=== PATIENT | male | born 1950 | race Caucasian/White ===

== ENCOUNTER → 2017-02-03 | Outpatient (CLI) | payer BC ==
[~2017-02-03] MED LIST: CETI10TA84 PO; CYAN10005 PO; ESZO1TAB16 PO; ESZO1TAB21 PO; HYDR0.1S10 PO; KFL/250 PO; LEVO137T3 PO; LIDO2SOL17 TOP
[2017-02-03 11:48] LABS: BASO % 0.3 %; BASO ABS # 0.02 K/uL (0-0.2); COMPLETE YES; EOS % 1.3 %; HEMATOCRIT 42.9 % (42-52); IG% 0.6 %; LYMPH % 24.3 %; LYMPH ABS # 1.64 K/uL (1.2-3.4); MEAN CELL VOLUME 92.1 fL (80-100); MEAN CORPUSCULAR HGB CONC 32.6 g/dl (32-36); MEAN PLATELET VOLUME 9.1 fL (7.4-10.4); MONO % 10.7 %; NEUT % 62.8 %; PLATELET COUNT 226 K/uL (130-400); RED BLOOD COUNT 4.66 M/uL (4.7-6.1); WHITE BLOOD COUNT 6.74 K/uL (4.8-10.8)
[2017-02-03 11:50] LABS: BLOOD UREA NITROGEN 27 mg/dl (7-18); BUN/CREATININE RATIO 26.9 (10-20); CALCIUM 8.8 mg/dl (8.5-10.1); CARBON DIOXIDE 32 mmol/L (21-32); CHLORIDE 106 mmol/L (98-107); GLUCOSE 98 mg/dl (70-99); MAGNESIUM 2.2 mg/dl (1.8-2.4); POTASSIUM 3.5 mmol/L (3.5-5.1); SODIUM 143 mmol/L (136-145)
[2017-02-03 12:00] LABS: THYROID STIMULATING HORMONE 0.932 uIu/ml (0.300-4.500)
--- NOTE | 2017-02-09 09:45 | CODING QUERY MEDICAL NECESSITY ---
SUPPORTING DIAGNOSIS NEEDED Dr. Medel, A supporting diagnosis is required for the test/procedure performed on this patient in order for us to be reimbursed by the patient's insurance. Please provide a supporting diagnosis for the following test/procedure listed below next to the test name along with your signature. *If there is no additional diagnosis for this patient that would support the following test/procedure please document that below next to the test/procedure. Test(s)/Procedure(s) that require a supporting diagnosis: * ([id number]) VITAMIN D ASSAY DIAGNOSIS: * ([id number]) B12 VITAMIN LEVEL DIAGNOSIS: DATE OF SERVICE: 02/03/17 Provider Signature: Date: Thank you [facility] Information Management Once completed, please kindly fax back to [phone] For questions please call [phone]
== END ==
LOC: C.LAB 14:08
PROVIDERS: ATTEND Internal Medicine
DX: R25.2 Cramp and spasm (principal); E53.8 Deficiency of other specified B group vitamins

== ENCOUNTER → 2017-04-01 | Outpatient (CLI) | payer BC ==
[~2017-04-01] MED LIST changes: -CETI10TA84 PO; -ESZO1TAB16 PO
== END | disposition home or self-care (01) ==
LOC: C.LABSPEC 17:08
PROVIDERS: ATTEND Podiatrist Foot & Ankle Surgery
DX: L60.0 Ingrowing nail (principal)

== ENCOUNTER 2017-04-02 07:48 | Emergency (ER) | payer BC ==
[~2017-04-02] VITALS: Ht 175.3 cm; Wt 61.7 kg
[~2017-04-02 07:48] MED LIST changes: -ESZO1TAB21 PO; -KFL/250 PO
[2017-04-02 08:01] VITALS: TEMP 37; Ht 175.3 cm; Wt 61.7 kg
[2017-04-02] MEDS ORDERED: OPTIRAY 320 IV PRN (08:30)
[2017-04-02] MEDS ORDERED: ESZO1TAB21 PO (08:33)
[2017-04-02] MEDS ORDERED: KFL/250 PO (08:33)
[2017-04-02 09:07] LABS: URINE APPEARANCE CLEAR (CLEAR); URINE BILIRUBIN NEG (NEG); URINE COLOR YELLOW; URINE EPITHELIAL CELL AUTO 0-5 /lpf (0-5); URINE NITRITE NEG (NEG); URINE SPECIFIC GRAVITY 1.018 (1.000-1.030); UROBILINOGEN NEG (NEG); ZZUR CULT IF INDIC CLEAN CATCH NO
[2017-04-02 09:08] LABS: MANUAL MICROSCOPIC REQUIRED? NO; REVIEW REQ? NO
[2017-04-02] MEDS ORDERED: NURSING VERBAL MED ORDER ONE (09:15)
[2017-04-02 09:19] LABS: BASO % 0.2 %; BASO ABS # 0.02 K/uL (0-0.2); COMPLETE YES; EOS % 2.5 %; HEMATOCRIT 38.3 % (42-52); IG% 0.4 %; LYMPH % 15.9 %; LYMPH ABS # 1.28 K/uL (1.2-3.4); MEAN CORPUSCULAR HEMOGLOBIN 29.7 pg (25-34); MEAN CORPUSCULAR HGB CONC 32.6 g/dl (32-36); MEAN PLATELET VOLUME 8.9 fL (7.4-10.4); MONO % 12.2 %; NEUT % 68.8 %; PLATELET COUNT 228 K/uL (130-400); RED BLOOD COUNT 4.21 M/uL (4.7-6.1); WHITE BLOOD COUNT 8.04 K/uL (4.8-10.8)
[2017-04-02 09:36] LABS: BUN/CREATININE RATIO 12.4 (10-20); CALCIUM 8.4 mg/dl (8.5-10.1); CREATININE 0.84 mg/dl (0.60-1.40); POTASSIUM 3.4 mmol/L (3.5-5.1)
--- NOTE | 2017-04-02 09:37 | DIAGNOSTIC IMAGING REPORT ---
SOFT TISSUE NECK TECHNIQUE: AP and lateral soft tissue neck FINDINGS: A rather prominent stent has been placed in the hypopharyngeal region extending to the level of the thoracic inlet. Moderate surrounding soft tissue edematous change. No distention of the hypopharynx. Extensive soft tissue surgical clips are present. IMPRESSION: Nonspecific soft tissue edematous change of the mid to lower soft tissue neck in the general location of a mesh stent. No distention of the hypopharynx. The above report was generated using voice recognition software. It may contain grammatical, syntax or spelling errors. Electronically signed by: Raul Osullivan M.D. 04/02/2017 9:36 AM Dictated Date/Time: 04/02/2017 9:31 AM
--- NOTE | 2017-04-02 10:24 | DIAGNOSTIC IMAGING REPORT ---
CT SCAN OF THE NECK WITH IV CONTRAST CLINICAL HISTORY: Neck swelling. History of esophageal stent. COMPARISON STUDY: CT of the neck dated 09/13/2012. Radiographs of the neck dated 04/02/2017. TECHNIQUE: Following the IV administration of 94 cc of Optiray 320, CT scan of the soft tissues of the neck was performed from the skull base to the upper chest. Images are reviewed in the axial, sagittal, and coronal planes. IV contrast was administered without complication. A dose lowering technique was utilized adhering to the principles of ALARA. CT DOSE: 311.49 mGy.cm FINDINGS: Soft tissues: There are postoperative changes from extensive neck dissection. Numerous surgical clips are identified, and there is diffuse soft tissue thickening throughout the left neck with dermal thickening. This is likely related to radiation change. No obvious mass lesion is identified in the neck. There is marked distortion of the pharyngeal soft tissues. The parapharyngeal fat as well as the retropharyngeal soft tissues are within normal limits. A presumed tracheostomy defect is noted. There is soft tissue induration and thickening around the stoma. A stent is present in the cervical esophagus. This extends from the level of C5 through T1. There is a debris present within the stent, greatest proximally. No organized fluid collection is seen to suggest abscess. Lymphadenopathy: No cervical lymphadenopathy is seen Thyroid: Not identified and presumed surgically absent. Salivary glands: The parotid and submandibular glands are within normal limits. Brain parenchyma: The visualized brain parenchyma at the skull base is normal in appearance. Vascular structures: There is a bovine variant aortic arch. The carotid arteries and jugular veins are patent bilaterally. Skeletal structures: The Skeletal structures are osteopenic. Imaged portions of the calvarium at the skull base appear intact. There is moderate to advanced multilevel cervical spondylosis. No lytic or blastic lesions are seen. Sinuses and mastoids: The visualized paranasal sinuses are clear. The mastoid air cells are well pneumatized. Orbits: The bony orbits are intact as imaged. There is a right ocular lens implant. Upper chest: Emphysematous change is observed. The upper lobe lung parenchyma appears clear noting apical scarring. There are pathologically enlarged lymph nodes in the superior mediastinum. The largest is in the left paratracheal region seen on image #3 and 46 and measures 1.2 cm in short axis. An infusion port catheter is noted on the left. IMPRESSION: 1. There is a stent present in the cervical esophagus seen at the levels of C5 through T1. There is debris present within the proximal aspect of the stent. No prior studies are available for comparison purposes, and follow-up with the patient's physician will be required to assess for adequacy of positioning and the stents expected location. 2. There are extensive postoperative changes from radical neck dissection. There is diffuse soft tissue thickening and induration, greatest in the left neck and around a tracheostomy stoma. These findings are nonspecific and may be treatment related. A superimposed cellulitis would be impossible to exclude. No obvious mass lesion is seen in the neck. Clinical correlation will be required. 3. There is no cervical lymphadenopathy. 4. There are pathologically enlarged lymph nodes is seen in the superior mediastinum. 5. Emphysema. Electronically signed by: Qasim Lee M.D. 04/02/2017 10:22 AM Dictated Date/Time: 04/02/2017 10:10 AM
[2017-04-02] MEDS ORDERED: PIPERACILLIN/TAZOBACTAM 4.5 GM/100ML D5W IV STA (10:27)
[2017-04-02 11:34] VITALS: BP 129/72; PULSE 76; O2SAT 96
--- NOTE | 2017-04-02 15:02 | EMERGENCY ROOM VISIT NOTE ---
History Report prepared by Vishal: Namita Boyd Under the Supervision of: Dr. Moris Julio D.O. First contact with patient: 08:02 Chief Complaint: THROAT PAIN/INJURY Stated Complaint: STENT IN THROAT STARTING TO COVER STOMA History of Present Illness The patient is a 67 year old male who presents to the Emergency Room with complaints of worsening throat edema that started last night. The patient has a stoma on his anterior neck which his states is much more edematous than usual. The patient does not follow with anyone for his stoma. The patient states that he has been unable to breathe secondary to throat edema causing his stoma to close. His adds that he experienced some bleeding from the stoma this morning. 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 He is unsure of what type of cancer he had but he has been cancer free since 2011. The patient's states that the patient had an esophageal stent placed in mid February by Dr. Todd ELY at [facility]. The patient goes to [facility] regularly to have his esophagus dilated so he does not have to have a feeding tube placed. Dr. Brooks tried placing a stent to avoid dilating the patient again until April 21. The patient has not experienced any issues with his 2 previous esophageal stents. The patient thinks that the stent is causing him to have difficulty breathing through his stoma because with previous stents the prosthesis was pushed down but currently it is pushed up. The patient's talked to Dr. Velma ELY this morning around 0630 and he recommended coming into the ED for further evaluation. Source of History: patient, spouse/significant other () Onset: last night Position: throat Quality: other (edema) Timing: worsening Note: difficulty breathing Review of Systems See HPI for pertinent positives & negatives. A total of 10 systems reviewed and were otherwise negative. Past Medical & Surgical Medical Problems: (1) Dysphagia (2) Head and neck cancer (3) HTN (hypertension) (4) MALIGNANT JEFERSON LARYNX NOS (5) Shortness of breath (6) Vocal cord disease Family History Cancer Diabetes mellitus Heart disease Hypertension Social History Smoking Status: Former Smoker Alcohol Use: none Marital Status: Housing Status: lives with family Occupation Status: unemployed Current/Historical Medications Scheduled Cephalexin Monohydrate (Keflex), 250 MG PO QID Cyanocobalamin (Vitamin B-12), 1,000 MCG PO QAM Levothyroxine Sodium (Levothyroxine Sodium), 1 TAB PO QAM Scheduled PRN Eszopiclone (Eszopiclone), 3 MG PO HS PRN for Insomnia Allergies Coded Allergies: BEE STING (Verified Allergy, Severe, shock, 06/09/16) Moxifloxacin (Verified Allergy, Severe, THROAT SWELLED, 06/09/16) Physical Exam Vital Signs Date Time Temp Pulse Resp B/P (MAP) Pulse Ox O2 Delivery O2 Flow Rate FiO2 04/02/17 11:34 76 20 129/72 96 Room Air 04/02/17 10:43 91 18 139/85 98 Room Air 04/02/17 09:14 90 18 145/96 97 Room Air 04/02/17 08:01 37.0 89 22 143/91 97 Room Air 04/02/17 07:55 97 Room Air Physical Exam GENERAL: alert, sitting up in bed, disheveled, chronically ill appearing, well nourished, no acute distress, non-toxic EYE EXAM: normal conjunctiva OROPHARYNX: no exudate, no erythema, lips, buccal mucosa, and tongue normal and mucous membranes are moist NECK: Large fluctuant mass on right anterior midneck encompassing 8-9 cm with 1 cm by 1 cm stoma located just adjacent to the mass on the left, no surrounding erythema or induration, patient is talking in a soft voice that is difficult to understand, no nuchal rigidity, no adenopathy, non-tender LUNGS: Clear to auscultation. Normal chest wall mechanics HEART: no murmurs, S1 normal and S2 normal ABDOMEN: abdomen soft, non-tender, normo-active bowel sounds, no masses, no rebound or guarding. BACK: Back is symmetrical on inspection and there is no deformity, no midline tenderness, no CVA tenderness. SKIN: no rashes and no bruising UPPER EXTREMITIES: upper extremities are grossly normal. LOWER EXTREMITIES: No pitting edema. NEURO EXAM: Normal sensorium, cranial nerves II-XII grossly intact, speech soft through stoma, no gross weakness of arms, no gross weakness of legs. Medical Decision & Procedures ER Provider Diagnostic Interpretation: Radiology results as stated below per my review and the radiologist's interpretation: SOFT TISSUE NECK FINDINGS: A rather prominent stent has been placed in the hypopharyngeal region extending to the level of the thoracic inlet. Moderate surrounding soft tissue edematous change. No distention of the hypopharynx. Extensive soft tissue surgical clips are present. IMPRESSION: Nonspecific soft tissue edematous change of the mid to lower soft tissue neck in the general location of a mesh stent. No distention of the hypopharynx. The above report was generated using voice recognition software. It may contain grammatical, syntax or spelling errors. Electronically signed by: Raul Osullivan M.D. 04/02/2017 9:36 AM Dictated Date/Time: 04/02/2017 9:[address] SCAN OF THE NECK WITH IV CONTRAST FINDINGS: Soft tissues: There are postoperative changes from extensive neck dissection. Numerous surgical clips are identified, and there is diffuse soft tissue thickening throughout the left neck with dermal thickening. This is likely related to radiation change. No obvious mass lesion is identified in the neck. There is marked distortion of the pharyngeal soft tissues. The parapharyngeal fat as well as the retropharyngeal soft tissues are within normal limits. A presumed tracheostomy defect is noted. There is soft tissue induration and thickening around the stoma. A stent is present in the cervical esophagus. This extends from the level of C5 through T1. There is a debris present within the stent, greatest proximally. No organized fluid collection is seen to suggest abscess. Lymphadenopathy: No cervical lymphadenopathy is seen Thyroid: Not identified and presumed surgically absent. Salivary glands: The parotid and submandibular glands are within normal limits. Brain parenchyma: The visualized brain parenchyma at the skull base is normal in appearance. Vascular structures: There is a bovine variant aortic arch. The carotid arteries and jugular veins are patent bilaterally. Skeletal structures: The Skeletal structures are osteopenic. Imaged portions of the calvarium at the skull base appear intact. There is moderate to advanced multilevel cervical spondylosis. No lytic or blastic lesions are seen. Sinuses and mastoids: The visualized paranasal sinuses are clear. The mastoid air cells are well pneumatized. Orbits: The bony orbits are intact as imaged. There is a right ocular lens implant. Upper chest: Emphysematous change is observed. The upper lobe lung parenchyma appears clear noting apical scarring. There are pathologically enlarged lymph nodes in the superior mediastinum. The largest is in the left paratracheal region seen on image #3 and 46 and measures 1.2 cm in short axis. An infusion port catheter is noted on the left. IMPRESSION: 1. There is a stent present in the cervical esophagus seen at the levels of C5 through T1. There is debris present within the proximal aspect of the stent. No prior studies are available for comparison purposes, and follow-up with the patient's physician will be required to assess for adequacy of positioning and the stents expected location. 2. There are extensive postoperative changes from radical neck dissection. There is diffuse soft tissue thickening and induration, greatest in the left neck and around a tracheostomy stoma. These findings are nonspecific and may be treatment related. A superimposed cellulitis would be impossible to exclude. No obvious mass lesion is seen in the neck. Clinical correlation will be required. 3. There is no cervical lymphadenopathy. 4. There are pathologically enlarged lymph nodes is seen in the superior mediastinum. 5. Emphysema. Electronically signed by: Qasim Lee M.D. 04/02/2017 10:22 AM Dictated Date/Time: 04/02/2017 10:10 AM Laboratory Results 04/02/17 09:00 Red Blood Count 4.21, Mean Corpuscular Volume 91.0, Mean Corpuscular Hemoglobin 29.7, Mean Corpuscular Hemoglobin Concent 32.6, Mean Platelet Volume 8.9, Neutrophils (%) (Auto) 68.8, Lymphocytes (%) (Auto) 15.9, Monocytes (%) (Auto) 12.2, Eosinophils (%) (Auto) 2.5, Basophils (%) (Auto) 0.2, Neutrophils # (Auto ) 5.53, Lymphocytes # (Auto) 1.28, Monocytes # (Auto) 0.98, Eosinophils # (Auto ) 0.20, Basophils # (Auto) 0.02 04/02/17 09:00 Test 04/02/17 09:00 White Blood Count 8.04 K/uL (4.8-10.8) Red Blood Count 4.21 M/uL (4.7-6.1) Hemoglobin 12.5 g/dL (14.0-18.0) Hematocrit 38.3 % (42-52) Mean Corpuscular Volume 91.0 fL (80-100) Mean Corpuscular Hemoglobin 29.7 pg (25-34) Mean Corpuscular Hemoglobin Concent 32.6 g/dl (32-36) Platelet Count 228 K/uL (130-400) Mean Platelet Volume 8.9 fL (7.4-10.4) Neutrophils (%) (Auto) 68.8 % Lymphocytes (%) (Auto) 15.9 % Monocytes (%) (Auto) 12.2 % Eosinophils (%) (Auto) 2.5 % Basophils (%) (Auto) 0.2 % Neutrophils # (Auto) 5.53 K/uL (1.4-6.5) Lymphocytes # (Auto) 1.28 K/uL (1.2-3.4) Monocytes # (Auto) 0.98 K/uL (0.11-0.59) Eosinophils # (Auto) 0.20 K/uL (0-0.5) Basophils # (Auto) 0.02 K/uL (0-0.2) RDW Standard Deviation 52.7 fL (36.4-46.3) RDW Coefficient of Variation 15.7 % (11.5-14.5) Immature Granulocyte % (Auto) 0.4 % Immature Granulocyte # (Auto) 0.03 K/uL (0.00-0.02) Urine Color YELLOW Urine Appearance CLEAR (CLEAR) Urine pH 5.0 (4.5-7.5) Urine Specific [place] 1.018 (1.000-1.030) Urine Protein NEG (NEG) Urine Glucose (UA) NEG (NEG) Urine Ketones TRACE (NEG) Urine Occult Blood NEG (NEG) Urine Nitrite NEG (NEG) Urine Bilirubin NEG (NEG) Urine Urobilinogen NEG (NEG) Urine Leukocyte Esterase NEG (NEG) Urine WBC (Auto) 0 /hpf (0-5) Urine RBC (Auto) 0-4 /hpf (0-4) Urine Hyaline Casts (Auto) 0 /lpf (0-5) Urine Epithelial Cells (Auto) 0-5 /lpf (0-5) Urine Bacteria (Auto) NEG (NEG) Anion Gap 5.0 mmol/L (3-11) Est Creatinine Clear Calc Drug Dose 73.5 ml/min Estimated GFR () 104.3 Estimated GFR (Non- 90.0 BUN/Creatinine Ratio 12.4 (10-20) Calcium Level 8.4 mg/dl (8.5-10.1) Total Bilirubin 0.4 mg/dl (0.2-1) Direct Bilirubin 0.1 mg/dl (0-0.2) Aspartate Amino Transf (AST/SGOT) 13 U/L (15-37) Alanine Aminotransferase (ALT/SGPT) 14 U/L (12-78) Alkaline Phosphatase 81 U/L (45-117) Total Protein 6.8 gm/dl (6.4-8.2) Albumin 3.0 gm/dl (3.4-5.0) Lipase 64 U/L (73-393) Laboratory results per my review. Medications Administered Medications (Trade) Dose Ordered Sig/George Route Start Time Stop Time Status Last Admin Dose Admin Miscellaneous Information (Nursing Verbal Med Order) 1 ea ONE ONCE N/A 04/02/17 09:15 04/02/17 09:16 DC 04/02/17 09:15 1 EA Heparin Sodium (Porcine) (Heparin 100 Unit/ml 5ml Flush) 5 ml PRN PRN IV 04/02/17 09:30 04/02/17 13:07 DC 04/02/17 10:11 5 ML Piperacillin Sod/ Tazobactam Sod (Zosyn Iv) 4.5 gm NOW STAT IV 04/02/17 10:27 04/02/17 10:28 DC 04/02/17 10:42 4.5 GM ED Course ED COURSE: Vital signs were reviewed and showed normal. The patients medical record was reviewed The above diagnostic studies were performed and reviewed. ED treatments and interventions as stated above. 0807: The patient was evaluated in room A2. A complete history and physical examination was performed. 0826: I reviewed the patient's case with Dr. Velma ELY. He recommends admitting the patient to medicine and he will evaluate the patient as an inpatient. He suspects that the stent will need to be removed. 0845: I reassessed and updated the patient. 0930: Ordered Heparin Sodium 5 ml IV 1022: I reviewed the patient's CT scan results with Dr. Velma ELY. He recommends transferring the patient secondary to the complexity of the patient' s case. 1027: Ordered Zosyn 4.5 gm IV 1037: I reassessed the patient. I also updated the patient and his on my conversation with Dr. Carreon. 1044: I reviewed the patient's CT scan results with Dr. Lauro DONALD. He does not see anything on the CT scan that is emergent. He agrees with transferring the patient. 1053: Upon reevaluation, the patient is resting comfortably. I discussed my findings with the patient and he understands and agrees with the treatment plan. Based on the patients age, coexisting illnesses, exam and lab findings the decision to treat as an inpatient was made. The patient remained stable while under my care. The patient will be transferred for further management. 1101: I reviewed the patient's case with the GI attending, Internal Medicine attending, and Dr. Drew - Emergency Medicine at [facility]. Dr. Drew accepts the patient as a transfer. The patient will be transferred to [facility] via ambulance for further management. 1151: I reassessed the patient. He is leaving to be transferred to [facility]. Medical Decision Differential diagnoses includes but is not limited to retropharyngeal abscess, peritonsillar abscess, migration of stent, neck abscess, Yeyo's angina, food bolus. Patient is a 59-year-old male who presents the ER with a history of laryngeal cancer status post resection who follows a GI at [facility] and has a stent in his esophagus to help him swallow. He presents tonight because he is having increased trouble swallowing along with shortness of breath. He notes the shortness of breath is from the swelling in his neck which is closing off his stoma. Discussed with GI who discussed the case with [facility]. I reviewed the case with my ENT following GI recommending transfer. I updated family and patient at bedside. I talked with [facility], internal medicine and ER. Patient was accepted to the ER. Labs were unremarkable. CT neck supports occlusion of the stent which I question if secondary to mass/cancer versus food. Patient was transferred to [facility] via ALS to the ER for possible migration of esophageal stent, shortness of breath/encroachment upon stoma and edema within the neck which was treated with Zosyn for possible infectious etiology. Medication Reconcilliation Current Medication List: was personally reviewed by me Blood Pressure Screening Patient's blood pressure: Normal blood pressure Consults Time Called: 08 Consulting Physician: Dr. Velma ELY Returned Call: 08 I reviewed the patient's case with Dr. Velma ELY. He recommends admitting the patient to medicine and he will evaluate the patient as an inpatient. He suspects that the stent will need to be removed. Additional Consults: Time Called: 1021 Consulted Physician: Dr. Lauro DONALD Returned Call: 1044 Additional Comments: I reviewed the patient's CT scan results with Dr. Lauro DONALD. He does not see anything on the CT scan that is emergent. He agrees with transferring the patient. Time Called: 1050 Consulted Physician: Dr. Drew - Emergency Medicine [facility] Returned Call: 1101 Additional Comments: I reviewed the patient's case with the GI attending, Internal Medicine attending , and Dr. Drew - Emergency Medicine at [facility]. Dr. Drew accepts the patient as a transfer. The patient will be transferred to [facility] via ambulance for further management. Impression Primary Impression: Neck mass Additional Impressions: Migration of esophageal stent Shortness of breath Scribe Attestation The scribe's documentation has been prepared under my direction and personally reviewed by me in its entirety. I confirm that the note above accurately reflects all work, treatment, procedures, and medical decision making performed by me. Departure Information Dispostion Transfer Acute Care Facility ([facility]) Referrals [facility] (PCP) Patient Instructions My [facility] Problem Qualifiers Additional Impressions: Migration of esophageal stent Encounter type: initial encounter Qualified Codes: T85.528A - Displacement of other gastrointestinal prosthetic devices, implants and grafts, initial encounter
== END 2017-04-02 11:51 | disposition short-term general hospital (02) ==
LOC: C.EDB 07:49 → C.EDA 11:51
DX: R22.1 Localized swelling, mass and lump, neck (principal); T85.528A Displacement of other gastrointestinal prosthetic devices, implants and grafts, initial encounter; R06.02 Shortness of breath; Y84.8 Other medical procedures as the cause of abnormal reaction of the patient, or of later complication, without mention of misadventure at the time of the procedure; Z85.21 Personal history of malignant neoplasm of larynx; Z87.891 Personal history of nicotine dependence; Z90.02 Acquired absence of larynx; I10 Essential (primary) hypertension; R13.10 Dysphagia, unspecified; Z83.3 Family history of diabetes mellitus; Z82.49 Family history of ischemic heart disease and other diseases of the circulatory system

== ENCOUNTER → 2017-07-24 | Day surgery (SDC) | payer BC ==
[~2017-07-24] VITALS: Ht 175.3 cm; Wt 61.4 kg
[~2017-07-24] MED LIST changes: +ATROPINE SULFATE 0.1 MG/ML 5ML SYR IV PRN; +CETI10TA84 PO; +ESZO1TAB16 PO; +EpHEDrine SULFATE INJ 50 MG/ML AMP IV PRN; -HYDR0.1S10 PO; -LIDO2SOL17 TOP; +LIDOCAINE HCL 2% 2 ML VIAL (20MG/ML) ONE; +MIDAZOLAM HCL 1 MG/ML 2ML VIAL ONE; +ONDANSETRON INJ 2 MG/ML 2 ML VIAL ONE; +PROPOFOL IV EMULSION 10 MG/ML 20 ML VIAL IV ONE; +SODIUM CHLORIDE 0.9% 500ML 500 ML IV ONE
[2017-07-24 12:16] VITALS: Ht 175.3 cm; Wt 61.4 kg
--- NOTE | 2017-07-24 12:37 | Endo History and Physical ---
History & Physical Date of Service: Jul 24, 2017. Chief Complaint: DYSPHAGIA Referring Physician: DR Roland BIGGS History of Present Illness dysphagia Past Medical History Eating Disorders, Arthritis, Reflux, Cancer, Syncopal Episodes, Hypertension, Thyroid Disease, Kidney Disease, Liver Disease Past Surgical History Hx Cardiac Surgery: No Hx Internal Defibrillator: No Hx Pacemaker: No Hx Abdominal Surgery: Yes (INGUINAL HERNIA REPAIR) Hx of Implantable Prosthesis: No Hx Post-Op Nausea and Vomiting: No Hx Cancer Surgery: Yes (LARYNGOTOMY, MULTIPLE SURGERIES AND RECON FOR LARYNX CANCER) Hx Thoracic Surgery: Yes (RT MADELIN, LT/RT SHOULDER ARTHROSCOPY, LT/RT HAND SURGERY, LT KNEE SURGERY) Hx Orthopedic: No Hx Urinary Tract Surgery: No Family History None Social History Smoking Status: Former Smoker Hx Substance Use: No Hx Alcohol Use: Yes (OCCASIONAL) Allergies Coded Allergies: BEE STING (Verified Allergy, Severe, shock, 07/24/17) Moxifloxacin (Verified Allergy, Severe, THROAT SWELLED, 07/24/17) Current Medications Reported Home Medications Medications Dose Route/Sig Max Daily Dose Days Date Category Zyrtec (Cetirizine HCl) 10 Mg Tab 10 Mg PO DAILY PRN 07/14/17 Reported Lunesta (Eszopiclone) 3 Mg Tab 3 Mg PO HS PRN 07/14/17 Reported Levothyroxine Sodium 137 Mcg Tab 1 Tab PO QAM 10/01/15 Reported Vitamin B-12 (Cyanocobalamin) 1,000 Mcg Tab 1,000 Mcg PO QAM 01/29/13 Reported Vital Signs Weight (Kilograms): 61.36 Height (Feet): 5 Height (Inches): 9 Date Time Temp Pulse Resp B/P (MAP) Pulse Ox O2 Delivery O2 Flow Rate FiO2 07/24/17 12:21 36.5 82 20 181/95 (123) 96 Room Air Physical Exam General Appearance: WD/WN, no apparent distress Respiratory/Chest: Auscultation: breath sounds normal Cardiovascular: Heart Auscultation: RRR Abdomen: Bowel Sounds: normal Inspection & Palpation: soft, non-distended, no tenderness, guarding & rebound Assessment and Plan EGD/dilation with Savary griselda
--- NOTE | 2017-07-24 13:55 | Discharge Instructions ---
Endoscopy Patient Instructions Date / Procedure(s) Performed Jul 24, 2017. EGD Allergy Information Coded Allergies: BEE STING (Verified Allergy, Severe, shock, 07/24/17) Moxifloxacin (Verified Allergy, Severe, THROAT SWELLED, 07/24/17) Discharge Date / Findings Jul 24, 2017. stricture dilated to 45 Fr Savary Medication Instructions Restart Stopped Medication(s): Reported Home Medications Medications Dose Route/Sig Max Daily Dose Days Date Category Zyrtec (Cetirizine HCl) 10 Mg Tab 10 Mg PO DAILY PRN 07/14/17 Reported Lunesta (Eszopiclone) 3 Mg Tab 3 Mg PO HS PRN 07/14/17 Reported Levothyroxine Sodium 137 Mcg Tab 1 Tab PO QAM 10/01/15 Reported Vitamin B-12 (Cyanocobalamin) 1,000 Mcg Tab 1,000 Mcg PO QAM 01/29/13 Reported Pt had larger wood tick removed by spouse a few days ago on rt post thorax. Area with ~ 1/4" eschar. surrounding erythema ; non tender, no fevers. pt w/o allergies. Will plan for Augmentin 500/125 q 8 hours x 10 days for possible cellulitis - finish meds If alexander not appear better over next couple days, pt to see PCP/dermatology. Reported Home Medications Medications Dose Route/Sig Max Daily Dose Days Date Category Zyrtec (Cetirizine HCl) 10 Mg Tab 10 Mg PO DAILY PRN 07/14/17 Reported Lunesta (Eszopiclone) 3 Mg Tab 3 Mg PO HS PRN 07/14/17 Reported Levothyroxine Sodium 137 Mcg Tab 1 Tab PO QAM 10/01/15 Reported Vitamin B-12 (Cyanocobalamin) 1,000 Mcg Tab 1,000 Mcg PO QAM 01/29/13 Reported Pt had larger wood tick removed by spouse a few days ago on rt post thorax. Area with ~ 1/4" eschar. surrounding erythema ; non tender, no fevers. pt w/o allergies. Will plan for Augmentin 500/125 q 8 hours x 10 days for possible cellulitis - finish meds If alexander not appear better over next couple days, pt to see PCP/dermatology. Provider Instructions Activity Restrictions - No exercising or heavy lifting for 24 hours. - Do not drink alcohol the day of the procedure. - Do not drive a car or operate machinery until the day after the procedure. - Do not make any important decisions or sign important papers in 24 hours after the procedure. Following Day: - Return to full activity which may include returning to work/school. Diet Start your diet with liquids and light foods (jello, soup, juice, toast). Then eat your usual diet if not nauseated. Treatment For Common After Affects For mild abdominal pain, bloating, or excessive gas: - Rest - Eat lightly - Lie on right side Follow-Up Information Follow-up with DR Roland BIGGS as scheduled Anesthesia Information What You Should Know You have had a procedure that required some medicine to reduce anxiety and discomfort. This treatment is called moderate sedation. After receiving the treatment, you may be sleepy, but you will be able to breathe on your own. The effects of the treatment may last for several hours. Follow these instructions along with Activity/Diet recommendations noted above: * Do NOT do anything where dizziness or clumsiness would be dangerous. * Rest quietly at home today, then you can be up and about tomorrow. * Have a responsible person stay with you the rest of today. * You may have had an I.V. today. If so, you may take the dressing off later today. Recommendations Call your doctor if: * Trouble breathing * Continuous vomiting for more than 24 hours * Temperature above 101 degrees * Severe abdominal pain or bloating * Pain not relieved by pain medicine ordered * There is increased drainage or redness from any incision * A large amount of rectal bleeding greater than 2-3 tablespoons. (If you had a polyp/s removed or have hemorrhoids, a small amount of blood - from the rectum is to be expected.) * You have any unanswered questions or concerns. IN THE EVENT OF A SERIOUS EMERGENCY, GO TO THE NEAREST EMERGENCY ROOM Your discharge instructions were prepared by provider Lavelle Carreon. Patient Instructions Signature Page Wilbert Peralta Patient (or Guardian) Signature/Date: I have read and understand the instructions given to me by my caregivers. Caregiver/RN/Doctor Signature/Date: The above-named patient and/or guardian has received patient instructions on this date. + Original Patient Signature Page (only) stays with chart. Please make copy for patient.
--- NOTE | 2017-07-24 14:06 | GI REPORT ---
Procedure Date: 07/24/2017 12:46 PM Procedure: Upper GI endoscopy Indications: Esophageal dysphagia Medicines: Propofol per Anesthesia Complications: No immediate complications. Estimated blood loss: Minimal. Estimated Blood Loss: Estimated blood loss was minimal. Procedure: Pre-Anesthesia Assessment: - Prior to the procedure, a History and Physical was performed, and patient medications and allergies were reviewed. The patient's tolerance of previous anesthesia was also reviewed. The risks and benefits of the procedure and the sedation options and risks were discussed with the patient. All questions were answered, and informed consent was obtained. Prior Anticoagulants: The patient has taken no previous anticoagulant or antiplatelet agents. ASA Grade Assessment: III - A patient with severe systemic disease. After reviewing the risks and benefits, the patient was deemed in satisfactory condition to undergo the procedure. After obtaining informed consent, the endoscope was passed under direct vision. Throughout the procedure, the patient's blood pressure, pulse, and oxygen saturations were monitored continuously. The scope was introduced through the mouth, and advanced to the second part of duodenum. The Endoscope was introduced through the mouth, and advanced to the second part of duodenum. The On-site loaner was introduced through the mouth, and advanced to the second part of duodenum. The upper GI endoscopy was performed with moderate difficulty due to abnormal anatomy. The patient tolerated the procedure well. Findings: One severe benign-appearing, intrinsic stenosis was found 15 cm from the incisors. This measured 6 mm (inner diameter) x 1 cm (in length) and was traversed after dilation. A guidewire was placed and the scope was withdrawn. Dilation was performed with a Savary dilator with mild resistance at 33 Fr and 36 Fr, moderate resistance at 39 Fr and 42 Fr and severe resistance at 45 Fr. Estimated blood loss was minimal. One mild benign-appearing, intrinsic stenosis was found 20 cm from the incisors. This measured 1.2 cm (inner diameter) x less than one cm (in length) and was traversed. The Z-line was regular and was found 40 cm from the incisors. The entire examined stomach was normal. The examined duodenum was normal. The cardia and gastric fundus were normal on retroflexion. Valved tube for voice at ~ 17 cm were found in the upper third of the esophagus. Impression: - Benign-appearing esophageal stenosis. Dilated. - Benign-appearing esophageal stenosis. - Z-line regular, 40 cm from the incisors. - Normal stomach. - Normal examined duodenum. - Valved tube for voice at ~ 17 cm were found in the esophagus. - No specimens collected. Recommendation: - Discharge patient to home (ambulatory). - Advance diet as tolerated and mechanical soft diet. - Continue present medications. - Repeat the upper endoscopy in 2 weeks for retreatment. - Return to referring physician as previously scheduled. - Pt had larger wood tick removed by spouse a few days ago on rt post thorax. Area with ~ 1/4" eschar. surrounding erythema ; non tender, no fevers. pt w/o allergies. Will plan for Augmentin 500/125 q 8 hours x 10 days for possible cellulitis - finish meds If alexander not appear better over next couple days, pt to see PCP/dermatology. MD Lavelle Rouse MD 07/24/2017 2:06:01 PM This report has been signed electronically. Note Initiated On: 07/24/2017 12:46 PM I attest to the content of the Intraoperative Record and orders documented therein, exceptions below
--- NOTE | 2017-07-24 14:11 | Anesthesiology Progress Note ---
Anesthesia Post Op Note Date & Time Jul 24, 2017 at 14:11 Vital Signs Pain Intensity: 0 Vital Signs Past 12 Hours Date Time Temp Pulse Resp B/P (MAP) Pulse Ox O2 Delivery O2 Flow Rate FiO2 07/24/17 12:21 36.5 82 20 181/95 (123) 96 Room Air Notes Mental Status: alert / awake / arousable, participated in evaluation Pt Amnestic to Procedure: Yes Nausea / Vomiting: adequately controlled Pain: adequately controlled Airway Patency, RR, SpO2: stable & adequate BP & HR: stable & adequate Hydration State: stable & adequate Anesthetic Complications: no major complications apparent
[2017-07-24 14:30] VITALS: BP 141/93; PULSE 65; O2SAT 100
== END | disposition home or self-care (01) ==
LOC: C.GI 11:52
PROVIDERS: ATTEND Internal Medicine Gastroenterology
DX: K22.2 Esophageal obstruction (principal); K21.9 Gastro-esophageal reflux disease without esophagitis; I10 Essential (primary) hypertension; E07.9 Disorder of thyroid, unspecified; F50.9 Eating disorder, unspecified; N28.9 Disorder of kidney and ureter, unspecified; K76.9 Liver disease, unspecified; M19.90 Unspecified osteoarthritis, unspecified site; Z87.891 Personal history of nicotine dependence; Z79.899 Other long term (current) drug therapy

== ENCOUNTER → 2017-08-06 | Day surgery (SDC) | payer BC ==
[~2017-08-06] VITALS: Ht 175.3 cm; Wt 61.4 kg
[~2017-08-06] MED LIST changes: -ATROPINE SULFATE 0.1 MG/ML 5ML SYR IV PRN; +ERYTHROMYCIN OP OINT 5 MG/GM 3.5 GM TUBE OP SCH; -EpHEDrine SULFATE INJ 50 MG/ML AMP IV PRN; -ONDANSETRON INJ 2 MG/ML 2 ML VIAL ONE
[2017-08-06 13:55] VITALS: Ht 175.3 cm; Wt 61.4 kg
--- NOTE | 2017-08-06 14:16 | Endo History and Physical ---
History & Physical Date of Service: Aug 06, 2017. Chief Complaint: dysphagia Referring Physician: Dr. Sean Day History of Present Illness dysphagia Past Medical History Eating Disorders, Arthritis, Reflux, Cancer, Syncopal Episodes, Hypertension, Thyroid Disease, Kidney Disease, Liver Disease Past Surgical History Hx Cardiac Surgery: No Hx Internal Defibrillator: No Hx Pacemaker: No Hx Abdominal Surgery: Yes (INGUINAL HERNIA REPAIR) Hx of Implantable Prosthesis: No Hx Post-Op Nausea and Vomiting: No Hx Cancer Surgery: Yes (LARYNGOTOMY, MULTIPLE SURGERIES AND RECON FOR LARYNX CANCER) Hx Thoracic Surgery: Yes (RT MADELIN, LT/RT SHOULDER ARTHROSCOPY, LT/RT HAND SURGERY, LT KNEE SURGERY) Hx Orthopedic: No Hx Urinary Tract Surgery: No Family History None Social History Smoking Status: Former Smoker Hx Substance Use: No Hx Alcohol Use: Yes (OCCASIONAL) Allergies Coded Allergies: BEE STING (Verified Allergy, Severe, shock, 08/06/17) Moxifloxacin (Verified Allergy, Severe, THROAT SWELLED, 08/06/17) Current Medications Reported Home Medications Medications Dose Route/Sig Max Daily Dose Days Date Category Zyrtec (Cetirizine HCl) 10 Mg Tab 10 Mg PO DAILY PRN 07/14/17 Reported Lunesta (Eszopiclone) 3 Mg Tab 3 Mg PO HS PRN 07/14/17 Reported Levothyroxine Sodium 137 Mcg Tab 1 Tab PO QAM 10/01/15 Reported Vitamin B-12 (Cyanocobalamin) 1,000 Mcg Tab 1,000 Mcg PO QAM 01/29/13 Reported Vital Signs Weight (Kilograms): 61.36 Height (Feet): 5 Height (Inches): 9 Physical Exam General Appearance: WD/WN, no apparent distress Respiratory/Chest: Auscultation: breath sounds normal Cardiovascular: Heart Auscultation: RRR Abdomen: Bowel Sounds: normal Inspection & Palpation: soft, non-distended, no tenderness, guarding & rebound Assessment and Plan EGD/dilation
--- NOTE | 2017-08-06 15:26 | Discharge Instructions ---
Endoscopy Patient Instructions Date / Procedure(s) Performed Aug 06, 2017. EGD Allergy Information Coded Allergies: BEE STING (Verified Allergy, Severe, shock, 08/06/17) Moxifloxacin (Verified Allergy, Severe, THROAT SWELLED, 08/06/17) Discharge Date / Findings Aug 06, 2017. eso stricture with dilation to 42 Fr Medication Instructions Restart Stopped Medication(s): Reported Home Medications Medications Dose Route/Sig Max Daily Dose Days Date Category Zyrtec (Cetirizine HCl) 10 Mg Tab 10 Mg PO DAILY PRN 07/14/17 Reported Lunesta (Eszopiclone) 3 Mg Tab 3 Mg PO HS PRN 07/14/17 Reported Levothyroxine Sodium 137 Mcg Tab 1 Tab PO QAM 10/01/15 Reported Vitamin B-12 (Cyanocobalamin) 1,000 Mcg Tab 1,000 Mcg PO QAM 01/29/13 Reported Reported Home Medications Medications Dose Route/Sig Max Daily Dose Days Date Category Zyrtec (Cetirizine HCl) 10 Mg Tab 10 Mg PO DAILY PRN 07/14/17 Reported Lunesta (Eszopiclone) 3 Mg Tab 3 Mg PO HS PRN 07/14/17 Reported Levothyroxine Sodium 137 Mcg Tab 1 Tab PO QAM 10/01/15 Reported Vitamin B-12 (Cyanocobalamin) 1,000 Mcg Tab 1,000 Mcg PO QAM 01/29/13 Reported Provider Instructions Activity Restrictions - No exercising or heavy lifting for 24 hours. - Do not drink alcohol the day of the procedure. - Do not drive a car or operate machinery until the day after the procedure. - Do not make any important decisions or sign important papers in 24 hours after the procedure. Following Day: - Return to full activity which may include returning to work/school. Diet Start your diet with liquids and light foods (jello, soup, juice, toast). Then eat your usual diet if not nauseated. Treatment For Common After Affects For mild abdominal pain, bloating, or excessive gas: - Rest - Eat lightly - Lie on right side Follow-Up Information Follow-up with Dr. Sean Day as scheduled Anesthesia Information What You Should Know You have had a procedure that required some medicine to reduce anxiety and discomfort. This treatment is called moderate sedation. After receiving the treatment, you may be sleepy, but you will be able to breathe on your own. The effects of the treatment may last for several hours. Follow these instructions along with Activity/Diet recommendations noted above: * Do NOT do anything where dizziness or clumsiness would be dangerous. * Rest quietly at home today, then you can be up and about tomorrow. * Have a responsible person stay with you the rest of today. * You may have had an I.V. today. If so, you may take the dressing off later today. Recommendations Call your doctor if: * Trouble breathing * Continuous vomiting for more than 24 hours * Temperature above 101 degrees * Severe abdominal pain or bloating * Pain not relieved by pain medicine ordered * There is increased drainage or redness from any incision * A large amount of rectal bleeding greater than 2-3 tablespoons. (If you had a polyp/s removed or have hemorrhoids, a small amount of blood - from the rectum is to be expected.) * You have any unanswered questions or concerns. IN THE EVENT OF A SERIOUS EMERGENCY, GO TO THE NEAREST EMERGENCY ROOM Your discharge instructions were prepared by provider Lavelle Carreon. Patient Instructions Signature Page Wilbert Peralta Patient (or Guardian) Signature/Date: I have read and understand the instructions given to me by my caregivers. Caregiver/RN/Doctor Signature/Date: The above-named patient and/or guardian has received patient instructions on this date. + Original Patient Signature Page (only) stays with chart. Please make copy for patient.
--- NOTE | 2017-08-06 15:32 | GI REPORT ---
Procedure Date: 08/06/2017 2:38 PM Procedure: Upper GI endoscopy Indications: Esophageal dysphagia Medicines: Propofol per Anesthesia Complications: No immediate complications. Estimated blood loss: Minimal. Estimated Blood Loss: Estimated blood loss: none. Procedure: Pre-Anesthesia Assessment: - Prior to the procedure, a History and Physical was performed, and patient medications and allergies were reviewed. The patient's tolerance of previous anesthesia was also reviewed. The risks and benefits of the procedure and the sedation options and risks were discussed with the patient. All questions were answered, and informed consent was obtained. Prior Anticoagulants: The patient has taken no previous anticoagulant or antiplatelet agents. ASA Grade Assessment: III - A patient with severe systemic disease. After reviewing the risks and benefits, the patient was deemed in satisfactory condition to undergo the procedure. After obtaining informed consent, the endoscope was passed under direct vision. Throughout the procedure, the patient's blood pressure, pulse, and oxygen saturations were monitored continuously. The scope was introduced through the mouth, and advanced to the second part of duodenum. The upper GI endoscopy was accomplished without difficulty. The patient tolerated the procedure well. Findings: One severe benign-appearing, intrinsic stenosis was found. This measured 6 mm (inner diameter) x 1 cm (in length) and was traversed after dilation. A guidewire was placed and the scope was withdrawn. Dilation was performed with a Savary dilator with mild resistance at 36 Fr and 39 Fr and moderate resistance at 42 Fr. Estimated blood loss was minimal. The exam of the esophagus was otherwise normal. The entire examined stomach was normal. The examined duodenum was normal. The cardia and gastric fundus were normal on retroflexion. Impression: - Benign-appearing esophageal stenosis. Dilated. - Normal stomach. - Normal examined duodenum. - No specimens collected. Recommendation: - Discharge patient to home (ambulatory). - Advance diet as tolerated. - Repeat the upper endoscopy in 3 weeks for retreatment. - Return to referring physician as previously scheduled. MD Lavelle Rouse MD 08/06/2017 3:31:57 PM This report has been signed electronically. Note Initiated On: 08/06/2017 2:38 PM I attest to the content of the Intraoperative Record and orders documented therein, exceptions below
--- NOTE | 2017-08-06 15:49 | Anesthesiology Progress Note ---
Anesthesia Post Op Note Date & Time Aug 06, 2017 at 15:49 Vital Signs Vital Signs Past 12 Hours Date Time Temp Pulse Resp B/P (MAP) Pulse Ox O2 Delivery O2 Flow Rate FiO2 08/06/17 15:45 77 16 144/73 (96) 100 Room Air 08/06/17 15:30 72 12 125/67 (86) 100 Room Air 08/06/17 14:18 36.5 76 18 160/82 (108) 98 Room Air Notes Mental Status: alert / awake / arousable, participated in evaluation Pt Amnestic to Procedure: Yes Nausea / Vomiting: adequately controlled Pain: adequately controlled Airway Patency, RR, SpO2: stable & adequate BP & HR: stable & adequate Hydration State: stable & adequate Anesthetic Complications: no major complications apparent
[2017-08-06 16:04] VITALS: BP 142/83; PULSE 74; O2SAT 97
== END | disposition home or self-care (01) ==
LOC: C.GI 13:07
PROVIDERS: ATTEND Internal Medicine Gastroenterology
DX: K22.2 Esophageal obstruction (principal); Z85.21 Personal history of malignant neoplasm of larynx; K21.9 Gastro-esophageal reflux disease without esophagitis; E07.9 Disorder of thyroid, unspecified; I10 Essential (primary) hypertension; Z87.891 Personal history of nicotine dependence; Z79.899 Other long term (current) drug therapy; Z91.030 Bee allergy status; Z88.8 Allergy status to other drugs, medicaments and biological substances

== ENCOUNTER → 2017-08-28 | Day surgery (SDC) | payer BC ==
[~2017-08-28] VITALS: Ht 175.3 cm; Wt 61.4 kg
[~2017-08-28] MED LIST changes: +AMOX-CLAV; -ERYTHROMYCIN OP OINT 5 MG/GM 3.5 GM TUBE OP SCH; +LEVO150T9 PO; +LISI-461 PO; +ONDANSETRON INJ 2 MG/ML 2 ML VIAL ONE; +OYST500T47 PO
[2017-08-28 11:01] VITALS: Ht 175.3 cm; Wt 61.4 kg
--- NOTE | 2017-08-28 12:01 | Endo History and Physical ---
History & Physical Date of Service: Aug 28, 2017. Chief Complaint: DYSPHAGIA Referring Physician: DR SALINA BIGGS, DR DUFFY History of Present Illness dysphagia Past Medical History Eating Disorders, Arthritis, Reflux, Cancer, Syncopal Episodes, Hypertension, Thyroid Disease, Kidney Disease, Liver Disease Past Surgical History Hx Cardiac Surgery: No Hx Internal Defibrillator: No Hx Pacemaker: No Hx Abdominal Surgery: Yes (INGUINAL HERNIA REPAIR) Hx of Implantable Prosthesis: No Hx Post-Op Nausea and Vomiting: No Hx Cancer Surgery: Yes (LARYNGOTOMY, MULTIPLE SURGERIES AND RECON FOR LARYNX CANCER) Hx Thoracic Surgery: Yes (RT MADELIN, LT/RT SHOULDER ARTHROSCOPY, LT/RT HAND SURGERY, LT KNEE SURGERY) Hx Orthopedic: No Hx Urinary Tract Surgery: No Family History None Social History Smoking Status: Former Smoker Hx Substance Use: No Hx Alcohol Use: Yes (OCCASIONAL) Allergies Coded Allergies: BEE STING (Verified Allergy, Severe, shock, 08/17/17) Moxifloxacin (Verified Allergy, Severe, THROAT SWELLED, 08/17/17) Current Medications Reported Home Medications Medications Dose Route/Sig Max Daily Dose Days Date Category Zyrtec (Cetirizine HCl) 10 Mg Tab 10 Mg PO DAILY PRN 07/14/17 Reported Lunesta (Eszopiclone) 3 Mg Tab 3 Mg PO HS PRN 07/14/17 Reported Levothyroxine Sodium 137 Mcg Tab 1 Tab PO QAM 10/01/15 Reported Vitamin B-12 (Cyanocobalamin) 1,000 Mcg Tab 1,000 Mcg PO QAM 01/29/13 Reported Vital Signs Weight (Kilograms): 61.36 Height (Feet): 5 Height (Inches): 9 Date Time Temp Pulse Resp B/P (MAP) Pulse Ox O2 Delivery O2 Flow Rate FiO2 08/28/17 11:16 36.9 87 16 139/88 (105) 99 Room Air Physical Exam General Appearance: WD/WN, no apparent distress Respiratory/Chest: Auscultation: breath sounds normal Cardiovascular: Heart Auscultation: RRR Abdomen: Bowel Sounds: normal Inspection & Palpation: soft, non-distended, no tenderness, guarding & rebound Assessment and Plan EGD/dilation
--- NOTE | 2017-08-28 12:55 | Discharge Instructions ---
Endoscopy Patient Instructions Date / Procedure(s) Performed Aug 28, 2017. EGD Allergy Information Coded Allergies: BEE STING (Verified Allergy, Severe, shock, 08/17/17) Moxifloxacin (Verified Allergy, Severe, THROAT SWELLED, 08/17/17) Discharge Date / Findings Aug 28, 2017. stricture/dilated Medication Instructions Restart Stopped Medication(s): Reported Home Medications Medications Dose Route/Sig Max Daily Dose Days Date Category Zyrtec (Cetirizine HCl) 10 Mg Tab 10 Mg PO DAILY PRN 07/14/17 Reported Lunesta (Eszopiclone) 3 Mg Tab 3 Mg PO HS PRN 07/14/17 Reported Levothyroxine Sodium 137 Mcg Tab 1 Tab PO QAM 10/01/15 Reported Vitamin B-12 (Cyanocobalamin) 1,000 Mcg Tab 1,000 Mcg PO QAM 01/29/13 Reported Reported Home Medications Medications Dose Route/Sig Max Daily Dose Days Date Category Zyrtec (Cetirizine HCl) 10 Mg Tab 10 Mg PO DAILY PRN 07/14/17 Reported Lunesta (Eszopiclone) 3 Mg Tab 3 Mg PO HS PRN 07/14/17 Reported Levothyroxine Sodium 137 Mcg Tab 1 Tab PO QAM 10/01/15 Reported Vitamin B-12 (Cyanocobalamin) 1,000 Mcg Tab 1,000 Mcg PO QAM 01/29/13 Reported Provider Instructions Activity Restrictions - No exercising or heavy lifting for 24 hours. - Do not drink alcohol the day of the procedure. - Do not drive a car or operate machinery until the day after the procedure. - Do not make any important decisions or sign important papers in 24 hours after the procedure. Following Day: - Return to full activity which may include returning to work/school. Diet Start your diet with liquids and light foods (jello, soup, juice, toast). Then eat your usual diet if not nauseated. Treatment For Common After Affects For mild abdominal pain, bloating, or excessive gas: - Rest - Eat lightly - Lie on right side Follow-Up Information Follow-up with DR SALINA BIGGS, DR DUFFY as scheduled Anesthesia Information What You Should Know You have had a procedure that required some medicine to reduce anxiety and discomfort. This treatment is called moderate sedation. After receiving the treatment, you may be sleepy, but you will be able to breathe on your own. The effects of the treatment may last for several hours. Follow these instructions along with Activity/Diet recommendations noted above: * Do NOT do anything where dizziness or clumsiness would be dangerous. * Rest quietly at home today, then you can be up and about tomorrow. * Have a responsible person stay with you the rest of today. * You may have had an I.V. today. If so, you may take the dressing off later today. Recommendations Call your doctor if: * Trouble breathing * Continuous vomiting for more than 24 hours * Temperature above 101 degrees * Severe abdominal pain or bloating * Pain not relieved by pain medicine ordered * There is increased drainage or redness from any incision * A large amount of rectal bleeding greater than 2-3 tablespoons. (If you had a polyp/s removed or have hemorrhoids, a small amount of blood - from the rectum is to be expected.) * You have any unanswered questions or concerns. IN THE EVENT OF A SERIOUS EMERGENCY, GO TO THE NEAREST EMERGENCY ROOM Your discharge instructions were prepared by provider Lavelle Carreon. Patient Instructions Signature Page Wilbert Peralta Patient (or Guardian) Signature/Date: I have read and understand the instructions given to me by my caregivers. Caregiver/RN/Doctor Signature/Date: The above-named patient and/or guardian has received patient instructions on this date. + Original Patient Signature Page (only) stays with chart. Please make copy for patient.
--- NOTE | 2017-08-28 13:07 | GI REPORT ---
Procedure Date: 08/28/2017 12:03 PM Procedure: Upper GI endoscopy Indications: Dysphagia Medicines: Propofol per Anesthesia Complications: No immediate complications. Estimated blood loss: Minimal. Estimated Blood Loss: Estimated blood loss was minimal. Procedure: Pre-Anesthesia Assessment: - Prior to the procedure, a History and Physical was performed, and patient medications and allergies were reviewed. The patient's tolerance of previous anesthesia was also reviewed. The risks and benefits of the procedure and the sedation options and risks were discussed with the patient. All questions were answered, and informed consent was obtained. Prior Anticoagulants: The patient has taken no previous anticoagulant or antiplatelet agents. ASA Grade Assessment: III - A patient with severe systemic disease. After reviewing the risks and benefits, the patient was deemed in satisfactory condition to undergo the procedure. After obtaining informed consent, the endoscope was passed under direct vision. Throughout the procedure, the patient's blood pressure, pulse, and oxygen saturations were monitored continuously. The Scope was introduced through the mouth, and advanced to the second part of duodenum. The upper GI endoscopy was accomplished without difficulty. The patient tolerated the procedure well. Findings: One severe benign-appearing, intrinsic stenosis was found in the upper third of the esophagus. This measured 5 mm (inner diameter) x 2 cm (in length) and was traversed after dilation. A guidewire was placed and the scope was withdrawn. Dilation was performed with a Savary dilator with mild resistance at 30 Fr, 33 Fr and 36 Fr and moderate resistance at 39 Fr and 42 Fr. The exam of the esophagus was otherwise normal. The entire examined stomach was normal. The duodenal bulb and 2nd part of the duodenum were normal. Impression: - Benign-appearing esophageal stenosis. Dilated. - Normal stomach. - Normal duodenal bulb and 2nd part of the duodenum. - No specimens collected. Recommendation: - Discharge patient to home (ambulatory). - Advance diet as tolerated. - Repeat the upper endoscopy in 2 weeks for retreatment. - Return to referring physician as previously scheduled. MD Lavelle Rouse MD 08/28/2017 1:06:23 PM This report has been signed electronically. Note Initiated On: 08/28/2017 12:03 PM I attest to the content of the Intraoperative Record and orders documented therein, exceptions below
[2017-08-28 13:32] VITALS: BP 115/66; PULSE 80; O2SAT 97
--- NOTE | 2017-08-28 14:35 | Anesthesiology Progress Note ---
Anesthesia Post Op Note Date & Time Aug 28, 2017 at 14:35 Vital Signs Pain Intensity: 0 Vital Signs Past 12 Hours Date Time Temp Pulse Resp B/P (MAP) Pulse Ox O2 Delivery O2 Flow Rate FiO2 08/28/17 13:32 80 18 115/66 (82) 97 Room Air 08/28/17 13:17 78 16 103/63 (76) 97 Room Air 0 08/28/17 13:13 64 16 77/47 (57) 98 Trach Collar 0 08/28/17 13:02 63 16 113/66 (82) 100 Trach Collar 4 08/28/17 11:16 36.9 87 16 139/88 (105) 99 Room Air Notes Mental Status: alert / awake / arousable, participated in evaluation Pt Amnestic to Procedure: Yes Nausea / Vomiting: adequately controlled Pain: adequately controlled Airway Patency, RR, SpO2: stable & adequate BP & HR: stable & adequate Hydration State: stable & adequate Anesthetic Complications: no major complications apparent
== END | disposition home or self-care (01) ==
LOC: C.GI 10:43
PROVIDERS: ATTEND Internal Medicine Gastroenterology
DX: K22.2 Esophageal obstruction (principal); R13.10 Dysphagia, unspecified; M19.90 Unspecified osteoarthritis, unspecified site; K21.9 Gastro-esophageal reflux disease without esophagitis; I10 Essential (primary) hypertension; Z96.641 Presence of right artificial hip joint; Z87.891 Personal history of nicotine dependence; E03.9 Hypothyroidism, unspecified; Z85.21 Personal history of malignant neoplasm of larynx; Z98.41 Cataract extraction status, right eye; Z98.42 Cataract extraction status, left eye

== ENCOUNTER → 2017-09-14 | Day surgery (SDC) | payer BC ==
[2017-09-11 07:47] VITALS: Ht 175.3 cm; Wt 61.4 kg
[~2017-09-14] VITALS: Ht 175.3 cm; Wt 61.4 kg
[~2017-09-14] MED LIST changes: -AMOX-CLAV; -LEVO150T9 PO; -LISI-461 PO; -ONDANSETRON INJ 2 MG/ML 2 ML VIAL ONE; -OYST500T47 PO
--- NOTE | 2017-09-14 12:35 | Endo History and Physical ---
History & Physical Date of Service: Sep 14, 2017. Chief Complaint: DYSPHAGIA Referring Physician: DR Roland BIGGS, DR DUFFY History of Present Illness dysphagia Past Medical History Eating Disorders, Arthritis, Reflux, Cancer, Syncopal Episodes, Hypertension, Thyroid Disease, Kidney Disease, Liver Disease Past Surgical History Hx Cardiac Surgery: No Hx Internal Defibrillator: No Hx Pacemaker: No Hx Abdominal Surgery: Yes (INGUINAL HERNIA REPAIR) Hx of Implantable Prosthesis: No Hx Post-Op Nausea and Vomiting: No Hx Cancer Surgery: Yes (LARYNGOTOMY, MULTIPLE SURGERIES AND RECON FOR LARYNX CANCER) Hx Thoracic Surgery: Yes (RT MADELIN, LT/RT SHOULDER ARTHROSCOPY, LT/RT HAND SURGERY, LT KNEE SURGERY) Hx Orthopedic: No Hx Urinary Tract Surgery: No Family History None Social History Smoking Status: Former Smoker Hx Substance Use: No Hx Alcohol Use: Yes (OCCASIONAL) Allergies Coded Allergies: BEE STING (Verified Allergy, Severe, shock, 09/14/17) Moxifloxacin (Verified Allergy, Severe, THROAT SWELLED, 09/14/17) Current Medications Reported Home Medications Medications Dose Route/Sig Max Daily Dose Days Date Category Zyrtec (Cetirizine HCl) 10 Mg Tab 10 Mg PO DAILY PRN 07/14/17 Reported Lunesta (Eszopiclone) 3 Mg Tab 3 Mg PO HS PRN 07/14/17 Reported Levothyroxine Sodium 137 Mcg Tab 1 Tab PO QAM 10/01/15 Reported Vitamin B-12 (Cyanocobalamin) 1,000 Mcg Tab 1,000 Mcg PO QAM 01/29/13 Reported Vital Signs Weight (Kilograms): 61.36 Height (Feet): 5 Height (Inches): 9 Date Time Temp Pulse Resp B/P (MAP) Pulse Ox O2 Delivery O2 Flow Rate FiO2 09/14/17 12:08 36.6 79 18 168/87 (114) 98 Room Air 170/96 (120) Physical Exam General Appearance: WD/WN, no apparent distress Respiratory/Chest: Auscultation: breath sounds normal Cardiovascular: Heart Auscultation: RRR Abdomen: Bowel Sounds: normal Inspection & Palpation: soft, non-distended, no tenderness, guarding & rebound Assessment and Plan EGD/dilation
--- NOTE | 2017-09-14 13:24 | Discharge Instructions ---
Endoscopy Patient Instructions Date / Procedure(s) Performed Sep 14, 2017. EGD Allergy Information Coded Allergies: BEE STING (Verified Allergy, Severe, shock, 09/14/17) Moxifloxacin (Verified Allergy, Severe, THROAT SWELLED, 09/14/17) Discharge Date / Findings Sep 14, 2017. post op stenosis Medication Instructions Restart Stopped Medication(s): Reported Home Medications Medications Dose Route/Sig Max Daily Dose Days Date Category Zyrtec (Cetirizine HCl) 10 Mg Tab 10 Mg PO DAILY PRN 07/14/17 Reported Lunesta (Eszopiclone) 3 Mg Tab 3 Mg PO HS PRN 07/14/17 Reported Levothyroxine Sodium 137 Mcg Tab 1 Tab PO QAM 10/01/15 Reported Vitamin B-12 (Cyanocobalamin) 1,000 Mcg Tab 1,000 Mcg PO QAM 01/29/13 Reported Reported Home Medications Medications Dose Route/Sig Max Daily Dose Days Date Category Zyrtec (Cetirizine HCl) 10 Mg Tab 10 Mg PO DAILY PRN 07/14/17 Reported Lunesta (Eszopiclone) 3 Mg Tab 3 Mg PO HS PRN 07/14/17 Reported Levothyroxine Sodium 137 Mcg Tab 1 Tab PO QAM 10/01/15 Reported Vitamin B-12 (Cyanocobalamin) 1,000 Mcg Tab 1,000 Mcg PO QAM 01/29/13 Reported Provider Instructions Activity Restrictions - No exercising or heavy lifting for 24 hours. - Do not drink alcohol the day of the procedure. - Do not drive a car or operate machinery until the day after the procedure. - Do not make any important decisions or sign important papers in 24 hours after the procedure. Following Day: - Return to full activity which may include returning to work/school. Diet Start your diet with liquids and light foods (jello, soup, juice, toast). Then eat your usual diet if not nauseated. Treatment For Common After Affects For mild abdominal pain, bloating, or excessive gas: - Rest - Eat lightly - Lie on right side Follow-Up Information Follow-up with DR Roland BIGGS, DR DUFFY as scheduled Anesthesia Information What You Should Know You have had a procedure that required some medicine to reduce anxiety and discomfort. This treatment is called moderate sedation. After receiving the treatment, you may be sleepy, but you will be able to breathe on your own. The effects of the treatment may last for several hours. Follow these instructions along with Activity/Diet recommendations noted above: * Do NOT do anything where dizziness or clumsiness would be dangerous. * Rest quietly at home today, then you can be up and about tomorrow. * Have a responsible person stay with you the rest of today. * You may have had an I.V. today. If so, you may take the dressing off later today. Recommendations Call your doctor if: * Trouble breathing * Continuous vomiting for more than 24 hours * Temperature above 101 degrees * Severe abdominal pain or bloating * Pain not relieved by pain medicine ordered * There is increased drainage or redness from any incision * A large amount of rectal bleeding greater than 2-3 tablespoons. (If you had a polyp/s removed or have hemorrhoids, a small amount of blood - from the rectum is to be expected.) * You have any unanswered questions or concerns. IN THE EVENT OF A SERIOUS EMERGENCY, GO TO THE NEAREST EMERGENCY ROOM Your discharge instructions were prepared by provider Lavelle Carreon. Patient Instructions Signature Page Wilbert Peralta Patient (or Guardian) Signature/Date: I have read and understand the instructions given to me by my caregivers. Caregiver/RN/Doctor Signature/Date: The above-named patient and/or guardian has received patient instructions on this date. + Original Patient Signature Page (only) stays with chart. Please make copy for patient.
--- NOTE | 2017-09-14 13:47 | GI REPORT ---
Procedure Date: 09/14/2017 12:47 PM Procedure: Upper GI endoscopy Indications: Esophageal dysphagia Medicines: Propofol per Anesthesia Complications: No immediate complications. Estimated blood loss: Minimal. Estimated Blood Loss: Estimated blood loss was minimal. Estimated blood loss was minimal. Procedure: Pre-Anesthesia Assessment: - Prior to the procedure, a History and Physical was performed, and patient medications and allergies were reviewed. The patient's tolerance of previous anesthesia was also reviewed. The risks and benefits of the procedure and the sedation options and risks were discussed with the patient. All questions were answered, and informed consent was obtained. Prior Anticoagulants: The patient has taken no previous anticoagulant or antiplatelet agents. ASA Grade Assessment: III - A patient with severe systemic disease. After reviewing the risks and benefits, the patient was deemed in satisfactory condition to undergo the procedure. After obtaining informed consent, the endoscope was passed under direct vision. Throughout the procedure, the patient's blood pressure, pulse, and oxygen saturations were monitored continuously. The Scope was introduced through the mouth, and advanced to the second part of duodenum. The upper GI endoscopy was performed with moderate difficulty due to post-surgical anatomy, narrowing and stenosis. The patient tolerated the procedure well. Findings: One benign-appearing, intrinsic stenosis was found 15 cm from the incisors. This stenosis was severe (stenosis; an endoscope cannot pass) and measured 4 mm (inner diameter) x 2 cm (in length). The stenosis was traversed after downsizing scope and dilating. A guidewire was placed and the scope was withdrawn. Dilation was performed with a Savary dilator with mild resistance at 33 Fr, moderate resistance at 39 Fr and 42 Fr and severe resistance at 45 Fr. The entire examined stomach was normal. The Z-line was regular and was found 40 cm from the incisors. Impression: - Benign-appearing esophageal stenosis. Dilated. - No specimens collected. Recommendation: - Discharge patient to home (ambulatory). - Advance diet as tolerated. - Repeat upper endoscopy in 2 weeks for retreatment. - Return to referring physician as previously scheduled. - Required use of XP scope to intrudce wire. XP traversed after dilation with 33 Fr MD Lavelle Rouse MD 09/14/2017 1:46:50 PM This report has been signed electronically. Note Initiated On: 09/14/2017 12:47 PM I attest to the content of the Intraoperative Record and orders documented therein, exceptions below
--- NOTE | 2017-09-14 13:50 | Anesthesiology Progress Note ---
Anesthesia Post Op Note Date & Time Sep 14, 2017 at 13:50 Vital Signs Pain Intensity: 0 Vital Signs Past 12 Hours Date Time Temp Pulse Resp B/P (MAP) Pulse Ox O2 Delivery O2 Flow Rate FiO2 09/14/17 13:44 50 18 113/63 (80) 100 Trach Collar 4 09/14/17 13:29 58 18 81/53 (62) 100 Trach Collar 4 170/96 (120) 09/14/17 12:08 36.6 79 18 168/87 (114) 98 Room Air 170/96 (120) Notes Mental Status: alert / awake / arousable, participated in evaluation Pt Amnestic to Procedure: Yes Nausea / Vomiting: adequately controlled Pain: adequately controlled Airway Patency, RR, SpO2: stable & adequate BP & HR: stable & adequate Hydration State: stable & adequate Anesthetic Complications: no major complications apparent
[2017-09-14 14:14] VITALS: BP 156/92; PULSE 66; O2SAT 96
== END | disposition home or self-care (01) ==
LOC: C.GI 11:52
PROVIDERS: ATTEND Internal Medicine Gastroenterology
DX: K22.2 Esophageal obstruction (principal); I10 Essential (primary) hypertension; Z98.890 Other specified postprocedural states; Z88.1 Allergy status to other antibiotic agents; Z96.641 Presence of right artificial hip joint; Z87.891 Personal history of nicotine dependence

== ENCOUNTER → 2017-09-28 | Day surgery (SDC) | payer BC ==
[2017-09-21 07:36] VITALS: Ht 175.3 cm; Wt 61.4 kg
[~2017-09-28] VITALS: Ht 175.3 cm; Wt 61.4 kg
[2017-09-28 15:09] VITALS: TEMP 36.6
--- NOTE | 2017-09-28 16:12 | Endo History and Physical ---
History & Physical Date of Service: Sep 28, 2017. Chief Complaint: esophageal stenosis Referring Physician: Dr. Sean Medel and Dr. Benton Day History of Present Illness dysphagia Past Medical History Eating Disorders, Arthritis, Reflux, Cancer, Syncopal Episodes, Hypertension, Thyroid Disease, Kidney Disease, Liver Disease Past Surgical History Hx Cardiac Surgery: No Hx Internal Defibrillator: No Hx Pacemaker: No Hx Abdominal Surgery: Yes (INGUINAL HERNIA REPAIR) Hx Post-Op Nausea and Vomiting: No Hx Cancer Surgery: Yes (LARYNGOTOMY, MULTIPLE SURGERIES AND RECON FOR LARYNX CANCER) Hx Thoracic Surgery: Yes (RT MADELIN, LT/RT SHOULDER ARTHROSCOPY, LT/RT HAND SURGERY, LT KNEE SURGERY) Hx Orthopedic: No Hx Urinary Tract Surgery: No Family History None Social History Smoking Status: Former Smoker Hx Substance Use: No Hx Alcohol Use: Yes (OCCASIONAL) Allergies Coded Allergies: BEE STING (Verified Allergy, Severe, shock, 09/21/17) Moxifloxacin (Verified Allergy, Severe, THROAT SWELLED, 09/21/17) Current Medications Reported Home Medications Medications Dose Route/Sig Max Daily Dose Days Date Category Zyrtec (Cetirizine HCl) 10 Mg Tab 10 Mg PO DAILY PRN 07/14/17 Reported Lunesta (Eszopiclone) 3 Mg Tab 3 Mg PO HS PRN 07/14/17 Reported Levothyroxine Sodium 137 Mcg Tab 1 Tab PO QAM 10/01/15 Reported Vitamin B-12 (Cyanocobalamin) 1,000 Mcg Tab 1,000 Mcg PO QAM 01/29/13 Reported Vital Signs Weight (Kilograms): 61.36 Height (Feet): 5 Height (Inches): 9 Date Time Temp Pulse Resp B/P (MAP) Pulse Ox O2 Delivery O2 Flow Rate FiO2 09/28/17 15:09 36.6 90 16 161/91 (114) 98 Room Air Physical Exam General Appearance: WD/WN, no apparent distress Respiratory/Chest: Auscultation: breath sounds normal Cardiovascular: Heart Auscultation: RRR Abdomen: Bowel Sounds: normal Inspection & Palpation: soft, non-distended, no tenderness, guarding & rebound Assessment and Plan EGD with dilation
--- NOTE | 2017-09-28 16:57 | GI REPORT ---
Procedure Date: 09/28/2017 4:13 PM Procedure: Upper GI endoscopy Indications: Dysphagia Medicines: Propofol per Anesthesia Complications: No immediate complications. Estimated blood loss: Minimal. Estimated Blood Loss: Estimated blood loss was minimal. Estimated blood loss was minimal. Procedure: Pre-Anesthesia Assessment: - Prior to the procedure, a History and Physical was performed, and patient medications and allergies were reviewed. The patient's tolerance of previous anesthesia was also reviewed. The risks and benefits of the procedure and the sedation options and risks were discussed with the patient. All questions were answered, and informed consent was obtained. Prior Anticoagulants: The patient has taken no previous anticoagulant or antiplatelet agents. ASA Grade Assessment: II - A patient with mild systemic disease. After reviewing the risks and benefits, the patient was deemed in satisfactory condition to undergo the procedure. After obtaining informed consent, the endoscope was passed under direct vision. Throughout the procedure, the patient's blood pressure, pulse, and oxygen saturations were monitored continuously. The Scope was introduced through the mouth, and advanced to the second part of duodenum. The upper GI endoscopy was accomplished without difficulty. The patient tolerated the procedure well. Findings: One benign-appearing, intrinsic stenosis was found. This stenosis was severe and measured 5 mm (inner diameter) x 2 cm (in length). The stenosis was traversed after dilation. A guidewire was placed and the scope was withdrawn. Dilation was performed with a Savary dilator with no resistance at 30 Fr and 33 Fr. A guidewire was placed and the scope was withdrawn. Dilation was performed with a Savary dilator with mild resistance at 36 Fr and 39 Fr. A guidewire was placed and the scope was withdrawn. Dilation was performed with a Savary dilator with moderate resistance at 42 Fr and 45 Fr. The entire examined stomach was normal. The examined duodenum was normal. The cardia and gastric fundus were normal on retroflexion. Impression: - Benign-appearing esophageal stenosis. Dilated. - Normal stomach. - Normal examined duodenum. - No specimens collected. Recommendation: - Discharge patient to home. - Discharge patient to home (ambulatory). - Advance diet as tolerated. - Continue present medications. - Repeat upper endoscopy in 2 weeks for retreatment. - Return to referring physician as previously scheduled. MD Lavelle Rouse MD 09/28/2017 4:57:38 PM This report has been signed electronically. Note Initiated On: 09/28/2017 4:13 PM I attest to the content of the Intraoperative Record and orders documented therein, exceptions below
--- NOTE | 2017-09-28 17:09 | Discharge Instructions ---
Endoscopy Patient Instructions Date / Procedure(s) Performed Sep 28, 2017. EGD Allergy Information Coded Allergies: BEE STING (Verified Allergy, Severe, shock, 09/21/17) Moxifloxacin (Verified Allergy, Severe, THROAT SWELLED, 09/21/17) Discharge Date / Findings Sep 28, 2017. eso stricture -dilated Medication Instructions Restart Stopped Medication(s): Reported Home Medications Medications Dose Route/Sig Max Daily Dose Days Date Category Zyrtec (Cetirizine HCl) 10 Mg Tab 10 Mg PO DAILY PRN 07/14/17 Reported Lunesta (Eszopiclone) 3 Mg Tab 3 Mg PO HS PRN 07/14/17 Reported Levothyroxine Sodium 137 Mcg Tab 1 Tab PO QAM 10/01/15 Reported Vitamin B-12 (Cyanocobalamin) 1,000 Mcg Tab 1,000 Mcg PO QAM 01/29/13 Reported Reported Home Medications Medications Dose Route/Sig Max Daily Dose Days Date Category Zyrtec (Cetirizine HCl) 10 Mg Tab 10 Mg PO DAILY PRN 07/14/17 Reported Lunesta (Eszopiclone) 3 Mg Tab 3 Mg PO HS PRN 07/14/17 Reported Levothyroxine Sodium 137 Mcg Tab 1 Tab PO QAM 10/01/15 Reported Vitamin B-12 (Cyanocobalamin) 1,000 Mcg Tab 1,000 Mcg PO QAM 01/29/13 Reported Provider Instructions Activity Restrictions - No exercising or heavy lifting for 24 hours. - Do not drink alcohol the day of the procedure. - Do not drive a car or operate machinery until the day after the procedure. - Do not make any important decisions or sign important papers in 24 hours after the procedure. Following Day: - Return to full activity which may include returning to work/school. Diet Start your diet with liquids and light foods (jello, soup, juice, toast). Then eat your usual diet if not nauseated. Treatment For Common After Affects For mild abdominal pain, bloating, or excessive gas: - Rest - Eat lightly - Lie on right side Follow-Up Information Follow-up with Dr. Sean Medel and Dr. Benton Day as scheduled Anesthesia Information What You Should Know You have had a procedure that required some medicine to reduce anxiety and discomfort. This treatment is called moderate sedation. After receiving the treatment, you may be sleepy, but you will be able to breathe on your own. The effects of the treatment may last for several hours. Follow these instructions along with Activity/Diet recommendations noted above: * Do NOT do anything where dizziness or clumsiness would be dangerous. * Rest quietly at home today, then you can be up and about tomorrow. * Have a responsible person stay with you the rest of today. * You may have had an I.V. today. If so, you may take the dressing off later today. Recommendations Call your doctor if: * Trouble breathing * Continuous vomiting for more than 24 hours * Temperature above 101 degrees * Severe abdominal pain or bloating * Pain not relieved by pain medicine ordered * There is increased drainage or redness from any incision * A large amount of rectal bleeding greater than 2-3 tablespoons. (If you had a polyp/s removed or have hemorrhoids, a small amount of blood - from the rectum is to be expected.) * You have any unanswered questions or concerns. IN THE EVENT OF A SERIOUS EMERGENCY, GO TO THE NEAREST EMERGENCY ROOM Your discharge instructions were prepared by provider Lavelle Carreon. Patient Instructions Signature Page Wilbert Peralta Patient (or Guardian) Signature/Date: I have read and understand the instructions given to me by my caregivers. Caregiver/RN/Doctor Signature/Date: The above-named patient and/or guardian has received patient instructions on this date. + Original Patient Signature Page (only) stays with chart. Please make copy for patient.
--- NOTE | 2017-09-28 17:43 | Anesthesiology Progress Note ---
Anesthesia Post Op Note Date & Time Sep 28, 2017 at 17:42 Vital Signs Pain Intensity: 0 Vital Signs Past 12 Hours Date Time Temp Pulse Resp B/P (MAP) Pulse Ox O2 Delivery O2 Flow Rate FiO2 09/28/17 17:25 70 20 134/88 (103) 100 Trach Collar 7 09/28/17 17:20 74 20 140/91 (107) 100 Trach Collar 7 09/28/17 17:15 80 20 128/72 (90) 100 Trach Collar 7 09/28/17 17:10 64 20 117/71 (86) 100 Trach Collar 7 09/28/17 17:07 66 20 132/75 (94) 100 Trach Collar 7 09/28/17 17:05 73 20 84/47 (59) 99 Trach Collar 7 09/28/17 15:09 36.6 90 16 161/91 (114) 98 Room Air Notes Mental Status: alert / awake / arousable, participated in evaluation Pt Amnestic to Procedure: Yes Nausea / Vomiting: adequately controlled Pain: adequately controlled Airway Patency, RR, SpO2: stable & adequate BP & HR: stable & adequate Hydration State: stable & adequate Anesthetic Complications: no major complications apparent Patient sent to recovery in pacu due to high anesthetic requirements and level of sedation. He adequately progressed through pacu course and was discharged without complication.
[2017-09-28 17:45] VITALS: BP 175/97; PULSE 72; O2SAT 100
== END | disposition home or self-care (01) ==
LOC: C.GI 14:39
PROVIDERS: ATTEND Internal Medicine Gastroenterology
DX: K22.2 Esophageal obstruction (principal); I10 Essential (primary) hypertension; Z98.890 Other specified postprocedural states; Z96.641 Presence of right artificial hip joint; Z87.891 Personal history of nicotine dependence; Z88.1 Allergy status to other antibiotic agents

== ENCOUNTER → 2017-10-12 | Day surgery (SDC) | payer BC ==
[~2017-10-12] VITALS: Ht 175.3 cm; Wt 59.1 kg
[~2017-10-12] MED LIST changes: +LABETALOL HCL IV 5 MG/ML 20ML IV ONE; -MIDAZOLAM HCL 1 MG/ML 2ML VIAL ONE
[2017-10-12 12:48] VITALS: Ht 175.3 cm; Wt 59.1 kg
[2017-10-12 12:57] VITALS: TEMP 36.5
--- NOTE | 2017-10-12 13:36 | Discharge Instructions ---
Endoscopy Patient Instructions Date / Procedure(s) Performed Oct 12, 2017. EGD Allergy Information Coded Allergies: BEE STING (Verified Allergy, Severe, shock, 10/07/17) Moxifloxacin (Verified Allergy, Severe, THROAT SWELLED, 10/07/17) Discharge Date / Findings Oct 12, 2017. stricture dilated successfully to 45 Fr. 48 Franch did not fully pass stenosis Medication Instructions Restart Stopped Medication(s): Reported Home Medications Medications Dose Route/Sig Max Daily Dose Days Date Category Zyrtec (Cetirizine HCl) 10 Mg Tab 10 Mg PO DAILY PRN 07/14/17 Reported Lunesta (Eszopiclone) 3 Mg Tab 3 Mg PO HS PRN 07/14/17 Reported Levothyroxine Sodium 137 Mcg Tab 1 Tab PO QAM 10/01/15 Reported Vitamin B-12 (Cyanocobalamin) 1,000 Mcg Tab 1,000 Mcg PO QAM 01/29/13 Reported Reported Home Medications Medications Dose Route/Sig Max Daily Dose Days Date Category Zyrtec (Cetirizine HCl) 10 Mg Tab 10 Mg PO DAILY PRN 07/14/17 Reported Lunesta (Eszopiclone) 3 Mg Tab 3 Mg PO HS PRN 07/14/17 Reported Levothyroxine Sodium 137 Mcg Tab 1 Tab PO QAM 10/01/15 Reported Vitamin B-12 (Cyanocobalamin) 1,000 Mcg Tab 1,000 Mcg PO QAM 01/29/13 Reported Provider Instructions Activity Restrictions - No exercising or heavy lifting for 24 hours. - Do not drink alcohol the day of the procedure. - Do not drive a car or operate machinery until the day after the procedure. - Do not make any important decisions or sign important papers in 24 hours after the procedure. Following Day: - Return to full activity which may include returning to work/school. Diet Start your diet with liquids and light foods (jello, soup, juice, toast). Then eat your usual diet if not nauseated. Treatment For Common After Affects For mild abdominal pain, bloating, or excessive gas: - Rest - Eat lightly - Lie on right side Follow-Up Information Follow-up with DR. SALINA BIGGS,COPY TO DR.STEPHEN DUFFY,AND DR. SORENSEN as scheduled Anesthesia Information What You Should Know You have had a procedure that required some medicine to reduce anxiety and discomfort. This treatment is called moderate sedation. After receiving the treatment, you may be sleepy, but you will be able to breathe on your own. The effects of the treatment may last for several hours. Follow these instructions along with Activity/Diet recommendations noted above: * Do NOT do anything where dizziness or clumsiness would be dangerous. * Rest quietly at home today, then you can be up and about tomorrow. * Have a responsible person stay with you the rest of today. * You may have had an I.V. today. If so, you may take the dressing off later today. Recommendations Call your doctor if: * Trouble breathing * Continuous vomiting for more than 24 hours * Temperature above 101 degrees * Severe abdominal pain or bloating * Pain not relieved by pain medicine ordered * There is increased drainage or redness from any incision * A large amount of rectal bleeding greater than 2-3 tablespoons. (If you had a polyp/s removed or have hemorrhoids, a small amount of blood - from the rectum is to be expected.) * You have any unanswered questions or concerns. IN THE EVENT OF A SERIOUS EMERGENCY, GO TO THE NEAREST EMERGENCY ROOM Your discharge instructions were prepared by provider Lavelle Carreon. Patient Instructions Signature Page Wilbert Peralta Patient (or Guardian) Signature/Date: I have read and understand the instructions given to me by my caregivers. Caregiver/RN/Doctor Signature/Date: The above-named patient and/or guardian has received patient instructions on this date. + Original Patient Signature Page (only) stays with chart. Please make copy for patient.
--- NOTE | 2017-10-12 13:49 | Endo History and Physical ---
History & Physical Date of Service: Oct 12, 2017. Chief Complaint: DYSPHAGIA Referring Physician: DR. SALINA BIGGS,COPY TO DR.STEPHEN DUFFY,AND DR. SORENSEN History of Present Illness dysphagia Past Medical History Eating Disorders, Arthritis, Reflux, Cancer, Syncopal Episodes, Hypertension, Thyroid Disease, Kidney Disease, Liver Disease Past Surgical History Hx Cardiac Surgery: No Hx Internal Defibrillator: No Hx Pacemaker: No Hx Abdominal Surgery: Yes (INGUINAL HERNIA REPAIR) Hx of Implantable Prosthesis: No Hx Post-Op Nausea and Vomiting: No Hx Cancer Surgery: Yes (LARYNGOTOMY, MULTIPLE SURGERIES AND RECON FOR LARYNX CANCER) Hx Thoracic Surgery: Yes (RT MADELIN, LT/RT SHOULDER ARTHROSCOPY, LT/RT HAND SURGERY, LT KNEE SURGERY) Hx Orthopedic: No Hx Urinary Tract Surgery: No Family History None Social History Smoking Status: Former Smoker Hx Substance Use: Yes (PRESCIBED) Hx Alcohol Use: Yes (OCCASIONAL) Allergies Coded Allergies: BEE STING (Verified Allergy, Severe, shock, 10/07/17) Moxifloxacin (Verified Allergy, Severe, THROAT SWELLED, 10/07/17) Current Medications Reported Home Medications Medications Dose Route/Sig Max Daily Dose Days Date Category Zyrtec (Cetirizine HCl) 10 Mg Tab 10 Mg PO DAILY PRN 07/14/17 Reported Lunesta (Eszopiclone) 3 Mg Tab 3 Mg PO HS PRN 07/14/17 Reported Levothyroxine Sodium 137 Mcg Tab 1 Tab PO QAM 10/01/15 Reported Vitamin B-12 (Cyanocobalamin) 1,000 Mcg Tab 1,000 Mcg PO QAM 01/29/13 Reported Vital Signs Weight (Kilograms): 59.09 Height (Feet): 5 Height (Inches): 9 Date Time Temp Pulse Resp B/P (MAP) Pulse Ox O2 Delivery O2 Flow Rate FiO2 10/12/17 12:57 36.5 90 16 138/96 (110) 99 Room Air Physical Exam General Appearance: WD/WN, no apparent distress Respiratory/Chest: Auscultation: breath sounds normal Cardiovascular: Heart Auscultation: RRR Abdomen: Bowel Sounds: normal Inspection & Palpation: soft, non-distended, no tenderness, guarding & rebound Assessment and Plan EGD / dilation
--- NOTE | 2017-10-12 14:44 | GI REPORT ---
Procedure Date: 10/12/2017 1:47 PM Procedure: Upper GI endoscopy Indications: Esophageal dysphagia Medicines: Propofol per Anesthesia Complications: No immediate complications. Estimated blood loss: Minimal. Estimated Blood Loss: Estimated blood loss was minimal. Procedure: Pre-Anesthesia Assessment: - Prior to the procedure, a History and Physical was performed, and patient medications and allergies were reviewed. The patient's tolerance of previous anesthesia was also reviewed. The risks and benefits of the procedure and the sedation options and risks were discussed with the patient. All questions were answered, and informed consent was obtained. Prior Anticoagulants: The patient has taken no previous anticoagulant or antiplatelet agents. ASA Grade Assessment: III - A patient with severe systemic disease. After reviewing the risks and benefits, the patient was deemed in satisfactory condition to undergo the procedure. After obtaining informed consent, the endoscope was passed under direct vision. Throughout the procedure, the patient's blood pressure, pulse, and oxygen saturations were monitored continuously. The scope was introduced through the mouth, and advanced to the second part of duodenum. The upper GI endoscopy was accomplished without difficulty. The patient tolerated the procedure well. Findings: One benign-appearing, intrinsic stenosis was found 18 cm from the incisors. This stenosis was severe and measured 6 mm (inner diameter) x 2 cm (in length). The stenosis was traversed after dilation. A guidewire was placed and the scope was withdrawn. Dilation was performed with a Savary dilator with mild resistance at 36 Fr and 39 Fr and moderate resistance at 42 Fr and 45 Fr. A guidewire was placed and the scope was withdrawn. Dilation was performed with a Savary dilator with severe resistance at 48 Fr and could not fully traverse. The dilation site was examined following endoscope reinsertion and showed moderate improvement in luminal narrowing and scope easily traversed. Estimated blood loss was minimal. The entire examined stomach was normal. The examined duodenum was normal. The cardia and gastric fundus were normal on retroflexion. Impression: - Benign-appearing esophageal stenosis. Dilated. - Normal stomach. - Normal examined duodenum. - No specimens collected. Recommendation: - Discharge patient to home (ambulatory). - Advance diet as tolerated. - Continue present medications. - Repeat upper endoscopy in 2 weeks for retreatment. - Return to referring physician as previously scheduled. MD Lavelle oRuse MD 10/12/2017 2:43:51 PM This report has been signed electronically. Note Initiated On: 10/12/2017 1:47 PM I attest to the content of the Intraoperative Record and orders documented therein, exceptions below
[2017-10-12 15:11] VITALS: BP 145/96; PULSE 82; O2SAT 95
--- NOTE | 2017-10-12 15:13 | Anesthesiology Progress Note ---
Anesthesia Post Op Note Date & Time Oct 12, 2017 at 15:12 Vital Signs Pain Intensity: 0 Vital Signs Past 12 Hours Date Time Temp Pulse Resp B/P (MAP) Pulse Ox O2 Delivery O2 Flow Rate FiO2 10/12/17 15:11 82 18 145/96 (112) 95 Room Air 10/12/17 15:06 81 18 159/96 (117) 95 Room Air 10/12/17 15:01 89 18 156/99 (118) 97 Room Air 10/12/17 14:59 94 18 183/134 (150) 97 Room Air 10/12/17 14:55 94 18 198/112 (140) 100 Room Air 10/12/17 14:54 90 18 171/122 (138) 100 Room Air 10/12/17 14:39 67 18 161/97 (118) 100 Room Air 10/12/17 12:57 36.5 90 16 138/96 (110) 99 Room Air Notes Mental Status: alert / awake / arousable, participated in evaluation Pt Amnestic to Procedure: Yes Nausea / Vomiting: adequately controlled Pain: adequately controlled Airway Patency, RR, SpO2: stable & adequate BP & HR: stable & adequate, see Notes Hydration State: stable & adequate Neuraxial Anesthesia: was administered Anesthetic Complications: no major complications apparent The patient was given labetalol in recovery. His vitals are stable and he is awake and comfortable.
== END | disposition home or self-care (01) ==
LOC: C.GI 12:31
PROVIDERS: ATTEND Internal Medicine Gastroenterology
DX: R13.10 Dysphagia, unspecified (principal); K22.2 Esophageal obstruction; I10 Essential (primary) hypertension; Z98.890 Other specified postprocedural states; Z98.41 Cataract extraction status, right eye; Z98.42 Cataract extraction status, left eye; Z96.641 Presence of right artificial hip joint; Z87.891 Personal history of nicotine dependence; Z85.21 Personal history of malignant neoplasm of larynx

== ENCOUNTER → 2017-10-30 | Day surgery (SDC) | payer BC ==
[2017-10-07 11:23] VITALS: Ht 175.3 cm; Wt 61.4 kg
[~2017-10-30] VITALS: Ht 175.3 cm; Wt 61.4 kg
[~2017-10-30] MED LIST changes: -LABETALOL HCL IV 5 MG/ML 20ML IV ONE; +ONDANSETRON INJ 2 MG/ML 2 ML VIAL ONE
[2017-10-30 13:17] VITALS: TEMP 36.6
--- NOTE | 2017-10-30 13:47 | Endo History and Physical ---
History & Physical Date of Service: Oct 30, 2017. Chief Complaint: Dysphagia Referring Physician: Dr. Sean Medel History of Present Illness dysphagia Past Medical History Eating Disorders, Arthritis, Reflux, Cancer, Syncopal Episodes, Hypertension, Thyroid Disease, Kidney Disease, Liver Disease Past Surgical History Hx Cardiac Surgery: No Hx Internal Defibrillator: No Hx Pacemaker: No Hx Abdominal Surgery: Yes (INGUINAL HERNIA REPAIR) Hx Post-Op Nausea and Vomiting: No Hx Cancer Surgery: Yes (LARYNGOTOMY, MULTIPLE SURGERIES AND RECON FOR LARYNX CANCER) Hx Thoracic Surgery: Yes (RT MADELIN, LT/RT SHOULDER ARTHROSCOPY, LT/RT HAND SURGERY, LT KNEE SURGERY) Hx Orthopedic: No Hx Urinary Tract Surgery: No Family History None Social History Smoking Status: Former Smoker Hx Substance Use: Yes (PRESCIBED) Hx Alcohol Use: Yes (OCCASIONAL) Allergies Coded Allergies: BEE STING (Verified Allergy, Severe, shock, 10/07/17) Moxifloxacin (Verified Allergy, Severe, THROAT SWELLED, 10/07/17) Midazolam (Unverified Adverse Reaction, Severe, difficult to arouse, ) Current Medications Reported Home Medications Medications Dose Route/Sig Max Daily Dose Days Date Category Zyrtec (Cetirizine HCl) 10 Mg Tab 10 Mg PO DAILY PRN 07/14/17 Reported Lunesta (Eszopiclone) 3 Mg Tab 3 Mg PO HS PRN 07/14/17 Reported Levothyroxine Sodium 137 Mcg Tab 1 Tab PO QAM 10/01/15 Reported Vitamin B-12 (Cyanocobalamin) 1,000 Mcg Tab 1,000 Mcg PO QAM 01/29/13 Reported Vital Signs Weight (Kilograms): 61.36 Height (Feet): 5 Height (Inches): 9 Date Time Temp Pulse Resp B/P (MAP) Pulse Ox O2 Delivery O2 Flow Rate FiO2 10/30/17 13:17 36.6 78 18 183/87 (119) 99 Room Air Physical Exam General Appearance: WD/WN, no apparent distress Respiratory/Chest: Auscultation: breath sounds normal Cardiovascular: Heart Auscultation: RRR Abdomen: Bowel Sounds: normal Inspection & Palpation: soft, non-distended, no tenderness, guarding & rebound EGD/dilation Assessment and Plan EGD/dilation
--- NOTE | 2017-10-30 14:40 | GI REPORT ---
Procedure Date: 10/30/2017 1:45 PM Procedure: Upper GI endoscopy Indications: Dysphagia Medicines: Propofol per Anesthesia Complications: No immediate complications. Estimated blood loss: Minimal. Estimated Blood Loss: Estimated blood loss was minimal. Procedure: Pre-Anesthesia Assessment: - Prior to the procedure, a History and Physical was performed, and patient medications and allergies were reviewed. The patient's tolerance of previous anesthesia was also reviewed. The risks and benefits of the procedure and the sedation options and risks were discussed with the patient. All questions were answered, and informed consent was obtained. Prior Anticoagulants: The patient has taken no previous anticoagulant or antiplatelet agents. ASA Grade Assessment: II - A patient with mild systemic disease. After reviewing the risks and benefits, the patient was deemed in satisfactory condition to undergo the procedure. After obtaining informed consent, the endoscope was passed under direct vision. Throughout the procedure, the patient's blood pressure, pulse, and oxygen saturations were monitored continuously. The On-site loaner was introduced through the mouth, and advanced to the second part of duodenum. The upper GI endoscopy was accomplished without difficulty. The patient tolerated the procedure well. Findings: One benign-appearing, intrinsic stenosis was found 18 cm from the incisors. This stenosis was severe and measured 6 mm (inner diameter) x 2 cm (in length). The stenosis was traversed after dilation. A guidewire was placed and the scope was withdrawn. Dilation was performed with a Savary dilator with mild resistance at 33 Fr, 39 Fr and 42 Fr and moderate resistance at 45 Fr. The entire examined stomach was normal. The examined duodenum was normal. The cardia and gastric fundus were normal on retroflexion. Retained gastric contents are not identified on this exam. Impression: - Benign-appearing esophageal stenosis. Dilated. - Normal stomach. - Normal examined duodenum. - No specimens collected. Recommendation: - Discharge patient to home (ambulatory). - Resume regular diet. - Continue present medications. - Repeat upper endoscopy in 2 weeks per protocol. - Return to referring physician as previously scheduled. MD Lavelle Rouse MD 10/30/2017 2:39:52 PM This report has been signed electronically. Note Initiated On: 10/30/2017 1:45 PM I attest to the content of the Intraoperative Record and orders documented therein, exceptions below
--- NOTE | 2017-10-30 14:44 | Discharge Instructions ---
Endoscopy Patient Instructions Date / Procedure(s) Performed Oct 30, 2017. EGD Allergy Information Coded Allergies: BEE STING (Verified Allergy, Severe, shock, 10/07/17) Moxifloxacin (Verified Allergy, Severe, THROAT SWELLED, 10/07/17) Midazolam (Unverified Adverse Reaction, Severe, difficult to arouse, ) Discharge Date / Findings Oct 30, 2017. EGD/dilation for stricture Medication Instructions Restart Stopped Medication(s): Reported Home Medications Medications Dose Route/Sig Max Daily Dose Days Date Category Zyrtec (Cetirizine HCl) 10 Mg Tab 10 Mg PO DAILY PRN 07/14/17 Reported Lunesta (Eszopiclone) 3 Mg Tab 3 Mg PO HS PRN 07/14/17 Reported Levothyroxine Sodium 137 Mcg Tab 1 Tab PO QAM 10/01/15 Reported Vitamin B-12 (Cyanocobalamin) 1,000 Mcg Tab 1,000 Mcg PO QAM 01/29/13 Reported Reported Home Medications Medications Dose Route/Sig Max Daily Dose Days Date Category Zyrtec (Cetirizine HCl) 10 Mg Tab 10 Mg PO DAILY PRN 07/14/17 Reported Lunesta (Eszopiclone) 3 Mg Tab 3 Mg PO HS PRN 07/14/17 Reported Levothyroxine Sodium 137 Mcg Tab 1 Tab PO QAM 10/01/15 Reported Vitamin B-12 (Cyanocobalamin) 1,000 Mcg Tab 1,000 Mcg PO QAM 01/29/13 Reported Provider Instructions Activity Restrictions - No exercising or heavy lifting for 24 hours. - Do not drink alcohol the day of the procedure. - Do not drive a car or operate machinery until the day after the procedure. - Do not make any important decisions or sign important papers in 24 hours after the procedure. Following Day: - Return to full activity which may include returning to work/school. Diet Start your diet with liquids and light foods (jello, soup, juice, toast). Then eat your usual diet if not nauseated. Treatment For Common After Affects For mild abdominal pain, bloating, or excessive gas: - Rest - Eat lightly - Lie on right side Follow-Up Information Follow-up with Dr. Sean Medel as scheduled Anesthesia Information What You Should Know You have had a procedure that required some medicine to reduce anxiety and discomfort. This treatment is called moderate sedation. After receiving the treatment, you may be sleepy, but you will be able to breathe on your own. The effects of the treatment may last for several hours. Follow these instructions along with Activity/Diet recommendations noted above: * Do NOT do anything where dizziness or clumsiness would be dangerous. * Rest quietly at home today, then you can be up and about tomorrow. * Have a responsible person stay with you the rest of today. * You may have had an I.V. today. If so, you may take the dressing off later today. Recommendations Call your doctor if: * Trouble breathing * Continuous vomiting for more than 24 hours * Temperature above 101 degrees * Severe abdominal pain or bloating * Pain not relieved by pain medicine ordered * There is increased drainage or redness from any incision * A large amount of rectal bleeding greater than 2-3 tablespoons. (If you had a polyp/s removed or have hemorrhoids, a small amount of blood - from the rectum is to be expected.) * You have any unanswered questions or concerns. IN THE EVENT OF A SERIOUS EMERGENCY, GO TO THE NEAREST EMERGENCY ROOM Your discharge instructions were prepared by provider Lavelle Carreno. Patient Instructions Signature Page Wilbert Peralta Patient (or Guardian) Signature/Date: I have read and understand the instructions given to me by my caregivers. Caregiver/RN/Doctor Signature/Date: The above-named patient and/or guardian has received patient instructions on this date. + Original Patient Signature Page (only) stays with chart. Please make copy for patient.
[2017-10-30 15:08] VITALS: BP 136/98; PULSE 67; O2SAT 99
--- NOTE | 2017-10-30 15:12 | Anesthesiology Progress Note ---
Anesthesia Post Op Note Date & Time Oct 30, 2017 at 15:11 Vital Signs Pain Intensity: 0 Vital Signs Past 12 Hours Date Time Temp Pulse Resp B/P (MAP) Pulse Ox O2 Delivery O2 Flow Rate FiO2 10/30/17 15:08 67 20 136/98 (111) 99 Room Air 10/30/17 14:53 67 20 128/57 (80) 100 Room Air 10/30/17 14:38 74 20 91/52 (65) 100 Room Air 10/30/17 13:17 36.6 78 18 183/87 (119) 99 Room Air Notes Mental Status: alert / awake / arousable, participated in evaluation Pt Amnestic to Procedure: Yes Nausea / Vomiting: adequately controlled Pain: adequately controlled Airway Patency, RR, SpO2: stable & adequate BP & HR: stable & adequate Hydration State: stable & adequate Anesthetic Complications: no major complications apparent
== END | disposition home or self-care (01) ==
LOC: C.GI 13:00
PROVIDERS: ATTEND Internal Medicine Gastroenterology
DX: K22.2 Esophageal obstruction (principal); R13.10 Dysphagia, unspecified; M19.90 Unspecified osteoarthritis, unspecified site; K21.9 Gastro-esophageal reflux disease without esophagitis; I10 Essential (primary) hypertension; E07.9 Disorder of thyroid, unspecified; N28.9 Disorder of kidney and ureter, unspecified; K76.9 Liver disease, unspecified; Z87.891 Personal history of nicotine dependence; Z88.8 Allergy status to other drugs, medicaments and biological substances; Z91.030 Bee allergy status; Z79.899 Other long term (current) drug therapy

== ENCOUNTER → 2017-11-18 | Day surgery (SDC) | payer BC ==
[2017-11-03 08:36] VITALS: Ht 175.3 cm; Wt 61.4 kg
[~2017-11-18] VITALS: Ht 175.3 cm; Wt 61.4 kg
[~2017-11-18] MED LIST changes: +AMOX-CLAV; +MIDAZOLAM HCL 1 MG/ML 2ML VIAL ONE
--- NOTE | 2017-11-18 13:09 | Endo History and Physical ---
History & Physical Date of Service: Nov 18, 2017. Chief Complaint: dysphagia Referring Physician: Dr. Sean Medel History of Present Illness dysphagia Past Medical History Eating Disorders, Arthritis, Reflux, Cancer, Syncopal Episodes, Hypertension, Thyroid Disease, Kidney Disease, Liver Disease Past Surgical History Hx Cardiac Surgery: No Hx Internal Defibrillator: No Hx Pacemaker: No Hx Abdominal Surgery: Yes (INGUINAL HERNIA REPAIR) Hx Post-Op Nausea and Vomiting: No Hx Cancer Surgery: Yes (LARYNGOTOMY, MULTIPLE SURGERIES AND RECON FOR LARYNX CANCER) Hx Thoracic Surgery: Yes (RT MADELIN, LT/RT SHOULDER ARTHROSCOPY, LT/RT HAND SURGERY, LT KNEE SURGERY) Hx Orthopedic: No Hx Urinary Tract Surgery: No Family History None Social History Smoking Status: Former Smoker Hx Substance Use: No Hx Alcohol Use: Yes (OCCASIONAL) Allergies Coded Allergies: BEE STING (Verified Allergy, Severe, shock, 11/18/17) Moxifloxacin (Verified Allergy, Severe, THROAT SWELLED, 11/18/17) Current Medications Reported Home Medications Medications Dose Route/Sig Max Daily Dose Days Date Category [Amox-Clav] 11/18/17 Reported Zyrtec (Cetirizine HCl) 10 Mg Tab 10 Mg PO DAILY PRN 07/14/17 Reported Lunesta (Eszopiclone) 3 Mg Tab 3 Mg PO HS PRN 07/14/17 Reported Levothyroxine Sodium 137 Mcg Tab 1 Tab PO QAM 10/01/15 Reported Vitamin B-12 (Cyanocobalamin) 1,000 Mcg Tab 1,000 Mcg PO QAM 01/29/13 Reported Vital Signs Weight (Kilograms): 61.36 Height (Feet): 5 Height (Inches): 9 Date Time Temp Pulse Resp B/P (MAP) Pulse Ox O2 Delivery O2 Flow Rate FiO2 11/18/17 12:40 36.8 79 20 153/96 (115) 100 Room Air Physical Exam General Appearance: WD/WN, no apparent distress Respiratory/Chest: Auscultation: breath sounds normal Cardiovascular: Heart Auscultation: RRR Abdomen: Bowel Sounds: normal Inspection & Palpation: soft, non-distended, no tenderness, guarding & rebound Assessment and Plan EGD dilation possible injection
--- NOTE | 2017-11-18 14:06 | Discharge Instructions ---
Endoscopy Patient Instructions Date / Procedure(s) Performed Nov 18, 2017. EGD Allergy Information Coded Allergies: BEE STING (Verified Allergy, Severe, shock, 11/18/17) Moxifloxacin (Verified Allergy, Severe, THROAT SWELLED, 11/18/17) Discharge Date / Findings Nov 18, 2017. EGD with dilation Medication Instructions Restart Stopped Medication(s): Reported Home Medications Medications Dose Route/Sig Max Daily Dose Days Date Category [Amox-Clav] 11/18/17 Reported Zyrtec (Cetirizine HCl) 10 Mg Tab 10 Mg PO DAILY PRN 07/14/17 Reported Lunesta (Eszopiclone) 3 Mg Tab 3 Mg PO HS PRN 07/14/17 Reported Levothyroxine Sodium 137 Mcg Tab 1 Tab PO QAM 10/01/15 Reported Vitamin B-12 (Cyanocobalamin) 1,000 Mcg Tab 1,000 Mcg PO QAM 01/29/13 Reported Reported Home Medications Medications Dose Route/Sig Max Daily Dose Days Date Category [Amox-Clav] 11/18/17 Reported Zyrtec (Cetirizine HCl) 10 Mg Tab 10 Mg PO DAILY PRN 07/14/17 Reported Lunesta (Eszopiclone) 3 Mg Tab 3 Mg PO HS PRN 07/14/17 Reported Levothyroxine Sodium 137 Mcg Tab 1 Tab PO QAM 10/01/15 Reported Vitamin B-12 (Cyanocobalamin) 1,000 Mcg Tab 1,000 Mcg PO QAM 01/29/13 Reported Provider Instructions Activity Restrictions - No exercising or heavy lifting for 24 hours. - Do not drink alcohol the day of the procedure. - Do not drive a car or operate machinery until the day after the procedure. - Do not make any important decisions or sign important papers in 24 hours after the procedure. Following Day: - Return to full activity which may include returning to work/school. Diet Start your diet with liquids and light foods (jello, soup, juice, toast). Then eat your usual diet if not nauseated. Treatment For Common After Affects For mild abdominal pain, bloating, or excessive gas: - Rest - Eat lightly - Lie on right side Follow-Up Information Follow-up with Dr. Sean Medel as scheduled Anesthesia Information What You Should Know You have had a procedure that required some medicine to reduce anxiety and discomfort. This treatment is called moderate sedation. After receiving the treatment, you may be sleepy, but you will be able to breathe on your own. The effects of the treatment may last for several hours. Follow these instructions along with Activity/Diet recommendations noted above: * Do NOT do anything where dizziness or clumsiness would be dangerous. * Rest quietly at home today, then you can be up and about tomorrow. * Have a responsible person stay with you the rest of today. * You may have had an I.V. today. If so, you may take the dressing off later today. Recommendations Call your doctor if: * Trouble breathing * Continuous vomiting for more than 24 hours * Temperature above 101 degrees * Severe abdominal pain or bloating * Pain not relieved by pain medicine ordered * There is increased drainage or redness from any incision * A large amount of rectal bleeding greater than 2-3 tablespoons. (If you had a polyp/s removed or have hemorrhoids, a small amount of blood - from the rectum is to be expected.) * You have any unanswered questions or concerns. IN THE EVENT OF A SERIOUS EMERGENCY, GO TO THE NEAREST EMERGENCY ROOM Your discharge instructions were prepared by provider Lavelle Carreon. Patient Instructions Signature Page Wilbert Fabian Patient (or Guardian) Signature/Date: I have read and understand the instructions given to me by my caregivers. Caregiver/RN/Doctor Signature/Date: The above-named patient and/or guardian has received patient instructions on this date. + Original Patient Signature Page (only) stays with chart. Please make copy for patient.
--- NOTE | 2017-11-18 14:25 | GI REPORT ---
Procedure Date: 11/18/2017 1:07 PM Procedure: Upper GI endoscopy Indications: Gastro-esophageal reflux disease Medicines: Monitored Anesthesia Care Complications: No immediate complications. Estimated blood loss: Minimal. Estimated Blood Loss: Estimated blood loss was minimal. Procedure: Pre-Anesthesia Assessment: - Prior to the procedure, a History and Physical was performed, and patient medications and allergies were reviewed. The patient's tolerance of previous anesthesia was also reviewed. The risks and benefits of the procedure and the sedation options and risks were discussed with the patient. All questions were answered, and informed consent was obtained. Prior Anticoagulants: The patient has taken no previous anticoagulant or antiplatelet agents. ASA Grade Assessment: II - A patient with mild systemic disease. After reviewing the risks and benefits, the patient was deemed in satisfactory condition to undergo the procedure. After obtaining informed consent, the endoscope was passed under direct vision. Throughout the procedure, the patient's blood pressure, pulse, and oxygen saturations were monitored continuously. The On-site loaner was introduced through the mouth, and advanced to the second part of duodenum. The upper GI endoscopy was accomplished without difficulty. The patient tolerated the procedure well. Findings: One benign-appearing, intrinsic stenosis was found 15 cm from the incisors. This stenosis was severe (stenosis; an endoscope cannot pass) and measured 5 mm (inner diameter) x 2 cm (in length). The stenosis was traversed after dilation. A guidewire was placed and the scope was withdrawn. Dilation was performed with a Savary dilator with mild resistance at 33 Fr and moderate resistance at 39 Fr, 42 Fr and 45 Fr. A TTS dilator was passed through the scope. Dilation with a 15-16 mm x 5.5 cm CRE balloon dilator was performed to 15 mm and 16 mm ( underfilled below the 16.5 mm inflation line). The dilation site was examined and showed moderate improvement in luminal narrowing. The entire examined stomach was normal. The examined duodenum was normal. The cardia and gastric fundus were normal on retroflexion. Impression: - Benign-appearing esophageal stenosis. Dilated. - Normal stomach. - Normal examined duodenum. - No specimens collected. Recommendation: - Discharge patient to home (ambulatory). - Repeat upper endoscopy in 2 weeks for retreatment. - Return to referring physician as previously scheduled. MD Lavelle Rouse MD 11/18/2017 2:25:10 PM This report has been signed electronically. Note Initiated On: 11/18/2017 1:07 PM I attest to the content of the Intraoperative Record and orders documented therein, exceptions below
--- NOTE | 2017-11-18 14:32 | Anesthesiology Progress Note ---
Anesthesia Post Op Note Date & Time Nov 18, 2017 at 14:32 Vital Signs Pain Intensity: 0 Vital Signs Past 12 Hours Date Time Temp Pulse Resp B/P (MAP) Pulse Ox O2 Delivery O2 Flow Rate FiO2 11/18/17 14:19 74 18 141/67 (91) 100 Room Air 11/18/17 14:14 36.8 63 18 103/91 (95) 100 Room Air 11/18/17 14:04 36.8 62 18 103/91 (95) 100 Room Air 11/18/17 12:40 36.8 79 20 153/96 (115) 100 Room Air Notes Mental Status: alert / awake / arousable, participated in evaluation Pt Amnestic to Procedure: Yes Nausea / Vomiting: adequately controlled Pain: adequately controlled Airway Patency, RR, SpO2: stable & adequate BP & HR: stable & adequate Hydration State: stable & adequate Anesthetic Complications: no major complications apparent
[2017-11-18 14:40] VITALS: BP 137/77; PULSE 79; O2SAT 99
== END | disposition home or self-care (01) ==
LOC: C.GI 12:00
PROVIDERS: ATTEND Internal Medicine Gastroenterology
DX: K22.2 Esophageal obstruction (principal); R13.10 Dysphagia, unspecified; M19.90 Unspecified osteoarthritis, unspecified site; K21.9 Gastro-esophageal reflux disease without esophagitis; I10 Essential (primary) hypertension; E07.9 Disorder of thyroid, unspecified; N28.9 Disorder of kidney and ureter, unspecified; K76.9 Liver disease, unspecified; Z85.21 Personal history of malignant neoplasm of larynx; Z87.891 Personal history of nicotine dependence; Z88.8 Allergy status to other drugs, medicaments and biological substances; Z79.899 Other long term (current) drug therapy

== ENCOUNTER → 2017-12-07 | Day surgery (SDC) | payer BC ==
[2017-11-23 07:46] VITALS: Ht 175.3 cm; Wt 61.4 kg
[~2017-12-07] VITALS: Ht 175.3 cm; Wt 61.4 kg
[~2017-12-07] MED LIST changes: -AMOX-CLAV; +ATROPINE SULFATE 0.1 MG/ML 5ML SYR IV PRN; +EpHEDrine SULFATE INJ 50 MG/ML AMP IV PRN
--- NOTE | 2017-12-07 12:59 | Endo History and Physical ---
History & Physical Date of Service: Dec 07, 2017. Chief Complaint: dysphagia with dilation Referring Physician: Dr. Sean Medel History of Present Illness EGD with dysphagia Past Medical History Eating Disorders, Arthritis, Reflux, Cancer, Syncopal Episodes, Hypertension, Thyroid Disease, Kidney Disease, Liver Disease Past Surgical History Hx Cardiac Surgery: No Hx Internal Defibrillator: No Hx Pacemaker: No Hx Abdominal Surgery: Yes (INGUINAL HERNIA REPAIR) Hx of Implantable Prosthesis: No Hx Post-Op Nausea and Vomiting: No Hx Cancer Surgery: Yes (LARYNGOTOMY, MULTIPLE SURGERIES AND RECON. LARYNX CANCER) Hx Thoracic Surgery: No Hx Urinary Tract Surgery: No Family History None Social History Smoking Status: Former Smoker Hx Substance Use: No Hx Alcohol Use: Yes (OCCASIONALLY) Allergies Coded Allergies: BEE STING (Verified Allergy, Severe, shock, 11/23/17) Moxifloxacin (Verified Allergy, Severe, THROAT SWELLED, 11/23/17) Current Medications Reported Home Medications Medications Dose Route/Sig Max Daily Dose Days Date Category Zyrtec (Cetirizine HCl) 10 Mg Tab 10 Mg PO DAILY PRN 07/14/17 Reported Lunesta (Eszopiclone) 3 Mg Tab 3 Mg PO HS PRN 07/14/17 Reported Levothyroxine Sodium 137 Mcg Tab 1 Tab PO QAM 10/01/15 Reported Vitamin B-12 (Cyanocobalamin) 1,000 Mcg Tab 1,000 Mcg PO QAM 01/29/13 Reported Vital Signs Weight (Kilograms): 61.36 Height (Feet): 5 Height (Inches): 9 Date Time Temp Pulse Resp B/P (MAP) Pulse Ox O2 Delivery O2 Flow Rate FiO2 12/07/17 12:38 36.8 70 12 154/99 (117) 97 Room Air Physical Exam General Appearance: WD/WN, no apparent distress Respiratory/Chest: Auscultation: breath sounds normal Cardiovascular: Heart Auscultation: RRR Abdomen: Bowel Sounds: normal Inspection & Palpation: soft, non-distended, no tenderness, guarding & rebound Assessment and Plan EGD with dilation
--- NOTE | 2017-12-07 14:00 | Discharge Instructions ---
Endoscopy Patient Instructions Date / Procedure(s) Performed Dec 07, 2017. EGD Allergy Information Coded Allergies: BEE STING (Verified Allergy, Severe, shock, 11/23/17) Moxifloxacin (Verified Allergy, Severe, THROAT SWELLED, 11/23/17) Discharge Date / Findings Dec 07, 2017. EGD/dilation Medication Instructions Restart Stopped Medication(s): Reported Home Medications Medications Dose Route/Sig Max Daily Dose Days Date Category Zyrtec (Cetirizine HCl) 10 Mg Tab 10 Mg PO DAILY PRN 07/14/17 Reported Lunesta (Eszopiclone) 3 Mg Tab 3 Mg PO HS PRN 07/14/17 Reported Levothyroxine Sodium 137 Mcg Tab 1 Tab PO QAM 10/01/15 Reported Vitamin B-12 (Cyanocobalamin) 1,000 Mcg Tab 1,000 Mcg PO QAM 01/29/13 Reported Reported Home Medications Medications Dose Route/Sig Max Daily Dose Days Date Category Zyrtec (Cetirizine HCl) 10 Mg Tab 10 Mg PO DAILY PRN 07/14/17 Reported Lunesta (Eszopiclone) 3 Mg Tab 3 Mg PO HS PRN 07/14/17 Reported Levothyroxine Sodium 137 Mcg Tab 1 Tab PO QAM 10/01/15 Reported Vitamin B-12 (Cyanocobalamin) 1,000 Mcg Tab 1,000 Mcg PO QAM 01/29/13 Reported Provider Instructions Activity Restrictions - No exercising or heavy lifting for 24 hours. - Do not drink alcohol the day of the procedure. - Do not drive a car or operate machinery until the day after the procedure. - Do not make any important decisions or sign important papers in 24 hours after the procedure. Following Day: - Return to full activity which may include returning to work/school. Diet Start your diet with liquids and light foods (jello, soup, juice, toast). Then eat your usual diet if not nauseated. Treatment For Common After Affects For mild abdominal pain, bloating, or excessive gas: - Rest - Eat lightly - Lie on right side Follow-Up Information Follow-up with Dr. Sean Medel as scheduled Anesthesia Information What You Should Know You have had a procedure that required some medicine to reduce anxiety and discomfort. This treatment is called moderate sedation. After receiving the treatment, you may be sleepy, but you will be able to breathe on your own. The effects of the treatment may last for several hours. Follow these instructions along with Activity/Diet recommendations noted above: * Do NOT do anything where dizziness or clumsiness would be dangerous. * Rest quietly at home today, then you can be up and about tomorrow. * Have a responsible person stay with you the rest of today. * You may have had an I.V. today. If so, you may take the dressing off later today. Recommendations Call your doctor if: * Trouble breathing * Continuous vomiting for more than 24 hours * Temperature above 101 degrees * Severe abdominal pain or bloating * Pain not relieved by pain medicine ordered * There is increased drainage or redness from any incision * A large amount of rectal bleeding greater than 2-3 tablespoons. (If you had a polyp/s removed or have hemorrhoids, a small amount of blood - from the rectum is to be expected.) * You have any unanswered questions or concerns. IN THE EVENT OF A SERIOUS EMERGENCY, GO TO THE NEAREST EMERGENCY ROOM Your discharge instructions were prepared by provider Lavelle Carreon. Patient Instructions Signature Page Wilbert Peralta Patient (or Guardian) Signature/Date: I have read and understand the instructions given to me by my caregivers. Caregiver/RN/Doctor Signature/Date: The above-named patient and/or guardian has received patient instructions on this date. + Original Patient Signature Page (only) stays with chart. Please make copy for patient.
--- NOTE | 2017-12-07 14:13 | Anesthesiology Progress Note ---
Anesthesia Post Op Note Date & Time Dec 07, 2017 at 14:13 Vital Signs Pain Intensity: 0 Vital Signs Past 12 Hours Date Time Temp Pulse Resp B/P (MAP) Pulse Ox O2 Delivery O2 Flow Rate FiO2 12/07/17 14:02 36.4 74 18 97/58 (71) 96 Room Air 12/07/17 12:38 36.8 70 12 154/99 (117) 97 Room Air Notes Mental Status: alert / awake / arousable, participated in evaluation Pt Amnestic to Procedure: Yes Nausea / Vomiting: adequately controlled Pain: adequately controlled Airway Patency, RR, SpO2: stable & adequate BP & HR: stable & adequate Hydration State: stable & adequate Anesthetic Complications: no major complications apparent
[2017-12-07 14:33] VITALS: BP 152/88; PULSE 80; O2SAT 99
--- NOTE | 2017-12-07 14:36 | GI REPORT ---
Procedure Date: 12/07/2017 1:14 PM Procedure: Upper GI endoscopy Indications: Dysphagia Medicines: Propofol per Anesthesia Complications: No immediate complications. Estimated blood loss: Minimal. Estimated Blood Loss: Estimated blood loss was minimal. Procedure: Pre-Anesthesia Assessment: - Prior to the procedure, a History and Physical was performed, and patient medications and allergies were reviewed. The patient's tolerance of previous anesthesia was also reviewed. The risks and benefits of the procedure and the sedation options and risks were discussed with the patient. All questions were answered, and informed consent was obtained. Prior Anticoagulants: The patient has taken no previous anticoagulant or antiplatelet agents. ASA Grade Assessment: III - A patient with severe systemic disease. After reviewing the risks and benefits, the patient was deemed in satisfactory condition to undergo the procedure. After obtaining informed consent, the endoscope was passed under direct vision. Throughout the procedure, the patient's blood pressure, pulse, and oxygen saturations were monitored continuously. The scope was introduced through the mouth, and advanced to the second part of duodenum. The upper GI endoscopy was accomplished without difficulty. The patient tolerated the procedure well. Findings: One benign-appearing, intrinsic stenosis was found 16 cm from the incisors. This stenosis was severe and measured 6 mm (inner diameter) x 2 cm (in length). The stenosis was traversed after dilation. A guidewire was placed and the scope was withdrawn. Dilation was performed with a Savary dilator withmoderate resistance at 36 Fr and mild resistance at 39 Fr, 42 Fr and 45 Fr . A TTS dilator was passed through the scope. Dilation with a 15-16.5-18 mm balloon dilator was performed to 15 mm and 16.5 mm. The dilation site was examined following endoscope reinsertion and showed moderate improvement in luminal narrowing. The entire examined stomach was normal. The examined duodenum was normal. The cardia and gastric fundus were normal on retroflexion. Retained gastric contents are not identified on this exam. Impression: - Benign-appearing esophageal stenosis. Dilated. - Normal stomach. - Normal examined duodenum. - No specimens collected. Recommendation: - Discharge patient to home (ambulatory). - Mechanical soft diet. - Repeat upper endoscopy in 3 weeks for retreatment. - Return to referring physician as previously scheduled. MD Lavelle Rouse MD 12/07/2017 2:36:00 PM This report has been signed electronically. Note Initiated On: 12/07/2017 1:14 PM I attest to the content of the Intraoperative Record and orders documented therein, exceptions below
== END | disposition home or self-care (01) ==
LOC: C.GI 11:59
PROVIDERS: ATTEND Internal Medicine Gastroenterology
DX: K22.2 Esophageal obstruction (principal); K21.9 Gastro-esophageal reflux disease without esophagitis; M19.90 Unspecified osteoarthritis, unspecified site; E07.9 Disorder of thyroid, unspecified; Z87.891 Personal history of nicotine dependence; Z88.1 Allergy status to other antibiotic agents; Z91.030 Bee allergy status

== ENCOUNTER → 2017-12-30 | Day surgery (SDC) | payer BC ==
[~2017-12-30] VITALS: Ht 175.3 cm; Wt 61.4 kg
[~2017-12-30] MED LIST changes: -ATROPINE SULFATE 0.1 MG/ML 5ML SYR IV PRN; -EpHEDrine SULFATE INJ 50 MG/ML AMP IV PRN; -ONDANSETRON INJ 2 MG/ML 2 ML VIAL ONE
[2017-12-30 12:25] VITALS: TEMP 36.6
[2017-12-30 12:27] VITALS: Ht 175.3 cm; Wt 61.4 kg
--- NOTE | 2017-12-30 13:44 | Endo History and Physical ---
History & Physical Date of Service: Dec 30, 2017. Chief Complaint: DYSPHAGIA WITH DILATION Referring Physician: DR SALINA BIGGS, DR DUFFY History of Present Illness dysphagia Past Medical History Eating Disorders, Arthritis, Reflux, Cancer, Syncopal Episodes, Hypertension, Thyroid Disease, Kidney Disease, Liver Disease Past Surgical History Hx Cardiac Surgery: No Hx Internal Defibrillator: No Hx Pacemaker: No Hx Abdominal Surgery: Yes (INGUINAL HERNIA REPAIR) Hx of Implantable Prosthesis: No Hx Post-Op Nausea and Vomiting: No Hx Cancer Surgery: Yes (LARYNGOTOMY, MULTIPLE SURGERIES AND RECON. LARYNX CANCER) Hx Thoracic Surgery: No Hx Orthopedic: Yes (RT MADELIN, LT/RT SHOULDER ARTHROSCOPY, LT/RT HAND SURGERY, LT KNEE SURGERY) Hx Urinary Tract Surgery: No Family History None Social History Smoking Status: Former Smoker Hx Substance Use: No Hx Alcohol Use: Yes (OCCASIONALLY) Allergies Coded Allergies: BEE STING (Verified Allergy, Severe, shock, 12/22/17) Moxifloxacin (Verified Allergy, Severe, THROAT SWELLED, 12/22/17) Current Medications Reported Home Medications Medications Dose Route/Sig Max Daily Dose Days Date Category Zyrtec (Cetirizine HCl) 10 Mg Tab 10 Mg PO DAILY PRN 07/14/17 Reported Lunesta (Eszopiclone) 3 Mg Tab 3 Mg PO HS PRN 07/14/17 Reported Levothyroxine Sodium 137 Mcg Tab 1 Tab PO QAM 10/01/15 Reported Vitamin B-12 (Cyanocobalamin) 1,000 Mcg Tab 1,000 Mcg PO QAM 01/29/13 Reported Vital Signs Weight (Kilograms): 61.36 Height (Feet): 5 Height (Inches): 9 Date Time Temp Pulse Resp B/P (MAP) Pulse Ox O2 Delivery O2 Flow Rate FiO2 12/30/17 12:25 36.6 71 18 193/93 (126) 98 Room Air Assessment and Plan EGD/dilation
--- NOTE | 2017-12-30 14:37 | Discharge Instructions ---
Endoscopy Patient Instructions Date / Procedure(s) Performed Dec 30, 2017. EGD Allergy Information Coded Allergies: BEE STING (Verified Allergy, Severe, shock, 12/22/17) Moxifloxacin (Verified Allergy, Severe, THROAT SWELLED, 12/22/17) Discharge Date / Findings Dec 30, 2017. stricture- dilated Medication Instructions Restart Stopped Medication(s): Reported Home Medications Medications Dose Route/Sig Max Daily Dose Days Date Category Zyrtec (Cetirizine HCl) 10 Mg Tab 10 Mg PO DAILY PRN 07/14/17 Reported Lunesta (Eszopiclone) 3 Mg Tab 3 Mg PO HS PRN 07/14/17 Reported Levothyroxine Sodium 137 Mcg Tab 1 Tab PO QAM 10/01/15 Reported Vitamin B-12 (Cyanocobalamin) 1,000 Mcg Tab 1,000 Mcg PO QAM 01/29/13 Reported Reported Home Medications Medications Dose Route/Sig Max Daily Dose Days Date Category Zyrtec (Cetirizine HCl) 10 Mg Tab 10 Mg PO DAILY PRN 07/14/17 Reported Lunesta (Eszopiclone) 3 Mg Tab 3 Mg PO HS PRN 07/14/17 Reported Levothyroxine Sodium 137 Mcg Tab 1 Tab PO QAM 10/01/15 Reported Vitamin B-12 (Cyanocobalamin) 1,000 Mcg Tab 1,000 Mcg PO QAM 01/29/13 Reported Provider Instructions Activity Restrictions - No exercising or heavy lifting for 24 hours. - Do not drink alcohol the day of the procedure. - Do not drive a car or operate machinery until the day after the procedure. - Do not make any important decisions or sign important papers in 24 hours after the procedure. Following Day: - Return to full activity which may include returning to work/school. Diet Start your diet with liquids and light foods (jello, soup, juice, toast). Then eat your usual diet if not nauseated. Treatment For Common After Affects For mild abdominal pain, bloating, or excessive gas: - Rest - Eat lightly - Lie on right side Follow-Up Information Follow-up with DR SALINA BIGGS, DR DUFFY as scheduled Anesthesia Information What You Should Know You have had a procedure that required some medicine to reduce anxiety and discomfort. This treatment is called moderate sedation. After receiving the treatment, you may be sleepy, but you will be able to breathe on your own. The effects of the treatment may last for several hours. Follow these instructions along with Activity/Diet recommendations noted above: * Do NOT do anything where dizziness or clumsiness would be dangerous. * Rest quietly at home today, then you can be up and about tomorrow. * Have a responsible person stay with you the rest of today. * You may have had an I.V. today. If so, you may take the dressing off later today. Recommendations Call your doctor if: * Trouble breathing * Continuous vomiting for more than 24 hours * Temperature above 101 degrees * Severe abdominal pain or bloating * Pain not relieved by pain medicine ordered * There is increased drainage or redness from any incision * A large amount of rectal bleeding greater than 2-3 tablespoons. (If you had a polyp/s removed or have hemorrhoids, a small amount of blood - from the rectum is to be expected.) * You have any unanswered questions or concerns. IN THE EVENT OF A SERIOUS EMERGENCY, GO TO THE NEAREST EMERGENCY ROOM Your discharge instructions were prepared by provider Lavelle Carreon. Patient Instructions Signature Page Wilbert Peralta Patient (or Guardian) Signature/Date: I have read and understand the instructions given to me by my caregivers. Caregiver/RN/Doctor Signature/Date: The above-named patient and/or guardian has received patient instructions on this date. + Original Patient Signature Page (only) stays with chart. Please make copy for patient.
[2017-12-30 15:14] VITALS: BP 158/100; PULSE 73; O2SAT 99
--- NOTE | 2017-12-30 15:20 | Anesthesiology Progress Note ---
Anesthesia Post Op Note Date & Time Dec 30, 2017 at 15:20 Vital Signs Pain Intensity: 0 Vital Signs Past 12 Hours Date Time Temp Pulse Resp B/P (MAP) Pulse Ox O2 Delivery O2 Flow Rate FiO2 12/30/17 15:14 73 20 158/100 (119) 99 Room Air 12/30/17 14:55 71 18 156/95 (115) 97 Room Air 12/30/17 14:39 84 16 141/79 (99) 100 Room Air 12/30/17 12:25 36.6 71 18 193/93 (126) 98 Room Air Notes Mental Status: alert / awake / arousable, participated in evaluation Pt Amnestic to Procedure: Yes Nausea / Vomiting: adequately controlled Pain: adequately controlled Airway Patency, RR, SpO2: stable & adequate BP & HR: stable & adequate Hydration State: stable & adequate Anesthetic Complications: no major complications apparent
--- NOTE | 2017-12-31 11:34 | GI REPORT ---
Patient Name: Wilbert Peralta Procedure Date: 12/30/2017 1:22 PM Date of : 1950 Admit Type: Outpatient Age: 67 Gender: Male Attending MD: Lavelle Carreon MD Procedure: Upper GI endoscopy Providers: Lavelle Carreon MD Referring MD: Alex Medel, Víctor Pagan MD Indications: Dysphagia Medicines: Propofol per Anesthesia Complications: No immediate complications. Estimated blood loss: Minimal. Estimated Blood Loss: Estimated blood loss was minimal. Procedure: Pre-Anesthesia Assessment: - Prior to the procedure, a History and Physical was performed, and patient medications and allergies were reviewed. The patient's tolerance of previous anesthesia was also reviewed. The risks and benefits of the procedure and the sedation options and risks were discussed with the patient. All questions were answered, and informed consent was obtained. Prior Anticoagulants: The patient has taken no previous anticoagulant or antiplatelet agents. ASA Grade Assessment: III - A patient with severe systemic disease. After reviewing the risks and benefits, the patient was deemed in satisfactory condition to undergo the procedure. After obtaining informed consent, the endoscope was passed under direct vision. Throughout the procedure, the patient's blood pressure, pulse, and oxygen saturations were monitored continuously. The On-site loaner was introduced through the mouth, and advanced to the second part of duodenum. The upper GI endoscopy was accomplished without difficulty. The patient tolerated the procedure well. Findings: One benign-appearing, intrinsic stenosis was found 17 cm from the incisors. This stenosis was severe and measured 7 mm (inner diameter) x 1 cm (in length). The stenosis was traversed after dilation. A guidewire was placed and the scope was withdrawn. Dilation was performed with a Savary dilator with no resistance at 36 Fr, mild resistance at 39 Fr, moderate resistance at 42 Fr and 45 Fr and the dilator could not be passed at 48 Fr. A TTS dilator was passed through the scope. Dilation with a 15-16.5-18 mm balloon dilator was performed to 18 mm. The dilation site was examined following endoscope reinsertion and showed moderate improvement in luminal narrowing. Estimated blood loss was minimal. The entire examined stomach was normal. The examined duodenum was normal. The cardia and gastric fundus were normal on retroflexion. Retained gastric contents are not identified on this exam. Impression: - Benign-appearing esophageal stenosis. Dilated. - Normal stomach. - Normal examined duodenum. - No specimens collected. Recommendation: - Discharge patient to home (ambulatory). - Advance diet as tolerated. - Continue present medications. - Repeat upper endoscopy in 1 month for retreatment. - Return to referring physician as previously scheduled. MD Lavelle Rouse MD 12/30/2017 4:36:24 PM This report has been signed electronically. Note Initiated On: 12/30/2017 1:22 PM Number of Addenda: 0 I attest to the content of the Intraoperative Record and orders documented therein, exceptions below {[id number]}
== END | disposition home or self-care (01) ==
LOC: C.GI 12:01
PROVIDERS: ATTEND Internal Medicine Gastroenterology
DX: R13.10 Dysphagia, unspecified (principal); Z88.1 Allergy status to other antibiotic agents; Z91.030 Bee allergy status; Z87.891 Personal history of nicotine dependence

== ENCOUNTER → 2018-01-04 | Outpatient (CLI) | payer BC ==
[~2018-01-04] MED LIST changes: -LIDOCAINE HCL 2% 2 ML VIAL (20MG/ML) ONE; -MIDAZOLAM HCL 1 MG/ML 2ML VIAL ONE; -PROPOFOL IV EMULSION 10 MG/ML 20 ML VIAL IV ONE; -SODIUM CHLORIDE 0.9% 500ML 500 ML IV ONE
[2018-01-04 16:56] LABS: BASO % 0.3 %; BASO ABS # 0.02 K/uL (0-0.2); EOS % 0.6 %; EOS ABS # 0.05 K/uL (0-0.5); HEMATOCRIT 40.8 % (42-52); HEMOGLOBIN 13.5 g/dL (14.0-18.0); IG# 0.06 K/uL (0.00-0.02); LYMPH % 19.8 %; LYMPH ABS # 1.56 K/uL (1.2-3.4); MEAN CELL VOLUME 93.2 fL (80-100); MEAN CORPUSCULAR HEMOGLOBIN 30.8 pg (25-34); MEAN CORPUSCULAR HGB CONC 33.1 g/dl (32-36); MEAN PLATELET VOLUME 8.9 fL (7.4-10.4); MONO ABS # 0.63 K/uL (0.11-0.59); NEUT % 70.5 %; NEUT ABS # 5.54 K/uL (1.4-6.5); PLATELET COUNT 166 K/uL (130-400); RED CELL DISTRIBUTION WIDTH CV 15.2 % (11.5-14.5); RED CELL DISTRIBUTION WIDTH SD 51.3 fL (36.4-46.3); WHITE BLOOD COUNT 7.86 K/uL (4.8-10.8)
[2018-01-04 17:20] LABS: ALBUMIN 3.6 gm/dl (3.4-5.0); ALT/SGPT 19 U/L (12-78); AST/SGOT 13 U/L (15-37); BLOOD UREA NITROGEN 24 mg/dl (7-18); CALCIUM 8.7 mg/dl (8.5-10.1); CARBON DIOXIDE 28 mmol/L (21-32); CREATININE 1.36 mg/dl (0.60-1.40); GLUCOSE 98 mg/dl (70-99); POTASSIUM 4.1 mmol/L (3.5-5.1); SODIUM 140 mmol/L (136-145)
[2018-01-04 17:30] LABS: ALKALINE PHOSPHATASE 77 U/L (45-117); TOTAL PROTEIN 7.3 gm/dl (6.4-8.2)
[2018-01-05 06:53] LABS: HEMOGLOBIN A1C 5.7 % (4.5-5.6)
== END | disposition home or self-care (01) ==
LOC: C.LABBC 13:37
PROVIDERS: ATTEND Physician Assistant Medical
DX: I10 Essential (primary) hypertension (principal); E03.9 Hypothyroidism, unspecified; R73.01 Impaired fasting glucose; C32.9 Malignant neoplasm of larynx, unspecified

== ENCOUNTER → 2018-01-27 | Day surgery (SDC) | payer BC ==
[2018-01-19 08:05] VITALS: Ht 175.3 cm; Wt 61.4 kg
[~2018-01-27] VITALS: Ht 175.3 cm; Wt 61.4 kg
[~2018-01-27] MED LIST changes: +LEVO150T9 PO; +LISI-461 PO; +MIDAZOLAM HCL 1 MG/ML 2ML VIAL ONE; +PHENYLEPHRINE 100MCG/ML 5ML SYR ONE; +PROPOFOL IV EMULSION 10 MG/ML 20 ML VIAL ONE; +SODIUM CHLORIDE 0.9% 500ML 500 ML IV ONE
--- NOTE | 2018-01-27 13:30 | Endo History and Physical ---
History & Physical Date of Service: January 27, 2018. Chief Complaint: dysphagia Referring Physician: Dr. Sean Medel and Dr. Benton Day History of Present Illness EGD dilation for stricture Past Medical History Eating Disorders, Arthritis, Reflux, Cancer, Syncopal Episodes, Hypertension, Thyroid Disease, Kidney Disease, Liver Disease Past Surgical History Hx Cardiac Surgery: No Hx Internal Defibrillator: No Hx Pacemaker: No Hx Abdominal Surgery: Yes (INGUINAL HERNIA REPAIR) Hx of Implantable Prosthesis: No Hx Post-Op Nausea and Vomiting: No Hx Cancer Surgery: Yes (LARYNGOTOMY, MULTIPLE SURGERIES AND RECON. LARYNX CANCER) Hx Thoracic Surgery: No Hx Orthopedic: Yes (RT MADELIN, LT/RT SHOULDER ARTHROSCOPY, LT/RT HAND SURGERY, LT KNEE SURGERY) Hx Urinary Tract Surgery: No Family History None Social History Smoking Status: Former Smoker Hx Substance Use: No Hx Alcohol Use: Yes (OCCASIONALLY) Allergies Coded Allergies: BEE STING (Verified Allergy, Severe, shock, 01/19/18) Moxifloxacin (Verified Allergy, Severe, THROAT SWELLED, 01/19/18) Current Medications Reported Home Medications Medications Dose Route/Sig Max Daily Dose Days Date Category Levothyroxine Sodium 150 Mcg Tab 1 Tab PO DAILY 30 01/27/18 Reported Zestril (Lisinopril) 10 Mg Tab 10 Mg PO DAILY 01/27/18 Reported Zyrtec (Cetirizine HCl) 10 Mg Tab 10 Mg PO DAILY PRN 07/14/17 Reported Lunesta (Eszopiclone) 3 Mg Tab 3 Mg PO HS PRN 07/14/17 Reported Vitamin B-12 (Cyanocobalamin) 1,000 Mcg Tab 1,000 Mcg PO QAM 01/29/13 Reported Vital Signs Weight (Kilograms): 61.36 Height (Feet): 5 Height (Inches): 9 Physical Exam General Appearance: WD/WN, no apparent distress Respiratory/Chest: Auscultation: breath sounds normal Cardiovascular: Heart Auscultation: RRR Abdomen: Bowel Sounds: normal Inspection & Palpation: soft, non-distended, no tenderness, guarding & rebound Assessment and Plan EGD dilation
--- NOTE | 2018-01-27 15:19 | GI REPORT ---
Patient Name: Wilbert Peralta Procedure Date: 01/27/2018 2:23 PM Date of : 1950 Admit Type: Outpatient Age: 67 Gender: Male Attending MD: Lavelle Carreon MD Procedure: Upper GI endoscopy Providers: Lavelle Carreon MD Referring MD: Alex Medel Indications: Dysphagia Medicines: Propofol per Anesthesia Complications: No immediate complications. Estimated blood loss: Minimal. Estimated Blood Loss: Estimated blood loss was minimal. Procedure: Pre-Anesthesia Assessment: - Prior to the procedure, a History and Physical was performed, and patient medications and allergies were reviewed. The patient's tolerance of previous anesthesia was also reviewed. The risks and benefits of the procedure and the sedation options and risks were discussed with the patient. All questions were answered, and informed consent was obtained. Prior Anticoagulants: The patient has taken no previous anticoagulant or antiplatelet agents. ASA Grade Assessment: II - A patient with mild systemic disease. After reviewing the risks and benefits, the patient was deemed in satisfactory condition to undergo the procedure. After obtaining informed consent, the endoscope was passed under direct vision. Throughout the procedure, the patient's blood pressure, pulse, and oxygen saturations were monitored continuously. The scope was introduced through the mouth, and advanced to the second part of duodenum. The upper GI endoscopy was accomplished without difficulty. The patient tolerated the procedure well. Findings: One benign-appearing, intrinsic stenosis was found 15 cm from the incisors. This stenosis was severe (stenosis; an endoscope cannot pass) and measured 6 mm (inner diameter) x 1 cm (in length). The stenosis was traversed after dilation. A guidewire was placed and the scope was withdrawn. Dilation was performed with a Savary dilator with mild resistance at 39 Fr and moderate resistance at 42 Fr and 45 Fr. To repair the defect-mucosal tear, the tissue edges were approximated and two hemostatic clips were successfully placed (MR conditional). Closure of the defect was successful. There was no bleeding during, or at the end, of the procedure. The entire examined stomach was normal. The examined duodenum was normal. The cardia and gastric fundus were normal on retroflexion. Impression: - Benign-appearing esophageal stenosis. Dilated. Clips (MR conditional) were placed. - Normal stomach. - Normal examined duodenum. - No specimens collected. Recommendation: - Discharge patient to home (ambulatory). - Clear liquid diet today and full liquid diet tomorrow. - Repeat upper endoscopy in 4 weeks for retreatment. - Return to referring physician as previously scheduled. MD Lavelle Rouse MD 01/27/2018 3:19:00 PM This report has been signed electronically. Note Initiated On: 01/27/2018 2:23 PM Number of Addenda: 0 I attest to the content of the Intraoperative Record and orders documented therein, exceptions below {[id number]}
--- NOTE | 2018-01-27 15:30 | Discharge Instructions ---
Endoscopy Patient Instructions Date / Procedure(s) Performed January 27, 2018. EGD Allergy Information Coded Allergies: BEE STING (Verified Allergy, Severe, shock, 01/19/18) Moxifloxacin (Verified Allergy, Severe, THROAT SWELLED, 01/19/18) Discharge Date / Findings January 27, 2018. dilated to 45 Fr mucosal /tear Medication Instructions Restart Stopped Medication(s): Reported Home Medications Medications Dose Route/Sig Max Daily Dose Days Date Category Levothyroxine Sodium 150 Mcg Tab 1 Tab PO DAILY 30 01/27/18 Reported Zestril (Lisinopril) 10 Mg Tab 10 Mg PO DAILY 01/27/18 Reported Zyrtec (Cetirizine HCl) 10 Mg Tab 10 Mg PO DAILY PRN 07/14/17 Reported Lunesta (Eszopiclone) 3 Mg Tab 3 Mg PO HS PRN 07/14/17 Reported Vitamin B-12 (Cyanocobalamin) 1,000 Mcg Tab 1,000 Mcg PO QAM 01/29/13 Reported 1) clear liquid today; 2) full liquid tomorrow 3) Repeat EGD in 4 weeks griselda Provider Instructions Activity Restrictions - No exercising or heavy lifting for 24 hours. - Do not drink alcohol the day of the procedure. - Do not drive a car or operate machinery until the day after the procedure. - Do not make any important decisions or sign important papers in 24 hours after the procedure. Following Day: - Return to full activity which may include returning to work/school. Diet Start your diet with liquids and light foods (jello, soup, juice, toast). Then eat your usual diet if not nauseated. Treatment For Common After Affects For mild abdominal pain, bloating, or excessive gas: - Rest - Eat lightly - Lie on right side Reported Home Medications Medications Dose Route/Sig Max Daily Dose Days Date Category Levothyroxine Sodium 150 Mcg Tab 1 Tab PO DAILY 30 01/27/18 Reported Zestril (Lisinopril) 10 Mg Tab 10 Mg PO DAILY 01/27/18 Reported Zyrtec (Cetirizine HCl) 10 Mg Tab 10 Mg PO DAILY PRN 07/14/17 Reported Lunesta (Eszopiclone) 3 Mg Tab 3 Mg PO HS PRN 07/14/17 Reported Vitamin B-12 (Cyanocobalamin) 1,000 Mcg Tab 1,000 Mcg PO QAM 01/29/13 Reported 1) clear liquids today; full liquids tomorrow 2) repeat EGD 4 weeks griselda Follow-Up Information Follow-up with Dr. Sean Medel and Dr. Benton Day as scheduled Anesthesia Information What You Should Know You have had a procedure that required some medicine to reduce anxiety and discomfort. This treatment is called moderate sedation. After receiving the treatment, you may be sleepy, but you will be able to breathe on your own. The effects of the treatment may last for several hours. Follow these instructions along with Activity/Diet recommendations noted above: * Do NOT do anything where dizziness or clumsiness would be dangerous. * Rest quietly at home today, then you can be up and about tomorrow. * Have a responsible person stay with you the rest of today. * You may have had an I.V. today. If so, you may take the dressing off later today. Recommendations Call your doctor if: * Trouble breathing * Continuous vomiting for more than 24 hours * Temperature above 101 degrees * Severe abdominal pain or bloating * Pain not relieved by pain medicine ordered * There is increased drainage or redness from any incision * A large amount of rectal bleeding greater than 2-3 tablespoons. (If you had a polyp/s removed or have hemorrhoids, a small amount of blood - from the rectum is to be expected.) * You have any unanswered questions or concerns. IN THE EVENT OF A SERIOUS EMERGENCY, GO TO THE NEAREST EMERGENCY ROOM Your discharge instructions were prepared by provider Lavelle Carreon. Patient Instructions Signature Page Wilbert Fabian Patient (or Guardian) Signature/Date: I have read and understand the instructions given to me by my caregivers. Caregiver/RN/Doctor Signature/Date: The above-named patient and/or guardian has received patient instructions on this date. + Original Patient Signature Page (only) stays with chart. Please make copy for patient.
--- NOTE | 2018-01-27 15:31 | Anesthesiology Progress Note ---
Anesthesia Post Op Note Date & Time January 27, 2018 at 15:31 Vital Signs Pain Intensity: 0 Vital Signs Past 12 Hours Date Time Temp Pulse Resp B/P (MAP) Pulse Ox O2 Delivery O2 Flow Rate FiO2 01/27/18 15:10 73 16 125/80 (95) 96 Room Air 01/27/18 13:27 36.4 68 20 132/91 (105) 96 Room Air Notes Mental Status: alert / awake / arousable, participated in evaluation Pt Amnestic to Procedure: Yes Nausea / Vomiting: adequately controlled Pain: adequately controlled Airway Patency, RR, SpO2: stable & adequate BP & HR: stable & adequate Hydration State: stable & adequate Anesthetic Complications: no major complications apparent
[2018-01-27 15:55] VITALS: BP 118/81; PULSE 76; O2SAT 97
== END | disposition home or self-care (01) ==
LOC: C.GI 12:06
PROVIDERS: ATTEND Internal Medicine Gastroenterology
DX: K22.2 Esophageal obstruction (principal); K21.9 Gastro-esophageal reflux disease without esophagitis; I10 Essential (primary) hypertension; E07.9 Disorder of thyroid, unspecified; N28.9 Disorder of kidney and ureter, unspecified; K76.9 Liver disease, unspecified; M19.90 Unspecified osteoarthritis, unspecified site; Z87.891 Personal history of nicotine dependence; Z91.030 Bee allergy status; Z88.8 Allergy status to other drugs, medicaments and biological substances

== ENCOUNTER → 2018-04-07 | Day surgery (SDC) | payer BC ==
[~2018-04-07] VITALS: Ht 175.3 cm; Wt 61.4 kg
[~2018-04-07] MED LIST changes: -LEVO137T3 PO; +LIDOCAINE HCL 2% 2 ML VIAL (20MG/ML) ONE; +OYST500T47 PO
[2018-04-07 13:42] VITALS: Ht 175.3 cm; Wt 61.4 kg
[2018-04-07 13:55] VITALS: TEMP 36.5
--- NOTE | 2018-04-07 14:04 | Discharge Instructions ---
Endoscopy Patient Instructions Date / Procedure(s) Performed Apr 07, 2018. EGD Allergy Information Coded Allergies: BEE STING (Verified Allergy, Severe, shock, 04/02/18) Moxifloxacin (Verified Allergy, Severe, THROAT SWELLED, 04/02/18) Ketamine (Verified Allergy, Intermediate, AGITATION, HALLUCINATION ,OUT OF BODY FEELING, 04/07/18) Discharge Date / Findings Apr 07, 2018. stricture with dilation 30,33,36,39,42,45 Fr Medication Instructions Restart Stopped Medication(s): Reported Home Medications Medications Dose Route/Sig Max Daily Dose Days Date Category Calcium (Oyster Shell) 500 Mg Tab 1 Tab PO QAM 02/23/18 Reported Levothyroxine Sodium 150 Mcg Tab 1 Tab PO QAM 01/27/18 Reported Zestril (Lisinopril) 10 Mg Tab 5 Mg PO QAM 01/27/18 Reported Zyrtec (Cetirizine HCl) 10 Mg Tab 10 Mg PO DAILY PRN 07/14/17 Reported Lunesta (Eszopiclone) 3 Mg Tab 3 Mg PO HS PRN 07/14/17 Reported Vitamin B-12 (Cyanocobalamin) 1,000 Mcg Tab 1,000 Mcg PO QAM 01/29/13 Reported Reported Home Medications Medications Dose Route/Sig Max Daily Dose Days Date Category Calcium (Oyster Shell) 500 Mg Tab 1 Tab PO QAM 02/23/18 Reported Levothyroxine Sodium 150 Mcg Tab 1 Tab PO QAM 01/27/18 Reported Zestril (Lisinopril) 10 Mg Tab 5 Mg PO QAM 01/27/18 Reported Zyrtec (Cetirizine HCl) 10 Mg Tab 10 Mg PO DAILY PRN 07/14/17 Reported Lunesta (Eszopiclone) 3 Mg Tab 3 Mg PO HS PRN 07/14/17 Reported Vitamin B-12 (Cyanocobalamin) 1,000 Mcg Tab 1,000 Mcg PO QAM 01/29/13 Reported Provider Instructions Activity Restrictions - No exercising or heavy lifting for 24 hours. - Do not drink alcohol the day of the procedure. - Do not drive a car or operate machinery until the day after the procedure. - Do not make any important decisions or sign important papers in 24 hours after the procedure. Following Day: - Return to full activity which may include returning to work/school. Diet Start your diet with liquids and light foods (jello, soup, juice, toast). Then eat your usual diet if not nauseated. Treatment For Common After Affects For mild abdominal pain, bloating, or excessive gas: - Rest - Eat lightly - Lie on right side Follow-Up Information Follow-up with DR SALINA BIGGS as scheduled Anesthesia Information What You Should Know You have had a procedure that required some medicine to reduce anxiety and discomfort. This treatment is called moderate sedation. After receiving the treatment, you may be sleepy, but you will be able to breathe on your own. The effects of the treatment may last for several hours. Follow these instructions along with Activity/Diet recommendations noted above: * Do NOT do anything where dizziness or clumsiness would be dangerous. * Rest quietly at home today, then you can be up and about tomorrow. * Have a responsible person stay with you the rest of today. * You may have had an I.V. today. If so, you may take the dressing off later today. Recommendations Call your doctor if: * Trouble breathing * Continuous vomiting for more than 24 hours * Temperature above 101 degrees * Severe abdominal pain or bloating * Pain not relieved by pain medicine ordered * There is increased drainage or redness from any incision * A large amount of rectal bleeding greater than 2-3 tablespoons. (If you had a polyp/s removed or have hemorrhoids, a small amount of blood - from the rectum is to be expected.) * You have any unanswered questions or concerns. IN THE EVENT OF A SERIOUS EMERGENCY, GO TO THE NEAREST EMERGENCY ROOM Your discharge instructions were prepared by provider Lavelle Carreon. Patient Instructions Signature Page Wilbert Peralta Patient (or Guardian) Signature/Date: I have read and understand the instructions given to me by my caregivers. Caregiver/RN/Doctor Signature/Date: The above-named patient and/or guardian has received patient instructions on this date. + Original Patient Signature Page (only) stays with chart. Please make copy for patient.
--- NOTE | 2018-04-07 14:06 | Endo History and Physical ---
History & Physical Date of Service: Apr 07, 2018. Chief Complaint: DYSPHAGIA Referring Physician: DR SALINA BIGGS History of Present Illness dysphagia/EGD Past Medical History Eating Disorders, Arthritis, Reflux, Cancer, Syncopal Episodes, Hypertension, Thyroid Disease, Kidney Disease, Liver Disease Past Surgical History Hx Cardiac Surgery: No Hx Internal Defibrillator: No Hx Pacemaker: No Hx Abdominal Surgery: Yes (INGUINAL HERNIA REPAIR) Hx Post-Op Nausea and Vomiting: No Hx Cancer Surgery: Yes (LARYNGOTOMY, MULTIPLE SURGERIES AND RECON. LARYNX CANCER) Hx Thoracic Surgery: No Hx Orthopedic: Yes (RT MADELIN, LT/RT SHOULDER ARTHROSCOPY, LT/RT HAND SURGERY, LEFT KNEE SURGERY) Hx Urinary Tract Surgery: No Family History None Social History Smoking Status: Former Smoker Hx Substance Use: No Hx Alcohol Use: Yes (OCCASIONALLY) Allergies Coded Allergies: BEE STING (Verified Allergy, Severe, shock, 04/02/18) Moxifloxacin (Verified Allergy, Severe, THROAT SWELLED, 04/02/18) Ketamine (Verified Allergy, Intermediate, AGITATION, HALLUCINATION ,OUT OF BODY FEELING, 04/07/18) Current Medications Reported Home Medications Medications Dose Route/Sig Max Daily Dose Days Date Category Calcium (Oyster Shell) 500 Mg Tab 1 Tab PO QAM 02/23/18 Reported Levothyroxine Sodium 150 Mcg Tab 1 Tab PO QAM 01/27/18 Reported Zestril (Lisinopril) 10 Mg Tab 5 Mg PO QAM 01/27/18 Reported Zyrtec (Cetirizine HCl) 10 Mg Tab 10 Mg PO DAILY PRN 07/14/17 Reported Lunesta (Eszopiclone) 3 Mg Tab 3 Mg PO HS PRN 07/14/17 Reported Vitamin B-12 (Cyanocobalamin) 1,000 Mcg Tab 1,000 Mcg PO QAM 01/29/13 Reported Vital Signs Weight (Kilograms): 61.36 Height (Feet): 5 Height (Inches): 9 Date Time Temp Pulse Resp B/P (MAP) Pulse Ox O2 Delivery O2 Flow Rate FiO2 04/07/18 13:55 36.5 70 16 99/61 (74) 98 Room Air Physical Exam General Appearance: WD/WN, no apparent distress Respiratory/Chest: Auscultation: breath sounds normal Cardiovascular: Heart Auscultation: RRR Abdomen: Bowel Sounds: normal Inspection & Palpation: soft, non-distended, no tenderness, guarding & rebound Assessment and Plan EGD for dilation
--- NOTE | 2018-04-07 14:52 | GI REPORT ---
Patient Name: Wilbert Peralta Procedure Date: 04/07/2018 2:05 PM Date of : 1950 Admit Type: Outpatient Age: 68 Gender: Male Attending MD: Lavelle Carreon MD Procedure: Upper GI endoscopy Providers: Lavelle Carreon MD Referring MD: Benton De La Rosa Indications: Dysphagia Medicines: Propofol per Anesthesia Complications: No immediate complications. Estimated blood loss: Minimal. Estimated Blood Loss: Estimated blood loss was minimal. Procedure: Pre-Anesthesia Assessment: - Prior to the procedure, a History and Physical was performed, and patient medications and allergies were reviewed. The patient's tolerance of previous anesthesia was also reviewed. The risks and benefits of the procedure and the sedation options and risks were discussed with the patient. All questions were answered, and informed consent was obtained. Prior Anticoagulants: The patient has taken no previous anticoagulant or antiplatelet agents. ASA Grade Assessment: III - A patient with severe systemic disease. After reviewing the risks and benefits, the patient was deemed in satisfactory condition to undergo the procedure. After obtaining informed consent, the endoscope was passed under direct vision. Throughout the procedure, the patient's blood pressure, pulse, and oxygen saturations were monitored continuously. The scope was introduced through the mouth, and advanced to the second part of duodenum. The upper GI endoscopy was accomplished without difficulty. The patient tolerated the procedure well. Findings: One benign-appearing, intrinsic stenosis was found 16 cm from the incisors. This stenosis was severe and measured 6 mm (inner diameter) x 1 cm (in length). The stenosis was traversed after dilation. A guidewire was placed and the scope was withdrawn. Dilation was performed with a Savary dilator with no resistance at 30 Fr and 33 Fr, mild resistance at 36 Fr and 39 Fr and moderate resistance at 42 Fr and 45 Fr. The dilation site was examined following endoscope reinsertion and showed moderate improvement in luminal narrowing. Estimated blood loss was minimal. The entire examined stomach was normal. The examined duodenum was normal. Retained gastric contents are not identified on this exam. The cardia and gastric fundus were normal on retroflexion. The exam of the esophagus was otherwise normal. Impression: - Benign-appearing esophageal stenosis. Dilated. - Normal stomach. - Normal examined duodenum. - No specimens collected. Recommendation: - Discharge patient to home (ambulatory). - Resume regular diet. - Continue present medications. - Await pathology results. - Repeat upper endoscopy in 3 weeks for retreatment. - Return to referring physician as previously scheduled. MD Lavelle Rouse MD 04/07/2018 2:51:51 PM This report has been signed electronically. Note Initiated On: 04/07/2018 2:05 PM Number of Addenda: 0 I attest to the content of the Intraoperative Record and orders documented therein, exceptions below {[id number]}
[2018-04-07 15:29] VITALS: BP 108/66; PULSE 67; O2SAT 97
--- NOTE | 2018-04-07 15:35 | Anesthesiology Progress Note ---
Anesthesia Post Op Note Date & Time Apr 07, 2018 at 15:35 Vital Signs Pain Intensity: 0 Vital Signs Past 12 Hours Date Time Temp Pulse Resp B/P (MAP) Pulse Ox O2 Delivery O2 Flow Rate FiO2 04/07/18 15:29 67 20 108/66 (80) 97 Room Air 04/07/18 15:22 69 20 115/68 (84) 97 Room Air 04/07/18 15:07 72 20 92/54 (67) 96 Room Air 04/07/18 14:59 71 20 136/78 (97) 96 Room Air 04/07/18 13:55 36.5 70 16 99/61 (74) 98 Room Air Notes Mental Status: alert / awake / arousable, participated in evaluation Pt Amnestic to Procedure: Yes Nausea / Vomiting: adequately controlled Pain: adequately controlled Airway Patency, RR, SpO2: stable & adequate BP & HR: stable & adequate Hydration State: stable & adequate Anesthetic Complications: no major complications apparent
== END | disposition home or self-care (01) ==
LOC: C.GI 12:50
PROVIDERS: ATTEND Internal Medicine Gastroenterology
DX: R13.10 Dysphagia, unspecified (principal); I12.9 Hypertensive chronic kidney disease with stage 1 through stage 4 chronic kidney disease, or unspecified chronic kidney disease; N18.9 Chronic kidney disease, unspecified; F50.9 Eating disorder, unspecified; M19.90 Unspecified osteoarthritis, unspecified site; K21.9 Gastro-esophageal reflux disease without esophagitis; E07.9 Disorder of thyroid, unspecified; Z85.21 Personal history of malignant neoplasm of larynx; Z87.891 Personal history of nicotine dependence

== ENCOUNTER → 2018-04-30 | Day surgery (SDC) | payer BC ==
[~2018-04-30] VITALS: Ht 175.3 cm; Wt 61.4 kg
[~2018-04-30] MED LIST changes: +ONDANSETRON INJ 2 MG/ML 2 ML VIAL ONE
[2018-04-30 13:26] VITALS: Ht 175.3 cm; Wt 61.4 kg
--- NOTE | 2018-04-30 13:52 | Endo History and Physical ---
History & Physical Date of Service: Apr 30, 2018. Chief Complaint: DYSPHAGIA, SCREENING Referring Physician: History of Present Illness EGD for dysphagia; screening colonscopy Past Medical History Eating Disorders, Arthritis, Reflux, Cancer, Syncopal Episodes, Hypertension, Thyroid Disease, Kidney Disease, Liver Disease Past Surgical History Hx Cardiac Surgery: No Hx Internal Defibrillator: No Hx Pacemaker: No Hx Abdominal Surgery: Yes (INGUINAL HERNIA REPAIR) Hx of Implantable Prosthesis: No Hx Post-Op Nausea and Vomiting: No Hx Cancer Surgery: Yes (LARYNGOTOMY, MULTIPLE SURGERIES AND RECON. LARYNX CANCER) Hx Thoracic Surgery: No Hx Orthopedic: Yes (RT MADELIN, LT/RT SHOULDER ARTHROSCOPY, LT/RT HAND SURGERY, LEFT KNEE SURGERY) Hx Urinary Tract Surgery: No Family History None Social History Smoking Status: Former Smoker Hx Substance Use: No Hx Alcohol Use: Yes (OCCASIONALLY) Allergies Coded Allergies: BEE STING (Verified Allergy, Severe, shock, 04/26/18) Moxifloxacin (Verified Allergy, Severe, THROAT SWELLED, 04/26/18) Ketamine (Verified Allergy, Intermediate, AGITATION, HALLUCINATION ,OUT OF BODY FEELING, 04/26/18) Current Medications Reported Home Medications Medications Dose Route/Sig Max Daily Dose Days Date Category Calcium (Oyster Shell) 500 Mg Tab 1 Tab PO QAM 02/23/18 Reported Levothyroxine Sodium 150 Mcg Tab 1 Tab PO QAM 01/27/18 Reported Zestril (Lisinopril) 10 Mg Tab 5 Mg PO QAM 01/27/18 Reported Zyrtec (Cetirizine HCl) 10 Mg Tab 10 Mg PO DAILY PRN 07/14/17 Reported Lunesta (Eszopiclone) 3 Mg Tab 3 Mg PO HS PRN 07/14/17 Reported Vitamin B-12 (Cyanocobalamin) 1,000 Mcg Tab 1,000 Mcg PO QAM 01/29/13 Reported Vital Signs Weight (Kilograms): 61.36 Height (Feet): 5 Height (Inches): 9 Date Time Temp Pulse Resp B/P (MAP) Pulse Ox O2 Delivery O2 Flow Rate FiO2 04/30/18 13:34 36.6 101 18 120/80 (93) 99 Room Air Physical Exam General Appearance: WD/WN, no apparent distress Respiratory/Chest: Auscultation: breath sounds normal Cardiovascular: Heart Auscultation: RRR Abdomen: Bowel Sounds: normal Inspection & Palpation: soft, non-distended, no tenderness, guarding & rebound Assessment and Plan for EGD with dilation colonoscopy with screen
--- NOTE | 2018-04-30 14:54 | Discharge Instructions ---
Endoscopy Patient Instructions Date / Procedure(s) Performed Apr 30, 2018. Colonoscopy, EGD Allergy Information Coded Allergies: BEE STING (Verified Allergy, Severe, shock, 04/26/18) Moxifloxacin (Verified Allergy, Severe, THROAT SWELLED, 04/26/18) Ketamine (Verified Allergy, Intermediate, AGITATION, HALLUCINATION ,OUT OF BODY FEELING, 04/26/18) Discharge Date / Findings Apr 30, 2018. 1) stricture dilated to 45 Fr Savary Colon with polyp/diveticula and hemorrhoids Medication Instructions Restart Stopped Medication(s): Reported Home Medications Medications Dose Route/Sig Max Daily Dose Days Date Category Calcium (Oyster Shell) 500 Mg Tab 1 Tab PO QAM 02/23/18 Reported Levothyroxine Sodium 150 Mcg Tab 1 Tab PO QAM 01/27/18 Reported Zestril (Lisinopril) 10 Mg Tab 5 Mg PO QAM 01/27/18 Reported Zyrtec (Cetirizine HCl) 10 Mg Tab 10 Mg PO DAILY PRN 07/14/17 Reported Lunesta (Eszopiclone) 3 Mg Tab 3 Mg PO HS PRN 07/14/17 Reported Vitamin B-12 (Cyanocobalamin) 1,000 Mcg Tab 1,000 Mcg PO QAM 01/29/13 Reported Reported Home Medications Medications Dose Route/Sig Max Daily Dose Days Date Category Calcium (Oyster Shell) 500 Mg Tab 1 Tab PO QAM 02/23/18 Reported Levothyroxine Sodium 150 Mcg Tab 1 Tab PO QAM 01/27/18 Reported Zestril (Lisinopril) 10 Mg Tab 5 Mg PO QAM 01/27/18 Reported Zyrtec (Cetirizine HCl) 10 Mg Tab 10 Mg PO DAILY PRN 07/14/17 Reported Lunesta (Eszopiclone) 3 Mg Tab 3 Mg PO HS PRN 07/14/17 Reported Vitamin B-12 (Cyanocobalamin) 1,000 Mcg Tab 1,000 Mcg PO QAM 01/29/13 Reported Provider Instructions Activity Restrictions - No exercising or heavy lifting for 24 hours. - Do not drink alcohol the day of the procedure. - Do not drive a car or operate machinery until the day after the procedure. - Do not make any important decisions or sign important papers in 24 hours after the procedure. Following Day: - Return to full activity which may include returning to work/school. Diet Start your diet with liquids and light foods (jello, soup, juice, toast). Then eat your usual diet if not nauseated. Treatment For Common After Affects For mild abdominal pain, bloating, or excessive gas: - Rest - Eat lightly - Lie on right side Follow-Up Information Follow-up with as scheduled Anesthesia Information What You Should Know You have had a procedure that required some medicine to reduce anxiety and discomfort. This treatment is called moderate sedation. After receiving the treatment, you may be sleepy, but you will be able to breathe on your own. The effects of the treatment may last for several hours. Follow these instructions along with Activity/Diet recommendations noted above: * Do NOT do anything where dizziness or clumsiness would be dangerous. * Rest quietly at home today, then you can be up and about tomorrow. * Have a responsible person stay with you the rest of today. * You may have had an I.V. today. If so, you may take the dressing off later today. Recommendations Call your doctor if: * Trouble breathing * Continuous vomiting for more than 24 hours * Temperature above 101 degrees * Severe abdominal pain or bloating * Pain not relieved by pain medicine ordered * There is increased drainage or redness from any incision * A large amount of rectal bleeding greater than 2-3 tablespoons. (If you had a polyp/s removed or have hemorrhoids, a small amount of blood - from the rectum is to be expected.) * You have any unanswered questions or concerns. IN THE EVENT OF A SERIOUS EMERGENCY, GO TO THE NEAREST EMERGENCY ROOM Your discharge instructions were prepared by provider Lavelle Carreon. Patient Instructions Signature Page Wilbert Peralta Patient (or Guardian) Signature/Date: I have read and understand the instructions given to me by my caregivers. Caregiver/RN/Doctor Signature/Date: The above-named patient and/or guardian has received patient instructions on this date. + Original Patient Signature Page (only) stays with chart. Please make copy for patient.
--- NOTE | 2018-04-30 15:01 | GI REPORT ---
Patient Name: Wilbert Peralta Procedure Date: 04/30/2018 2:05 PM Date of : 1950 Admit Type: Outpatient Age: 68 Gender: Male Attending MD: Lavelle Carreon MD Procedure: Colonoscopy Providers: Lavelle Carreon MD Referring MD: Alex Medel Md Indications: Screening for colorectal malignant neoplasm Medicines: Propofol per Anesthesia Complications: No immediate complications. Estimated blood loss: Minimal. Estimated Blood Loss: Estimated blood loss was minimal. Procedure: Pre-Anesthesia Assessment: - Prior to the procedure, a History and Physical was performed, and patient medications and allergies were reviewed. The patient's tolerance of previous anesthesia was also reviewed. The risks and benefits of the procedure and the sedation options and risks were discussed with the patient. All questions were answered, and informed consent was obtained. Prior Anticoagulants: The patient has taken no previous anticoagulant or antiplatelet agents. ASA Grade Assessment: III - A patient with severe systemic disease. After reviewing the risks and benefits, the patient was deemed in satisfactory condition to undergo the procedure. After I obtained informed consent, the scope was passed under direct vision. Throughout the procedure, the patient's blood pressure, pulse, and oxygen saturations were monitored continuously. The Scope was introduced through the anus and advanced to the terminal ileum, with identification of the appendiceal orifice and IC valve. The colonoscopy was performed without difficulty. The patient tolerated the procedure well. The quality of the bowel preparation was good. Findings: The perianal and digital rectal examinations were normal. Pertinent negatives include normal sphincter tone, no palpable rectal lesions and no anal lesion or abnormality was detected. A 4 mm polyp was found in the transverse colon. The polyp was sessile. The polyp was removed with a cold snare. Resection and retrieval were complete. Estimated blood loss was minimal. Verification of patient identification for the specimen was done by the physician and electromechanical technician using the patient's name and medical record number. The terminal ileum appeared normal. Many small-mouthed diverticula were found in the sigmoid colon. Non-bleeding internal hemorrhoids were found during retroflexion. The hemorrhoids were mild and small. Impression: - One 4 mm polyp in the transverse colon, removed with a cold snare. Resected and retrieved. - The examined portion of the ileum was normal. - Diverticulosis in the sigmoid colon. - Non-bleeding internal hemorrhoids. Recommendation: - Discharge patient to home (ambulatory). - Await pathology results. - Repeat colonoscopy for surveillance based on pathology results. - Return to referring physician as previously scheduled. MD Lavelle Rouse MD 04/30/2018 3:01:11 PM This report has been signed electronically. Note Initiated On: 04/30/2018 2:05 PM Number of Addenda: 0 I attest to the content of the Intraoperative Record and orders documented therein, exceptions below {[id number]}
--- NOTE | 2018-04-30 15:05 | GI REPORT ---
Patient Name: Wilbert Peralta Procedure Date: 04/30/2018 2:04 PM Date of : 1950 Admit Type: Outpatient Age: 68 Gender: Male Attending MD: Lavelle Carreon MD Procedure: Upper GI endoscopy Providers: Lavelle Carreon MD Referring MD: Alex Medel Md Indications: Esophageal dysphagia Medicines: Propofol per Anesthesia Complications: No immediate complications. Estimated blood loss: Minimal. Estimated Blood Loss: Estimated blood loss was minimal. Procedure: Pre-Anesthesia Assessment: - Prior to the procedure, a History and Physical was performed, and patient medications and allergies were reviewed. The patient's tolerance of previous anesthesia was also reviewed. The risks and benefits of the procedure and the sedation options and risks were discussed with the patient. All questions were answered, and informed consent was obtained. Prior Anticoagulants: The patient has taken no previous anticoagulant or antiplatelet agents. ASA Grade Assessment: II - A patient with mild systemic disease. After reviewing the risks and benefits, the patient was deemed in satisfactory condition to undergo the procedure. After obtaining informed consent, the endoscope was passed under direct vision. Throughout the procedure, the patient's blood pressure, pulse, and oxygen saturations were monitored continuously. The scope was introduced through the mouth, and advanced to the second part of duodenum. The upper GI endoscopy was accomplished without difficulty. The patient tolerated the procedure well. Findings: One benign-appearing, intrinsic stenosis was found 15 cm from the incisors. This stenosis was severe and measured 7 mm (inner diameter) x 1 cm (in length). The stenosis was traversed after dilation. A guidewire was placed and the scope was withdrawn. Dilation was performed with a Savary dilator with mild resistance at 30 Fr, 33 Fr and 39 Fr and moderate resistance at 42 Fr and 45 Fr. The dilation site was examined and showed moderate improvement in luminal narrowing. The entire examined stomach was normal. The examined duodenum was normal. The cardia and gastric fundus were normal on retroflexion. Retained gastric contents are not identified on this exam. Impression: - Benign-appearing esophageal stenosis. Dilated. - Normal stomach. - Normal examined duodenum. - No specimens collected. Recommendation: - Discharge patient to home (ambulatory). - Resume regular diet. - Repeat upper endoscopy in 4 weeks for retreatment. MD Lavelle Rouse MD 04/30/2018 3:04:51 PM This report has been signed electronically. Note Initiated On: 04/30/2018 2:04 PM Number of Addenda: 0 I attest to the content of the Intraoperative Record and orders documented therein, exceptions below {[id number]}
--- NOTE | 2018-04-30 15:17 | Anesthesiology Progress Note ---
Anesthesia Post Op Note Date & Time Apr 30, 2018 at 15:16 Vital Signs Pain Intensity: 0 Vital Signs Past 12 Hours Date Time Temp Pulse Resp B/P (MAP) Pulse Ox O2 Delivery O2 Flow Rate FiO2 04/30/18 15:10 87 20 127/75 (92) 100 Room Air 04/30/18 14:55 36.6 97 16 132/83 (99) 97 Room Air 04/30/18 13:34 36.6 101 18 120/80 (93) 99 Room Air Notes Mental Status: alert / awake / arousable, participated in evaluation Pt Amnestic to Procedure: Yes Nausea / Vomiting: adequately controlled Pain: adequately controlled Airway Patency, RR, SpO2: stable & adequate BP & HR: stable & adequate Hydration State: stable & adequate Anesthetic Complications: no major complications apparent
[2018-04-30 15:25] VITALS: BP 106/69; PULSE 86; O2SAT 100
== END | disposition home or self-care (01) ==
LOC: C.GI 12:59
PROVIDERS: ATTEND Internal Medicine Gastroenterology
DX: Z12.11 Encounter for screening for malignant neoplasm of colon (principal); K22.2 Esophageal obstruction; D12.3 Benign neoplasm of transverse colon; K57.30 Diverticulosis of large intestine without perforation or abscess without bleeding; K64.8 Other hemorrhoids; I10 Essential (primary) hypertension; Z87.891 Personal history of nicotine dependence; Z91.030 Bee allergy status; Z88.1 Allergy status to other antibiotic agents; Z85.21 Personal history of malignant neoplasm of larynx

== ENCOUNTER 2021-08-03 09:51 | Observation (INO) ==
[2021-08-03] MEDS ORDERED: SODIUM CHLORIDE 0.9% 500 ML IV STA (10:14)
[2021-08-03] MEDS ORDERED: ONDANSETRON INJ 2 MG/ML 2 ML VIAL IV STA (10:35)
[2021-08-03] MEDS ORDERED: MoRPHine SULFATE 4 MG/ML 1 ML CARP\\VIAL IV PRN (10:35)
[2021-08-03] MEDS ORDERED: SODIUM CHLORIDE 0.9% 1000ML 1,000 ML IV ONE ×2 (10:35→14:23)
--- NOTE | 2021-08-03 11:00 | Emergency Department Note ---
Impression & Plan Bowel obstruction, Abdominal pain, Constipation ED Provider Note NAME: MILKA GREGORY II AGE: 71 SEX: M : 1950 ARRIVES VIA: Walk-In INFORMANT: Patient, the patient's significant other ED PROVIDER(S): Zechariah Baker DO CHIEF COMPLAINT: Vomiting HPI: The patient is a 71-year-old male who presented to the emergency department for an evaluation of nausea vomiting. He said no fevers. He denies having any chest pain or difficulty breathing. Patient's significant other does provide most of the history. The patient started having chemotherapy again for head neck cancer. He has been trying his medications at home for nausea vomiting which included Zofran without relief of symptoms. He is now started to notice very severe abdominal pain which he described as constant pain. He has had no rectal bleeding. He has had some constipation over the last few days as well. The patient is often seen by his primary care physician or his cancer doctor but came to the emergency department for further evaluation. ROS: See above HPI for pertinent positives & negatives. A total of 10 systems reviewed and were otherwise negative. PAST MEDICAL HISTORY: See Below PAST SURGICAL HISTORY: See Below FAMILY HISTORY: See Below SOCIAL HISTORY: See Below HOME MEDICATIONS: See Below ALLERGIES: See Below VITALS: See Below PHYSICAL EXAMINATION: GENERAL: The patient is awake and alert. He is very anxious appearing and appears to be uncomfortable. EYES: The conjunctivae are clear. The pupils are round and reactive. EARS, NOSE, MOUTH AND THROAT: The nose is without any evidence of any deformity. NECK: The neck is nontender and supple. RESPIRATORY: Normal respiratory effort is noted there is no evidence of wheezing rhonchi or rales CARDIOVASCULAR: Regular rate and rhythm noted there no murmurs rubs or gallops normal S1 normal S2. GASTROINTESTINAL: The abdomen is soft and nondistended. There is diffuse tenderness to palpation specifically in the right and left lower quadrants. There is mild guarding in the lower abdomen. MUSCULOSKELETAL/EXTREMITIES: There is no evidence of gross deformity full range of motion is noted in the hips and shoulders. SKIN: There is no obvious evidence of any rash. There are no petechiae, pallor or cyanosis noted. NEUROLOGIC: Patient is awake alert and oriented x3 MEDICAL DECISION MAKING: The patient is a 71-year-old male who presented to emergency department for an evaluation of constipation. The patient has a history of cancer. He is on multiple medications at home. The patient was having constipation initially. He had diffuse abdominal tenderness to palpation. I discussed the patient's laboratory and radiographic studies with him and his significant other. He did have a large bowel movement prior to the CAT scan. Looking at the CAT scan images he does have a lot of dilated loops of bowel. The patient's CAT scan appears to be worsening his exam at this time. Given the amount of fluid-filled bowel it is possible this could just be sales development representative of fecal impaction that now appears to be improved. I discussed the patient's condition with the on- call [facility] hospitalist. They have agreed to evaluate the patient in the emergency department for further management and disposition. It may be prudent for the patient to be observed as an inpatient for period of time until his bowels become more regular. The amount of fluid currently in his bowel could lead to electrolyte abnormalities. Triage Nursing notes reviewed. The patient was treated with IV fluids and IV antiemetics. Prior medical records reviewed Vital Signs: reviewed and remarkable for tachycardia. Differential diagnosis: Gastroenteritis, food borne illness, infections, appendicitis, diverticulitis, inflammatory bowel disease, obstruction, GI bleed, biliary pathology, volvulus, as well as other pathologies. ER treatment provided: See below Diagnostics interpreted by me: ECG: EKG was obtained in the emergency department. My interpretation is sinus tachycardia at 114 bpm. There is no ectopy. There is no acute ST segment abnormalities noted. This was compared to a tracing from December 102020. No changes were noted. Cardiac Monitoring: An order was placed for continuous cardiac monitoring. The monitor shows a rate of 109 bpm with sinus tachycardia rhythm. Laboratory studies: As stated above and show below. Imaging studies: See below Consultation(s): I discussed this case with Dr. Renee. They will evaluate the patient in the emergency department for further management and disposition. Past Med/Surg History Medical History Allergic rhinitis CKD (chronic kidney disease), stage III Cough GERD (gastroesophageal reflux disease) History of chemotherapy History of radiation therapy To larynx 09/26/10 thru 11/14/10 HTN (hypertension) Hypothyroidism RADIATION INDUCED Insomnia Larynx cancer Male erectile disorder of organic origin Neck mass Sensorineural hearing loss (SNHL) of both ears Solitary pulmonary nodule Squamous cell carcinoma of larynx 2010 Vitamin B12 deficiency Surgical History H/O bilateral cataract extraction H/O hand surgery BILT H/O inguinal hernia repair H/O laryngectomy MULTIPLE SX WITH RECONSTRUCTION H/O left knee surgery Left knee replacement H/O lymph node excision on 10/05/20 - Metastatic SCC History of arthroscopy of both shoulders History of biopsy Left tonsilar incisional biopsy on 11/15/20 - SCC History of esophagogastroduodenoscopy (EGD) MULTIPLE WITH DILATION History of laryngoscopy History of surgery Laryngoscopy with tumor excision on 08/26/10 History of total right hip arthroplasty History of vascular access device L CHEST S/P percutaneous endoscopic gastrostomy (PEG) tube placement WITH REMOVAL Family History Sister MVA (motor vehicle accident) Mother , in her 80s Heart disease Diabetes Father , 94yo Hypertension Prostate cancer Heart valve replaced Sister No problems noted. Son No problems noted. Son No problems noted. Daughter Intestinal cancer Daughter No problems noted. Social History Smoking Status: Former smoker Cigarettes Per Day: 1 Pack Q 3-4 days;Quit 50 yrs ago; Second Hand Exposure: No; Hx Alcohol Use: Yes (1-2 beers QD;) Alcohol type: beer Hx Substance Use: No Preferred Language: Azerbaijani Communication Ability: Effective Visual Impairment: No Limitations Hearing Ability: Normal Labor Custodian Required: No Beliefs That Will Affect Care: None marital status: Current Living Situation: Spouse current occupational status: retired current occupation: Body repair; Feels Safe at Home: Yes caffeine: Yes (2 cups/day) during the past year weight has: remained stable Allergies Allergies Allergy/AdvReac Type Severity Reaction Status Date / Time bee venom protein (honey bee) Allergy Severe shock Verified 08/03/21 11:50 moxifloxacin Allergy Severe THROAT Verified 08/03/21 11:50 SWELLED ketamine Allergy Intermediate AGITATION, Verified 08/03/21 11:50 HALLUCINATION ,OUT OF BODY FEELING Home Meds Home Medications Medication Instructions Recorded Confirmed cyanocobalamin (vitamin B-12) 1,000 mcg PO QAM #0 tab 05/25/13 11/27/21 1,000 mcg capsule cetirizine 10 mg capsule (Zyrtec) 10 mg PO DAILY PRN #0 07/14/17 08/03/21 diphenhydramine HCl 25 mg capsule 25 mg PO QID PRN 11/27/20 08/03/21 (Benadryl) trazodone 50 mg tablet 25 - 50 mg PO HS tab 11/27/20 08/03/21 dexamethasone 4 mg tablet 8 mg PO UD 08/03/21 08/03/21 olanzapine 2.5 mg tablet 2.5 mg PO UD 08/03/21 08/03/21 ondansetron HCl 8 mg tablet 8 mg PO Q8H PRN 08/03/21 08/03/21 prochlorperazine maleate 10 mg 10 mg PO Q6H PRN 08/03/21 08/03/21 tablet Previous Rx's Medication Instructions Recorded levothyroxine 150 mcg tablet 150 mcg PO DAILY #90 tab 12/31/20 hydrocodone 10 mg-acetaminophen 15 ml PO QID PRN #473 ml 03/18/21 300 mg/15 mL oral solution (Lortab Elixir) Results & Data (ED) Vital Signs Vital Signs - 24 hr 08/03/21 10:02 08/03/21 11:42 08/03/21 13:00 Temperature 36.4 C L Temperature Source Temporal Artery Scan Pulse Rate 118 H Pulse Rate [Right Finger] 114 H 107 H Respiratory Rate 20 18 20 Respiratory Effort / Characteristics Non-Labored Spontaneous Respiratory Depth Normal Respiratory Pattern Regular Blood Pressure 114/65 Blood Pressure [Right Arm] 140/68 121/74 Blood Pressure Mean 81 Blood Pressure Mean [Right Arm] 92 89 Blood Pressure Position Sitting Pulse Oximetry 98 100 99 Oxygen Delivery Method Room Air Room Air Room Air Sepsis Recent Fever Within 48 Hours No Sepsis New/Unexplained Change in Mental Status No Sepsis Action Taken by Nursing No Action Required 08/03/21 14:58 Temperature Temperature Source Pulse Rate Pulse Rate [Right Finger] 109 H Respiratory Rate 20 Respiratory Effort / Characteristics Respiratory Depth Respiratory Pattern Blood Pressure Blood Pressure [Right Arm] 136/80 Blood Pressure Mean Blood Pressure Mean [Right Arm] 98 Blood Pressure Position Pulse Oximetry 97 Oxygen Delivery Method Room Air Sepsis Recent Fever Within 48 Hours Sepsis New/Unexplained Change in Mental Status Sepsis Action Taken by [facility] Medications Current Medication List: was personally reviewed by me Laboratory Data Attestation: I reviewed the patient's lab results. Result diagrams: 08/03/21 11:30 08/03/21 11:30 Lab Results 08/03/21 08/03/21 08/03/21 Range/Units 11:30 11:30 11:33 WBC 4.65 L (4.8-10.8) K/uL RBC 4.54 L (4.7-6.1) M/uL Hgb 13.4 L (14.0-18.0) g/dL Hct 40.1 L (42-52) % MCV 88.3 (80-100) fL MCH 29.5 (25-34) pg MCHC 33.4 (32-36) g/dL RDW Std Deviation 50.7 H (36.4-46.3) fL RDW Coeff of Eladio 15.7 H (11.5-14.5) % Plt Count 211 (130-400) K/uL MPV 10.5 H (7.4-10.4) fL Neutrophils % (Manual) 93.8 % Lymphocytes % (Manual) 5.3 % Monocytes % (Manual) 0.9 % Neutrophils # (Manual) 4.36 (1.4-6.5) K/uL Total Absolute Neuts 4.36 (1.4-6.5) K/uL Lymphocytes # (Manual) 0.25 L (1.2-3.4) K/uL Total Abs Lymphocytes 0.25 L (1.2-3.4) K/uL Monocytes # (Manual) 0.04 L (0.11-0.59) K/uL Sodium 135 L (136-145) mmol/L Potassium 4.2 (3.5-5.1) mmol/L Chloride 102 (98-107) mmol/L Carbon Dioxide 21 (21-32) mmol/L Anion Gap 12.0 H (3-11) BUN 39 H (7-18) mg/dl Creatinine 1.17 (0.6-1.4) mg/dl Est Cr Clr Drug Dosing 34.1 ml/min Est GFR ( Amer) 71.8 ml/min Est GFR (Non-Af Amer) 61.9 ml/min BUN/Creatinine Ratio 33.2 H (10-20) Glucose 130 H (70-99) mg/dl Calcium 8.8 (8.5-10.1) mg/dl Total Bilirubin 1.1 H (0.2-1) mg/dl AST 31 (15-37) U/L ALT 31 (12-78) U/L Alkaline Phosphatase 106 (45-117) U/L Troponin I < 0.015 (0-0.045) ng/ml Total Protein 7.1 (6.4-8.2) gm/dl Albumin 3.5 (3.4-5.0) gm/dl Globulin 3.6 (2.5-4.0) gm/dl Albumin/Globulin Ratio 1.0 (0.9-2) Lipase 72 L (73-393) U/L Urine Color [place] Urine Appearance Clear (Clear) Urine pH 5.0 (4.5-7.5) Ur Specific [place] 1.034 H (1.000-1.030) Urine Protein 1+ H (Negative) Urine Glucose (UA) Negative (Negative) Urine Ketones 2+ H (Negative) Urine Blood Negative (Negative) Urine Nitrite Positive A (Negative) Urine Bilirubin 2+ H (Negative) Urine Urobilinogen Negative (Negative) Ur Leukocyte Esterase 1+ H (Negative) Urine WBC (Auto) 1-5 (0-5) /hpf Urine RBC (Auto) 0-4 (0-4) /hpf U Hyaline Cast (Auto) 10-30 H (0-5) /lpf U Epithel Cells (Auto) 10-20 H (0-5) /lpf Urine Bacteria (Auto) Negative (Negative) SARS-CoV-2, RNA, NAAT (NEGATIVE) 08/03/21 Range/Units 14:52 WBC (4.8-10.8) K/uL RBC (4.7-6.1) M/uL Hgb (14.0-18.0) g/dL Hct (42-52) % MCV (80-100) fL MCH (25-34) pg MCHC (32-36) g/dL RDW Std Deviation (36.4-46.3) fL RDW Coeff of Eladio (11.5-14.5) % Plt Count (130-400) K/uL MPV (7.4-10.4) fL Neutrophils % (Manual) % Lymphocytes % (Manual) % Monocytes % (Manual) % Neutrophils # (Manual) (1.4-6.5) K/uL Total Absolute Neuts (1.4-6.5) K/uL Lymphocytes # (Manual) (1.2-3.4) K/uL Total Abs Lymphocytes (1.2-3.4) K/uL Monocytes # (Manual) (0.11-0.59) K/uL Sodium (136-145) mmol/L Potassium (3.5-5.1) mmol/L Chloride (98-107) mmol/L Carbon Dioxide (21-32) mmol/L Anion Gap (3-11) BUN (7-18) mg/dl Creatinine (0.6-1.4) mg/dl Est Cr Clr Drug Dosing ml/min Est GFR ( Amer) ml/min Est GFR (Non-Af Amer) ml/min BUN/Creatinine Ratio (10-20) Glucose (70-99) mg/dl Calcium (8.5-10.1) mg/dl Total Bilirubin (0.2-1) mg/dl AST (15-37) U/L ALT (12-78) U/L Alkaline Phosphatase (45-117) U/L Troponin I (0-0.045) ng/ml Total Protein (6.4-8.2) gm/dl Albumin (3.4-5.0) gm/dl Globulin (2.5-4.0) gm/dl Albumin/Globulin Ratio (0.9-2) Lipase (73-393) U/L Urine Color Urine Appearance (Clear) Urine pH (4.5-7.5) Ur Specific [place] (1.000-1.030) Urine Protein (Negative) Urine Glucose (UA) (Negative) Urine Ketones (Negative) Urine Blood (Negative) Urine Nitrite (Negative) Urine Bilirubin (Negative) Urine Urobilinogen (Negative) Ur Leukocyte Esterase (Negative) Urine WBC (Auto) (0-5) /hpf Urine RBC (Auto) (0-4) /hpf U Hyaline Cast (Auto) (0-5) /lpf U Epithel Cells (Auto) (0-5) /lpf Urine Bacteria (Auto) (Negative) SARS-CoV-2, RNA, NAAT NEGATIVE (NEGATIVE) Administered Medications Morphine Sulfate (Morphine Sulfate 4 Mg/Ml 1 Ml Carp\Vial) 4 mg IV Q30M PRN PRN Reason: Pain Stop: 08/17/21 10:34 Last Admin: 08/03/21 11:50 Dose: 4 mg Documented by: [id number] Discontinued Medications Sodium Chloride (Nss) 500 mls @ 999 mls/hr IV .Q31M STA Stop: 08/03/21 10:44 Last Admin: 08/03/21 11:50 Dose: 999 mls/hr Documented by: [id number] Sodium Chloride (Nss 1000ml) 1,000 mls @ 999 mls/hr IV .Q1H1M ONE Stop: 08/03/21 11:35 Last Admin: 08/03/21 11:50 Dose: 999 mls/hr Documented by: [id number] Sodium Chloride (Nss 1000ml) 1,000 mls @ 999 mls/hr IV .Q1H1M ONE Stop: 08/03/21 15:23 Last Admin: 08/03/21 14:54 Dose: 999 mls/hr Documented by: [id number] Ioversol (Optiray 320 100ml) 90 ml IV ONCE ONE Stop: 08/03/21 13:05 Last Admin: 08/03/21 13:04 Dose: 90 ml Documented by: [id number] Ondansetron HCl (Ondansetron Inj 2 Mg/Ml 2 Ml Vial) 4 mg IV NOW STA Stop: 08/03/21 10:36 Last Admin: 08/03/21 11:50 Dose: 4 mg Documented by: [id number] Imaging Data Radiologist's Impression: Abdomen/Pelvis CT 08/03/21 10:37 CT SCAN OF THE ABDOMEN AND PELVIS WITH IV CONTRAST CLINICAL HISTORY: Vomiting. COMPARISON STUDY: PET/CT dated 10/17/2020. TECHNIQUE: Following the IV administration of 90 cc of Optiray 320, CT scan of the abdomen and pelvis is performed from the lung bases to the proximal femora. Images are reviewed in the axial, sagittal, and coronal planes. IV contrast was administered without complication. A dose lowering technique was utilized adhering to the principles of ALARA. There is streak artifact from the arms which could not be elevated above the abdomen. CT DOSE: 264.06 mGy.cm FINDINGS: Lung bases: The heart is normal in size and without pericardial effusion. There are scattered calcified granulomas. The lung bases are otherwise clear noting bibasilar scarring/atelectasis. The distal esophagus appears thick walled and edematous. Liver: The contrast-enhanced liver is normal in size, contour, and attenuation. There is no intrahepatic biliary ductal dilatation. The hepatic veins and portal veins are patent. Gallbladder: Unremarkable. Spleen: Normal in size and attenuation. Pancreas: Unremarkable. Adrenal glands: Unremarkable. Kidneys: The contrast enhanced kidneys are atrophic and without hydronephrosis. Cortical scarring is noted in the left lower pole. Cortical enhancement and is heterogeneous. Abdominal vasculature: The abdominal aorta is normal in course and caliber. Bowel: The rectum is largely decompressed. There is wall thickening and mucosal hyperemia with surrounding inflammation involving the rectosigmoid colon. The upstream colon is dilated and filled with liquid/stool. The right colon measures up to 6.6 cm in diameter. Milder wall thickening is suggested throughout the l eft colon. The small bowel loops are normal in caliber. There is mild colonic diverticulosis without clear CT evidence of acute diverticulitis. The appendix is not visualized. Peritoneum: There is no intraperitoneal free air or abdominal ascites. Lymphadenopathy: None. Pelvic viscera: Evaluation of the pelvis is significantly degraded by streak artifact from a right hip arthroplasty. The prostate gland is enlarged and heterogeneous. The bladder wall appears thickened and trabeculated suggesting chronic outlet obstruction. Skeletal structures: The skeletal structures are osteopenic. There is mild to moderate lumbosacral spondylosis. A bone island is incidentally noted in the left 8th rib. No lytic or blastic lesions are seen. A right hip arthroplasty is in place. Soft tissues: The patient is cachectic. IMPRESSION: 1. Significantly streak artifact degraded examination. 2. There is evidence of a nonspecific proctocolitis, greatest involving the rectum and sigmoid. 3. The upstream colon is significantly dilated and filled with liquid/stool. This could represent a colonic ileus, or possibly distal colonic obstruction related to inflammation and fecal impaction. Although there is no CT evidence of underlying mass lesion this would be impossible to completely exclude by imaging. Clinical correlation will be essential. 4. The small bowel loops are normal in caliber. 5. The distal esophagus appears thick walled and edematous suggesting esophagitis. 6. There is heterogeneous renal cortical enhancement, possibly related to medical renal disease/acute renal injury. Correlate with clinical/laboratory findings and urinalysis. 7. Additional findings as above. ACT 112: Negative or not required by law. Electronically signed by: Qasim Lee M.D. 08/03/2021 1:45 PM Discharge Plan Visit Data Chief Complaint: Constipation Stated Complaint: UNABLE TO VOID, STARTED CHEMO ON THURSDAY ED Provider: Zechariah Baker Discharge Problem: Bowel obstruction, Abdominal pain, Constipation Patient Disposition: Being Evaluated by Hospitalist Forms Stand Alone Forms: [facility] Prescriptions Prescriptions: No Action trazodone 50 mg tablet 25 - 50 mg PO HS RF: 0 diphenhydramine HCl [Benadryl] 25 mg capsule 25 mg PO QID PRN (Reason: Allergy Symptoms) RF: 0 cyanocobalamin (vitamin B-12) 1,000 mcg Capsule 1,000 mcg PO QAM Qty: 0 RF: 0 Zyrtec 10 mg Capsule 10 mg PO DAILY PRN (Reason: Allergy Symptoms) Qty: 0 RF: 0 levothyroxine 150 mcg tablet 150 mcg PO DAILY Qty: 90 RF: 3 Lortab Elixir 10-300 mg/15 mL solution 15 ml PO QID PRN (Reason: pain) Qty: 473 RF: 0 ondansetron HCl 8 mg tablet 8 mg PO Q8H PRN (Reason: Nausea And Vomiting) RF: 0 prochlorperazine maleate 10 mg tablet 10 mg PO Q6H PRN (Reason: Nausea And Vomiting) RF: 0 olanzapine 2.5 mg tablet 2.5 mg PO UD RF: 0 dexamethasone 4 mg tablet 8 mg PO UD RF: 0 Referrals Referrals: Sean Medel MD [Primary Care Provider] -
[2021-08-03 11:44] LABS: Hematocrit (blood only) 40.1 % (42-52); Hemoglobin 13.4 g/dL (14.0-18.0); Mean Corpuscular Hemoglobin 29.5 pg (25-34); Mean Corpuscular Hgb Conc 33.4 g/dL (32-36); Mean Corpuscular Volume 88.3 fL (80-100); Mean Platelet Volume 10.5 fL (7.4-10.4); Platelet Count 211 K/uL (130-400); RDW Coefficient of Variation 15.7 % (11.5-14.5); RDW Standard Deviation 50.7 fL (36.4-46.3); Red Blood Count 4.54 M/uL (4.7-6.1); White Blood Count 4.65 K/uL (4.8-10.8)
[2021-08-03 11:47] LABS: Appearance Urine Clear (Clear); Bacteria Urine Automated Negative (Negative); Blood Urine Negative (Negative); Color Urine Orange; Glucose Urine UA Negative (Negative); Ketones Urine 2+ (Negative); Leukocyte Esterase Urine 1+ (Negative); Nitrite Urine Positive (Negative); Protein Urine 1+ (Negative); RBC Urine Automated 0-4 /hpf (0-4); Specific Gravity Urine 1.034 (1.000-1.030); Urobilinogen Urine Negative (Negative)
[2021-08-03 11:50] LABS: Bilirubin Urine 2+ (Negative)
[2021-08-03 12:01] LABS: Alanine Aminotransferase 31 U/L (12-78); Albumin Level 3.5 gm/dl (3.4-5.0); Aspartate Aminotransferase 31 U/L (15-37); BUN Creatinine Ratio 33.2 (10-20); Blood Urea Nitrogen 39 mg/dl (7-18); Calcium 8.8 mg/dl (8.5-10.1); Carbon Dioxide 21 mmol/L (21-32); Chloride 102 mmol/L (98-107); Creatinine Clr Calc Pharmacy 34.1 ml/min; Est GFR (African American) 71.8 ml/min; Est GFR (Non-African American) 61.9 ml/min; Glucose 130 mg/dl (70-99); Lipase 72 U/L (73-393); Potassium 4.2 mmol/L (3.5-5.1); Sodium 135 mmol/L (136-145)
[2021-08-03 12:06] LABS: Alkaline Phosphatase 106 U/L (45-117); Bilirubin,Total 1.1 mg/dl (0.2-1); Globulin 3.6 gm/dl (2.5-4.0); Total Protein 7.1 gm/dl (6.4-8.2); Troponin I < 0.015 ng/ml (0-0.045)
[2021-08-03 12:10] LABS: ALC (manual) 0.25 K/uL (1.2-3.4); ANC (manual) 4.36 K/uL (1.4-6.5); Lymphocytes # (manual) 0.25 K/uL (1.2-3.4); Lymphocytes % (manual) 5.3 %; Monocytes # (manual) 0.04 K/uL (0.11-0.59); Monocytes % (manual) 0.9 %; Neutrophils # (manual) 4.36 K/uL (1.4-6.5); Neutrophils % (manual) 93.8 %
--- NOTE | 2021-08-03 12:42 | Electrocardiogram Report ---
Test Reason : Blood Pressure : / mmHG Vent. Rate : 114 BPM Atrial Rate : 114 BPM P-R Int : 124 ms QRS Dur : 072 ms QT Int : 308 ms P-R-T Axes : 080 075 084 degrees QTc Int : 424 ms Sinus tachycardia Possible Left atrial enlargement Abnormal ECG When compared with ECG of 10-DEC-2020 09:50, No significant change was found Confirmed by Eliud Graham ([id number]) on 08/03/2021 12:42:15 PM Referred By: REFERRED SELF Confirmed By:Rancho Graham
[2021-08-03] MEDS ORDERED: OPTIRAY 320 100ml IV ONE (13:04)
--- NOTE | 2021-08-03 13:47 | CT Scan Report ---
CT SCAN OF THE ABDOMEN AND PELVIS WITH IV CONTRAST CLINICAL HISTORY: Vomiting. COMPARISON STUDY: PET/CT dated 10/17/2020. TECHNIQUE: Following the IV administration of 90 cc of Optiray 320, CT scan of the abdomen and pelvi s is performed from the lung bases to the proximal femora. Images are reviewed in the axial, sagittal , and coronal planes. IV contrast was administered without complication. A dose lowering technique wa s utilized adhering to the principles of ALARA. There is streak artifact from the arms which could no t be elevated above the abdomen. CT DOSE: 264.06 mGy.cm FINDINGS: Lung bases: The heart is normal in size and without pericardial effusion. There are scattered calcifi ed granulomas. The lung bases are otherwise clear noting bibasilar scarring/atelectasis. The distal e sophagus appears thick walled and edematous. Liver: The contrast-enhanced liver is normal in size, contour, and attenuation. There is no intrahepa tic biliary ductal dilatation. The hepatic veins and portal veins are patent. Gallbladder: Unremarkable. Spleen: Normal in size and attenuation. Pancreas: Unremarkable. Adrenal glands: Unremarkable. Kidneys: The contrast enhanced kidneys are atrophic and without hydronephrosis. Cortical scarring is noted in the left lower pole. Cortical enhancement and is heterogeneous. Abdominal vasculature: The abdominal aorta is normal in course and caliber. Bowel: The rectum is largely decompressed. There is wall thickening and mucosal hyperemia with surrou nding inflammation involving the rectosigmoid colon. The upstream colon is dilated and filled with li quid/stool. The right colon measures up to 6.6 cm in diameter. Milder wall thickening is suggested th roughout the left colon. The small bowel loops are normal in caliber. There is mild colonic diverticu losis without clear CT evidence of acute diverticulitis. The appendix is not visualized. Peritoneum: There is no intraperitoneal free air or abdominal ascites. Lymphadenopathy: None. Pelvic viscera: Evaluation of the pelvis is significantly degraded by streak artifact from a right hi p arthroplasty. The prostate gland is enlarged and heterogeneous. The bladder wall appears thickened and trabeculated suggesting chronic outlet obstruction. Skeletal structures: The skeletal structures are osteopenic. There is mild to moderate lumbosacral sp ondylosis. A bone island is incidentally noted in the left 8th rib. No lytic or blastic lesions are s een. A right hip arthroplasty is in place. Soft tissues: The patient is cachectic. IMPRESSION: 1. Significantly streak artifact degraded examination. 2. There is evidence of a nonspecific proctocolitis, greatest involving the rectum and sigmoid. 3. The upstream colon is significantly dilated and filled with liquid/stool. This could represent a c olonic ileus, or possibly distal colonic obstruction related to inflammation and fecal impaction. Alt sakina there is no CT evidence of underlying mass lesion this would be impossible to completely exclud e by imaging. Clinical correlation will be essential. 4. The small bowel loops are normal in caliber. 5. The distal esophagus appears thick walled and edematous suggesting esophagitis. 6. There is heterogeneous renal cortical enhancement, possibly related to medical renal disease/acute renal injury. Correlate with clinical/laboratory findings and urinalysis. 7. Additional findings as above. ACT 112: Negative or not required by law. Electronically signed by: Qasim Lee M.D. 08/03/2021 1:45 PM
--- NOTE | 2021-08-03 15:39 | History & Physical Report ---
Date of Service August 03, 2021 Assessment & Plan (1) Fecal impaction: Plan: Presents with abdominal pain, nausea/vomiting after starting Taxotere and carboplatin 4 days prior to admission. Had not had a bowel movement in [address] abdomen/pelvis with colonic ileus and likely fecal impaction-he did have a large bowel movement just before the CT scan was performed so perhaps his fecal load was even more so just before imaging was complete Possible nonspecific proctocolitis seen on imaging, but suspect is secondary to fecal impaction-he has no fever or leukocytosis-defer on antibiotics -Continue bowel regimen with daily MiraLAX and add docusate 100 mg p.o. twice daily -Patient feeling better already after having a bowel movement and would like to advance diet to clear liquids -Advance diet as tolerated if continues to move bowels by tomorrow (2) Abdominal pain: Plan: As above, likely secondary to colonic ileus and fecal impaction Now much improved after having a bowel movement in the ER Continue to monitor Oxycodone as needed but warned that this would also worsen constipation (3) Nausea & vomiting: Plan: Secondary to fecal impaction and colonic ileus Also with recent chemotherapy -With evidence of esophagitis on CT abdomen/pelvis He has known esophageal stricture and gets EGDs frequently for esophageal dilat ation Start Pepcid 20 mg IV twice daily for now and should likely convert to a daily p.o. PPI on discharge IV Zofran as needed Continue bowel regimen as above -Received 3 L of IV fluids in the ER, will give 1 more liter of LR at 80 mL's per hour Follow CMP in the morning (4) Oral candidiasis: Plan: Severe on examination Start nystatin swish and swallow x14-day course Likely secondary to chemotherapy (5) Head and neck cancer: Plan: Follows with Dr. De La Rosa with oncology Is recurrent and metastatic Started Taxotere and carboplatin with dexamethasone on 07/30 Follow CBC (6) CKD (chronic kidney disease), stage III: Plan: Creatinine at baseline at 1.3 -Avoid nephrotoxins -renally dose meds when appropriate -follow BMP (7) HTN (hypertension): Plan: Blood pressures are stable He does not take any medication for hypertension (8) Hypothyroidism: Plan: TSH normal earlier this year Continue home levothyroxine This is secondary to previous radiation therapy to the neck (9) Chronic anemia: Plan: mild, hemoglobin 13.4, normocytic Expect to worsen with chemotherapy Follow CBC (10) GERD (gastroesophageal reflux disease): Plan: Not on PPI at home-start PPI on discharge IV Pepcid for now (11) Vitamin B12 deficiency: Plan: Continue home p.o. B12 (12) Abnormal urinalysis: Plan: With bilirubin and nitrite likely false positive UA otherwise not consistent with infection as there is 0 WBCs and no bacteria No need for treatment for UTI Bilirubin in urine could be due to mildly elevated bilirubin in the blood (13) Underweight: Plan: Severe, BMI 13.8 Secondary to poor nutrition and severe protein calorie malnutrition due to metastatic cancer Consult dietary (14) Severe protein-calorie malnutrition: Plan: As above Plan: DVT prophylaxis-Lovenox SQ Disposition-bring in for at least overnight to ensure continued bowel movements and no further nausea/vomiting and resolution of colonic ileus Full code, but patient does not want any prolonged life support if he is in a v egetative state History of Present Illness Chief Complaint: Abdominal pain, nausea/vomiting Primary Care Provider: Sean Medel MD This patient is a 71-year-old male with a history of 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 His does most of the talking as he has to use a speaking valve through previous tracheostomy and it is even difficult for him to speak due to weakness at this time. She reports that he recently started on chemotherapy with Taxotere and carboplatin along with dexamethasone before and after on 07/30. He was having nausea for the last 4 days and he tried taking Zofran as well as olanzapine and Compazine at home without relief of symptoms. He denies any rectal bleeding but has had some constipation over the last few days as well with last bowel movement being on 07/30. Today, he developed diffuse lower abdominal pain followed by nausea and vomiting. He did not have any fevers, but his reports he had chills while he was vomiting over the toilet. His reports that he does have oxycodone at home to take as needed for pain, but has not taken any at all this week. In the ER, he was noted to have an elevated BUN at 39, mildly low sodium at 135, and a mildly elevated total bilirubin at 1.1 with other LFTs being normal. Lipase was negative. Urinalysis was positive for nitrates as well as 2+ bilirubin, 2+ ketones, 1+ protein, 1+ leukocyte esterase, but 0 WBCs or bacteria. His Covid test was negative. He was sent for a CT of the abdomen/pelvis, but apparently just before he went for the scan he had a very large bowel movement in the ER and now is feeling much improved. The CT abdomen/pelvis showed distal esophagus appearing thick-walled and edematous, rectum largely decompressed with wall thickening and mucosal hyperemia with surrounding inflammation involving the rectosigmoid colon. The upstream colon is dilated and filled with liquid/stool the right colon measured up to 6.6 cm in diameter with mild or wall thickening throughout the left colon, small bowel loops were normal in caliber, no diverticulitis and the appendix was not visualized. Could represent colonic ileus versus possible distal colonic obstruction related to inflammation and fecal impaction. He will be brought in for admission overnight to ensure that his previous colonic ileus/fecal impaction is resolved and that he is able to tolerate p.o. as he is dehydrated on arrival. Allergies Allergy/AdvReac Type Severity Reaction Status Date / Time bee venom protein (honey bee) Allergy Severe shock Verified 08/03/21 11:50 moxifloxacin Allergy Severe THROAT Verified 08/03/21 11:50 SWELLED ketamine Allergy Intermediate AGITATION, Verified 08/03/21 11:50 HALLUCINATION ,OUT OF BODY FEELING Home Medications Medication Instructions Recorded Confirmed Type cyanocobalamin (vitamin B-12) 1,000 mcg PO QAM #0 tab 01/29/13 08/03/21 History 1,000 mcg capsule cetirizine 10 mg capsule (Zyrtec) 10 mg PO DAILY PRN #0 07/14/17 08/03/21 History diphenhydramine HCl 25 mg capsule 25 mg PO QID PRN 11/27/20 08/03/21 History (Benadryl) trazodone 50 mg tablet 25 - 50 mg PO HS tab 11/27/20 08/03/21 History levothyroxine 150 mcg tablet 150 mcg PO DAILY #90 tab 12/31/20 08/03/21 Rx dexamethasone 4 mg tablet 8 mg PO UD 08/03/21 08/03/21 History olanzapine 2.5 mg tablet 2.5 mg PO UD 08/03/21 08/03/21 History ondansetron HCl 8 mg tablet 8 mg PO Q8H PRN 08/03/21 08/03/21 History oxycodone 5 mg tablet 5 mg PO Q4H PRN 08/03/21 08/03/21 History prochlorperazine maleate 10 mg 10 mg PO Q6H PRN 08/03/21 08/03/21 History tablet Past Med/Surg History Medical History Allergic rhinitis CKD (chronic kidney disease), stage III Cough GERD (gastroesophageal reflux disease) History of chemotherapy History of radiation therapy To larynx 09/26/10 thru 11/14/10 HTN (hypertension) Hypothyroidism RADIATION INDUCED Insomnia Larynx cancer Male erectile disorder of organic origin Neck mass Sensorineural hearing loss (SNHL) of both ears Solitary pulmonary nodule Squamous cell carcinoma of larynx 2010 Vitamin B12 deficiency Surgical History H/O bilateral cataract extraction H/O hand surgery BILT H/O inguinal hernia repair H/O laryngectomy MULTIPLE SX WITH RECONSTRUCTION H/O left knee surgery Left knee replacement H/O lymph node excision on 10/05/20 - Metastatic SCC History of arthroscopy of both shoulders History of biopsy Left tonsilar incisional biopsy on 11/15/20 - SCC History of esophagogastroduodenoscopy (EGD) MULTIPLE WITH DILATION History of laryngoscopy History of surgery Laryngoscopy with tumor excision on 08/26/10 History of total right hip arthroplasty History of vascular access device L CHEST S/P percutaneous endoscopic gastrostomy (PEG) tube placement WITH REMOVAL Family History Sister MVA (motor vehicle accident) Mother , in her 80s Heart disease Diabetes Father , 94yo Hypertension Prostate cancer Heart valve replaced Sister No problems noted. Son No problems noted. Son No problems noted. Daughter Intestinal cancer Daughter No problems noted. Social History Smoking Status: Former smoker Cigarettes Per Day: 1 Pack Q 3-4 days;Quit 50 yrs ago; Second Hand Exposure: No; Do You Dip or Chew Tobacco: No; Hx Alcohol Use: No Hx Substance Use: No Preferred Language: Turkmen Communication Ability: Effective Visual Impairment: No Limitations Hearing Ability: Normal Screen Printing Paster Required: No Beliefs That Will Affect Care: None marital status: Current Living Situation: Spouse current occupational status: retired current occupation: Body repair; Feels Safe at Home: Yes Safety Concerns: Feels Safe At This Time caffeine: Yes (2 cups/day) during the past year weight has: remained stable Assistive Devices: Glasses Review of Systems Review of Systems: All systems reviewed & are unremarkable except as noted in HPI & below Physical Exam Constitutional: + ill appearing, + cachectic and + malnourished Eyes: PERRL, conjunctivae normal, anicteric sclerae ENMT: Mouth: + oral mucosal abnormality (Copious white exudate all over tongue and buccal mucosa) Neck: + abnormal visual inspection (With tracheostomy scar, multiple surgical scars on neck and chest) Respiratory: normal respiratory effort, lungs clear to auscultation Cardiovascular: RRR, no murmur, no edema Chest (Breasts): Chest: normal inspection of chest Gastrointestinal (Abdomen): Inspection/Auscultation: abdomen normal to inspection and + hypoactive bowel sounds; abdomen not distended Percussion/Palpation: + abdomen tender (Mild TTP over lower abdomen without guarding or rebound) and abdomen soft Musculoskeletal: Extremities: extremities normal to inspection; no cyanosis and no clubbing Skin: no rashes, warm and dry Neurologic: moves all extremities and awake; no focal motor deficits Psychiatric: Orientation: alert, oriented x 3 and cooperative Lymphatic: no lymphedema Results & Data Results & Data ([facility]) Vital Signs (Past 12 Hours) Vital Signs Temp Pulse Pulse Resp BP BP Pulse Ox 08/03/21 14:58 109 H 20 136/80 97 08/03/21 13:00 107 H 20 121/74 99 08/03/21 11:42 114 H 18 140/68 100 08/03/21 10:02 36.4 C L 118 H 20 114/65 98 Laboratory Results 08/03/21 08/03/21 08/03/21 Range/Units 14:52 11:33 11:30 WBC (4.8-10.8) K/uL RBC (4.7-6.1) M/uL Hgb (14.0-18.0) g/dL Hct (42-52) % MCV (80-100) fL MCH (25-34) pg MCHC (32-36) g/dL RDW Std Deviation (36.4-46.3) fL RDW Coeff of Eladio (11.5-14.5) % Plt Count (130-400) K/uL MPV (7.4-10.4) fL Neutrophils % (Manual) % Lymphocytes % (Manual) % Monocytes % (Manual) % Neutrophils # (Manual) (1.4-6.5) K/uL Total Absolute Neuts (1.4-6.5) K/uL Lymphocytes # (Manual) (1.2-3.4) K/uL Total Abs Lymphocytes (1.2-3.4) K/uL Monocytes # (Manual) (0.11-0.59) K/uL Sodium 135 L (136-145) mmol/L Potassium 4.2 (3.5-5.1) mmol/L Chloride 102 (98-107) mmol/L Carbon Dioxide 21 (21-32) mmol/L Anion Gap 12.0 H (3-11) BUN 39 H (7-18) mg/dl Creatinine 1.17 (0.6-1.4) mg/dl Est Cr Clr Drug Dosing 34.1 ml/min Est GFR ( Amer) 71.8 ml/min Est GFR (Non-Af Amer) 61.9 ml/min BUN/Creatinine Ratio 33.2 H (10-20) Glucose 130 H (70-99) mg/dl Calcium 8.8 (8.5-10.1) mg/dl Total Bilirubin 1.1 H (0.2-1) mg/dl AST 31 (15-37) U/L ALT 31 (12-78) U/L Alkaline Phosphatase 106 (45-117) U/L Troponin I < 0.015 (0-0.045) ng/ml Total Protein 7.1 (6.4-8.2) gm/dl Albumin 3.5 (3.4-5.0) gm/dl Globulin 3.6 (2.5-4.0) gm/dl Albumin/Globulin Ratio 1.0 (0.9-2) Lipase 72 L (73-393) U/L Urine Color [place] Urine Appearance Clear (Clear) Urine pH 5.0 (4.5-7.5) Ur Specific [place] 1.034 H (1.000-1.030) Urine Protein 1+ H (Negative) Urine Glucose (UA) Negative (Negative) Urine Ketones 2+ H (Negative) Urine Blood Negative (Negative) Urine Nitrite Positive A (Negative) Urine Bilirubin 2+ H (Negative) Urine Urobilinogen Negative (Negative) Ur Leukocyte Esterase 1+ H (Negative) Urine WBC (Auto) 1-5 (0-5) /hpf Urine RBC (Auto) 0-4 (0-4) /hpf U Hyaline Cast (Auto) 10-30 H (0-5) /lpf U Epithel Cells (Auto) 10-20 H (0-5) /lpf Urine Bacteria (Auto) Negative (Negative) SARS-CoV-2, RNA, NAAT NEGATIVE (NEGATIVE) 08/03/21 Range/Units 11:30 WBC 4.65 L (4.8-10.8) K/uL RBC 4.54 L (4.7-6.1) M/uL Hgb 13.4 L (14.0-18.0) g/dL Hct 40.1 L (42-52) % MCV 88.3 (80-100) fL MCH 29.5 (25-34) pg MCHC 33.4 (32-36) g/dL RDW Std Deviation 50.7 H (36.4-46.3) fL RDW Coeff of Eladio 15.7 H (11.5-14.5) % Plt Count 211 (130-400) K/uL MPV 10.5 H (7.4-10.4) fL Neutrophils % (Manual) 93.8 % Lymphocytes % (Manual) 5.3 % Monocytes % (Manual) 0.9 % Neutrophils # (Manual) 4.36 (1.4-6.5) K/uL Total Absolute Neuts 4.36 (1.4-6.5) K/uL Lymphocytes # (Manual) 0.25 L (1.2-3.4) K/uL Total Abs Lymphocytes 0.25 L (1.2-3.4) K/uL Monocytes # (Manual) 0.04 L (0.11-0.59) K/uL Sodium (136-145) mmol/L Potassium (3.5-5.1) mmol/L Chloride (98-107) mmol/L Carbon Dioxide (21-32) mmol/L Anion Gap (3-11) BUN (7-18) mg/dl Creatinine (0.6-1.4) mg/dl Est Cr Clr Drug Dosing ml/min Est GFR ( Amer) ml/min Est GFR (Non-Af Amer) ml/min BUN/Creatinine Ratio (10-20) Glucose (70-99) mg/dl Calcium (8.5-10.1) mg/dl Total Bilirubin (0.2-1) mg/dl AST (15-37) U/L ALT (12-78) U/L Alkaline Phosphatase (45-117) U/L Troponin I (0-0.045) ng/ml Total Protein (6.4-8.2) gm/dl Albumin (3.4-5.0) gm/dl Globulin (2.5-4.0) gm/dl Albumin/Globulin Ratio (0.9-2) Lipase (73-393) U/L Urine Color Urine Appearance (Clear) Urine pH (4.5-7.5) Ur Specific [place] (1.000-1.030) Urine Protein (Negative) Urine Glucose (UA) (Negative) Urine Ketones (Negative) Urine Blood (Negative) Urine Nitrite (Negative) Urine Bilirubin (Negative) Urine Urobilinogen (Negative) Ur Leukocyte Esterase (Negative) Urine WBC (Auto) (0-5) /hpf Urine RBC (Auto) (0-4) /hpf U Hyaline Cast (Auto) (0-5) /lpf U Epithel Cells (Auto) (0-5) /lpf Urine Bacteria (Auto) (Negative) SARS-CoV-2, RNA, NAAT (NEGATIVE) Diagnostic Findings Abdomen/Pelvis CT 08/03/21 10:37 CT SCAN OF THE ABDOMEN AND PELVIS WITH IV CONTRAST CLINICAL HISTORY: Vomiting. COMPARISON STUDY: PET/CT dated 10/17/2020. TECHNIQUE: Following the IV administration of 90 cc of Optiray 320, CT scan of the abdomen and pelvis is performed from the lung bases to the proximal femora. Images are reviewed in the axial, sagittal, and coronal planes. IV contrast was administered without complication. A dose lowering technique was utilized adhering to the principles of ALARA. There is streak artifact from the arms which could not be elevated above the abdomen. CT DOSE: 264.06 mGy.cm FINDINGS: Lung bases: The heart is normal in size and without pericardial effusion. There are scattered calcified granulomas. The lung bases are otherwise clear noting bibasilar scarring/atelectasis. The distal esophagus appears thick walled and edematous. Liver: The contrast-enhanced liver is normal in size, contour, and attenuation. There is no intrahepatic biliary ductal dilatation. The hepatic veins and portal veins are patent. Gallbladder: Unremarkable. Spleen: Normal in size and attenuation. Pancreas: Unremarkable. Adrenal glands: Unremarkable. Kidneys: The contrast enhanced kidneys are atrophic and without hydronephrosis. Cortical scarring is noted in the left lower pole. Cortical enhancement and is heterogeneous. Abdominal vasculature: The abdominal aorta is normal in course and caliber. Bowel: The rectum is largely decompressed. There is wall thickening and mucosal hyperemia with surrounding inflammation involving the rectosigmoid colon. The upstream colon is dilated and filled with liquid/stool. The right colon measures up to 6.6 cm in diameter. Milder wall thickening is suggested throughout the left colon. The small bowel loops are normal in caliber. There is mild colonic diverticulosis without clear CT evidence of acute diverticulitis. The appendix is not visualized. Peritoneum: There is no intraperitoneal free air or abdominal ascites. Lymphadenopathy: None. Pelvic viscera: Evaluation of the pelvis is significantly degraded by streak artifact from a right hip arthroplasty. The prostate gland is enlarged and heterogeneous. The bladder wall appears thickened and trabeculated suggesting chronic outlet obstruction. Skeletal structures: The skeletal structures are osteopenic. There is mild to moderate lumbosacral spondylosis. A bone island is incidentally noted in the left 8th rib. No lytic or blastic lesions are seen. A right hip arthroplasty is in place. Soft tissues: The patient is cachectic. IMPRESSION: 1. Significantly streak artifact degraded examination. 2. There is evidence of a nonspecific proctocolitis, greatest involving the rectum and sigmoid. 3. The upstream colon is significantly dilated and filled with liquid/stool. This could represent a colonic ileus, or possibly distal colonic obstruction related to inflammation and fecal impaction. Although there is no CT evidence of underlying mass lesion this would be impossible to completely exclude by imaging. Clinical correlation will be essential. 4. The small bowel loops are normal in caliber. 5. The distal esophagus appears thick walled and edematous suggesting esophagitis. 6. There is heterogeneous renal cortical enhancement, possibly related to medical renal disease/acute renal injury. Correlate with clinical/laboratory findings and urinalysis. 7. Additional findings as above. ACT 112: Negative or not required by law. Electronically signed by: Qasim Lee M.D. 08/03/2021 1:45 PM ECG Additional Comments: ECG 08/03/2021 1137 with sinus tachycardia, rate 114, no acute ischemic changes Code Status & VTE Plan Code Status Full code, but would not want prolonged life support if in a vegetative state VTE Prophylaxis Plan VTE Prophylaxis will be ordered: Yes PG Care Time/CCT Total # of Minutes Spent Total Time Spent with Patient: Total time spent is greater than 50% in coordination of care (as documented) at patient's floor/unit and/or counseling patient: Coding Level of Care Code 03604 Initial Inpt Care Lvl 3 Diagnoses CKD (chronic kidney disease), stage III N18.30 Head and neck cancer C76.0 HTN (hypertension) I10 Hypothyroidism E03.9 Chronic anemia D64.9 GERD (gastroesophageal reflux disease) K21.9 Vitamin B12 deficiency E53.8 Nausea & vomiting R11.2 Abdominal pain R10.9 Fecal impaction K56.41 Oral candidiasis B37.0 Abnormal urinalysis R82.90 Underweight R63.6 Severe protein-calorie malnutrition E43
[2021-08-03] MEDS ORDERED: ACETAMINOPHEN 325 MG TAB PO PRN (18:53)
[2021-08-03] MEDS ORDERED: ONDANSETRON INJ 2 MG/ML 2 ML VIAL IV PRN (18:53)
[2021-08-03] MEDS: LACTATED RINGER'S 1,000 ML IV SCH (19:15)
[2021-08-03] MEDS: POLYETHYLENE (MIRALAX) 17 GM PACK PO SCH (20:48)
[2021-08-03] MEDS ORDERED: ENOXAPARIN INJ 30 MG/0.3 ML SYR SQ SCH (21:00)
[2021-08-03] MEDS ORDERED: traZODone HCL 50 MG TAB PO SCH (21:00)
[2021-08-03] MEDS: NYSTATIN SUSP 500,000 U/5 ML UDC PO SCH ×2 (21:24→21:26)
[2021-08-03] MEDS ORDERED: oxyCODONE HCL IR 5 MG TAB (IMMEDIATE RELEASE) PO PRN (23:10)
[2021-08-04] MEDS: FAMOTIDINE 20 MG in SYRINGE 3 ML IV SCH ×2 (00:12→08:11)
[2021-08-04] MEDS ORDERED: LEVOTHYROXINE SODIUM 150 MCG TABLET PO SCH (06:30)
[2021-08-04 06:49] LABS: Albumin Globulin Ratio 0.8 (0.9-2); Albumin Level 2.4 gm/dl (3.4-5.0); BUN Creatinine Ratio 23.5 (10-20); Bilirubin,Total 0.8 mg/dl (0.2-1); Calcium 7.1 mg/dl (8.5-10.1); Creatinine Clr Calc Pharmacy 36.3 ml/min; Est GFR (African American) 77.3 ml/min; Est GFR (Non-African American) 66.7 ml/min; Globulin 2.9 gm/dl (2.5-4.0); Magnesium 1.7 mg/dl (1.8-2.4); Potassium 3.7 mmol/L (3.5-5.1); Total Protein 5.3 gm/dl (6.4-8.2)
[2021-08-04] MEDS: LACTATED RINGER'S 1,000 ML IV SCH (07:25)
[2021-08-04 07:28] VITALS: BP 103/61; TEMP 99.3; O2SAT 96
[2021-08-04] MEDS: POLYETHYLENE (MIRALAX) 17 GM PACK PO SCH (08:08)
[2021-08-04] MEDS: NYSTATIN SUSP 500,000 U/5 ML UDC PO SCH ×2 (08:11→14:19)
[2021-08-04 08:26] LABS: Hematocrit (blood only) 30.1 % (42-52); Hemoglobin 9.9 g/dL (14.0-18.0); Mean Corpuscular Hemoglobin 28.9 pg (25-34); Mean Corpuscular Hgb Conc 32.9 g/dL (32-36); Mean Corpuscular Volume 87.8 fL (80-100); Mean Platelet Volume 10.3 fL (7.4-10.4); Platelet Count 151 K/uL (130-400); RDW Coefficient of Variation 15.7 % (11.5-14.5); RDW Standard Deviation 51.3 fL (36.4-46.3); Red Blood Count 3.43 M/uL (4.7-6.1); White Blood Count 0.38 K/uL (4.8-10.8)
[2021-08-04] MEDS ORDERED: CYANOCOBALAMIN 500 MCG TABLET (VITAMIN B-12) PO SCH (09:00)
[2021-08-04] MEDS ORDERED: DOCUSATE SODIUM 100 MG CAP PO SCH (09:00)
[2021-08-04 11:42] LABS: Hematocrit (blood only) 29.3 % (42-52); Hemoglobin 9.7 g/dL (14.0-18.0); Mean Corpuscular Hemoglobin 28.9 pg (25-34); Mean Corpuscular Hgb Conc 33.1 g/dL (32-36); Mean Corpuscular Volume 87.2 fL (80-100); Mean Platelet Volume 9.4 fL (7.4-10.4); Platelet Count 130 K/uL (130-400); RDW Coefficient of Variation 15.6 % (11.5-14.5); RDW Standard Deviation 50.5 fL (36.4-46.3); Red Blood Count 3.36 M/uL (4.7-6.1); White Blood Count 0.35 K/uL (4.8-10.8)
[2021-08-04] MEDS ORDERED: FILGRASTIM 300 MCG/ML VIAL SC ONE (12:35)
[2021-08-04 14:42] VITALS: PULSE 101
--- NOTE | 2021-08-04 17:47 | Discharge Summary ---
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 His does most of the talking as he has to use a speaking valve through previous tracheostomy and it is even difficult for him to speak due to weakness at this time. She reports that he recently started on chemotherapy with Taxotere and carboplatin along with dexamethasone before and after on 07/30. He was having nausea for the last 4 days and he tried taking Zofran as well as olanzapine and Compazine at home without relief of symptoms. He denies any rectal bleeding but has had some constipation over the last few days as well with last bowel movement being on 07/30. Today, he developed diffuse lower abdominal pain followed by nausea and vomiting. He did not have any fevers, but his reports he had chills while he was vomiting over the toilet. His reports that he does have oxycodone at home to take as needed for pain, but has not taken any at all this week. In the ER, he was noted to have an elevated BUN at 39, mildly low sodium at 135, and a mildly elevated total bilirubin at 1.1 with other LFTs being normal. Lipase was negative. Urinalysis was positive for nitrates as well as 2+ bilirubin, 2+ ketones, 1+ protein, 1+ leukocyte esterase, but 0 WBCs or bacteria. His Covid test was negative. He was sent for a CT of the abdomen/pelvis, but apparently just before he went for the scan he had a very large bowel movement in the ER and now is feeling much improved. The CT abdomen/pelvis showed distal esophagus appearing thick-walled and edematous, rectum largely decompressed with wall thickening and mucosal hype remia with surrounding inflammation involving the rectosigmoid colon. The upstream colon is dilated and filled with liquid/stool the right colon measured up to 6.6 cm in diameter with mild or wall thickening throughout the left colon, small bowel loops were normal in caliber, no diverticulitis and the appendix was not visualized. Could represent colonic ileus versus possible distal colonic obstruction related to inflammation and fecal impaction. He will be brought in for admission overnight to ensure that his previous colonic ileus/fecal impaction is resolved and that he is able to tolerate p.o. as he is dehydrated on arrival. Principal Diagnosis 1. Steracoral colitis 2. Fecal impactionresolved 3. Leukopeniachemotherapy-induced Discharge Exam General: Resting comfortably in his bedside chair. Appears chronically but not acutely ill. NAD. HEENT: Head is AT/NC buccal mucosa is moist and pink Neck: tracheostomy in place with significant scarring to the right side of the neck Cardiac: RRR Lungs: CTA without W/R/R Abdomen: Normoactive X4. Soft and nontender in all quadrants. Extremities: No peripheral clubbing cyanosis or edema Neuro: A&O X4 cranial nerves II through XII are grossly intact no focal neuro deficits Skin: No obvious skin lesions or rashes Psych: Appropriate affect pleasant and cooperative Discharge Data Allergies Allergy/AdvReac Type Severity Reaction Status Date / Time bee venom protein (honey bee) Allergy Severe shock Verified 08/03/21 11:50 moxifloxacin Allergy Severe THROAT Verified 08/03/21 11:50 SWELLED ketamine Allergy Intermediate AGITATION, Verified 08/03/21 11:50 HALLUCINATION ,OUT OF BODY FEELING Consultations 08/03/21 15:04 ED Decision to Admit Stat Ordered Studies 08/03/21 10:37 CT abd pelvis IV con only Stat IMPRESSION: 1. Significantly streak artifact degraded examination. 2. There is evidence of a nonspecific proctocolitis, greatest involving the rectum and sigmoid. 3. The upstream colon is significantly dilated and filled with liquid/stool. This could represent a colonic ileus, or possibly distal colonic obstruction related to inflammation and fecal impaction. Although there is no CT evidence of underlying mass lesion this would be impossible to completely exclude by imaging. Clinical correlation will be essential. 4. The small bowel loops are normal in caliber. 5. The distal esophagus appears thick walled and edematous suggesting esophagitis. 6. There is heterogeneous renal cortical enhancement, possibly related to medical renal disease/acute renal injury. Correlate with clinical/laboratory findings and urinalysis. 7. Additional findings as above. Hospital Course (1) Fecal impaction: - Presents with abdominal pain, nausea/vomiting after starting Taxotere and carboplatin 4 days prior to admission. - Had not had a bowel movement in 4 days - CT abdomen/pelvis with colonic ileus and likely fecal impaction-he did have a large bowel movement just before the CT scan was performed so perhaps his fecal load was even more so just before imaging was complete - Possible nonspecific proctocolitis seen on imaging, but suspect is secondary to fecal impaction-he has no fever - treated with bowel regimen with daily MiraLAX and add docusate 100 mg p.o. twice daily - With adequate treatment of his fecal impaction, his abdominal pain, nausea and vomiting completely resolved - tolerating oral intake - Lengthy discussion with patient regarding a good bowel regimen upon discharge. Should take Colace twice a day with MiraLAX daily as needed for BM. Could also utilize suppositories as needed. Patient does take chronic pain medication which increases the risk of having constipation - Follow-up with PCP and consider referral to GI for colonoscopy if not done (2) Leukopenia: Presenting WBC count was 4.65. Did receive aggressive IV hydration in the ED and today it is 0.35. Unable to differentiate ANC as lab ensures me it cannot be run on a white blood cell count less than 0.5 At any rate, this is likely related to the recent chemotherapy that was given on Thursday and further exacerbated by IV fluids and a dilutional state (there was noted to be a drop in all cell lines) I have reached out to patient's established oncologist (Dr. De La Rosa) who is agreeable to a 1 dose of Neupogen today and he will follow as an outpatient. Patient does not have any signs or symptoms of infection (3) Abdominal pain: -Secondary to #1. Is resolved (4) Nausea & vomiting: -Secondary to #1 and resolved (5) Oral candidiasis: Severe on examination Start nystatin swish and swallow while in house Likely secondary to chemotherapy and chronic steroids Has prosthesis plug for neck to help with speech given history of tracheostomy. Told to avoid this until it can be changed out and thrush adequately treated. (6) Head and neck cancer: Follows with Dr. De La Rosa with oncology Is recurrent and metastatic Started Taxotere and carboplatin with dexamethasone on 07/30 Follow CBC (7) CKD (chronic kidney disease), stage III: Creatinine at baseline at 1.3 (8) HTN (hypertension): Blood pressures are stable He does not take any medication for hypertension (9) Hypothyroidism: TSH normal earlier this year Continue home levothyroxine This is secondary to previous radiation therapy to the neck (10) GERD (gastroesophageal reflux disease): esophagitis seen on CT DC with Protonix and Pepcid Follow-up with PCP. Consider GI referral Consider addition of Carafate if no improvement in symptoms Total Time Total Time Spent Total Time Spent (In Minutes): 40 minutes including time spent with patient, calling his , and discussion with Dr. De La Rosa Discharge Plan Discharge Items Patient Disposition: Home - Self-Care Reason For Visit: N/V, FECAL IMPACTION Discharge Diagnosis: 1. Fecal impaction 2. Stercoral colitis (inflammation of the bowels from fecal impaction) 3. Leukopenia- low WBC count (from recent chemotherapy) 4. GERD Activity: Resume your previous activity Non-emergency contact: Primary Care Provider and Oncologist Call non-emergency contact if: you have any medication questions Follow-up/Referrals: Sean Medel MD [Primary Care Provider] - Francisco De La Rosa DO [Physician] - Diet: Regular Addtl Attending Provider Instructions: - you were hospitalized due to a fecal impaction (severe constipation) that caused stercoral colitis (inflammation of the bowel) - this was treated successfully and alleviated your abdominal pain, nausea and vomiting - you may continue colace (over the counter-- is a stool softener) twice a day along with miralax (take daily as needed for constipation) - the pain medication that you take will increase your constipation - your WBC count was low (which is presumed secondary to the recent start of chemotherapy) - You were given a dose of Neupogen (to help with your WBC count) prior to discharge. This was discussed with Dr. De La Rosa - you are at risk of developing infectious with your WBC count being low (at your immune system is weak). Avoid crowds, practice proper hand hygiene and notify your PCP or Dr. De La Rosa if feeling sick - clotrimazole lozenges sent to pharmacy to use 5x/day for thrush along with mouth wash - protonix started to help with reflux and esophagitis seen on imaging. FU with PCP - return to the ED if needed Pending Studies at Discharge: No Stand-Alone Forms: My [facility], Smoking Cessation Medications and DC Order Prescriptions: New clotrimazole 10 mg dana 10 mg PO 5XD Qty: 35 RF: 0 Magic Mouthwash 300 mL mouthwash 40 ml mucous membrane Q6H Qty: 400 RF: 0 pantoprazole [Protonix] 40 mg tablet,delayed release (DR/EC) 40 mg PO DAILY Qty: 30 RF: 0 famotidine [Pepcid] 20 mg tablet 20 mg PO BID Qty: 60 RF: 0 Continued trazodone 50 mg tablet 25 - 50 mg PO HS RF: 0 diphenhydramine HCl [Benadryl] 25 mg capsule 25 mg PO QID PRN (Reason: Allergy Symptoms) RF: 0 cyanocobalamin (vitamin B-12) 1,000 mcg Capsule 1,000 mcg PO QAM Qty: 0 RF: 0 Zyrtec 10 mg Capsule 10 mg PO DAILY PRN (Reason: Allergy Symptoms) Qty: 0 RF: 0 levothyroxine 150 mcg tablet 150 mcg PO DAILY Qty: 90 RF: 3 ondansetron HCl 8 mg tablet 8 mg PO Q8H PRN (Reason: Nausea And Vomiting) RF: 0 prochlorperazine maleate 10 mg tablet 10 mg PO Q6H PRN (Reason: Nausea And Vomiting) RF: 0 olanzapine 2.5 mg tablet 2.5 mg PO UD RF: 0 dexamethasone 4 mg tablet 8 mg PO UD RF: 0 oxycodone 5 mg tablet 5 mg PO Q4H PRN (Reason: Pain) RF: 0 Discharge Orders: Discharge Order (Routine); Ordered 08/04/21 Ordered By: Stella Zambrano/Other Patient Handouts: Neutropenia, Nausea Vomit Control Admission Data Admit Date/Time: 08/03/21 15:59 Attending Provider: Brady Herr Admit Provider: Krissy Renee Primary Care Provider: Sean Medel Other Providers: Brady Herr Other Interventions: Discharge Summary Assessment (RN) Last Done: 08/04/21 14:40 Supervising Physician Co-Signing Physician Notes I supervised Stella Jo PA-C on the care of this patient. I interviewed and examined the patient independently of her. The plan is as written in her note except for any following changes/exceptions: None Doing well today. No further constipation. Received Neupogen for his neutropenia. Will f/u with Dr. De La Rosa in the office. Coding Level of Care Code D/C DAY MANAGEMENT >30 MINS Diagnoses Fecal impaction K56.41 Abdominal pain R10.9 Nausea & vomiting R11.2 Oral candidiasis B37.0 Head and neck cancer C76.0 CKD (chronic kidney disease), stage III N18.30 HTN (hypertension) I10 Hypothyroidism E03.9 GERD (gastroesophageal reflux disease) K21.9 Leukopenia D72.819
== END 2021-08-04 15:03 | disposition home or self-care (01) ==
LOC: ED 09:51 → 3E 15:00 → INTOOBSV 15:59 → SUATTDRO 15:59

== ENCOUNTER 2021-08-06 11:18 | Observation (INO) ==
[2021-08-06] MEDS ORDERED: SODIUM CHLORIDE 0.9% 1000ML 1,000 ML IV STA (11:46)
--- NOTE | 2021-08-06 12:08 | XRay Report ---
XR chest 1V portable CLINICAL HISTORY: Fever. COMPARISON STUDY: 12/10/2020 TECHNIQUE: 1 view of the chest FINDINGS: Single frontal view of the chest demonstrates the cardiomediastinal silhouette to be within normal li mits. A Port-A-Cath is in place. Stable right paratracheal soft tissue density is seen. No other pul monary nodules are identified. The lungs are clear of alveolar opacities. There is a decreased inspir atory effort with elevation of the hemidiaphragms and crowding of the bronchovascular markings at the lung bases and centrally. There is no evidence for pleural effusion. There is no evidence for vascul ar congestion. There is no acute osseous pathology. IMPRESSION: There is a decreased inspiratory effort with otherwise no acute chest disease. ACT 112: Negative or not required by law. Electronically signed by: Hugo Barragan M.D. 08/06/2021 12:07 PM
[2021-08-06] MEDS ORDERED: ACETAMINOPHEN 1,000 MG/100 ML VIAL IV STA (12:12)
[2021-08-06] MEDS ORDERED: CEFEPIME 2,000 MG/20 ML VIAL IV STA (12:12)
[2021-08-06] MEDS ORDERED: POTASSIUM CHLORIDE / WTR 10 MEQ/100 ML PLCT IV ONE (12:16)
[2021-08-06] MEDS ORDERED: POTASSIUM CHLORIDE CRTAB 20 MEQ TABCR PO STA (12:36)
[2021-08-06] MEDS ORDERED: VANCOMYCIN CONSULT ACTIVE PRN ×2 (12:37→13:10)
[2021-08-06] MEDS ORDERED: MAGNESIUM SULFATE / D5W 1 GM/100 ML BAG IV STA (12:37)
--- NOTE | 2021-08-06 12:44 | History & Physical Report ---
Date of Service August 06, 2021 Assessment & Plan (1) SIRS (systemic inflammatory response syndrome): Plan: Presents with fever, leukopenia/neutropenia, tachycardia, hypotension in the setting of recent chemotherapy Procalcitonin is significantly elevated at 18 which is concerning-this may be consistent with a gram-negative septicemia He does have copious diarrhea and perhaps this is the cause? On his CT abdomen/pelvis on 08/03 he did have a nonspecific proctocolitis at that time which was thought to be secondary to stercoral colitis Lactate negative Was resuscitated with crystalloid boluses of fluid and hypotension resolved Covid and influenza a/B both were negative, Lyme and anaplasmosis smear negative, anaplasmosis PCR pending but do not suspect this No evidence of infection of his port on examination Chest x-ray negative for pneumonia -Initially treated with cefepime and vancomycin in the ER-will change cefepime to IV Zosyn to cover for proctocolitis and continue vancomycin in case of skin/port infection -Check MRSA swab -Follow blood cultures -UA was collected after first dose of cefepime and does not appear consistent with infection, however urine culture was sent from the cancer center as an outpatient before any antibiotics were given-follow urine culture -Checked stool studies, C. 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 intake and dehydration from diarrhea Hydrating with normal saline with potassium chloride 20 mEq at 100 mL's per hour Received 2 L of normal saline in the ER Follow BMP in the morning (3) Febrile neutropenia: Plan: As above, with antineoplastic induced pancytopenia and febrile as above Continue antibiotics, follow cultures Give 1 dose of Neupogen now Follow CBC (4) Pancytopenia due to antineoplastic chemotherapy: Plan: Secondary to recent chemotherapy 1 week ago Follow CBC Giving Neupogen for neutropenia Transfusional support as needed (5) Diarrhea: Plan: As above, could be secondary to chemotherapy and recently was also taking laxatives due to fecal impaction on last admission Stool studies only show that 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 difficile is negative Treating with IV Zosyn in case of infectious colitis (6) Acute hypokalemia: Plan: Secondary to poor p.o. intake and GI losses Replace with 50 mEq of potassium chloride Also with 20 mEq potassium chloride added into maintenance IV fluids Follow BMP and magnesium in the morning Give 1 g of IV magnesium sulfate now (7) Head and neck cancer: Plan: With recent recurrence again and started on Taxotere and carboplatin on 07/[address] De La Rosa of cancer [facility] -Status post multiple surgeries and radiation therapy in the past Continue oxycodone as needed for pain in the back IV Zosyn as needed for nausea (8) Oral candidiasis: Plan: Much improved since previous admission with using clotrimazole trouche Continue clotrimazole (9) Hypothyroidism: Plan: Continue home levothyroxine (10) Severe protein-calorie malnutrition: Plan: Secondary to cancer Encourage p.o. 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 He was just discharged from this hospital 2 days prior after presenting with fecal impaction causing colonic ileus which was relieved with laxatives. His does most of the talking as he has to use a speaking valve through previous tracheostomy and it is even difficult for him to speak due to weakness at this time. She reports that he recently started on chemotherapy with Taxotere and carboplatin along with dexamethasone on 07/30. He returns today with development of fever and weakness, and has been having loose stools since discharge. Every time he eats or drinks (which hasn't been much), it runs right out of him in liquid stool. Diarrhea nonbloody, no abd pain. He went to the cancer center and when found to have a fever, was given 1L NS and sent to ER. In the ER, he is found to be hyponatremic, hypokalemic, with pancytopenia and neutropenia. He was febrile and tachycardic, hypotensive. His procalcitonin was significantly elevated at 18.5. Lactate was normal at 1.5, troponin negative. Anaplasma smear was negative, Lyme disease titer negative. His Covid-19 test was negative, flu A/B was also negative He did receive 1 dose of Neupogen on 08/04 prior to discharge from the hospital. In the ER, he was given 1 dose of IV cefepime, IV acetaminophen, potassium chloride 10 mEq IV x1, and started on normal saline at 125 mL's per hour. When he became hypotensive, he was given 1 L bolus NS Chest x-ray was negative for pneumonia, urinalysis was not collected at the time of admission, but a urine culture was sent from the cancer center prior to antibiotics being given. Blood cultures were drawn. He will be admitted for neutropenic fever for treatment with IV antibiotics and further evaluation of his diarrhea. Allergies Allergy/AdvReac Type Severity Reaction Status Date / Time bee venom protein (honey bee) Allergy Severe shock Verified 08/03/21 11:50 moxifloxacin Allergy Severe THROAT Verified 08/03/21 11:50 SWELLED ketamine Allergy Intermediate AGITATION, Verified 08/03/21 11:50 HALLUCINATION ,OUT OF BODY FEELING Home Medications Medication Instructions Recorded Confirmed Type cyanocobalamin (vitamin B-12) 1,000 mcg PO QAM #0 tab 01/29/13 08/06/21 History 1,000 mcg capsule diphenhydramine HCl 25 mg capsule 25 mg PO QID PRN 11/27/20 08/06/21 History (Benadryl) trazodone 50 mg tablet 25 - 50 mg PO HS tab 11/27/20 08/06/21 History levothyroxine 150 mcg tablet 150 mcg PO DAILY #90 tab 12/31/20 08/06/21 Rx dexamethasone 4 mg tablet 8 mg PO UD 08/03/21 08/06/21 History olanzapine 2.5 mg tablet 2.5 mg PO UD 08/03/21 08/06/21 History ondansetron HCl 8 mg tablet 8 mg PO Q8H PRN 08/03/21 08/06/21 History oxycodone 5 mg tablet 5 mg PO Q4H PRN 08/03/21 08/06/21 History prochlorperazine maleate 10 mg 10 mg PO Q6H PRN 08/03/21 08/06/21 History tablet clotrimazole 10 mg dana 10 mg PO 5XD #35 tab 08/04/21 08/06/21 Rx pantoprazole 40 mg tablet,delayed 40 mg PO DAILY #30 tab 08/04/21 08/06/21 Rx release (Protonix) Past Med/Surg History Medical History Allergic rhinitis CKD (chronic kidney disease), stage III Cough GERD (gastroesophageal reflux disease) History of chemotherapy History of radiation therapy To larynx 09/26/10 thru 11/14/10 HTN (hypertension) Hypothyroidism RADIATION INDUCED Insomnia Larynx cancer Male erectile disorder of organic origin Neck mass Sensorineural hearing loss (SNHL) of both ears Solitary pulmonary nodule Squamous cell carcinoma of larynx 2010 Vitamin B12 deficiency Surgical History H/O bilateral cataract extraction H/O hand surgery BILT H/O inguinal hernia repair H/O laryngectomy MULTIPLE SX WITH RECONSTRUCTION H/O left knee surgery Left knee replacement H/O lymph node excision on 10/05/20 - Metastatic SCC History of arthroscopy of both shoulders History of biopsy Left tonsilar incisional biopsy on 11/15/20 - SCC History of esophagogastroduodenoscopy (EGD) MULTIPLE WITH DILATION History of laryngoscopy History of surgery Laryngoscopy with tumor excision on 08/26/10 History of total right hip arthroplasty History of vascular access device L CHEST S/P percutaneous endoscopic gastrostomy (PEG) tube placement WITH REMOVAL Family History Sister MVA (motor vehicle accident) Mother , in her 80s Heart disease Diabetes Father , 94yo Hypertension Prostate cancer Heart valve replaced Sister No problems noted. Son No problems noted. Son No problems noted. Daughter Intestinal cancer Daughter No problems noted. Social History Smoking Status: Never smoker Cigarettes Per Day: 1 Pack Q 3-4 days;Quit 50 yrs ago; Second Hand Exposure: No; Hx Alcohol Use: Yes Alcohol type: beer Hx Substance Use: No Preferred Language: Liberian Communication Ability: Effective Visual Impairment: No Limitations Hearing Ability: Normal Game Author Required: No Beliefs That Will Affect Care: None marital status: Current Living Situation: Spouse current occupational status: retired current occupation: Body repair; Feels Safe at Home: Yes Safety Concerns: Feels Safe At This Time caffeine: Yes (2 cups/day) during the past year weight has: remained stable Assistive Devices: Glasses and Hearing Aid - Bilateral Assistive Devices Comment: reading glasses Review of Systems Review of Systems: All systems reviewed & are unremarkable except as noted in HPI & below Having pain in his back and bottom from sitting in the hard bed and has lost all the fat on his body No tongue or mouth pain and his thrush is improving Denies any urinary symptoms Physical Exam Constitutional: + ill appearing and + cachectic; no acute distress and not lethargic Eyes: PERRL, conjunctivae normal, anicteric sclerae ENMT: external ear and nose normal, oropharynx normal (Thrush is almost completely resolved since I last saw him) Neck: trachea midline, no thyromegaly Respiratory: normal respiratory effort, lungs clear to auscultation Cardiovascular: RRR, no murmur, no edema Chest (Breasts): Chest: normal inspection of chest Gastrointestinal (Abdomen): normal bowel sounds, soft, nontender, no hepatosplenomegaly Musculoskeletal: Extremities: extremities normal to inspection; no cyanosis and no clubbing Skin: no rashes, warm and dry Neurologic: moves all extremities and awake; no focal motor deficits Psychiatric: A+Ox3, euthymic affect Lymphatic: no lymphedema Results & Data Results & Data ([facility]) Vital Signs (Past 12 Hours) Vital Signs Temp Pulse Resp BP Pulse Ox 08/06/21 12:30 119 H 26 H 94/50 L 97 08/06/21 12:20 120 H 99 08/06/21 12:10 98 08/06/21 12:00 137/67 96 08/06/21 11:50 113 H 100 08/06/21 11:41 115 H 98 08/06/21 11:32 38.9 C H 116 H 19 134/68 96 Laboratory Results 08/06/21 08/06/21 08/06/21 Range/Units 14:08 14:08 14:06 Creatinine 1.22 (0.6-1.4) mg/dl Est Cr Clr Drug Dosing 43.6 ml/min Est GFR ( Amer) 68.2 ml/min Est GFR (Non-Af Amer) 58.9 ml/min Lactate (0.4-2.0) mmol/L Troponin I (0-0.045) ng/ml Procalcitonin (0-0.5) ng/ml Urine Color Urine Appearance (Clear) Urine pH (4.5-7.5) Ur Specific Mumford (1.000-1.030) Urine Protein (Negative) Urine Glucose (UA) (Negative) Urine Ketones (Negative) Urine Blood (Negative) Urine Nitrite (Negative) Urine Bilirubin (Negative) Urine Urobilinogen (Negative) Ur Leukocyte Esterase (Negative) Urine WBC (Auto) (0-5) /hpf Urine RBC (Auto) (0-4) /hpf U Hyaline Cast (Auto) (0-5) /lpf U Epithel Cells (Auto) (0-5) /lpf Urine Bacteria (Auto) (Negative) Ur Renal Epithelial Cell Urine Yeast Nasal Screen MRSA (PCR) Negative (Negative) Stl C. cayetanensis PCR (NotDetected) Stool Rotavirus A PCR (NotDetected) Stl Adenov F 40/41 PCR (NotDetected) Stool Astrovirus (PCR) (NotDetected) Stool Campylobacter PCR (NotDetected) Stl C. diff Tox B Gene Stl C.difficile Tox A&B (Negative) Stl C. diff Tox A/B PCR (NotDetected) Stool Cryptosporidium PCR (NotDetected) Stl E.coli Shiga Tox PCR (NotDetected) Stl Enterotoxigenic E PCR (NotDetected) Stool EPEC (PCR) (NotDetected) Stool EAEC (PCR) (NotDetected) Stl E. histolytica PCR (NotDetected) Stool Giardia Lamblia PCR (NotDetected) Stool Salmonella PCR (NotDetected) Stool Sapovirus (PCR) (NotDetected) Stl P. shigelloides PCR (NotDetected) Stl Shigella/EIEC PCR (NotDetected) St Y.enterocolitica PCR (NotDetected) Stool Vibrio (PCR) (NotDetected) Stl Vibrio cholerae PCR (NotDetected) Stl Norovirus GI/GII PCR (NotDetected) Anaplasma Smear A. phagocytophilum DNA Lyme Disease IgG Ab (Negative) Lyme Disease IgM Ab (Negative) Influ A Molecular Assay Negative (Negative) Influ B Molecular Assay Negative (Negative) 08/06/21 08/06/21 08/06/21 Range/Units 14:06 14:06 14:06 Creatinine (0.6-1.4) mg/dl Est Cr Clr Drug Dosing ml/min Est GFR ( Amer) ml/min Est GFR (Non-Af Amer) ml/min Lactate 1.5 (0.4-2.0) mmol/L Troponin I (0-0.045) ng/ml Procalcitonin (0-0.5) ng/ml Urine Color Urine Appearance (Clear) Urine pH (4.5-7.5) Ur Specific Mumford (1.000-1.030) Urine Protein (Negative) Urine Glucose (UA) (Negative) Urine Ketones (Negative) Urine Blood (Negative) Urine Nitrite (Negative) Urine Bilirubin (Negative) Urine Urobilinogen (Negative) Ur Leukocyte Esterase (Negative) Urine WBC (Auto) (0-5) /hpf Urine RBC (Auto) (0-4) /hpf U Hyaline Cast (Auto) (0-5) /lpf U Epithel Cells (Auto) (0-5) /lpf Urine Bacteria (Auto) (Negative) Ur Renal Epithelial Cell Urine Yeast Nasal Screen MRSA (PCR) (Negative) Stl C. cayetanensis PCR (NotDetected) Stool Rotavirus A PCR (NotDetected) Stl Adenov F 40/41 PCR (NotDetected) Stool Astrovirus (PCR) (NotDetected) Stool Campylobacter PCR (NotDetected) Stl C. diff Tox B Gene Stl C.difficile Tox A&B (Negative) Stl C. diff Tox A/B PCR (NotDetected) Stool Cryptosporidium PCR (NotDetected) Stl E.coli Shiga Tox PCR (NotDetected) Stl Enterotoxigenic E PCR (NotDetected) Stool EPEC (PCR) (NotDetected) Stool EAEC (PCR) (NotDetected) Stl E. histolytica PCR (NotDetected) Stool Giardia Lamblia PCR (NotDetected) Stool Salmonella PCR (NotDetected) Stool Sapovirus (PCR) (NotDetected) Stl P. shigelloides PCR (NotDetected) Stl Shigella/EIEC PCR (NotDetected) St Y.enterocolitica PCR (NotDetected) Stool Vibrio (PCR) (NotDetected) Stl Vibrio cholerae PCR (NotDetected) Stl Norovirus GI/GII PCR (NotDetected) Anaplasma Smear See Comment A. phagocytophilum DNA Pending Lyme Disease IgG Ab (Negative) Lyme Disease IgM Ab (Negative) Influ A Molecular Assay (Negative) Influ B Molecular Assay (Negative) 08/06/21 08/06/21 08/06/21 Range/Units 14:06 14:06 13:52 Creatinine (0.6-1.4) mg/dl Est Cr Clr Drug Dosing ml/min Est GFR ( Amer) ml/min Est GFR (Non-Af Amer) ml/min Lactate (0.4-2.0) mmol/L Troponin I < 0.015 (0-0.045) ng/ml Procalcitonin 18.52 H (0-0.5) ng/ml Urine Color Urine Appearance (Clear) Urine pH (4.5-7.5) Ur Specific Mumford (1.000-1.030) Urine Protein (Negative) Urine Glucose (UA) (Negative) Urine Ketones (Negative) Urine Blood (Negative) Urine Nitrite (Negative) Urine Bilirubin (Negative) Urine Urobilinogen (Negative) Ur Leukocyte Esterase (Negative) Urine WBC (Auto) (0-5) /hpf Urine RBC (Auto) (0-4) /hpf U Hyaline Cast (Auto) (0-5) /lpf U Epithel Cells (Auto) (0-5) /lpf Urine Bacteria (Auto) (Negative) Ur Renal Epithelial Cell Urine Yeast Nasal Screen MRSA (PCR) (Negative) Stl C. cayetanensis PCR (NotDetected) Stool Rotavirus A PCR (NotDetected) Stl Adenov F PCR (NotDetected) Stool Astrovirus (PCR) (NotDetected) Stool Campylobacter PCR (NotDetected) Stl C. diff Tox B Gene Stl C.difficile Tox A&B Negative Cdiff Toxin (Negative) Stl C. diff Tox A/B PCR (NotDetected) Stool Cryptosporidium PCR (NotDetected) Stl E.coli Shiga Tox PCR (NotDetected) Stl Enterotoxigenic E PCR (NotDetected) Stool EPEC (PCR) (NotDetected) Stool EAEC (PCR) (NotDetected) Stl E. histolytica PCR (NotDetected) Stool Giardia Lamblia PCR (NotDetected) Stool Salmonella PCR (NotDetected) Stool Sapovirus (PCR) (NotDetected) Stl P. shigelloides PCR (NotDetected) Stl Shigella/EIEC PCR (NotDetected) St Y.enterocolitica PCR (NotDetected) Stool Vibrio (PCR) (NotDetected) Stl Vibrio cholerae PCR (NotDetected) Stl Norovirus GI/GII PCR (NotDetected) Anaplasma Smear A. phagocytophilum DNA Lyme Disease IgG Ab Negative (Negative) Lyme Disease IgM Ab Negative (Negative) Influ A Molecular Assay (Negative) Influ B Molecular Assay (Negative) 08/06/21 08/06/21 08/06/21 Range/Units 13:52 13:52 13:52 Creatinine (0.6-1.4) mg/dl Est Cr Clr Drug Dosing ml/min Est GFR ( Amer) ml/min Est GFR (Non-Af Amer) ml/min Lactate (0.4-2.0) mmol/L Troponin I (0-0.045) ng/ml Procalcitonin (0-0.5) ng/ml Urine Color Dark Yellow Urine Appearance Clear (Clear) Urine pH 5.5 (4.5-7.5) Ur Specific Mumford 1.020 (1.000-1.030) Urine Protein 2+ H (Negative) Urine Glucose (UA) Negative (Negative) Urine Ketones 3+ H (Negative) Urine Blood 1+ H (Negative) Urine Nitrite Negative (Negative) Urine Bilirubin Negative (Negative) Urine Urobilinogen Negative (Negative) Ur Leukocyte Esterase Negative (Negative) Urine WBC (Auto) 1-5 (0-5) /hpf Urine RBC (Auto) 0-4 (0-4) /hpf U Hyaline Cast (Auto) 1-5 (0-5) /lpf U Epithel Cells (Auto) >30 H (0-5) /lpf Urine Bacteria (Auto) Negative (Negative) Ur Renal Epithelial Cell Not Reportable Urine Yeast Not Reportable Nasal Screen MRSA (PCR) (Negative) Stl C. cayetanensis PCR Not Detected (NotDetected) Stool Rotavirus A PCR Not Detected (NotDetected) Stl Adenov F 40/41 PCR Not Detected (NotDetected) Stool Astrovirus (PCR) Not Detected (NotDetected) Stool Campylobacter PCR Not Detected (NotDetected) Stl C. diff Tox B Gene Cancelled Stl C.difficile Tox A&B (Negative) Stl C. diff Tox A/B PCR DETECTED A* (NotDetected) Stool Cryptosporidium PCR Not Detected (NotDetected) Stl E.coli Shiga Tox PCR Not Detected (NotDetected) Stl Enterotoxigenic E PCR Not Detected (NotDetected) Stool EPEC (PCR) Not Detected (NotDetected) Stool EAEC (PCR) Not Detected (NotDetected) Stl E. histolytica PCR Not Detected (NotDetected) Stool Giardia Lamblia PCR Not Detected (NotDetected) Stool Salmonella PCR Not Detected (NotDetected) Stool Sapovirus (PCR) Not Detected (NotDetected) Stl P. shigelloides PCR Not Detected (NotDetected) Stl Shigella/EIEC PCR Not Detected (NotDetected) St Y.enterocolitica PCR Not Detected (NotDetected) Stool Vibrio (PCR) Not Detected (NotDetected) Stl Vibrio cholerae PCR Not Detected (NotDetected) Stl Norovirus GI/GII PCR Not Detected (NotDetected) Anaplasma Smear A. phagocytophilum DNA Lyme Disease IgG Ab (Negative) Lyme Disease IgM Ab (Negative) Influ A Molecular Assay (Negative) Influ B Molecular Assay (Negative) Diagnostic Findings Chest X-Ray 08/06/21 11:46 XR chest 1V portable CLINICAL HISTORY: Fever. COMPARISON STUDY: 12/10/2020 TECHNIQUE: 1 view of the chest FINDINGS: Single frontal view of the chest demonstrates the cardiomediastinal silhouette to be within normal limits. A Port-A-Cath is in place. Stable right paratracheal soft tissue density is seen. No other pulmonary nodules are identified. The lungs are clear of alveolar opacities. There is a decreased inspiratory effort with elevation of the hemidiaphragms and crowding of the bronchovascular markings at the lung bases and centrally. There is no evidence for pleural effusion. There is no evidence for vascular congestion. There is no acute osseous pathology. IMPRESSION: There is a decreased inspiratory effort with otherwise no acute chest disease. ACT 112: Negative or not required by law. Electronically signed by: Hugo Barragan M.D. 08/06/2021 12:07 PM ECG Additional Comments: ECG on 08/06/2021 at 1335 with sinus tachycardia, rate 103, poor R wave progression Code Status & VTE Plan Code Status Full code VTE Prophylaxis Plan VTE Prophylaxis will be ordered: Yes PG Care Time/CCT Total # of Minutes Spent Total Time Spent with Patient: Total time spent is greater than 50% in coordination of care (as documented) at patient's floor/unit and/or counseling patient: Coding Level of Care Code 40188 Initial Inpt Care Lvl 3 Diagnoses Acute hyponatremia E87.1 Febrile neutropenia D70.9; R50.81 Diarrhea R19.7 Acute hypokalemia E87.6 Severe protein-calorie malnutrition E43 Oral candidiasis B37.0 GERD (gastroesophageal reflux disease) K21.9 Hypothyroidism E03.9 Head and neck cancer C76.0 Pancytopenia due to antineoplastic chemotherapy D61.810; T45.1X5A SIRS (systemic inflammatory response syndrome) R65.10
--- NOTE | 2021-08-06 12:59 | Emergency Department Note ---
Impression & Plan Acute hyponatremia, Head and neck cancer, Febrile neutropenia, Diarrhea, Acute hypokalemia ED Provider Note INFORMANT: Patient ED PROVIDER(S): Lennox Chan MD CHIEF COMPLAINT: Weakness PLAN: Disposition: Admitted Condition: Good Outpatient prescription management: none Referral: None MEDICAL DECISION MAKING: Patient presented because of weakness. Work-up was initiated. Patient was found to be hypokalemic, hyponatremic and neutropenic. With a fever this was concerning. He had blood cultures obtained. Urinalysis and urine culture ordered. The patient was treated with multiple fluid boluses due to his low borderline low blood pressure. He was treated with IV cefepime and also IV vancomycin. I did consult with the not any hospitalist service, Dr. Renee. Patient was evaluated in the ER and admitted for further management. Triage Nursing notes reviewed and agree them. Vital Signs: reviewed and remarkable for mild hypotension Differential diagnosis: Infection, dehydration, metabolic abnormality, hypo/hyperglycemia, electrolyte disturbance, anemia, hypoxia, cardiac sources, intracerebral event, toxicologic, neurologic, as well as other pathologies. Diagnostics interpreted by me: ECG: Twelve-lead ECG reveals sinus tachycardia [address] elevation. Poor R progression present. Normal axis. Cardiac Monitoring: Cardiac monitoring ordered by me: The patient was placed on continuous cardiac monitoring and observed. It revealed a normal sinus rhythm at 89 beats per minute without ectopy or evidence of dysrhythmia. Imaging studies: Chest x-ray. Findings: A chest x-ray was performed and revealed no pneumothorax, effusion, infiltrate, pulmonary edema, free air under the diaphragm, or wide mediastinum. Impression: No acute disease. HPI: The patient is a 71 year old male who presents to the Emergency Room with complaints of weakness. This started over the last 2 days since discharge and is in worsening. The patient also notes the following associated symptoms, feeling feverish, continued diarrhea. The patient was admitted and was constipated. He had stercoral colitis. He was treated with laxatives. He was mildly leukopenic on admission. He states prior to discharge she was given Neupogen. He notes that he has not developed any abdominal pain or vomiting. Nausea has improved. Patient went to the cancer center. They noted his vital signs. They did blood work including cultures and sent the patient to the ER. The patient has been given 1 L of normal saline for relieving factors. Current pain is rated as 0/10. Pt denies LOC, headache, diaphoresis, visual changes, neck pain, chest pain, breathing difficulties, nausea, vomiting, abdominal pain, back pain, melena, hematochezia, urinary symptoms, numbness, lymphadenopathy, rash, or other complaints. ROS: See above HPI for pertinent positives & negatives. A total of 10 systems reviewed and were otherwise negative. PAST MEDICAL HISTORY:See Below , head neck cancer, fecal impaction PAST SURGICAL HISTORY:See Below, FAMILY HISTORY:See Below SOCIAL HISTORY:See Below, HOME MEDICATIONS:See Below ALLERGIES:See Below VITALS:See Below PHYSICAL EXAMINATION: GENERAL: Awake, alert, tired-appearing, in no distress HENT: Normocephalic, atraumatic. Oropharynx unremarkable except for thrush. EYES: Normal conjunctiva. Sclera non-icteric. NECK: Inspection normal. Non-tender. Supple. No nuchal rigidity. Tracheostomy present. RESPIRATORY: Clear to auscultation. No wheezes. No rales. Normal respiratory effort. CARDIAC: Borderline tachycardic rate. Normal rhythm. No murmurs. No rubs. Extremities warm and well perfused. Pulses equal. No JVD. GI: Soft, non-distended. No tenderness to palpation. No rebound or guarding. No masses. RECTAL: Deferred. MUSCULOSKELETAL: Atraumatic. Chest examination reveals no tenderness. The back is symmetrical on inspection without obvious abnormality. There is no CVA tenderness to palpation. No joint edema. LOWER EXTREMITIES: Calves are equal size bilaterally and non-tender. No edema. No discoloration. NEURO: Normal sensorium. Generally weak but no focal sensory or motor deficits noted. SKIN: No rash or jaundice noted. Lennox Chan MD Past Med/Surg History Medical History Allergic rhinitis CKD (chronic kidney disease), stage III Cough GERD (gastroesophageal reflux disease) History of chemotherapy History of radiation therapy To larynx 09/26/10 thru 11/14/10 HTN (hypertension) Hypothyroidism RADIATION INDUCED Insomnia Larynx cancer Male erectile disorder of organic origin Neck mass Sensorineural hearing loss (SNHL) of both ears Solitary pulmonary nodule Squamous cell carcinoma of larynx 2010 Vitamin B12 deficiency Surgical History H/O bilateral cataract extraction H/O hand surgery BILT H/O inguinal hernia repair H/O laryngectomy MULTIPLE SX WITH RECONSTRUCTION H/O left knee surgery Left knee replacement H/O lymph node excision on 10/05/20 - Metastatic SCC History of arthroscopy of both shoulders History of biopsy Left tonsilar incisional biopsy on 11/15/20 - SCC History of esophagogastroduodenoscopy (EGD) MULTIPLE WITH DILATION History of laryngoscopy History of surgery Laryngoscopy with tumor excision on 08/26/10 History of total right hip arthroplasty History of vascular access device L CHEST S/P percutaneous endoscopic gastrostomy (PEG) tube placement WITH REMOVAL Family History Sister MVA (motor vehicle accident) Mother , in her 80s Heart disease Diabetes Father , 94yo Hypertension Prostate cancer Heart valve replaced Sister No problems noted. Son No problems noted. Son No problems noted. Daughter Intestinal cancer Daughter No problems noted. Social History Smoking Status: Never smoker Cigarettes Per Day: 1 Pack Q 3-4 days;Quit 50 yrs ago; Second Hand Exposure: No; Hx Alcohol Use: Yes Alcohol type: beer Hx Substance Use: No Preferred Language: Turkmen Communication Ability: Effective Visual Impairment: No Limitations Hearing Ability: Normal Sliver Lap Machine Tender Required: No Beliefs That Will Affect Care: None marital status: Current Living Situation: Spouse current occupational status: retired current occupation: Body repair; Feels Safe at Home: Yes Safety Concerns: Feels Safe At This Time caffeine: Yes (2 cups/day) during the past year weight has: remained stable Assistive Devices: Glasses and Hearing Aid - Bilateral Assistive Devices Comment: reading glasses Allergies Allergies Allergy/AdvReac Type Severity Reaction Status Date / Time bee venom protein (honey bee) Allergy Severe shock Verified 08/03/21 11:50 moxifloxacin Allergy Severe THROAT Verified 08/03/21 11:50 SWELLED ketamine Allergy Intermediate AGITATION, Verified 08/03/21 11:50 HALLUCINATION ,OUT OF BODY FEELING Home Meds Home Medications Medication Instructions Recorded Confirmed cyanocobalamin (vitamin B-12) 1,000 mcg PO QAM #0 tab 01/29/13 08/06/21 1,000 mcg capsule diphenhydramine HCl 25 mg capsule 25 mg PO QID PRN 11/27/20 08/06/21 (Benadryl) trazodone 50 mg tablet 25 - 50 mg PO HS tab 11/27/20 08/06/21 dexamethasone 4 mg tablet 8 mg PO UD 08/03/21 08/06/21 olanzapine 2.5 mg tablet 2.5 mg PO UD 08/03/21 08/06/21 ondansetron HCl 8 mg tablet 8 mg PO Q8H PRN 08/03/21 08/06/21 oxycodone 5 mg tablet 5 mg PO Q4H PRN 08/03/21 08/06/21 prochlorperazine maleate 10 mg 10 mg PO Q6H PRN 08/03/21 08/06/21 tablet Previous Rx's Medication Instructions Recorded levothyroxine 150 mcg tablet 150 mcg PO DAILY #90 tab 12/31/20 clotrimazole 10 mg dana 10 mg PO 5XD #35 tab 08/04/21 pantoprazole 40 mg tablet,delayed 40 mg PO DAILY #30 tab 08/04/21 release (Protonix) Results & Data (ED) Vital Signs Vital Signs - 24 hr 08/06/21 11:32 08/06/21 11:41 08/06/21 11:50 Temperature 38.9 C H Temperature Source Oral Pulse Rate 116 H 115 H 113 H Pulse Rate from SpO2 Sensor 106 H 106 H Respiratory Rate 19 Respiratory Effort / Characteristics Spontaneous Blood Pressure 134/68 Blood Pressure Mean 90 Blood Pressure Position Lying Pulse Oximetry 96 98 100 Oxygen Delivery Method Room Air Room Air Sepsis Recent Fever Within 48 Hours Yes Sepsis New/Unexplained Change in Mental Status No Sepsis Action Taken by Nursing Physician Notified 08/06/21 12:00 08/06/21 12:10 08/06/21 12:20 Temperature Temperature Source Pulse Rate 120 H Pulse Rate from SpO2 Sensor 110 H 116 H 120 H Respiratory Rate Respiratory Effort / Characteristics Blood Pressure 137/67 Blood Pressure Mean 90 Blood Pressure Position Pulse Oximetry 96 98 99 Oxygen Delivery Method Room Air Sepsis Recent Fever Within 48 Hours Sepsis New/Unexplained Change in Mental Status Sepsis Action Taken by Nursing 08/06/21 12:30 08/06/21 12:40 08/06/21 12:50 Temperature Temperature Source Pulse Rate 119 H 113 H 115 H Pulse Rate from SpO2 Sensor 110 H 113 H 114 H Respiratory Rate 26 H 20 18 Respiratory Effort / Characteristics Blood Pressure 94/50 L Blood Pressure Mean 64 Blood Pressure Position Pulse Oximetry 97 96 96 Oxygen Delivery Method Sepsis Recent Fever Within 48 Hours Sepsis New/Unexplained Change in Mental Status Sepsis Action Taken by Nursing 08/06/21 13:00 Temperature Temperature Source Pulse Rate 108 H Pulse Rate from SpO2 Sensor 109 H Respiratory Rate 22 Respiratory Effort / Characteristics Blood Pressure 76/50 L Blood Pressure Mean 58 Blood Pressure Position Pulse Oximetry 96 Oxygen Delivery Method Room Air Sepsis Recent Fever Within 48 Hours Sepsis New/Unexplained Change in Mental Status Sepsis Action Taken by Nursing Laboratory Data Result diagrams: 08/06/21 14:06 Administered Medications Sodium Chloride (Nss 1000ml) 1,000 mls @ 125 mls/hr IV .Q8H STA Stop: 08/06/21 19:45 Last Infusion: 08/06/21 14:23 Dose: 0 mls/hr Documented by: [id number] Admin: 08/06/21 12:28 Dose: 125 mls/hr Documented by: [id number] Potassium Chloride (K Chris / Wtr) 20 meq in 100 mls @ 50 mls/hr IV Q2H CRYSTAL Stop: 08/06/21 19:44 Last Admin: 08/06/21 17:49 Dose: 50 mls/hr Documented by: [id number] Discontinued Medications Cefepime HCl (Maxipime) 2,000 mg in 20 mls @ 5 mls/min IV NOW STA; Protocol Stop: 08/06/21 12:15 Last Admin: 08/06/21 12:59 Dose: 5 mls/min Documented by: [id number] Acetaminophen (Ofirmev) 1,000 mg in 100 mls @ 400 mls/hr IV NOW STA Stop: 08/06/21 12:26 Last Infusion: 08/06/21 12:36 Dose: 0 mls/hr Documented by: [id number] Admin: 08/06/21 12:21 Dose: 400 mls/hr Documented by: [id number] Potassium Chloride (K Chris / Wtr) 10 meq in 100 mls @ 100 mls/hr IV ONE ONE Stop: 08/06/21 13:15 Last Infusion: 08/06/21 14:12 Dose: 0 mls/hr Documented by: [id number] Admin: 08/06/21 13:12 Dose: 100 mls/hr Documented by: [id number] Magnesium Sulfate/Dextrose (Magnesium Sulfate / D5w) 1 gm in 100 mls @ 50 mls/hr IV ONE STA Stop: 08/06/21 14:36 Last Infusion: 08/06/21 17:40 Dose: 0 mls/hr Documented by: [id number] Admin: 08/06/21 15:07 Dose: 50 mls/hr Documented by: [id number] Sodium Chloride (Nss 1000ml) 500 mls @ 999 mls/hr IV .Q31M ONE Stop: 08/06/21 13:39 Last Admin: 08/06/21 14:12 Dose: Not Given Documented by: [id number] Vancomycin HCl 1,250 mg/ (Sodium Chloride) 525 mls @ 200 mls/hr IV NOW ONE Stop: 08/06/21 15:47 Last Infusion: 08/06/21 17:41 Dose: 0 mls/hr Documented by: [id number] Admin: 08/06/21 14:57 Dose: 200 mls/hr Documented by: [id number] Sodium Chloride (Nss 1000ml) 1,000 mls @ 999 mls/hr IV .Q1H1M ONE Stop: 08/06/21 14:09 Last Infusion: 08/06/21 15:15 Dose: 0 mls/hr Documented by: [id number] Admin: 08/06/21 14:14 Dose: 999 mls/hr Documented by: [id number] Sodium Chloride (Nss 1000ml) 500 mls @ 999 mls/hr IV .Q31M ONE Stop: 08/06/21 16:13 Last Infusion: 08/06/21 16:43 Dose: 0 mls/hr Documented by: [id number] Admin: 08/06/21 15:52 Dose: 999 mls/hr Documented by: [id number] Potassium Chloride (Potassium Chloride Crtab 20 Meq Tabcr) 40 meq PO NOW STA Stop: 08/06/21 12:37 Last Admin: 08/06/21 14:23 Dose: Not Given Documented by: [id number] Imaging Data Radiologist's Impression: Chest X-Ray 08/06/21 11:46 XR chest 1V portable CLINICAL HISTORY: Fever. COMPARISON STUDY: 12/10/2020 TECHNIQUE: 1 view of the chest FINDINGS: Single frontal view of the chest demonstrates the cardiomediastinal silhouette to be within normal limits. A Port-A-Cath is in place. Stable right paratracheal soft tissue density is seen. No other pulmonary nodules are identified. The lungs are clear of alveolar opacities. There is a decreased ins piratory effort with elevation of the hemidiaphragms and crowding of the bronchovascular markings at the lung bases and centrally. There is no evidence for pleural effusion. There is no evidence for vascular congestion. There is no acute osseous pathology. IMPRESSION: There is a decreased inspiratory effort with otherwise no acute chest disease. ACT 112: Negative or not required by law. Electronically signed by: Hugo Barragan M.D. 08/06/2021 12:07 PM Discharge Plan Visit Data Chief Complaint: Fever ED Provider: Lennox Chan Discharge Problem: Acute hyponatremia, Head and neck cancer, Febrile neutropenia, Diarrhea, Acute hypokalemia Patient Disposition: Admitted As Inpatient Discharge Instructions Interventions: ED Discharge Assessment Last Done: 08/06/21 16:00
[2021-08-06] MEDS ORDERED: VANCOMYCIN HCL 1,000 MG in SODIUM CHLORIDE 0.9% 250 ML IV ONE (13:00)
[2021-08-06] MEDS ORDERED: SODIUM CHLORIDE 0.9% 1000ML 500 ML IV ONE ×2 (13:09→15:43)
[2021-08-06] MEDS ORDERED: VANCOMYCIN HCL 1,250 MG in SODIUM CHLORIDE 0.9% 500 ML IV ONE (13:10)
[2021-08-06] MEDS ORDERED: SODIUM CHLORIDE 0.9% 1000ML 1,000 ML IV ONE (13:29)
[2021-08-06] MEDS ORDERED: POTASSIUM CHLORIDE / WTR 20 MEQ/100 ML PLCT IV STA (14:27)
[2021-08-06 14:39] LABS: Appearance Urine Clear (Clear); Bacteria Urine Automated Negative (Negative); Bilirubin Urine Negative (Negative); Blood Urine 1+ (Negative); Color Urine Dark Yellow; Epithelial Cell Urine Auto >30 /lpf (0-5); Glucose Urine UA Negative (Negative); Ketones Urine 3+ (Negative); Leukocyte Esterase Urine Negative (Negative); Nitrite Urine Negative (Negative); Protein Urine 2+ (Negative); RBC Urine Automated 0-4 /hpf (0-4); Urobilinogen Urine Negative (Negative); pH Urine 5.5 (4.5-7.5)
[2021-08-06 14:54] LABS: Influenza A virus by PCR Negative (Negative); Influenza B virus by PCR Negative (Negative)
[2021-08-06 14:57] LABS: Procalcitonin 18.52 ng/ml (0-0.5)
[2021-08-06 15:03] LABS: Lyme Ab IgG w/WB Rflx Negative (Negative); Lyme Ab IgM w/WB Rflx Negative (Negative)
[2021-08-06 16:14] LABS: Adenovirus F 40/41 PCR Not Detected (NotDetected); Astrovirus PCR Not Detected (NotDetected); Campylobacter PCR Not Detected (NotDetected); Cryptosporidium PCR Not Detected (NotDetected); Cyclospora cayetanensis PCR Not Detected (NotDetected); Entamoeba histolytica PCR Not Detected (NotDetected); Enteroaggregative E.coli(EAEC) Not Detected (NotDetected); Enteropathogenic E.coli (EPEC) Not Detected (NotDetected); Enterotoxigenic E.coli (ETEC) Not Detected (NotDetected); Giardia lamblia PCR Not Detected (NotDetected); Norovirus GI/GII PCR Not Detected (NotDetected); Plesiomonas shigelloides PCR Not Detected (NotDetected); Rotavirus A PCR Not Detected (NotDetected); Salmonella PCR Not Detected (NotDetected); Sapovirus PCR Not Detected (NotDetected); Shiga-like Toxin E.coli (STEC) Not Detected (NotDetected); Shigella/Enteroinvasive E.coli Not Detected (NotDetected); Vibrio cholerae PCR Not Detected (NotDetected); Vibrio species PCR Not Detected (NotDetected); Yersinia enterocolitica PCR Not Detected (NotDetected)
[2021-08-06 17:00] LABS: Cdiff Antigen Negative; Cdiff Toxin A+B Negative Cdiff Toxin (Negative)
[2021-08-06 17:19] LABS: Creatinine Clr Calc Pharmacy 43.6 ml/min; Est GFR (African American) 68.2 ml/min; Est GFR (Non-African American) 58.9 ml/min
--- NOTE | 2021-08-06 17:31 | Electrocardiogram Report ---
Test Reason : Blood Pressure : / mmHG Vent. Rate : 103 BPM Atrial Rate : 103 BPM P-R Int : 130 ms QRS Dur : 096 ms QT Int : 352 ms P-R-T Axes : 067 064 059 degrees QTc Int : 461 ms Sinus tachycardia Poor R wave progression, consider anterior NH vs. lead placement vs. LVH Otherwise normal ECG When compared with ECG of 03-AUG-2021 11:37, QRS duration has increased Confirmed by Eliud Graham ([id number]) on 08/06/2021 5:31:17 PM Referred By: REFERRED SELF Confirmed By:Rancho Graham
[2021-08-06] MEDS: POTASSIUM CHLORIDE / WTR 20 MEQ/100 ML PLCT IV SCH ×2 (17:49→19:39)
[2021-08-06] MEDS ORDERED: ONDANSETRON INJ 2 MG/ML 2 ML VIAL IV PRN (17:52)
[2021-08-06] MEDS ORDERED: oxyCODONE HCL IR 5 MG TAB (IMMEDIATE RELEASE) PO PRN (17:52)
[2021-08-06] MEDS ORDERED: NON-FORMULARY MEDICATION (Magic Mouthwash 300 mL mouthwash) mucous membrane PRN (17:52)
[2021-08-06] MEDS ORDERED: ACETAMINOPHEN 325 MG TAB PO PRN (17:52)
[2021-08-06] MEDS ORDERED: FILGRASTIM 480 MCG/1.6 ML VIAL SC ONE (19:00)
[2021-08-06] MEDS ORDERED: ENOXAPARIN INJ 40 MG/0.4 ML SYR SQ SCH (19:30)
[2021-08-06] MEDS: CLOTRIMAZOLE 10 MG TROCHE BUCCAL SCH (19:39)
[2021-08-06] MEDS ORDERED: CEFEPIME 2,000 MG in SYRINGE 0 ML IV SCH (21:00)
[2021-08-06] MEDS ORDERED: CEFEPIME 1,000 MG in SYRINGE 0 ML IV SCH (21:00)
[2021-08-06] MEDS ORDERED: HEPARIN 100 UNIT/ML 5ML FLUSH ONE (21:53)
[2021-08-06] MEDS: FAMOTIDINE 20 MG TAB PO SCH (21:59)
[2021-08-06] MEDS: traZODone HCL 50 MG TAB PO SCH (21:59)
[2021-08-06] MEDS ORDERED: PIPERACILL/TAZOBAC CONSULT ACTIVE PRN (23:05)
[2021-08-06] MEDS ORDERED: LOPERAMIDE HCL 2 MG CAP PO PRN (23:12)
[2021-08-06] MEDS ORDERED: PIPERACILLIN/TAZOBACTAM 3.375 GM in DEXTROSE 5% 100 ML IV ONE (23:30)
[2021-08-06] MEDS: NSS + 20MEQ KCL 20 MEQ/1,000 ML BAG IV SCH (23:59)
[2021-08-07] MEDS: PIPERACILLIN/TAZOBACTAM 3.375 GM in DEXTROSE 5% 100 ML IV SCH ×3 (05:52→22:27)
[2021-08-07] MEDS: LEVOTHYROXINE SODIUM 150 MCG TABLET PO SCH (05:53)
[2021-08-07] MEDS: CLOTRIMAZOLE 10 MG TROCHE BUCCAL SCH ×5 (06:34→22:33)
[2021-08-07 06:59] LABS: Hematocrit (blood only) 24.4 % (42-52); Hemoglobin 8.2 g/dL (14.0-18.0); Mean Corpuscular Hemoglobin 29.1 pg (25-34); Mean Corpuscular Hgb Conc 33.6 g/dL (32-36); Mean Corpuscular Volume 86.5 fL (80-100); RDW Coefficient of Variation 15.4 % (11.5-14.5); RDW Standard Deviation 49.3 fL (36.4-46.3); Red Blood Count 2.82 M/uL (4.7-6.1); White Blood Count 1.09 K/uL (4.8-10.8)
[2021-08-07 07:23] LABS: Mean Platelet Volume 10.4 fL (7.4-10.4); Platelet Count 86 K/uL (130-400)
[2021-08-07 07:26] LABS: Echinocytes 2+; Platelet Estimate Decreased (Normal); Toxic Granulation 1+
[2021-08-07 07:28] LABS: ALC (manual) 0.23 K/uL (1.2-3.4); ANC (manual) 0.53 K/uL (1.4-6.5); Basophils # (manual) 0.01 K/uL (0-0.2); Basophils % (manual) 0.9 %; Lymphocytes # (manual) 0.23 K/uL (1.2-3.4); Lymphocytes % (manual) 20.7 %; Monocytes # (manual) 0.32 K/uL (0.11-0.59); Monocytes % (manual) 29.7 %; Neutrophils # (manual) 0.53 K/uL (1.4-6.5); Neutrophils % (manual) 48.7 %
[2021-08-07 07:44] LABS: Albumin Level 1.5 gm/dl (3.4-5.0); BUN Creatinine Ratio 15.4 (10-20); Calcium 7.2 mg/dl (8.5-10.1); Creatinine Clr Calc Pharmacy 43.2 ml/min; Est GFR (African American) 69.6 ml/min; Est GFR (Non-African American) 60.1 ml/min; Magnesium 1.9 mg/dl (1.8-2.4); Potassium 3.4 mmol/L (3.5-5.1)
[2021-08-07 07:47] LABS: Albumin Globulin Ratio 0.4 (0.9-2); Bilirubin,Total 0.5 mg/dl (0.2-1); Globulin 3.5 gm/dl (2.5-4.0); Phosphorus 1.7 mg/dl (2.5-4.9)
[2021-08-07] MEDS ORDERED: POTASSIUM CHLORIDE CRTAB 20 MEQ TABCR PO STA (08:19)
[2021-08-07] MEDS ORDERED: POTASSIUM PHOS 3 MMOL/1 ML INFUSION IV STA (08:25)
[2021-08-07] MEDS ORDERED: POTASSIUM PHOSPHATE 30 MMOL in SODIUM CHLORIDE 0.9% 500 ML IV ONE (08:45)
[2021-08-07] MEDS: CYANOCOBALAMIN 500 MCG TABLET (VITAMIN B-12) PO SCH (09:38)
[2021-08-07] MEDS: PANTOprazole 40 MG TAB PO SCH (09:38)
[2021-08-07] MEDS: NSS + 20MEQ KCL 20 MEQ/1,000 ML BAG IV SCH ×2 (09:38→19:38)
[2021-08-07] MEDS: FAMOTIDINE 20 MG TAB PO SCH ×2 (09:38→22:32)
[2021-08-07] MEDS: POTASSIUM CHLORIDE 20 MEQ/15 ML UDC PO SCH ×2 (11:06→11:47)
--- NOTE | 2021-08-07 11:51 | Pharmacy Report ---
Pharmacy Vanc AUC Short Note - Date of Service August 07, 2021 - Assessment & Plan Assessment 71 year old admitted with fever, leukopenia/neutropenia, tachycardia. Had recent chemotherapy session. Vancomycin and zosyn started empirically. Concerns for proctocolitis, skin/port infection. Blood and urine cultures pending. Plan Vancomycin * AUC/SIMON is the preferred PK/PD target for vancomycin * AUC guided dosing is effective and associated with decreased risk of ne phrotoxicity compared to traditional trough targets * Vancomycin 1250 mg loading dose given yesterday, and then placed on vancomycin 1000 mg iv q 24 hrs - this dosing is predicated to produce a trough level of ~15 mcg/mL, target AUC/SIMON of 400-600 mg/L.hr and may be associated with a 9 % risk of nephrotoxicity * Vancomycin ordered only empirically x 48 hrs - will order vancomycin trough if plan is to continue >48 hrs Pharmacy will continue to follow and will adjust dose/frequency as necessary. Thank you.
[2021-08-07] MEDS ORDERED: FILGRASTIM 480 MCG/1.6 ML VIAL SC ONE (12:09)
[2021-08-07] MEDS: VANCOMYCIN HCL 1,000 MG in SODIUM CHLORIDE 0.9% 250 ML IV SCH (14:52)
--- NOTE | 2021-08-07 15:01 | Hospitalist Progress Note ---
Date of Service August 07, 2021 Assessment & Plan (1) SIRS (systemic inflammatory response syndrome): Plan: Presents with fever, leukopenia/neutropenia, tachycardia, hypotension in the setting of recent chemotherapy w/ PCT of 18 - No evidence of PNA on imaging - Initially treated with cefepime and vancomycin in the ER-cefepime changed to IV Zosyn to cover for proctocolitis and continue vancomycin in case of skin/port infection - Check MRSA swab - Follow blood cultures - UA was collected after first dose of cefepime and does not appear consistent with infection, however urine culture was sent from the cancer center as an outpatient before any antibiotics were given-follow urine culture - Checked stool studies, C. 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 intake and dehydration from diarrhea - Continue IVF hydration, slowly improving (3) Febrile neutropenia: Plan: - As above, with antineoplastic induced pancytopenia and febrile as above - Continue antibiotics, follow cultures - Given 1 dose of Neupogen upon admission, neutrophils bumped from 170 to 530 - Will give another dose of Neupogen now - Repeat CBC in AM - Neutropenic precautions (4) Pancytopenia due to antineoplastic chemotherapy: Plan: - Secondary to recent chemotherapy 1 week ago - Follow CBC - Giving Neupogen for neutropenia - Transfusional support as needed (5) Diarrhea: Plan: - As above, could be secondary to chemotherapy and recently was also taking laxatives due to fecal impaction on last admission - Stool studies only show that 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 difficile is negative - Treating with IV Zosyn in case of infectious colitis (6) Acute hypokalemia: Plan: - Secondary to poor p.o. intake and GI losses - Replaced on admission, K+ still low at 3.4, additional replacement ordered - Also with 20 mEq potassium chloride added into maintenance IV fluids - Follow BMP and magnesium in the morning (7) Head and neck cancer: Plan: - With recent recurrence again and started on Taxotere and carboplatin on 07/30 - [facility] - Status post multiple surgeries and radiation therapy in the past - Continue oxycodone as needed for pain in the back - IV Zofran as needed for nausea (8) Oral candidiasis: Plan: - Much improved since previous admission with using clotrimazole trouche - Continue clotrimazole (9) Hypothyroidism: Plan: - Continue home levothyroxine (10) Severe protein-calorie malnutrition: Plan: - Secondary to cancer - Encourage p.o. nutrition - At risk for refeeding syndrome, per RD, will start on IV Thiamine 100mg BID x 10 days (11) GERD (gastroesophageal reflux disease): Plan: - Continue Pepcid and Protonix - Has a history of esophageal stricture suspected secondary to radiation therapy requiring dilatation every couple of months Plan: DVT prophylaxis-SCDs, d/c Lovenox d/t drop in platelets Disposition-admit to medical/surgical floor, expect at least a 2 midnight stay to follow blood cultures for over 48 hours Full code Admission and Anticipated Discharge Date Admission Date: August 06, 2021 Subjective Mr. Peralta was seen on rounds this morning. He has a known h/o metastatic head/neck SCCA who is currently undergoing chemotherapy, last treatment 07/30. He was recently hospitalized 08/03 to 08/04 for n/v which was felt to be related to fecal impaction. He was hydrated overnight, had good BM and was discharged home. Pt retuned to ED yesterday c/o fever, generalized weakness, and diarrhea since discharge on 08/04. His work up demonstrated leukopenia/neutropenia with a temp of 38. with associated tachycardia and hypotension. ProCal markedly e levated at 18 with unclear source of infection. Proctocolitis noted on recent CT, otherwise no evidence of PNA on CXR and he endorses no urinary complaints. Urine cx pending. This morning, pt reports feeling slightly better. Still overall weak. No further fevers since last evening. He was given one dose of Neupogen yesterday due to his neutropenia. He remains on empiric abx coverage with Zosyn (to cover for proctocolitis) and Vancomycin. He continues to have diarrhea, states he was up at least once every hour last evening. No chest pain or dyspnea. Mild abdominal discomfort but no overt pain. Continues to deny symptoms. Review of Systems Review of Systems: CONSTITUTIONAL: +weakness, fever, fatigue, malaise. Denies weight loss/gain. HEENT: Denies changes in vision and hearing. RESPIRATORY: Denies SOB, cough, wheezing. CV: Denies palpitations, CP, lower extremity edema, orthopnea, PND. GI: +diarrhea. Denies abdominal pain, nausea, vomiting. : Denies dysuria and urinary frequency, urgency, hesitancy. MUSCULOSKELETAL: Denies myalgia and joint pain. SKIN: Denies rash and pruritus. NEUROLOGICAL: Denies headache, syncope, focal weakness, numbness, tingling. PSYCHIATRIC: Denies recent changes in mood. Denies anxiety and depression. Physical Exam Physical Exam: GENERAL: 71 yo underweight WM who appears weak/debilitated but is in NAD. LUNGS: Clear to auscultation bilaterally. No accessory muscle use. No W/R/R. CARDIOVASCULAR: Regular rate and rhythm. No M/G/R. No JVD. ABDOMEN: Soft, non-tender and non-distended. No palpable masses. BS normal x 4 quad. EXTREMITIES: No edema. Non-tender. Peripheral pulses +2/4. PSYCHIATRIC: Cooperative. Depressed mood. SKIN: Warm, dry, intact. No rashes or lesions. Results & Data Results & Data ([facility]) Vital Signs (Past 12 Hours) Vital Signs Temp Pulse Resp BP Pulse Ox 08/07/21 07:46 36.9 C 97 H 16 95/53 L 96 Laboratory Results Laboratory Results - last 24 hr 08/06/21 08/06/21 08/06/21 13:52 13:52 14:06 WBC RBC Hgb Hct MCV MCH MCHC RDW Std Deviation RDW Coeff of Ealdio Plt Count MPV Neutrophils % (Manual) Lymphocytes % (Manual) Monocytes % (Manual) Basophils % (Manual) Neutrophils # (Manual) Total Absolute Neuts Lymphocytes # (Manual) Total Abs Lymphocytes Monocytes # (Manual) Basophils # (Manual) Toxic Granulation Platelet Estimate Echinocytes Sodium Potassium Chloride Carbon Dioxide Anion Gap BUN Creatinine 1.22 Est Cr Clr Drug Dosing 43.6 Est GFR ( Amer) 68.2 Est GFR (Non-Af Amer) 58.9 BUN/Creatinine Ratio Glucose Calcium Phosphorus Magnesium Total Bilirubin AST ALT Alkaline Phosphatase Total Protein Albumin Globulin Albumin/Globulin Ratio Stl C. cayetanensis PCR Not Detected Stool Rotavirus A PCR Not Detected Stl Adenov F PCR Not Detected Stool Astrovirus (PCR) Not Detected Stool Campylobacter PCR Not Detected Stl C.difficile Tox A&B Negative Cdiff Toxin Stl C. diff Tox A/B PCR C.diff Gene Detected A* Stool Cryptosporidium PCR Not Detected Stl E.coli Shiga Tox PCR Not Detected Stl Enterotoxigenic E PCR Not Detected Stool EPEC (PCR) Not Detected Stool EAEC (PCR) Not Detected Stl E. histolytica PCR Not Detected Stool Giardia Lamblia PCR Not Detected Stool Salmonella PCR Not Detected Stool Sapovirus (PCR) Not Detected Stl P. shigelloides PCR Not Detected Stl Shigella/EIEC PCR Not Detected St Y.enterocolitica PCR Not Detected Stool Vibrio (PCR) Not Detected Stl Vibrio cholerae PCR Not Detected Stl Norovirus GI/GII PCR Not Detected 08/07/21 08/07/21 06:23 06:23 WBC 1.09 L RBC 2.82 L Hgb 8.2 L Hct 24.4 L MCV 86.5 MCH 29.1 MCHC 33.6 RDW Std Deviation 49.3 H RDW Coeff of Eladio 15.4 H Plt Count 86 L MPV 10.4 Neutrophils % (Manual) 48.7 Lymphocytes % (Manual) 20.7 Monocytes % (Manual) 29.7 Basophils % (Manual) 0.9 Neutrophils # (Manual) 0.53 L Total Absolute Neuts 0.53 L* Lymphocytes # (Manual) 0.23 L Total Abs Lymphocytes 0.23 L Monocytes # (Manual) 0.32 Basophils # (Manual) 0.01 Toxic Granulation 1+ Platelet Estimate Decreased L Echinocytes 2+ Sodium 131 L Potassium 3.4 L Chloride 103 Carbon Dioxide 16 L Anion Gap 12.0 H BUN 18 Creatinine 1.20 Est Cr Clr Drug Dosing 43.2 Est GFR ( Amer) 69.6 Est GFR (Non-Af Amer) 60.1 BUN/Creatinine Ratio 15.4 Glucose 85 Calcium 7.2 L Phosphorus 1.7 L Magnesium 1.9 Total Bilirubin 0.5 AST 16 ALT 15 Alkaline Phosphatase 42 L Total Protein 5.0 L D Albumin 1.5 L Globulin 3.5 Albumin/Globulin Ratio 0.4 L Stl C. cayetanensis PCR Stool Rotavirus A PCR Stl Adenov F 40/41 PCR Stool Astrovirus (PCR) Stool Campylobacter PCR Stl C.difficile Tox A&B Stl C. diff Tox A/B PCR Stool Cryptosporidium PCR Stl E.coli Shiga Tox PCR Stl Enterotoxigenic E PCR Stool EPEC (PCR) Stool EAEC (PCR) Stl E. histolytica PCR Stool Giardia Lamblia PCR Stool Salmonella PCR Stool Sapovirus (PCR) Stl P. shigelloides PCR Stl Shigella/EIEC PCR St Y.enterocolitica PCR Stool Vibrio (PCR) Stl Vibrio cholerae PCR Stl Norovirus GI/GII PCR PG Care Time/CCT Total # of Minutes Spent Total Time Spent with Patient: Total time spent is greater than 50% in coordination of care (as documented) at patient's floor/unit and/or counseling patient: Coding Level of Care Code 95145 Subseq Hosp Care Lvl 2 Diagnoses SIRS (systemic inflammatory response syndrome) R65.10 Acute hyponatremia E87.1 Febrile neutropenia D70.9; R50.81 Pancytopenia due to antineoplastic chemotherapy D61.810; T45.1X5A Diarrhea R19.7 Acute hypokalemia E87.6 Head and neck cancer C76.0 Oral candidiasis B37.0 Hypothyroidism E03.9 Severe protein-calorie malnutrition E43 GERD (gastroesophageal reflux disease) K21.9
[2021-08-07] MEDS ORDERED: ACETAMINOPHEN 1,000 MG/100 ML VIAL IV STA (19:55)
[2021-08-07] MEDS ORDERED: ACETAMINOPHEN 1000 MG/100 ML IV IV ONE (19:57)
[2021-08-07] MEDS: traZODone HCL 50 MG TAB PO SCH (22:31)
[2021-08-07] MEDS: THIAMINE HCL 100 MG in SYRINGE 9 ML IV SCH (23:06)
[2021-08-08] MEDS ORDERED: SODIUM CHLORIDE 0.9% 1000ML 500 ML IV ONE (01:21)
[2021-08-08] MEDS: PIPERACILLIN/TAZOBACTAM 3.375 GM in DEXTROSE 5% 100 ML IV SCH ×2 (06:20→14:18)
[2021-08-08] MEDS: NSS + 20MEQ KCL 20 MEQ/1,000 ML BAG IV SCH ×2 (06:32→17:22)
[2021-08-08] MEDS: CLOTRIMAZOLE 10 MG TROCHE BUCCAL SCH ×4 (06:33→17:22)
[2021-08-08] MEDS: LEVOTHYROXINE SODIUM 150 MCG TABLET PO SCH (06:33)
[2021-08-08] MEDS ORDERED: ACETAMINOPHEN 1,000 MG/100 ML VIAL IV STA (06:38)
[2021-08-08 07:37] LABS: Hematocrit (blood only) 24.2 % (42-52); Hemoglobin 8.1 g/dL (14.0-18.0); Mean Corpuscular Hemoglobin 28.8 pg (25-34); Mean Corpuscular Hgb Conc 33.5 g/dL (32-36); Mean Corpuscular Volume 86.1 fL (80-100); RDW Coefficient of Variation 15.8 % (11.5-14.5); RDW Standard Deviation 50.4 fL (36.4-46.3); Red Blood Count 2.81 M/uL (4.7-6.1); White Blood Count 5.26 K/uL (4.8-10.8)
[2021-08-08 07:38] LABS: Mean Platelet Volume 10.3 fL (7.4-10.4); Platelet Count 90 K/uL (130-400)
[2021-08-08 07:39] VITALS: BP 93/53; PULSE 78; TEMP 97.9; O2SAT 97
[2021-08-08 08:05] LABS: Basophils # (auto) 0.01 K/uL (0-0.2); Basophils % (auto) 0.2 %; Echinocytes 1+; Eosinophils # (auto) 0.02 K/uL (0-0.5); Eosinophils % (auto) 0.4 %; Immature Granulocytes # (auto) 0.08 K/uL (0.00-0.02); Immature Granulocytes % (auto) 1.5 %; Lymphocytes # (auto) 0.24 K/uL (1.2-3.4); Lymphocytes % (auto) 4.6 %; Monocytes # (auto) 0.44 K/uL (0.11-0.59); Monocytes % (auto) 8.4 %; Neutrophils # (auto) 4.47 K/uL (1.4-6.5); Neutrophils % (auto) 84.9 %; Toxic Granulation 2+
[2021-08-08 08:38] LABS: Albumin Globulin Ratio 0.5 (0.9-2); Albumin Level 1.5 gm/dl (3.4-5.0); BUN Creatinine Ratio 14.1 (10-20); Bilirubin,Total 0.3 mg/dl (0.2-1); Calcium 6.9 mg/dl (8.5-10.1); Creatinine Clr Calc Pharmacy 47.1 ml/min; Est GFR (African American) 76.5 ml/min; Globulin 3.3 gm/dl (2.5-4.0); Magnesium 1.7 mg/dl (1.8-2.4); Potassium 3.4 mmol/L (3.5-5.1); Total Protein 4.8 gm/dl (6.4-8.2)
[2021-08-08 08:46] LABS: Phosphorus 1.3 mg/dl (2.5-4.9)
[2021-08-08] MEDS: CYANOCOBALAMIN 500 MCG TABLET (VITAMIN B-12) PO SCH (09:50)
[2021-08-08] MEDS: FAMOTIDINE 20 MG TAB PO SCH (09:51)
[2021-08-08] MEDS: PANTOprazole 40 MG TAB PO SCH (09:51)
[2021-08-08] MEDS: THIAMINE HCL 100 MG in SYRINGE 9 ML IV SCH (09:57)
[2021-08-08] MEDS ORDERED: POTASSIUM PHOS 3 MMOL/1 ML INFUSION IV STA (12:15)
[2021-08-08] MEDS ORDERED: POTASSIUM CHLORIDE 20 MEQ/15 ML UDC PO STA (12:15)
[2021-08-08] MEDS ORDERED: POTASSIUM PHOSPHATE 40 MMOL in SODIUM CHLORIDE 0.9% 1000ML 1,000 ML IV ONE (12:30)
[2021-08-08] MEDS: MAGNESIUM SULFATE / D5W 1 GM/100 ML BAG IV SCH ×2 (13:04→15:06)
--- NOTE | 2021-08-08 13:06 | Discharge Summary ---
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 He was just discharged from this hospital 2 days prior after presenting with fecal impaction causing colonic ileus which was relieved with laxatives. His does most of the talking as he has to use a speaking valve through previous tracheostomy and it is even difficult for him to speak due to weakness at this time. She reports that he recently started on chemotherapy with Taxotere and carboplatin along with dexamethasone on 07/30. He returns today with development of fever and weakness, and has been having loose stools since discharge. Every time he eats or drinks (which hasn't been much), it runs right out of him in liquid stool. Diarrhea nonbloody, no abd pain. He went to the [facility] and when found to have a fever, was given 1L NS and sent to ER. In the ER, he is found to be hyponatremic, hypokalemic, with pancytopenia and neutropenia. He was febrile and tachycardic, hypotensive. His procalcitonin was significantly elevated at 18.5. Lactate was normal at 1.5, troponin negative. Anaplasma smear was negative, Lyme disease titer negative. His Covid-19 test was negative, flu A/B was also negative He did receive 1 dose of Neupogen on 08/04 prior to discharge from the hospital. In the ER, he was given 1 dose of IV cefepime, IV acetaminophen, potassium chloride 10 mEq IV x1, and started on normal saline at 125 mL's per hour. When h e became hypotensive, he was given 1 L bolus NS Chest x-ray was negative for pneumonia, urinalysis was not collected at the time of admission, but a urine culture was sent from the [facility] prior to antibiotics being given. Blood cultures were drawn. He will be admitted for neutropenic fever for treatment with IV antibiotics and further evaluation of his diarrhea. Admission Exam Per Admitting Provider Constitutional: + ill appearing and + cachectic; no acut e distress and not lethargic Eyes: PERRL, conjunctivae normal, anicteric sclerae ENMT: external ear and nose normal, oropharynx normal (Thrush is almost comple tely resolved since I last saw him) Neck: trachea midline, no thyromegaly Respiratory: normal respiratory effort, lungs clear to auscultation Cardiovascular: RRR, no murmur, no edema Chest (Breasts): Chest: normal inspection of chest Gastrointestinal (Abdomen): normal bowel sounds, soft, nontender, no hepatosplenomegaly Musculoskeletal: Extremities: extremities normal to inspection; no cyanosis and no clubbing Skin: no rashes, warm and dry Neurologic: moves all extremities and awake; no focal motor deficits Psychiatric: A+Ox3, euthymic affect Lymphatic: no lymphedema Principal Diagnosis 1. SIRS (resolved) 2. Neutropenic Fever (resolved) 3. Moderate to severe dehydration (resolved) 4. Hypovolemic hyponatremia (resolved) 5. Electrolyte imbalances (hypokalemia, hypophosphatemia, and hypomagnesemia) 6. Proctocolitis Discharge Exam GENERAL: 71 yo cachectic WM who appears weak/debilitated but is in NAD. LUNGS: Clear to auscultation bilaterally. No accessory muscle use. No W/R/R. CARDIOVASCULAR: Regular rate and rhythm. No M/G/R. No JVD. ABDOMEN: Soft, non-tender and non-distended. No palpable masses. BS normal x 4 quad. EXTREMITIES: No edema. Non-tender. Peripheral pulses +2/4. PSYCHIATRIC: Cooperative. Depressed mood. SKIN: Warm, dry, intact. No rashes or lesions. Discharge Data Allergies Allergy/AdvReac Type Severity Reaction Status Date / Time bee venom protein (honey bee) Allergy Severe shock Verified 08/03/21 11:50 moxifloxacin Allergy Severe THROAT Verified 08/03/21 11:50 SWELLED ketamine Allergy Intermediate AGITATION, Verified 08/03/21 11:50 HALLUCINATION ,OUT OF BODY FEELING Consultations 08/06/21 12:35 ED Decision to Admit Stat Ordered Studies Chest X-Ray 08/06/21 11:46 XR chest 1V portable CLINICAL HISTORY: Fever. COMPARISON STUDY: 12/10/2020 TECHNIQUE: 1 view of the chest FINDINGS: Single frontal view of the chest demonstrates the cardiomediastinal silhouette to be within normal limits. A Port-A-Cath is in place. Stable right paratracheal soft tissue density is seen. No other pulmonary nodules are identified. The lungs are clear of alveolar opacities. There is a decreased inspiratory effort with elevation of the hemidiaphragms and crowding of the bronchovascular markings at the lung bases and centrally. There is no evidence for pleural effusion. There is no evidence for vascular congestion. There is no acute osseous pathology. IMPRESSION: There is a decreased inspiratory effort with otherwise no acute chest disease. ACT 112: Negative or not required by law. Electronically signed by: Hugo Barragan M.D. 08/06/2021 12:07 PM Spec: [id number] Collected: 08/06/21 Received: 08/06/[address]: Francisco De La Rosa V., Source: Urine,Clean Catch OV Order: Ordered: Urine Culture Procedure Result Verified Site Urine Culture Final 08/08/21 No growth - less than 1,000 colonies/mL. Spec: [id number] Collected: 08/06/21 Received: 08/06/[address]: Francisco De La Rosa V., Source: Blood OV Order: Ordered: Blood Culture Procedure Result Verified Site Blood Culture Aerobic Preliminary 08/08/21 No growth in Aerobic bottle after 48 hours. Blood Culture Anaerobic Preliminary 08/08/21 No growth in Anaerobic bottle after 48 hours. 08/08/21 06:52 08/08/21 06:52 Diabetes Follow up NA Hospital Course (1) SIRS (systemic inflammatory response syndrome): Presents with fever, leukopenia/neutropenia, tachycardia, hypotension in the setting of recent chemotherapy w/ PCT of 18 - No evidence of PNA on imaging - Initially treated with cefepime and vancomycin in the ER-cefepime changed to IV Zosyn to cover for proctocolitis and continue vancomycin in case of skin/port infection - Check MRSA swab - Follow blood cultures - UA was collected after first dose of cefepime and does not appear consistent with infection, however urine culture was sent from the cancer center as an outpatient before any antibiotics were given-follow urine culture - Checked stool studies, C. 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 He has had no further fevers and his wbc count has slowly risen as well as his neutrophil count. His tachycardia has resolved and BP has remained slightly soft but stable. He appears euvolemic with regards to his fluid status at this time. He overall feels improved and is ready to go home. Source of infection still somewhat questionable, suspect related to colitis due to his findings on recent CT, fever, and diarrhea (in absence of +c diff toxin). Will plan to transition him to Augmentin 500mg-125mg q8h x 5 more days. (2) Acute hyponatremia: - Sodium low at 128 on arrival, almost certainly secondary to very poor p.o. intake and dehydration from diarrhea - Today, his Na has normalized with IVF resuscitation (3) Febrile neutropenia: - As above, with antineoplastic induced pancytopenia and febrile as above - Continue antibiotics, cultures thus far no growth noted - Neutropenic precautions - He has received two doses of neupogen, ANC now 4.45 and wbc count 5.26 (4) Pancytopenia due to antineoplastic chemotherapy: - Secondary to recent chemotherapy 1 week ago - CBC followed, his leukopenia has resolved, but still with anemia and thrombocytopenia (5) Diarrhea: - As above, could be secondary to chemotherapy and recently was also taking laxatives due to fecal impaction on last admission - Stool studies only show that 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 diff toxin negative, Imodium can be used as needed (caution use d/t recent fecal impaction and pt is on opiates as needed for pain) - Treated with IV Zosyn in case of infectious colitis which will be transitioned to Augmentin as outpatient (6) Hypophosphatemia: - Phos 1.3 today, replacement ordered (7) Acute hypokalemia: - Secondary to poor p.o. intake and GI losses - Replaced on admission, K+ still low at 3.4, additional replacement ordered - Also with 20 mEq potassium chloride added into maintenance IV fluids - K+ this AM still low at 3.4, additional replacement ordered (8) Hypomagnesemia: - Mag 1.7 today, replacement ordered (9) Head and neck cancer: - With recent recurrence again and started on Taxotere and carboplatin on 07/30 - [facility] - Status post multiple surgeries and radiation therapy in the past - Continue oxycodone as needed for pain in the back - IV Zofran as needed for nausea (10) Oral candidiasis: - Much improved since previous admission with using clotrimazole trouche - Continue clotrimazole (11) Hypothyroidism: - Continue home levothyroxine (12) Severe protein-calorie malnutrition: - Secondary to cancer - Encourage p.o. nutrition - At risk for refeeding syndrome, per RD, started on Thiamine 100mg BID x 10 d ays (13) GERD (gastroesophageal reflux disease): - Continue Pepcid and Protonix - Has a history of esophageal stricture suspected secondary to radiation therapy requiring dilatation every couple of months At this time, pt is medically and hemodynamically stable for discharge. Will transition to oral Augmentin 500mg-125mg (liquid) TID x 5 more days to complete total of 7 days of abx therapy. Also sent rx for liquid APAP to be used as needed for pain and Thiamine 100mg BID x 10 days d/t risk of refeeding syndr ome. Electrolytes to be replaced and then pt will be able to be discharged home. Discussed plan with patient and at bedside, all questions answered. Pt to follow up with Dr. De La Rosa or one of the APPs in office next week. Total Time Total Time Spent Total Time Spent (In Minutes): >30 minutes Discharge Plan Discharge Items Patient Disposition: Home - Self-Care Reason For Visit: NEUTROPENIC FEVER Discharge Diagnosis: 1. Low white blood cell counts related to recent chemotherapy 2. Fever -- uncertain etiology, suspect related to colitis Activity: Resume your previous activity Non-emergency contact: Primary Care Provider and Oncologist Call non-emergency contact if: you have any medication questions, your symptoms worsen and your pain is not controlled Follow-up/Referrals: Sean Medel MD [Primary Care Provider] - Francisco De La Rosa DO [Physician] - (Follow up next week with Biju Payton) Diet: Regular Diet Texture: Easy to Chew Addtl Attending Provider Instructions: 1. Take all medications as directed. Complete course of antibiotics. 2. Encourage increased fluid intake to maintain hydration. 3. Start taking Thiamine (a vitamin) as directed, prescription sent. You can crush these pills and take them in applesauce or whatever is easiest to swallow. 4. Follow up as scheduled with Dr. De La Rosa or JONATHAN 5. Prescription for liquid Tylenol has been sent to your pharmacy. Pending Studies at Discharge: No Stand-Alone Forms: [facility], Smoking Cessation Medications and DC Order Prescriptions: New acetaminophen 500 mg/15 mL liquid 1,000 mg PO Q6H PRN (Reason: fever or pain) Qty: 237 RF: 0 thiamine HCl (vitamin B1) 100 mg tablet 100 mg PO BID Qty: 20 RF: 0 amoxicillin-pot clavulanate [Augmentin] 250-62.5 mg/5 mL suspension for reconstitution 10 ml PO Q8H 5 Days Qty: 150 RF: 0 Continued trazodone 50 mg tablet 25 - 50 mg PO HS RF: 0 diphenhydramine HCl [Benadryl] 25 mg capsule 25 mg PO QID PRN (Reason: Allergy Symptoms) RF: 0 cyanocobalamin (vitamin B-12) 1,000 mcg Capsule 1,000 mcg PO QAM Qty: 0 RF: 0 levothyroxine 150 mcg tablet 150 mcg PO DAILY Qty: 90 RF: 3 ondansetron HCl 8 mg tablet 8 mg PO Q8H PRN (Reason: Nausea And Vomiting) RF: 0 prochlorperazine maleate 10 mg tablet 10 mg PO Q6H PRN (Reason: Nausea And Vomiting) RF: 0 olanzapine 2.5 mg tablet 2.5 mg PO UD RF: 0 dexamethasone 4 mg tablet 8 mg PO UD RF: 0 oxycodone 5 mg tablet 5 mg PO Q4H PRN (Reason: Pain) RF: 0 clotrimazole 10 mg dana 10 mg PO 5XD Qty: 35 RF: 0 pantoprazole [Protonix] 40 mg tablet,delayed release (DR/EC) 40 mg PO DAILY Qty: 30 RF: 0 Discharge Orders: Discharge Order (Routine); Ordered 08/08/21 Ordered By: Amy Mcmahon Admission Data Admit Date/Time: 08/06/21 13:01 Attending Provider: Migue Kulkarni Admit Provider: Tussey,Krissy B. Primary Care Provider: Sean Medel Other Providers: Krissy Renee Coding Level of Care Code D/C DAY MANAGEMENT >30 MINS Diagnoses SIRS (systemic inflammatory response syndrome) R65.10 Acute hyponatremia E87.1 Febrile neutropenia D70.9; R50.81 Pancytopenia due to antineoplastic chemotherapy D61.810; T45.1X5A Diarrhea R19.7 Acute hypokalemia E87.6 Head and neck cancer C76.0 Oral candidiasis B37.0 Hypothyroidism E03.9 Severe protein-calorie malnutrition E43 GERD (gastroesophageal reflux disease) K21.9 Hypophosphatemia E83.39 Hypomagnesemia E83.42
[2021-08-08] MEDS ORDERED: POTASSIUM CHLORIDE / WTR 10 MEQ/100 ML PLCT IV ONE (14:16)
[2021-08-08] MEDS ORDERED: POT PHOSPHATE MONOBASIC W/ SOD TAB PO ONE (14:17)
[2021-08-08] MEDS: VANCOMYCIN HCL 1,000 MG in SODIUM CHLORIDE 0.9% 250 ML IV SCH (14:17)
[2021-08-08] MEDS ORDERED: HEPARIN 100 UNIT/ML 5ML FLUSH ONE (17:10)
== END 2021-08-08 18:01 | disposition home or self-care (01) ==
LOC: ED 11:18 → INTOOBSV 13:01 → 3W 13:01 → SUATTDRO 13:01 → 3W 16:00
DX: Z79.890 Hormone replacement therapy; E87.6 Hypokalemia; Z88.8 Allergy status to other drugs, medicaments and biological substances; E87.1 Hypo-osmolality and hyponatremia; D61.810 Antineoplastic chemotherapy induced pancytopenia; E43 Unspecified severe protein-calorie malnutrition; D70.1 Agranulocytosis secondary to cancer chemotherapy; E03.9 Hypothyroidism, unspecified; C76.0 Malignant neoplasm of head, face and neck; B37.0 Candidal stomatitis; E53.8 Deficiency of other specified B group vitamins; R65.10 Systemic inflammatory response syndrome (SIRS) of non-infectious origin without acute organ dysfunction; Z79.899 Other long term (current) drug therapy; R19.7 Diarrhea, unspecified; Z91.030 Bee allergy status; I12.9 Hypertensive chronic kidney disease with stage 1 through stage 4 chronic kidney disease, or unspecified chronic kidney disease; K21.9 Gastro-esophageal reflux disease without esophagitis; E83.39 Other disorders of phosphorus metabolism; Z85.21 Personal history of malignant neoplasm of larynx; N18.30 Chronic kidney disease, stage 3 unspecified; T45.1X5A Adverse effect of antineoplastic and immunosuppressive drugs, initial encounter

== ENCOUNTER 2021-09-16 19:32 | Inpatient (IN) ==
[2021-09-16] MEDS ORDERED: SODIUM CHLORIDE 0.9% 1000ML 1,000 ML IV ONE (20:18)
[2021-09-16] MEDS ORDERED: HYDROmorphone INJ 0.5 MG/0.5 ML SYR IV STA (20:18)
[2021-09-16] MEDS ORDERED: ONDANSETRON INJ 2 MG/ML 2 ML VIAL IV STA (20:18)
--- NOTE | 2021-09-16 20:22 | Emergency Department Note ---
Impression & Plan Diffuse abdominal pain, SBO (small bowel obstruction), Incarcerated hernia, Leukocytosis ED Provider Note NAME: MILKA GREGORY II AGE: 71 SEX: M : 1950 ARRIVES VIA: Walk-In INFORMANT: [Patient][family] ED PROVIDER(S): [Qasim Peacock MD] CHIEF COMPLAINT: Abdominal pain HISTORY OF PRESENT ILLNESS: The patient is a 71-year-old male who presents to the ER with severe abdominal pain he thinks may be from a hernia. The pain is severe, constant and along the mid abdomen. He has had decreased bowel movements. He feels thirsty. The patient has known neck cancer although, he is not currently undergoing chemotherapy. Last chemotherapy was a few months ago. The patient is scheduled for CT of his abdomen this upcoming week. As his pain has become severe, he is here for evaluation. There has been no cough or fever. He is not having any difficulty with urination. He complains of some left shoulder pain which is ongoing from his neck cancer. REVIEW OF SYSTEMS: See HPI for pertinent positives and negatives. A total of ten systems were reviewed and were otherwise negative. PMHx/PSHx: See Below SOCIAL HISTORY: See Below. PHYSICAL EXAM: GENERAL: Patient is in mild distress from pain. Frail. HEENT: No acute trauma, normocephalic atraumatic, mucous membranes dry, no nasal congestion, no scleral icterus. NECK: No stridor, no adenopathy, no meningismus, trachea is midline. Tracheostomy noted. Multiple surgical scars on the neck noted. LUNGS: Clear to auscultation bilaterally when listening anterior, no wheeze, no rhonchi, breath sounds equal. HEART: Without murmurs gallops or rubs, regular rate and rhythm. ABDOMEN: Soft, quite tender along the mid abdomen just above the umbilicus, no obvious hernia by my exam. Abdominal surgical scars noted. EXTREMITIES: No cyanosis or edema, full range of motion of all the joints withou t pain or difficulty, no signs for acute trauma. NEUROLOGIC: Oriented x 3, no acute motor or sensory deficits, no focal weakness. SKIN: No rash, no jaundice, no diaphoresis. Pale. DIFFERENTIAL DIAGNOSIS: Appendicitis, testicular torsion, diverticulitis, UTI, obstruction, mesenteric ischemia, aortic pathology, inflammatory bowel disease, renal colic, PUD, pancreatitis, biliary pathology, hernia, volvulus, constipation, dehydration, pneumonia, as well as other pathologies. EMERGENCY DEPARTMENT COURSE/PROCEDURES: MEDICAL DECISION MAKING: There is a moderate leukocytosis at 16,000, this could be consistent with infection or his pain. A mild anemia was noted with a hemoglobin of 12.2. The patient carries a history of anemia. There was a normal platelet count. No significant electrolyte abnormality or kidney failure. No worrisome liver enzyme elevation. No evidence for pancreatitis. COVID testing returned negative. Chest x-ray did not show free air or pneumonia. Abdominal and pelvis CT shows a small bowel obstruction from an incarcerated abdominal wall hernia. On exam, the patient was quite uncomfortable with palpation of the abdomen. He appeared dehydrated. Patient received IV saline, 1 L. He is given IV Zofran, IV Dilaudid. He feels improved with the described medication regimen. I did order for an NG tube however, the patient has refused for now. He is concerned that he will not tolerate the procedure and would like to have the NG tube just prior to his surgery. I spoke to general surgery. The patient was seen here in the ED by the general surgeon and will be transferred to the OR for surgical intervention for his incarcerated hernia and resultant small bowel obstruction. The patient is aware of his findings, case management has been involved. Past Med/Surg History Medical History Allergic rhinitis CKD (chronic kidney disease), stage III Cough GERD (gastroesophageal reflux disease) History of chemotherapy History of radiation therapy To larynx 09/26/10 thru 11/14/10 HTN (hypertension) Hypothyroidism RADIATION INDUCED Insomnia Larynx cancer Male erectile disorder of organic origin Neck mass Sensorineural hearing loss (SNHL) of both ears Solitary pulmonary nodule Squamous cell carcinoma of larynx 2010 Vitamin B12 deficiency Surgical History H/O bilateral cataract extraction H/O hand surgery BILT H/O inguinal hernia repair H/O laryngectomy MULTIPLE SX WITH RECONSTRUCTION H/O left knee surgery Left knee replacement H/O lymph node excision on 10/05/20 - Metastatic SCC History of arthroscopy of both shoulders History of biopsy Left tonsilar incisional biopsy on 11/15/20 - SCC History of esophagogastroduodenoscopy (EGD) MULTIPLE WITH DILATION History of laryngoscopy History of surgery Laryngoscopy with tumor excision on 08/26/10 History of total right hip arthroplasty History of vascular access device L CHEST S/P percutaneous endoscopic gastrostomy (PEG) tube placement WITH REMOVAL Family History Sister MVA (motor vehicle accident) Mother , in her 80s Heart disease Diabetes Father , 94yo Hypertension Prostate cancer Heart valve replaced Sister No problems noted. Son No problems noted. Son No problems noted. Daughter Intestinal cancer Daughter No problems noted. Social History Smoking Status: Never smoker Cigarettes Per Day: 1 Pack Q 3-4 days;Quit 50 yrs ago; Second Hand Exposure: No; Hx Alcohol Use: Yes Alcohol type: beer Hx Substance Use: No Preferred Language: Telugu Communication Ability: Effective Visual Impairment: No Limitations Hearing Ability: Normal Cut Out Press Operator Required: No Beliefs That Will Affect Care: None marital status: `mar Current Living Situation: Spouse current occupational status: retired current occupation: Body repair; How many Children do You have: 1 Feels Safe at Home: Yes caffeine: Yes (2 cups/day) during the past year weight has: remained stable Assistive Devices: None Allergies Allergies Allergy/AdvReac Type Severity Reaction Status Date / Time bee venom protein (honey bee) Allergy Severe shock Verified 08/03/21 11:50 moxifloxacin Allergy Severe THROAT Verified 08/03/21 11:50 SWELLED ketamine Allergy Intermediate AGITATION, Verified 08/03/21 11:50 HALLUCINATION ,OUT OF BODY FEELING Home Meds Home Medications Medication Instructions Recorded Confirmed cyanocobalamin (vitamin B-12) 1,000 mcg PO QAM #0 tab 01/29/13 09/16/21 1,000 mcg capsule tramadol 50 mg tablet 50 mg PO Q6H PRN 09/16/21 09/16/21 Previous Rx's Medication Instructions Recorded levothyroxine 150 mcg tablet 150 mcg PO DAILY #90 tab 12/31/20 Results & Data (ED) Vital Signs Vital Signs - 24 hr 09/16/21 19:49 09/16/21 21:01 09/16/21 23:32 Temperature 36.8 C Temperature Source Temporal Artery Scan Pulse Rate 97 H Pulse Rate [Right Finger] 96 H 107 H Respiratory Rate 18 16 16 Respiratory Depth Normal Blood Pressure 135/75 Blood Pressure [Right Arm] 129/78 124/78 Blood Pressure Mean 95 Blood Pressure Mean [Right Arm] 95 93 Pulse Oximetry 96 98 96 Oxygen Delivery Method Room Air Room Air Sepsis Recent Fever Within 48 Hours No Sepsis New/Unexplained Change in Mental Status N/A Sepsis Action Taken by Nursing No Action Required Home Medications Current Medication List: was personally reviewed by me Laboratory Data Attestation: I reviewed the patient's lab results. Result diagrams: 09/16/21 20:41 09/16/21 20:41 Lab Results 09/16/21 09/16/21 09/16/21 Range/Units 20:41 20:41 20:43 WBC 16.24 H (4.8-10.8) K/uL RBC 4.06 L (4.7-6.1) M/uL Hgb 12.2 L (14.0-18.0) g/dL Hct 37.4 L (42-52) % MCV 92.1 (80-100) fL MCH 30.0 (25-34) pg MCHC 32.6 (32-36) g/dL RDW Std Deviation 60.4 H (36.4-46.3) fL RDW Coeff of Eladio 17.6 H (11.5-14.5) % Plt Count 325 (130-400) K/uL MPV 9.1 (7.4-10.4) fL Immature Gran % (Auto) 0.5 % Neut % (Auto) 85.7 % Lymph % (Auto) 8.1 % [place] % (Auto) 5.5 % Eos % (Auto) 0.1 % Baso % (Auto) 0.1 % Neut # (Auto) 13.91 H (1.4-6.5) K/uL Lymph # (Auto) 1.32 (1.2-3.4) K/uL [place] # (Auto) 0.89 H (0.11-0.59) K/uL Eos # (Auto) 0.02 (0-0.5) K/uL Baso # (Auto) 0.02 (0-0.2) K/uL Immature Gran # (Auto) 0.08 H (0.00-0.02) K/uL Sodium 136 (136-145) mmol/L Potassium 4.1 (3.5-5.1) mmol/L Chloride 102 (98-107) mmol/L Carbon Dioxide 25 (21-32) mmol/L Anion Gap 9.0 (3-11) BUN 26 H (7-18) mg/dl Creatinine 1.08 (0.6-1.4) mg/dl Est Cr Clr Drug Dosing Not Reportable Est GFR ( Amer) 79.1 ml/min Est GFR (Non-Af Amer) 68.2 ml/min BUN/Creatinine Ratio 24.4 H (10-20) Glucose 128 H (70-99) mg/dl Calcium 9.8 (8.5-10.1) mg/dl Total Bilirubin 0.3 (0.2-1) mg/dl AST 24 (15-37) U/L ALT 23 (12-78) Alkaline Phosphatase 92 (45-117) U/L Total Protein 7.8 (6.4-8.2) gm/dl Albumin 3.7 (3.4-5.0) gm/dl Globulin 4.1 H (2.5-4.0) gm/dl Albumin/Globulin Ratio 0.9 (0.9-2) Lipase 113 (73-393) U/L SARS-CoV-2, RNA, NAAT NEGATIVE (NEGATIVE) Administered Medications Hydromorphone HCl (Hydromorphone Inj 0.5 Mg/0.5 Ml Syr) 0.5 mg IV Q15M PRN PRN Reason: Pain Stop: 09/30/21 20:17 Last Admin: 09/16/21 21:59 Dose: 0.5 mg Documented by: [id number] Admin: 09/16/21 21:04 Dose: 0.5 mg Documented by: [id number] Discontinued Medications Hydromorphone HCl (Hydromorphone Inj 0.5 Mg/0.5 Ml Syr) 0.5 mg IV NOW STA Stop: 09/16/21 20:19 Last Admin: 09/16/21 20:41 Dose: 0.5 mg Documented by: [id number] Sodium Chloride (Nss 1000ml) 1,000 mls @ 999 mls/hr IV .Q1H1M ONE Stop: 09/16/21 21:18 Last Infusion: 09/16/21 21:47 Dose: 0 mls/hr Documented by: [id number] Admin: 09/16/21 20:41 Dose: 999 mls/hr Documented by: [id number] Ondansetron HCl (Ondansetron Inj 2 Mg/Ml 2 Ml Vial) 4 mg IV NOW STA Stop: 09/16/21 20:19 Last Admin: 09/16/21 20:41 Dose: 4 mg Documented by: [id number] Imaging Data Radiologist's Impression: Abdomen/Pelvis CT 09/16/21 20:18 CT abd pelvis wo con CLINICAL HISTORY: Severe abdominal pain and vomiting. No bowel movement. History of hernia. Evaluate for obstruction. COMPARISON STUDY: 08/03/2021 CT DOSE: 266.53 mGy.cm TECHNIQUE: Standard CT of the Abdomen and Pelvis was performed without IV contrast. The patient did not receive oral contrast. A dose lowering technique was utilized adhering to the principles of ALARA. FINDINGS: Lung base: The lung bases are clear. Abdominal cavity and bowel: There is a ventral abdominal wall hernia above the umbilicus with a single loop of bowel present extending into it. This bowel loop is edematous characteristic of incarceration. There is mild to moderate dilatation of the small bowel loops leading to the site of hernia. There is also distention of the stomach with air-fluid level present. There is relative decompression of the small bowel loops distal to the hernia. There is fecal material seen within the colon. The colon is partially decompressed. There is mild pelvic ascites which is most likely sympathetic. There are mild fluid is seen above the liver. Liver: The liver is homogeneous in attenuation on these limited noncontrast images.. Spleen: The spleen is homogeneous in attenuation on these limited noncontrast images. Pancreas: The pancreas is homogeneous in attenuation on these limited noncontrast images. Gall Bladder: The gallbladder is well distended with no evidence for cholelithiasis, wall thickening or pericholecystic edema.. Adrenal glands: The adrenal glands are normal in size and attenuation on these limited noncontrast images. Kidneys: The kidneys are homogeneous in attenuation on these limited noncontrast images. There is no evidence for gross renal mass, calculus or hydronephrosis bilaterally. Bladder: Imaging artifact is present related to right hip replacement. : Imaging artifact is present related to right hip replacement. Vasculature: There is no evidence for focal aneurysmal dilatation of the abdominal aorta. Osseous structures: There is no acute osseous pathology. Degenerative changes are seen within the lumbar spine. IMPRESSION: 1. Ventral abdominal wall hernia superior to the umbilicus with an incarcerated loop of bowel present within the hernia sac. 2. This produces obstruction of the small bowel at this site with distention of the stomach as well. 3. There is fecal material seen within the colon. 4. Additional nonacute findings are delineated above. ACT 112: Negative or not required by law. Electronically signed by: Hugo Barragan M.D. 09/16/2021 10:27 PM Chest X-Ray 09/16/21 20:18 XR chest 1V portable CLINICAL HISTORY: abd pain. Evaluate lung bases COMPARISON STUDY: No previous studies for comparison. TECHNIQUE: 1 view of the chest FINDINGS: Single frontal view of the chest demonstrates the cardiomediastinal silhouette to be within normal limits. Left subclavian catheter is again seen. The lungs are clear of alveolar opacities. There is no evidence for pleural effusion. There is no evidence for vascular congestion. There is no acute osseous pathology. There is prominent air under the left hemidiaphragm which is most likely related to a distended stomach. There are mildly dilated air-filled loops of small bowel also seen. IMPRESSION: 1. No acute cardiopulmonary disease. 2. There is prominent air under the left hemidiaphragm which is most likely related to a distended stomach. There are mildly dilated air-filled loops of small bowel also seen. ACT 112: Negative or not required by law. Electronically signed by: Hugo Barragan M.D. 09/16/2021 8:37 PM Discharge Plan Visit Data Chief Complaint: Abdominal Pain Stated Complaint: HERNIA; SEVERE PAIN, THROWING UP ED Provider: Qasim Peacock Discharge Problem: Diffuse abdominal pain, SBO (small bowel obstruction), Incarcerated hernia, Leukocytosis Patient Disposition: Admitted As Inpatient Condition: Fair Forms Stand Alone Forms: [employer] Prescriptions Prescriptions: No Action cyanocobalamin (vitamin B-12) 1,000 mcg Capsule 1,000 mcg PO QAM Qty: 0 RF: 0 levothyroxine 150 mcg tablet 150 mcg PO DAILY Qty: 90 RF: 3 tramadol 50 mg Tablet 50 mg PO Q6H PRN (Reason: Pain) RF: 0 Referrals Referrals: Sean Medel MD [Primary Care Provider] -
--- NOTE | 2021-09-16 20:39 | XRay Report ---
XR chest 1V portable CLINICAL HISTORY: abd pain. Evaluate lung bases COMPARISON STUDY: No previous studies for comparison. TECHNIQUE: 1 view of the chest FINDINGS: Single frontal view of the chest demonstrates the cardiomediastinal silhouette to be within normal li mits. Left subclavian catheter is again seen. The lungs are clear of alveolar opacities. There is no evidence for pleural effusion. There is no evidence for vascular congestion. There is no acute osseou s pathology. There is prominent air under the left hemidiaphragm which is most likely related to a distended stoma ch. There are mildly dilated air-filled loops of small bowel also seen. IMPRESSION: 1. No acute cardiopulmonary disease. 2. There is prominent air under the left hemidiaphragm which is most likely related to a distended st omach. There are mildly dilated air-filled loops of small bowel also seen. ACT 112: Negative or not required by law. Electronically signed by: Hugo Barragan M.D. 09/16/2021 8:37 PM
[2021-09-16 20:52] LABS: Basophils # (auto) 0.02 K/uL (0-0.2); Basophils % (auto) 0.1 %; Eosinophils # (auto) 0.02 K/uL (0-0.5); Eosinophils % (auto) 0.1 %; Hematocrit (blood only) 37.4 % (42-52); Hemoglobin 12.2 g/dL (14.0-18.0); Immature Granulocytes # (auto) 0.08 K/uL (0.00-0.02); Immature Granulocytes % (auto) 0.5 %; Lymphocytes # (auto) 1.32 K/uL (1.2-3.4); Lymphocytes % (auto) 8.1 %; Mean Corpuscular Hgb Conc 32.6 g/dL (32-36); Mean Corpuscular Volume 92.1 fL (80-100); Mean Platelet Volume 9.1 fL (7.4-10.4); Monocytes # (auto) 0.89 K/uL (0.11-0.59); Monocytes % (auto) 5.5 %; Neutrophils # (auto) 13.91 K/uL (1.4-6.5); Neutrophils % (auto) 85.7 %; Platelet Count 325 K/uL (130-400); RDW Coefficient of Variation 17.6 % (11.5-14.5); RDW Standard Deviation 60.4 fL (36.4-46.3); Red Blood Count 4.06 M/uL (4.7-6.1); White Blood Count 16.24 K/uL (4.8-10.8)
[2021-09-16] MEDS: HYDROmorphone INJ 0.5 MG/0.5 ML SYR IV PRN ×3 (21:04→23:45)
[2021-09-16 21:12] LABS: Alanine Aminotransferase 23 (12-78); Albumin Level 3.7 gm/dl (3.4-5.0); Aspartate Aminotransferase 24 U/L (15-37); BUN Creatinine Ratio 24.4 (10-20); Blood Urea Nitrogen 26 mg/dl (7-18); Calcium 9.8 mg/dl (8.5-10.1); Carbon Dioxide 25 mmol/L (21-32); Chloride 102 mmol/L (98-107); Est GFR (African American) 79.1 ml/min; Est GFR (Non-African American) 68.2 ml/min; Glucose 128 mg/dl (70-99); Lipase 113 U/L (73-393); Potassium 4.1 mmol/L (3.5-5.1); Sodium 136 mmol/L (136-145)
[2021-09-16 21:15] LABS: Albumin Globulin Ratio 0.9 (0.9-2); Alkaline Phosphatase 92 U/L (45-117); Globulin 4.1 gm/dl (2.5-4.0); Total Protein 7.8 gm/dl (6.4-8.2)
--- NOTE | 2021-09-16 22:28 | CT Scan Report ---
CT abd pelvis wo con CLINICAL HISTORY: Severe abdominal pain and vomiting. No bowel movement. History of hernia. Evaluate for obstruction. COMPARISON STUDY: 08/03/2021 CT DOSE: 266.53 mGy.cm TECHNIQUE: Standard CT of the Abdomen and Pelvis was performed without IV contrast. The patient did not receive oral contrast. A dose lowering technique was utilized adhering to the principles of JACQUELINE Brock. FINDINGS: Lung base: The lung bases are clear. Abdominal cavity and bowel: There is a ventral abdominal wall hernia above the umbilicus with a singl e loop of bowel present extending into it. This bowel loop is edematous characteristic of incarcerati on. There is mild to moderate dilatation of the small bowel loops leading to the site of hernia. Ther e is also distention of the stomach with air-fluid level present. There is relative decompression of the small bowel loops distal to the hernia. There is fecal material seen within the colon. The colon is partially decompressed. There is mild pelvic ascites which is most likely sympathetic. There are mild fluid is seen above the liver. Liver: The liver is homogeneous in attenuation on these limited noncontrast images.. Spleen: The spleen is homogeneous in attenuation on these limited noncontrast images. Pancreas: The pancreas is homogeneous in attenuation on these limited noncontrast images. Gall Bladder: The gallbladder is well distended with no evidence for cholelithiasis, wall thickening or pericholecystic edema.. Adrenal glands: The adrenal glands are normal in size and attenuation on these limited noncontrast im ages. Kidneys: The kidneys are homogeneous in attenuation on these limited noncontrast images. There is no evidence for gross renal mass, calculus or hydronephrosis bilaterally. Bladder: Imaging artifact is present related to right hip replacement. : Imaging artifact is present related to right hip replacement. Vasculature: There is no evidence for focal aneurysmal dilatation of the abdominal aorta. Osseous structures: There is no acute osseous pathology. Degenerative changes are seen within the lum bar spine. IMPRESSION: 1. Ventral abdominal wall hernia superior to the umbilicus with an incarcerated loop of bowel present within the hernia sac. 2. This produces obstruction of the small bowel at this site with distention of the stomach as well. 3. There is fecal material seen within the colon. 4. Additional nonacute findings are delineated above. ACT 112: Negative or not required by law. Electronically signed by: Hugo Barragan M.D. 09/16/2021 10:27 PM
[2021-09-16 22:46] LABS: Bilirubin,Total 0.3 mg/dl (0.2-1)
--- NOTE | 2021-09-16 23:47 | History & Physical Report ---
Date of Service September 16, 2021 Assessment & Plan (1) Incarcerated hernia: (2) SBO (small bowel obstruction): (3) Diffuse abdominal pain: (4) Squamous cell carcinoma of larynx: (5) History of radiation therapy: Plan: 71-year-old gentleman with incarcerated upper midline incisional hernia. I have discussed the risks and benefits of exploratory laparotomy with repair of the hernia and possible bowel resection. All his questions were answered, and he is agreeable to proceed. We will take him to the operating room as soon as possible for surgery. IV fluids and preoperative antibiotics will be administered. History of Present Illness Primary Care Provider: Sean Medel MD 71-year-old gentleman presents with severe increasing abdominal pain since this morning. This is accompanied by nausea and vomiting. He has a prior history of laryngeal cancer status post laryngectomy. He does have a stoma. He underwent gastrostomy tube placement approximately 8 years ago and has an upper midline incision. He states that over the past few weeks he has noticed a bulge in this location. He has had some increasing pain. The pain this morning was unbeara ble. CT scan demonstrates incarcerated hernia containing small bowel. He denies fevers or chills. He denies other complaints. Allergies Allergy/AdvReac Type Severity Reaction Status Date / Time bee venom protein (honey bee) Allergy Severe shock Verified 08/03/21 11:50 moxifloxacin Allergy Severe THROAT Verified 08/03/21 11:50 SWELLED ketamine Allergy Intermediate AGITATION, Verified 08/03/21 11:50 HALLUCINATION ,OUT OF BODY FEELING Home Medications Medication Instructions Recorded Confirmed Type cyanocobalamin (vitamin B-12) 1,000 mcg PO QAM #0 tab 01/29/13 09/16/21 History 1,000 mcg capsule levothyroxine 150 mcg tablet 150 mcg PO DAILY #90 tab 12/31/20 09/16/21 Rx tramadol 50 mg tablet 50 mg PO Q6H PRN 09/16/21 09/16/21 History Past Med/Surg History Medical History Allergic rhinitis CKD (chronic kidney disease), stage III Cough GERD (gastroesophageal reflux disease) History of chemotherapy History of radiation therapy To larynx 09/26/10 thru 11/14/10 HTN (hypertension) Hypothyroidism RADIATION INDUCED Insomnia Larynx cancer Male erectile disorder of organic origin Neck mass Sensorineural hearing loss (SNHL) of both ears Solitary pulmonary nodule Squamous cell carcinoma of larynx 2010 Vitamin B12 deficiency Surgical History H/O bilateral cataract extraction H/O hand surgery BILT H/O inguinal hernia repair H/O laryngectomy MULTIPLE SX WITH RECONSTRUCTION H/O left knee surgery Left knee replacement H/O lymph node excision on 10/05/20 - Metastatic SCC History of arthroscopy of both shoulders History of biopsy Left tonsilar incisional biopsy on 11/15/20 - SCC History of esophagogastroduodenoscopy (EGD) MULTIPLE WITH DILATION History of laryngoscopy History of surgery Laryngoscopy with tumor excision on 08/26/10 History of total right hip arthroplasty History of vascular access device L CHEST S/P percutaneous endoscopic gastrostomy (PEG) tube placement WITH REMOVAL Family History Sister MVA (motor vehicle accident) Mother , in her 80s Heart disease Diabetes Father , 94yo Hypertension Prostate cancer Heart valve replaced Sister No problems noted. Son No problems noted. Son No problems noted. Daughter Intestinal cancer Daughter No problems noted. Social History Smoking Status: Never smoker Cigarettes Per Day: 1 Pack Q 3-4 days;Quit 50 yrs ago; Second Hand Exposure: No; Hx Alcohol Use: Yes Alcohol type: beer Hx Substance Use: No Preferred Language: [place] Communication Ability: Effective Visual Impairment: No Limitations Hearing Ability: Normal Dining Room Coordinator Required: No Beliefs That Will Affect Care: None marital status: `mar Current Living Situation: Spouse current occupational status: retired current occupation: Body repair; How many Children do You have: 1 Feels Safe at Home: Yes caffeine: Yes (2 cups/day) during the past year weight has: remained stable Assistive Devices: None Review of Systems Review of Systems: All systems reviewed & are unremarkable except as noted in HPI & below Physical Exam Constitutional: WD/WN, vitals as above Eyes: PERRL, conjunctivae normal, anicteric sclerae Neck: + tracheostomy present (no tube present) multiple surgical scars/skin graft Respiratory: normal respiratory effort, lungs clear to auscultation Cardiovascular: RRR, no murmur, no edema Gastrointestinal (Abdomen): Inspection/Auscultation: abdomen normal to inspection and + abdominal surgical scar Percussion/Palpation: + abdomen tender (upper midline at site of hernia), abdomen soft and + hernia (upper midline) Musculoskeletal: Extremities: no cyanosis and no clubbing Skin: no rashes, warm and dry Psychiatric: Orientation: alert and oriented x 3 Results & Data Results & Data ([facility]) Vital Signs (Past 12 Hours) Vital Signs Temp Pulse Pulse Resp BP BP Pulse Ox 09/16/21 23:32 107 H 16 124/78 96 09/16/21 21:01 96 H 16 129/78 98 09/16/21 19:49 36.8 C 97 H 18 135/75 96 Laboratory Results 09/16/21 09/16/21 09/16/21 Range/Units 20:43 20:41 20:41 WBC 16.24 H (4.8-10.8) K/uL RBC 4.06 L (4.7-6.1) M/uL Hgb 12.2 L (14.0-18.0) g/dL Hct 37.4 L (42-52) % MCV 92.1 (80-100) fL MCH 30.0 (25-34) pg MCHC 32.6 (32-36) g/dL RDW Std Deviation 60.4 H (36.4-46.3) fL RDW Coeff of Eladio 17.6 H (11.5-14.5) % Plt Count 325 (130-400) K/uL MPV 9.1 (7.4-10.4) fL Immature Gran % (Auto) 0.5 % Neut % (Auto) 85.7 % Lymph % (Auto) 8.1 % Greenlee % (Auto) 5.5 % Eos % (Auto) 0.1 % Baso % (Auto) 0.1 % Neut # (Auto) 13.91 H (1.4-6.5) K/uL Lymph # (Auto) 1.32 (1.2-3.4) K/uL Greenlee # (Auto) 0.89 H (0.11-0.59) K/uL Eos # (Auto) 0.02 (0-0.5) K/uL Baso # (Auto) 0.02 (0-0.2) K/uL Immature Gran # (Auto) 0.08 H (0.00-0.02) K/uL Sodium 136 (136-145) mmol/L Potassium 4.1 (3.5-5.1) mmol/L Chloride 102 (98-107) mmol/L Carbon Dioxide 25 (21-32) mmol/L Anion Gap 9.0 (3-11) BUN 26 H (7-18) mg/dl Creatinine 1.08 (0.6-1.4) mg/dl Est Cr Clr Drug Dosing Not Reportable Est GFR ( Amer) 79.1 ml/min Est GFR (Non-Af Amer) 68.2 ml/min BUN/Creatinine Ratio 24.4 H (10-20) Glucose 128 H (70-99) mg/dl Calcium 9.8 (8.5-10.1) mg/dl Total Bilirubin 0.3 (0.2-1) mg/dl AST 24 (15-37) U/L ALT 23 (12-78) Alkaline Phosphatase 92 (45-117) U/L Total Protein 7.8 (6.4-8.2) gm/dl Albumin 3.7 (3.4-5.0) gm/dl Globulin 4.1 H (2.5-4.0) gm/dl Albumin/Globulin Ratio 0.9 (0.9-2) Lipase 113 (73-393) U/L SARS-CoV-2, RNA, NAAT NEGATIVE (NEGATIVE) Diagnostic Findings CT abd pelvis wo con CLINICAL HISTORY: Severe abdominal pain and vomiting. No bowel movement. History of hernia. Evaluate for obstruction. COMPARISON STUDY: 08/03/2021 CT DOSE: 266.53 mGy.cm TECHNIQUE: Standard CT of the Abdomen and Pelvis was performed without IV contrast. The patient did not receive oral contrast. A dose lowering technique was utilized adhering to the principles of ALARA. FINDINGS: Lung base: The lung bases are clear. Abdominal cavity and bowel: There is a ventral abdominal wall hernia above the umbilicus with a single loop of bowel present extending into it. This bowel loop is edematous characteristic of incarceration. There is mild to moderate dilatation of the small bowel loops leading to the site of hernia. There is also distention of the stomach with air-fluid level present. There is relative decompression of the small bowel loops distal to the hernia. There is fecal material seen within the colon. The colon is partially decompressed. There is mild pelvic ascites which is most likely sympathetic. There are mild fluid is seen above the liver. Liver: The liver is homogeneous in attenuation on these limited noncontrast images.. Spleen: The spleen is homogeneous in attenuation on these limited noncontrast images. Pancreas: The pancreas is homogeneous in attenuation on these limited noncontrast images. Gall Bladder: The gallbladder is well distended with no evidence for cholelithiasis, wall thickening or pericholecystic edema.. Adrenal glands: The adrenal glands are normal in size and attenuation on these limited noncontrast images. Kidneys: The kidneys are homogeneous in attenuation on these limited noncontrast images. There is no evidence for gross renal mass, calculus or hydronephrosis bilaterally. Bladder: Imaging artifact is present related to right hip replacement. : Imaging artifact is present related to right hip replacement. Vasculature: There is no evidence for focal aneurysmal dilatation of the abdominal aorta. Osseous structures: There is no acute osseous pathology. Degenerative changes are seen within the lumbar spine. IMPRESSION: 1. Ventral abdominal wall hernia superior to the umbilicus with an incarcerated loop of bowel present within the hernia sac. 2. This produces obstruction of the small bowel at this site with distention of the stomach as well. 3. There is fecal material seen within the colon. 4. Additional nonacute findings are delineated above.
[2021-09-16] MEDS ORDERED: SUCCINYLCHOLINE CHLORIDE 20 MG/ML 10 ML VIAL IV ONE (23:55)
[2021-09-16] MEDS ORDERED: ONDANSETRON INJ 2 MG/ML 2 ML VIAL ONE (23:55)
[2021-09-16] MEDS ORDERED: PROPOFOL IV EMULSION 10 MG/ML 20 ML VIAL IV ONE (23:55)
[2021-09-16] MEDS ORDERED: ROCURONIUM BROMIDE 10 MG/ML 5 ML VIAL IV ONE (23:55)
[2021-09-16] MEDS ORDERED: fentaNYL citrate 100 MCG/2 ML VIAL ONE (23:55)
[2021-09-16] MEDS ORDERED: DEXAMETHASONE SOD INJ 4 MG/ML VIAL ONE (23:55)
[2021-09-16] MEDS ORDERED: MIDAZOLAM HCL 1 MG/ML 2ML VIAL ONE (23:55)
[2021-09-16] MEDS ORDERED: ALBUMIN HUMAN 5% 12.5 GM/250 ML VIAL IV ONE (23:58)
[2021-09-17] MEDS ORDERED: ATROPINE SULFATE 0.1 MG/ML 10ML SYR IV PRN (00:39)
[2021-09-17] MEDS ORDERED: ePHEDrine sulfate 50 MG/ML AMP IV PRN (00:39)
[2021-09-17] MEDS ORDERED: ONDANSETRON INJ 2 MG/ML 2 ML VIAL IV PRN ×2 (00:39→03:52)
--- NOTE | 2021-09-17 00:39 | Anesthesiology Consultation ---
Date of Service September 17, 2021 Assessment & Plan (1) Encounter for pre-operative examination: Chart Review Chart Review: Acceptable Risk for Surgery and Patient NOT seen in Pre Admission Testing covid negative. patient very difficult airway. plan to do sedation initially with possible trach mask induction and will then place cuffed shiley trach in order to secure his airway. plan discussed with patient and his , questions answered and consent signed. Consults Requested none History Surgery Operation Date: 09/17/21 01:00 Proposed Procedures p Open Umbilical Hernia Repair - Benton Herr MD Height/Weight Height: 5 ft 9 in Allergies Allergy/AdvReac Type Severity Reaction Status Date / Time bee venom protein (honey bee) Allergy Severe shock Verified 08/03/21 11:50 moxifloxacin Allergy Severe THROAT Verified 08/03/21 11:50 SWELLED ketamine Allergy Intermediate AGITATION, Verified 08/03/21 11:50 HALLUCINATION ,OUT OF BODY FEELING Medications Home Medications Medication Instructions Recorded Confirmed Last Taken cyanocobalamin (vitamin B-12) 1,000 mcg PO QAM #0 tab 01/29/13 09/16/21 08/24/18 1,000 mcg capsule levothyroxine 150 mcg tablet 150 mcg PO DAILY #90 tab 12/31/20 09/16/21 Unknown tramadol 50 mg tablet 50 mg PO Q6H PRN 09/16/21 09/16/21 09/16/21 Active Medications Generic Name Dose Route Start Last Admin Trade Name Freq PRN Reason Stop Dose Admin Hydromorphone HCl 0.5 mg 09/16/21 20:18 09/16/21 23:45 Hydromorphone Inj 0.5 Mg/0.5 Ml Syr IV 09/30/21 20:17 0.5 mg Q15M PRN Administration Pain NPO Date Last Intake of Fluids: 09/16/21 Time Last Intake of Fluids: 15:30 Date Last Intake of Solids: 09/16/21 Time Last Intake of Solids: 08:00 Past Medical History Medical History Allergic rhinitis CKD (chronic kidney disease), stage III Cough GERD (gastroesophageal reflux disease) History of chemotherapy History of radiation therapy To larynx 09/26/10 thru 11/14/10 HTN (hypertension) Hypothyroidism RADIATION INDUCED Insomnia Larynx cancer Male erectile disorder of organic origin Neck mass Sensorineural hearing loss (SNHL) of both ears Solitary pulmonary nodule Squamous cell carcinoma of larynx 2009 Vitamin B12 deficiency Exercise / Class Metabolic Activity II 4-5 Yardwork/Stairs/Walk up hill Past Family History Family History Sister MVA (motor vehicle accident) Mother , in her 80s Heart disease Diabetes Father , 94yo Hypertension Prostate cancer Heart valve replaced Sister No problems noted. Son No problems noted. Son No problems noted. Daughter Intestinal cancer Daughter No problems noted. Past Surgical History Surgical History H/O bilateral cataract extraction H/O hand surgery BILT H/O inguinal hernia repair H/O laryngectomy MULTIPLE SX WITH RECONSTRUCTION H/O left knee surgery Left knee replacement H/O lymph node excision on 10/05/20 - Metastatic SCC History of arthroscopy of both shoulders History of biopsy Left tonsilar incisional biopsy on 11/15/20 - SCC History of esophagogastroduodenoscopy (EGD) MULTIPLE WITH DILATION History of laryngoscopy History of surgery Laryngoscopy with tumor excision on 08/26/10 History of total right hip arthroplasty History of vascular access device L CHEST S/P percutaneous endoscopic gastrostomy (PEG) tube placement WITH REMOVAL Past Anesthesia History Difficult Airway History of PONV No Hx of PONV and No Hx of Motion Sickness Social History Smoking Status: Never smoker Smoking cigarettes per day: 1 Pack Q 3-4 days;Quit 50 yrs ago Hx Alcohol Use: Yes Alcohol type: beer alcohol intake frequency: 0-2 drinks per day Hx Substance Use: No substance use type: does not use Physical Exam Vital Signs Last Vital Signs Temp 36.8 C 09/16/21 19:49 Pulse 107 H 09/16/21 23:32 Resp 16 09/16/21 23:32 BP 124/78 09/16/21 23:32 Pulse Ox 96 09/16/21 23:32 Testing Laboratory Results 09/16/21 20:41 09/16/21 20:41 Electrocardiogram Date: 08/06/21 DICTATED BY:Eliud Graham MD Test Reason : Blood Pressure : / mmHG Vent. Rate : 103 BPM Atrial Rate : 103 BPM P-R Int : 130 ms QRS Dur : 096 ms QT Int : 352 ms P-R-T Axes : 067 064 059 degrees QTc Int : 461 ms Sinus tachycardia Poor R wave progression, consider anterior MA vs. lead placement vs. LVH Otherwise normal ECG When compared with ECG of 03-AUG-2021 11:37, QRS duration has increased Confirmed by Eliud Graham ([id number]) on 08/06/2021 5:31:17 PM Chest X-Ray Date: 09/16/21 XR chest 1V portable CLINICAL HISTORY: abd pain. Evaluate lung bases COMPARISON STUDY: No previous studies for comparison. TECHNIQUE: 1 view of the chest FINDINGS: Single frontal view of the chest demonstrates the cardiomediastinal silhouette to be within normal limits. Left subclavian catheter is again seen. The lungs are clear of alveolar opacities. There is no evidence for pleural effusion. There is no evidence for vascular congestion. There is no acute osseous pathology. There is prominent air under the left hemidiaphragm which is most likely related to a distended stomach. There are mildly dilated air-filled loops of small bowel also seen. IMPRESSION: 1. No acute cardiopulmonary disease. 2. There is prominent air under the left hemidiaphragm which is most likely related to a distended stomach. There are mildly dilated air-filled loops of small bowel also seen. Other Testing CT abdomen: CT abd pelvis wo con CLINICAL HISTORY: Severe abdominal pain and vomiting. No bowel movement. History of hernia. Evaluate for obstruction. COMPARISON STUDY: 08/03/2021 CT DOSE: 266.53 mGy.cm TECHNIQUE: Standard CT of the Abdomen and Pelvis was performed without IV contrast. The patient did not receive oral contrast. A dose lowering technique was utilized adhering to the principles of ALARA. FINDINGS: Lung base: The lung bases are clear. Abdominal cavity and bowel: There is a ventral abdominal wall hernia above the umbilicus with a single loop of bowel present extending into it. This bowel loop is edematous characteristic of incarceration. There is mild to moderate dil atation of the small bowel loops leading to the site of hernia. There is also distention of the stomach with air-fluid level present. There is relative decompression of the small bowel loops distal to the hernia. There is fecal material seen within the colon. The colon is partially decompressed. There is mild pelvic ascites which is most likely sympathetic. There are mild fluid is seen above the liver. Liver: The liver is homogeneous in attenuation on these limited noncontrast images.. Spleen: The spleen is homogeneous in attenuation on these limited noncontrast images. Pancreas: The pancreas is homogeneous in attenuation on these limited noncontrast images. Gall Bladder: The gallbladder is well distended with no evidence for cholelithiasis, wall thickening or pericholecystic edema.. Adrenal glands: The adrenal glands are normal in size and attenuation on these limited noncontrast images. Kidneys: The kidneys are homogeneous in attenuation on these limited noncontrast images. There is no evidence for gross renal mass, calculus or hydronephrosis bilaterally. Bladder: Imaging artifact is present related to right hip replacement. : Imaging artifact is present related to right hip replacement. Vasculature: There is no evidence for focal aneurysmal dilatation of the abdom inal aorta. Osseous structures: There is no acute osseous pathology. Degenerative changes are seen within the lumbar spine. IMPRESSION: 1. Ventral abdominal wall hernia superior to the umbilicus with an incarcerated loop of bowel present within the hernia sac. 2. This produces obstruction of the small bowel at this site with distention of the stomach as well. 3. There is fecal material seen within the colon. 4. Additional nonacute findings are delineated above
[2021-09-17] MEDS ORDERED: BUPIVACAINE 0.5 % 5 MG/1 ML MPF 30ML VIAL ONE (00:50)
[2021-09-17] MEDS ORDERED: SUGAMMADEX SODIUM 200 MG/2 ML VIAL IV ONE (01:32)
[2021-09-17] MEDS ORDERED: ceFAZolin 2000MG 2,000 MG/15 ML SYR IV ONE (01:40)
[2021-09-17] MEDS ORDERED: ROCURONIUM BROMIDE 10 MG/ML 5 ML VIAL IV ONE (01:50)
[2021-09-17] MEDS ORDERED: VASOPRESSIN 20 UNIT/ML VIAL ONE (01:51)
[2021-09-17] MEDS ORDERED: SUCCINYLCHOLINE CHLORIDE 20 MG/ML 10 ML VIAL IV ONE (01:51)
[2021-09-17] MEDS ORDERED: ePHEDrine sulfate 50 MG/ML SYR ONE (01:51)
--- NOTE | 2021-09-17 02:13 | Post Operative Brief Note ---
Immediate Post Op Note v1 Date of Surgery September 17, 2021 Pre & Post Diagnosis Operation Date: 09/17/21 01:00 Pre-Op Diagnosis: Incarcerated hernia Post-Op Diagnosis: Incarcerated hernia I identified the patient and participated in the time-out.: Yes Procedure Operation Date: 09/17/21 01:00 Actual Procedures p Exploratory Laparotomy; Open Incarcerated Hernia Repair - Benton Herr MD Surgeon Benton Herr MD Nursing Resident none Estimated Blood Loss 15 Findings Consistent with Post-Op Diagnosis incisional hernia; incarcerated bowel and omentum; no necrosis/ischemic bowel Drains Harvey Catheter (Inserted prior to start of case and discontinued at end of case; clear yellow urine.)
--- NOTE | 2021-09-17 02:18 | Operative Report ---
Post Operative Report Pre & Post Diagnosis Operation Date: 09/17/21 01:00 Pre-Op Diagnosis: Incarcerated hernia Post-Op Diagnosis: Incarcerated hernia I identified the patient and participated in the time-out.: Yes Procedure Operation Date: 09/17/21 01:00 Actual Procedures p Exploratory Laparotomy; Open Incarcerated Hernia Repair - Benton Herr MD Surgeon Benton Herr MD Sheet Metal Helper none Estimated Blood Loss 15 Findings Consistent with Post-Op Diagnosis Incisional hernia, incarcerated bowel and omentum with bowel twisted around the omentum; no necrosis or ischemia of the bowel Specimens None Complications No immediate complications Indications Incarcerated incisional hernia Description of Procedure The patient was taken to the operating room, placed supine on the operating table. A timeout was performed, perioperative antibiotics were administered, SCD boots were placed. After adequate anesthesia and analgesia was obtained, a Havrey catheter was placed, the patient was prepped and draped in the normal sterile fashion. Local anesthetic was injected into and around the incision site. Midline upper incision was made through the former incision and was carried down into the subcutaneous tissue. A [place] hernia sac was identified and dissected free circumferentially. The hernia sac was opened and there was noted to be omentum and a loop of small bowel within the hernia sac. The hernia sac was excised at the level of the fascia in a 360 degree fashion. The fascia was opened cephalad and caudad. Adhesions of the omentum to the anterior abdominal wall were taken down with the Bovie electrocautery. Bleeders from the omentum were controlled with 3-0 silk ties. The small bowel was run. There is an area of mild thickening of the bowel and the mesentery. There was no ischemia or necrosis in this area. The bowel was warm and peristalsis was noted. The bowel was replaced into the abdominal cavity. The abdomen was copiously irrigated and suctioned free. Hemostasis was checked and attended to and was excellent. The fascia was closed with a running 0 Prolene suture. The subcutaneous tissue was irrigated and suctioned free. The skin was reapproximated with surgical clips. A dressing was applied. He tolerated the procedure without complication, transferred in stable condition to the PACU. All instrument, needle, and sponge counts were correct at the end of the case. I attest to the content of the Intraoperative Record and any orders documented therein. Any exceptions are noted below.
--- NOTE | 2021-09-17 02:41 | Anesthesiology Progress Note ---
Date of Service September 17, 2021 Anesthesia Post Procedure Vital Signs Vital Signs: Temp Pulse Pulse Resp BP BP Pulse Ox 09/16/21 23:32 107 H 16 124/78 96 09/16/21 21:01 96 H 16 129/78 98 09/16/21 19:49 36.8 C 97 H 18 135/75 96 Pain Intensity Abdomen: Pain Intensity: 7 Transfer of Care Handoff Completed per policy Notes Mental Status: alert / awake / arousable and participated in evaluation Patient Amnestic to Procedure: Yes Nausea / Vomiting: adequately controlled Pain: adequately controlled Airway Patency, RR, SpO2: stable & adequate BP & HR: stable & adequate Hydration State: stable & adequate Anesthetic Complications: no major complications apparent and Pt Satisfied with anesthetic care
[2021-09-17] MEDS: fentaNYL citrate 100 MCG/2 ML VIAL IV PRN ×4 (02:42→02:57)
[2021-09-17] MEDS ORDERED: diphenhydrAMINE 50 MG/ML VIAL IV PRN (03:52)
[2021-09-17] MEDS ORDERED: PROMETHAZINE HCL 25 MG in SODIUM CHLORIDE 0.9% 50 ML IV PRN (03:52)
[2021-09-17] MEDS ORDERED: oxyCODONE/ACETAMINOPHEN 5mg/325mg TAB PO PRN (03:52)
[2021-09-17] MEDS: LACTATED RINGER'S 1,000 ML IV SCH ×2 (04:25→14:49)
--- NOTE | 2021-09-17 08:42 | Surgery Progress Note ---
Date of Service September 17, 2021 Assessment & Plan (1) Incarcerated hernia: (2) SBO (small bowel obstruction): (3) Diffuse abdominal pain: (4) Squamous cell carcinoma of larynx: (5) History of radiation therapy: Plan: POD # 0 s/p exploratory laparotomy and repair of incarcerated incisional hernia -afebrile, vitals stable - moderate postop pain at incision site - no n/v - no return of bowel function yet Plan: Continue IV Dilaudid and Toradol as needed for pain continue clear liquids continue IV fluids continue Phenergan/Zofran as needed Discussed with Dr. Herr who is to see patient later today. labs show Hgb at 9.7 (12.2 preop), has chronic anemia and baseline around 8-9 . Hemodynamically stable will repeat labs in am Admission and Anticipated Discharge Date Admission Date: September 17, 2021 Subjective preoperative pain resolved, postop pain at incision site, moderate but has not had any pain medication this morning no nausea or vomiting no flatus no chest pain or shortness of breath Physical Exam Constitutional: + thin, + frail appearing and comfortable; no acute distress, not ill appearing and not in distress ENMT: tracheostomy present Respiratory: normal respiratory effort; no respiratory distress, no labored breathing and no retractions Gastrointestinal (Abdomen): Inspection/Auscultation: abdomen normal to inspection, + abdominal surgical incision (covered with clean and dry dressing, julius intact) and + hypoactive bowel sounds; abdomen not distended Percussion/Palpation: + abdomen tender (at midline incision on palpation), + guarding (voluntary at midline incision) and abdomen soft; abdomen not rigid Skin: no rashes, warm and dry Psychiatric: Orientation: alert and oriented x 3 Results & Data ([facility]) Vital Signs (Past 12 Hours) Vital Signs Temp Pulse Pulse Resp BP Pulse Ox 09/17/21 06:26 36.7 C 92 H 17 99/57 L 100 09/17/21 05:30 36.6 C 97 H 18 99/56 L 100 09/17/21 04:30 36.6 C 97 H 16 119/70 99 09/17/21 04:01 36.7 C 96 H 17 137/84 100 09/17/21 03:30 36.8 C 90 17 125/76 100 09/17/21 03:15 105 H 17 122/71 99 09/17/21 03:05 36.5 C 103 H 24 117/64 99 09/17/21 02:55 103 H 20 130/72 97 09/17/21 02:45 103 H 18 161/85 H 100 09/17/21 02:35 103 H 24 162/94 H 100 09/17/21 02:29 36.4 C L 102 H 22 164/99 H 100 09/16/21 23:32 107 H 16 124/78 96 09/16/21 21:01 96 H 16 129/78 98 Laboratory Results 09/17/21 09/17/21 09/17/21 Range/Units Unknown 10:19 10:19 WBC 12.16 H (4.8-10.8) K/uL RBC 3.25 L (4.7-6.1) M/uL Hgb 9.7 L (14.0-18.0) g/dL Hct 30.4 L (42-52) % MCV 93.5 (80-100) fL MCH 29.8 (25-34) pg MCHC 31.9 L (32-36) g/dL RDW Std Deviation 61.4 H (36.4-46.3) fL RDW Coeff of Eladio 17.7 H (11.5-14.5) % Plt Count 291 (130-400) K/uL MPV 8.9 (7.4-10.4) fL Immature Gran % (Auto) 0.3 % Neut % (Auto) 89.0 % Lymph % (Auto) 7.6 % [place] % (Auto) 3.0 % Eos % (Auto) 0.0 % Baso % (Auto) 0.1 % Neut # (Auto) 10.82 H (1.4-6.5) K/uL Lymph # (Auto) 0.93 L (1.2-3.4) K/uL [place] # (Auto) 0.36 (0.11-0.59) K/uL Eos # (Auto) 0.00 (0-0.5) K/uL Baso # (Auto) 0.01 (0-0.2) K/uL Immature Gran # (Auto) 0.04 H (0.00-0.02) K/uL Sodium 136 (136-145) mmol/L Potassium 4.7 (3.5-5.1) mmol/L Chloride 103 (98-107) mmol/L Carbon Dioxide 25 (21-32) mmol/L Anion Gap 8 (3-11) BUN 26 H (7-18) mg/dl Creatinine 1.08 (0.6-1.4) mg/dl Est Cr Clr Drug Dosing 47.0 Est GFR ( Amer) 79.1 ml/min Est GFR (Non-Af Amer) 68.2 ml/min BUN/Creatinine Ratio 24.1 H (10-20) Glucose 148 H (70-99) mg/dl Calcium 8.7 (8.5-10.1) mg/dl Total Bilirubin (0.2-1) mg/dl AST (15-37) U/L ALT (12-78) Alkaline Phosphatase (45-117) U/L Total Protein (6.4-8.2) gm/dl Albumin (3.4-5.0) gm/dl Globulin (2.5-4.0) gm/dl Albumin/Globulin Ratio (0.9-2) Lipase (73-393) U/L Urine Color Yellow Urine Appearance Clear (Clear) Urine pH 5.0 (4.5-7.5) Ur Specific [place] 1.022 (1.000-1.030) Urine Protein Trace H (Negative) Urine Glucose (UA) Negative (Negative) Urine Ketones Negative (Negative) Urine Blood Trace H (Negative) Urine Nitrite Negative (Negative) Urine Bilirubin Negative (Negative) Urine Urobilinogen Negative (Negative) Ur Leukocyte Esterase Negative (Negative) Urine WBC (Auto) 5-10 H (0-5) /hpf Urine RBC (Auto) 5-10 H (0-4) /hpf U Hyaline Cast (Auto) 5-10 H (0-5) /lpf U Epithel Cells (Auto) >30 H (0-5) /lpf Urine Bacteria (Auto) Negative (Negative) Ur Renal Epithelial Cell 0-5 (0-5) /lpf Other Crystals Talc (None Prsent) Granular Casts 1-5 H (0) /lpf Urine Mucus Present A (None Prsent) SARS-CoV-2, RNA, NAAT (NEGATIVE) 09/16/21 09/16/21 09/16/21 Range/Units 20:43 20:41 20:41 WBC 16.24 H (4.8-10.8) K/uL RBC 4.06 L (4.7-6.1) M/uL Hgb 12.2 L (14.0-18.0) g/dL Hct 37.4 L (42-52) % MCV 92.1 (80-100) fL MCH 30.0 (25-34) pg MCHC 32.6 (32-36) g/dL RDW Std Deviation 60.4 H (36.4-46.3) fL RDW Coeff of Eladio 17.6 H (11.5-14.5) % Plt Count 325 (130-400) K/uL MPV 9.1 (7.4-10.4) fL Immature Gran % (Auto) 0.5 % Neut % (Auto) 85.7 % Lymph % (Auto) 8.1 % [place] % (Auto) 5.5 % Eos % (Auto) 0.1 % Baso % (Auto) 0.1 % Neut # (Auto) 13.91 H (1.4-6.5) K/uL Lymph # (Auto) 1.32 (1.2-3.4) K/uL [place] # (Auto) 0.89 H (0.11-0.59) K/uL Eos # (Auto) 0.02 (0-0.5) K/uL Baso # (Auto) 0.02 (0-0.2) K/uL Immature Gran # (Auto) 0.08 H (0.00-0.02) K/uL Sodium 136 (136-145) mmol/L Potassium 4.1 (3.5-5.1) mmol/L Chloride 102 (98-107) mmol/L Carbon Dioxide 25 (21-32) mmol/L Anion Gap 9.0 (3-11) BUN 26 H (7-18) mg/dl Creatinine 1.08 (0.6-1.4) mg/dl Est Cr Clr Drug Dosing Not Reportable Est GFR ( Amer) 79.1 ml/min Est GFR (Non-Af Amer) 68.2 ml/min BUN/Creatinine Ratio 24.4 H (10-20) Glucose 128 H (70-99) mg/dl Calcium 9.8 (8.5-10.1) mg/dl Total Bilirubin 0.3 (0.2-1) mg/dl AST 24 (15-37) U/L ALT 23 (12-78) Alkaline Phosphatase 92 (45-117) U/L Total Protein 7.8 (6.4-8.2) gm/dl Albumin 3.7 (3.4-5.0) gm/dl Globulin 4.1 H (2.5-4.0) gm/dl Albumin/Globulin Ratio 0.9 (0.9-2) Lipase 113 (73-393) U/L Urine Color Urine Appearance (Clear) Urine pH (4.5-7.5) Ur Specific [place] (1.000-1.030) Urine Protein (Negative) Urine Glucose (UA) (Negative) Urine Ketones (Negative) Urine Blood (Negative) Urine Nitrite (Negative) Urine Bilirubin (Negative) Urine Urobilinogen (Negative) Ur Leukocyte Esterase (Negative) Urine WBC (Auto) (0-5) /hpf Urine RBC (Auto) (0-4) /hpf U Hyaline Cast (Auto) (0-5) /lpf U Epithel Cells (Auto) (0-5) /lpf Urine Bacteria (Auto) (Negative) Ur Renal Epithelial Cell (0-5) /lpf Other Crystals (None Prsent) Granular Casts (0) /lpf Urine Mucus (None Prsent) SARS-CoV-2, RNA, NAAT NEGATIVE (NEGATIVE) 09/16/21 09/16/21 09/16/21 Range/Units 20:43 20:41 20:41 WBC 16.24 H (4.8-10.8) K/uL RBC 4.06 L (4.7-6.1) M/uL Hgb 12.2 L (14.0-18.0) g/dL Hct 37.4 L (42-52) % MCV 92.1 (80-100) fL MCH 30.0 (25-34) pg MCHC 32.6 (32-36) g/dL RDW Std Deviation 60.4 H (36.4-46.3) fL RDW Coeff of Eladio 17.6 H (11.5-14.5) % Plt Count 325 (130-400) K/uL MPV 9.1 (7.4-10.4) fL Immature Gran % (Auto) 0.5 % Neut % (Auto) 85.7 % Lymph % (Auto) 8.1 % [place] % (Auto) 5.5 % Eos % (Auto) 0.1 % Baso % (Auto) 0.1 % Neut # (Auto) 13.91 H (1.4-6.5) K/uL Lymph # (Auto) 1.32 (1.2-3.4) K/uL [place] # (Auto) 0.89 H (0.11-0.59) K/uL Eos # (Auto) 0.02 (0-0.5) K/uL Baso # (Auto) 0.02 (0-0.2) K/uL Immature Gran # (Auto) 0.08 H (0.00-0.02) K/uL Sodium 136 (136-145) mmol/L Potassium 4.1 (3.5-5.1) mmol/L Chloride 102 (98-107) mmol/L Carbon Dioxide 25 (21-32) mmol/L Anion Gap 9.0 (3-11) BUN 26 H (7-18) mg/dl Creatinine 1.08 (0.6-1.4) mg/dl Est Cr Clr Drug Dosing Not Reportable Est GFR ( Amer) 79.1 ml/min Est GFR (Non-Af Amer) 68.2 ml/min BUN/Creatinine Ratio 24.4 H (10-20) Glucose 128 H (70-99) mg/dl Calcium 9.8 (8.5-10.1) mg/dl Total Bilirubin 0.3 (0.2-1) mg/dl AST 24 (15-37) U/L ALT 23 (12-78) Alkaline Phosphatase 92 (45-117) U/L Total Protein 7.8 (6.4-8.2) gm/dl Albumin 3.7 (3.4-5.0) gm/dl Globulin 4.1 H (2.5-4.0) gm/dl Albumin/Globulin Ratio 0.9 (0.9-2) Lipase 113 (73-393) U/L SARS-CoV-2, RNA, NAAT NEGATIVE (NEGATIVE)
[2021-09-17] MEDS: ENOXAPARIN INJ 30 MG/0.3 ML SYR SQ SCH (09:02)
[2021-09-17] MEDS: HYDROmorphone INJ 0.5 MG/0.5 ML SYR IV PRN ×3 (09:11→19:18)
[2021-09-17 10:38] LABS: Basophils # (auto) 0.01 K/uL (0-0.2); Basophils % (auto) 0.1 %; Hematocrit (blood only) 30.4 % (42-52); Hemoglobin 9.7 g/dL (14.0-18.0); Immature Granulocytes # (auto) 0.04 K/uL (0.00-0.02); Immature Granulocytes % (auto) 0.3 %; Lymphocytes # (auto) 0.93 K/uL (1.2-3.4); Lymphocytes % (auto) 7.6 %; Mean Corpuscular Hemoglobin 29.8 pg (25-34); Mean Corpuscular Hgb Conc 31.9 g/dL (32-36); Mean Corpuscular Volume 93.5 fL (80-100); Mean Platelet Volume 8.9 fL (7.4-10.4); Monocytes # (auto) 0.36 K/uL (0.11-0.59); Neutrophils # (auto) 10.82 K/uL (1.4-6.5); Platelet Count 291 K/uL (130-400); RDW Coefficient of Variation 17.7 % (11.5-14.5); RDW Standard Deviation 61.4 fL (36.4-46.3); Red Blood Count 3.25 M/uL (4.7-6.1); White Blood Count 12.16 K/uL (4.8-10.8)
[2021-09-17 11:09] LABS: BUN Creatinine Ratio 24.1 (10-20); Calcium 8.7 mg/dl (8.5-10.1); Est GFR (African American) 79.1 ml/min; Est GFR (Non-African American) 68.2 ml/min; Potassium 4.7 mmol/L (3.5-5.1)
[2021-09-17 11:10] LABS: Appearance Urine Clear (Clear); Bacteria Urine Automated Negative (Negative); Bilirubin Urine Negative (Negative); Blood Urine Trace (Negative); Color Urine Yellow; Epithelial Cell Urine Auto >30 /lpf (0-5); Glucose Urine UA Negative (Negative); Ketones Urine Negative (Negative); Leukocyte Esterase Urine Negative (Negative); Nitrite Urine Negative (Negative); Protein Urine Trace (Negative); Specific Gravity Urine 1.022 (1.000-1.030); Urobilinogen Urine Negative (Negative)
[2021-09-17 11:35] LABS: Mucus Urine Present (None Prsent); Renal Epithelial Cells Urine 0-5 /lpf (0-5)
[2021-09-17] MEDS ORDERED: HEPARIN 100 UNIT/ML 5ML FLUSH FLUSH PRN (22:41)
[2021-09-18] MEDS: HYDROmorphone INJ 0.5 MG/0.5 ML SYR IV PRN ×2 (00:01→08:08)
[2021-09-18] MEDS: LACTATED RINGER'S 1,000 ML IV SCH ×3 (00:05→21:18)
[2021-09-18] MEDS: KETOROLAC TROMETHAMINE 15 MG/ML VIAL IV PRN ×2 (05:23→14:54)
[2021-09-18 05:27] LABS: Hematocrit (blood only) 27.9 % (42-52); Hemoglobin 8.9 g/dL (14.0-18.0); Mean Corpuscular Hemoglobin 29.6 pg (25-34); Mean Corpuscular Hgb Conc 31.9 g/dL (32-36); Mean Corpuscular Volume 92.7 fL (80-100); Mean Platelet Volume 8.9 fL (7.4-10.4); Platelet Count 247 K/uL (130-400); RDW Coefficient of Variation 18.1 % (11.5-14.5); RDW Standard Deviation 61.2 fL (36.4-46.3); Red Blood Count 3.01 M/uL (4.7-6.1); White Blood Count 8.32 K/uL (4.8-10.8)
[2021-09-18 05:52] LABS: BUN Creatinine Ratio 21.6 (10-20); Calcium 8.8 mg/dl (8.5-10.1); Creatinine Clr Calc Pharmacy 52.4 ml/min; Est GFR (Non-African American) 77.7 ml/min; Potassium 3.7 mmol/L (3.5-5.1)
[2021-09-18] MEDS: ENOXAPARIN INJ 30 MG/0.3 ML SYR SQ SCH (08:04)
--- NOTE | 2021-09-18 08:54 | Surgery Progress Note ---
Date of Service September 18, 2021 Assessment & Plan (1) Incarcerated hernia: (2) SBO (small bowel obstruction): (3) Diffuse abdominal pain: (4) Squamous cell carcinoma of larynx: (5) History of radiation therapy: Plan: POD # 1 s/p exploratory laparotomy and repair of incarcerated incisional hernia -afebrile, vitals stable some hypertension likely secondary to pain - moderate postop pain at incision site better controlled today - no n/v - + flatus - leukocytosis resolved, Hg 8.7 today (12.2 preop, likely dilutional and back to his baseline Hg with chronic anemia) Plan: Patient would like to go home today, he would feel more comfortable at home Discussed with patient trialing PO pain medication to make sure pain controlled with oral meds prior to discharge, ordered Roxicodone solution prn pain Advance diet as tolerated Dr. Herr to evaluate patient at lunch time Possible discharge home this afternoon Discussed with Dr. Herr who agrees with above. Admission and Anticipated Discharge Date Admission Date: September 17, 2021 Subjective feeling better today pain is better controlled about 4/10 today, 9/10 yesterday more pain in his left shoulder and elbow (chronic from pinched nerve) no nausa or vomiting no chest pain /shortness of breath passing flatus, no bowel movement yet but trying urinating without difficulty Physical Exam Constitutional: + thin; no acute distress and not ill appearing ENMT: stoma for tracheostomy present Neck: normal visual inspection Respiratory: normal respiratory effort; no respiratory distress, no labored breathing and no retractions Gastrointestinal (Abdomen): Inspection/Auscultation: abdomen normal to inspection and + abdominal surgical incision (clean/dry/intact with julius present); abdomen not distended Percussion/Palpation: + abdomen tender (at midline incision) and abdomen soft; no guarding and abdomen not rigid Skin: no rashes, warm and dry Psychiatric: Orientation: alert and oriented x 3 Results & Data ([facility]) Vital Signs (Past 12 Hours) Vital Signs Temp Pulse Pulse Resp BP Pulse Ox 09/18/21 08:01 36.8 C 72 13 172/98 H 95 09/18/21 02:47 36.9 C 95 H 16 125/68 96 09/17/21 22:17 36.9 C 93 H 14 124/63 97 Laboratory Results 09/18/21 09/18/2122 Range/Units 05:11 05:11 Unknown WBC 8.32 (4.8-10.8) K/uL RBC 3.01 L (4.7-6.1) M/uL Hgb 8.9 L (14.0-18.0) g/dL Hct 27.9 L (42-52) % MCV 92.7 (80-100) fL MCH 29.6 (25-34) pg MCHC 31.9 L (32-36) g/dL RDW Std Deviation 61.2 H (36.4-46.3) fL RDW Coeff of Eladio 18.1 H (11.5-14.5) % Plt Count 247 (130-400) K/uL MPV 8.9 (7.4-10.4) fL Immature Gran % (Auto) % Neut % (Auto) % Lymph % (Auto) % [place] % (Auto) % Eos % (Auto) % Baso % (Auto) % Neut # (Auto) (1.4-6.5) K/uL Lymph # (Auto) (1.2-3.4) K/uL [place] # (Auto) (0.11-0.59) K/uL Eos # (Auto) (0-0.5) K/uL Baso # (Auto) (0-0.2) K/uL Immature Gran # (Auto) (0.00-0.02) K/uL Sodium 136 (136-145) mmol/L Potassium 3.7 D (3.5-5.1) mmol/L Chloride 102 (98-107) mmol/L Carbon Dioxide 28 (21-32) mmol/L Anion Gap 6 (3-11) BUN 21 (6-23) mg/dl Creatinine 0.97 (0.6-1.4) mg/dl Est Cr Clr Drug Dosing 52.4 ml/min Est GFR ( Amer) 90.0 ml/min Est GFR (Non-Af Amer) 77.7 ml/min BUN/Creatinine Ratio 21.6 H (10-20) Glucose 94 (70-99) mg/dl Calcium 8.8 (8.5-10.1) mg/dl Urine Color Yellow Urine Appearance Clear (Clear) Urine pH 5.0 (4.5-7.5) Ur Specific [place] 1.022 (1.000-1.030) Urine Protein Trace H (Negative) Urine Glucose (UA) Negative (Negative) Urine Ketones Negative (Negative) Urine Blood Trace H (Negative) Urine Nitrite Negative (Negative) Urine Bilirubin Negative (Negative) Urine Urobilinogen Negative (Negative) Ur Leukocyte Esterase Negative (Negative) Urine WBC (Auto) 5-10 H (0-5) /hpf Urine RBC (Auto) 5-10 H (0-4) /hpf U Hyaline Cast (Auto) 5-10 H (0-5) /lpf U Epithel Cells (Auto) >30 H (0-5) /lpf Urine Bacteria (Auto) Negative (Negative) Ur Renal Epithelial Cell 0-5 (0-5) /lpf Other Crystals Talc (None Prsent) Granular Casts 1-5 H (0) /lpf Urine Mucus Present A (None Prsent) 09/17/21 09/17/21 Range/Units 10:19 10:19 WBC 12.16 H (4.8-10.8) K/uL RBC 3.25 L (4.7-6.1) M/uL Hgb 9.7 L (14.0-18.0) g/dL Hct 30.4 L (42-52) % MCV 93.5 (80-100) fL MCH 29.8 (25-34) pg MCHC 31.9 L (32-36) g/dL RDW Std Deviation 61.4 H (36.4-46.3) fL RDW Coeff of Eladio 17.7 H (11.5-14.5) % Plt Count 291 (130-400) K/uL MPV 8.9 (7.4-10.4) fL Immature Gran % (Auto) 0.3 % Neut % (Auto) 89.0 % Lymph % (Auto) 7.6 % [place] % (Auto) 3.0 % Eos % (Auto) 0.0 % Baso % (Auto) 0.1 % Neut # (Auto) 10.82 H (1.4-6.5) K/uL Lymph # (Auto) 0.93 L (1.2-3.4) K/uL [place] # (Auto) 0.36 (0.11-0.59) K/uL Eos # (Auto) 0.00 (0-0.5) K/uL Baso # (Auto) 0.01 (0-0.2) K/uL Immature Gran # (Auto) 0.04 H (0.00-0.02) K/uL Sodium 136 (136-145) mmol/L Potassium 4.7 (3.5-5.1) mmol/L Chloride 103 (98-107) mmol/L Carbon Dioxide 25 (21-32) mmol/L Anion Gap 8 (3-11) BUN 26 H (6-23) mg/dl Creatinine 1.08 (0.6-1.4) mg/dl Est Cr Clr Drug Dosing 47.0 ml/min Est GFR ( Amer) 79.1 ml/min Est GFR (Non-Af Amer) 68.2 ml/min BUN/Creatinine Ratio 24.1 H (10-20) Glucose 148 H (70-99) mg/dl Calcium 8.7 (8.5-10.1) mg/dl Urine Color Urine Appearance (Clear) Urine pH (4.5-7.5) Ur Specific [place] (1.000-1.030) Urine Protein (Negative) Urine Glucose (UA) (Negative) Urine Ketones (Negative) Urine Blood (Negative) Urine Nitrite (Negative) Urine Bilirubin (Negative) Urine Urobilinogen (Negative) Ur Leukocyte Esterase (Negative) Urine WBC (Auto) (0-5) /hpf Urine RBC (Auto) (0-4) /hpf U Hyaline Cast (Auto) (0-5) /lpf U Epithel Cells (Auto) (0-5) /lpf Urine Bacteria (Auto) (Negative) Ur Renal Epithelial Cell (0-5) /lpf Other Crystals (None Prsent) Granular Casts (0) /lpf Urine Mucus (None Prsent)
[2021-09-18] MEDS: traMADol HCL 50 MG TABLET PO PRN (12:04)
[2021-09-18] MEDS ORDERED: HYDROmorphone INJ 0.5 MG/0.5 ML SYR IV STA (12:21)
[2021-09-18] MEDS: LEVOTHYROXINE SODIUM 150 MCG TABLET PO SCH (13:38)
[2021-09-18] MEDS ORDERED: METOPROLOL TARTRATE 1 MG/ML VIAL IV STA (14:46)
[2021-09-18] MEDS ORDERED: hydrALAZINE HCL 20 MG/ML VIAL IV STA (15:02)
[2021-09-18] MEDS ORDERED: HYDROmorphone INJ 0.5 MG/0.5 ML SYR IV PRN (15:14)
[2021-09-18] MEDS: HYDROmorphone INJ 1 MG/ML SYRINGE IV PRN ×2 (15:44→17:50)
[2021-09-18] MEDS ORDERED: POLYETHYLENE (MIRALAX) 17 GM PACK PO PRN (15:52)
[2021-09-18] MEDS ORDERED: MoRPHine SULFATE 4 MG/ML 1 ML CARP\\VIAL IV PRN (17:40)
[2021-09-18] MEDS ORDERED: LIDOCAINE 5% 1 PATCH TD SCH (18:15)
[2021-09-18] MEDS: DOCUSATE SODIUM 100 MG CAP PO SCH (21:23)
[2021-09-19] MEDS: HYDROmorphone INJ 1 MG/ML SYRINGE IV PRN ×2 (02:00→06:05)
[2021-09-19] MEDS: LEVOTHYROXINE SODIUM 150 MCG TABLET PO SCH (05:43)
[2021-09-19] MEDS: LACTATED RINGER'S 1,000 ML IV SCH ×2 (07:06→16:46)
[2021-09-19 07:25] VITALS: PULSE 101
[2021-09-19] MEDS: traMADol HCL 50 MG TABLET PO PRN (08:18)
[2021-09-19] MEDS: ENOXAPARIN INJ 30 MG/0.3 ML SYR SQ SCH (08:18)
[2021-09-19] MEDS: DOCUSATE SODIUM 100 MG CAP PO SCH (08:24)
--- NOTE | 2021-09-19 09:06 | Pain Management Consultation ---
Date of Consultation September 19, 2021 Assessment & Plan (1) Pain of left upper extremity: (2) Squamous cell carcinoma of larynx: (3) History of radiation therapy: 1. Patient with known history of squamous cell carcinoma of the larynx status post laryngectomy with prior PET scan imaging suggesting a C7 metastatic lesion potentially contributing to left-sided shoulder and upper extremity pain. Patient reported discussion with Dr. De La Rosa earlier today to pursue updated imaging of the cervical region-would recommend cervical MRI with and without contrast. 2. Patient unlikely candidate for interventional treatment although further decision making will be dependent upon results of updated imaging of the cervical region 3. Patient reports plan to initiate fentanyl patch per Dr. De La Rosa-agree with plan 4. Could consider addition of gabapentin in liquid form 50 mg/mL-patient will further discuss with Dr. De La Rosa 5. Patient will continue with Roxicodone for as needed breakthrough pain Thank you for allowing us to participate in the care of Mr. Peralta. Pain service will sign off on patient at this time, please re-involve as needed. History of Present Illness Reason for Consultation: Intractable left shoulder and upper extremity pain/elbow Requesting Physician: Tenisha Rodriguez PA-C Attending Physician: Benton Herr MD History of Present Illness Mr. Peralta is a 71-year-old white male who was admitted due to severe abdominal pain which began on 09/16/2021. The patient was found to have incarcerated hernia with small bowel obstruction and underwent emergent exploratory laparotomy with repair of the hernia per Dr. Herr on 09/17/2021. Patient has further complicated history due to history of laryngeal cancer status post laryngectomy with local metastasis. The patient has been complaining of intractable pain involving the left shoulder and left elbow upon this admission which he describes as a 10/10 and is sharp and burning in characteristic. He is reporting an inability to find a comfortable position and interfering with sleep quality and quantity. The patient denies any significant incisional pain since the time of his surgical procedure. The patient was utilizing tramadol in the outpatient setting as prescribed by his oncology team with poor efficacy. The patient was evaluated by Dr. De La Rosa earlier today and they have a plan to initiate fentanyl patch. The patient does report difficulty swallowing pills status post his treatment for his laryngeal cancer. The patient has poor verbal communication status post laryngectomy and was transcribing most of today's conversation via hand written notes. The patient denies weakness in the left upper extremity or numbness/tingling. He denies dropping of objects. Patient reports he and Dr. De La Rosa discussed updating imaging of the cervical region although he does have a known history of C7 metastatic lesion per prior imaging. Plan of care discussed with Dr. Stella Arredondo. Pain Assessment Full Body Front + Back: 1. Left shoulder 2. Left elbow Pain scale - at its best (0-10): 7 Pain scale - at its worst (0-10): 10 Allergies Allergy/AdvReac Type Severity Reaction Status Date / Time bee venom protein (honey bee) Allergy Severe shock Verified 08/03/21 11:50 moxifloxacin Allergy Severe THROAT Verified 08/03/21 11:50 SWELLED ketamine Allergy Intermediate AGITATION, Verified 08/03/21 11:50 HALLUCINATION ,OUT OF BODY FEELING Home Medications Medication Instructions Recorded Confirmed Type cyanocobalamin (vitamin B-12) 1,000 mcg PO QAM #0 tab 01/29/13 09/16/21 History 1,000 mcg capsule levothyroxine 150 mcg tablet 150 mcg PO DAILY #90 tab 12/31/20 09/16/21 Rx tramadol 50 mg tablet 50 mg PO Q6H PRN 09/16/21 09/16/21 History Pain History Pain Intensity Pain scale - at its best (0-10): 7 Pain scale - at its worst (0-10): 10 Patient History Medical History (Updated 09/19/21 @ 09:01 by Devyn Hsu PA-C) Allergic rhinitis CKD (chronic kidney disease), stage III Cough GERD (gastroesophageal reflux disease) History of chemotherapy History of radiation therapy To larynx 09/26/10 thru 11/14/10 HTN (hypertension) Hypothyroidism RADIATION INDUCED Insomnia Larynx cancer Male erectile disorder of organic origin Neck mass Pain of left upper extremity Sensorineural hearing loss (SNHL) of both ears Solitary pulmonary nodule Squamous cell carcinoma of larynx 2009 Vitamin B12 deficiency Surgical History H/O bilateral cataract extraction H/O hand surgery BILT H/O inguinal hernia repair H/O laryngectomy MULTIPLE SX WITH RECONSTRUCTION H/O left knee surgery Left knee replacement H/O lymph node excision on 10/05/20 - Metastatic SCC History of arthroscopy of both shoulders History of biopsy Left tonsilar incisional biopsy on 11/15/20 - SCC History of esophagogastroduodenoscopy (EGD) MULTIPLE WITH DILATION History of laryngoscopy History of surgery Laryngoscopy with tumor excision on 08/26/10 History of total right hip arthroplasty History of vascular access device L CHEST S/P percutaneous endoscopic gastrostomy (PEG) tube placement WITH REMOVAL Family History Sister MVA (motor vehicle accident) Mother , in her 80s Heart disease Diabetes Father , 94yo Hypertension Prostate cancer Heart valve replaced Sister No problems noted. Son No problems noted. Son No problems noted. Daughter Intestinal cancer Daughter No problems noted. Social History Smoking Status: Former smoker Cigarettes Per Day: 1 pack every few days- pt quit 50yrs ago; Second Hand Exposure: No; Hx Alcohol Use: Yes Alcohol type: beer Hx Substance Use: No Preferred Language: [place] Communication Ability: Effective Visual Impairment: No Limitations Hearing Ability: Normal Pitch Flaker Required: No Beliefs That Will Affect Care: None marital status: `mar Current Living Situation: Spouse Current Living Situation Comment: onelia is caregiver at home current occupational status: retired current occupation: Body repair; How many Children do You have: 1 Feels Safe at Home: Yes caffeine: Yes (2 cups/day) during the past year weight has: remained stable Assistive Devices: Walker Physical Exam Physical Exam: General: Patient sitting quietly in exam room in no acute distress. Speech and thought process appropriate. Mood and affect appropriate. Cognition intact. Minimal verbal communication status post laryngectomy- communication probably through written notes. Patient patient thin and frail. Head: Normocephalic and atraumatic. ENT: No evidence of nasal or oral mucosal lesions. Mucous membranes are moist. Eyes: Pupils equal round reactive to light. Neck: Skin retraction noted status post radiation therapy of the neck and supraclavicular regions. Prominent trapezius musculature appreciated. Nontender over the midline. No focal facet joint tenderness to provocative testing. Trachea midline. Abdomen: Soft and nondistended. No organomegaly. Abdominal incision without erythema or discharge. Left upper extremity: Strength testing 5/5 with handgrip, opposition and biceps/triceps maneuvering. He is nontender to palpation over the elbow or sh oulder region. Sensation intact to sharp and dull. Patient does appear to have some muscular atrophy of the upper extremities bilaterally. Neurologic: Cranial nerves grossly intact. Ambulatory function slowed and guarded.
[2021-09-19] MEDS: oxyCODONE HCL SOLN 5 MG/5 ML UDC PO PRN ×2 (09:38→13:34)
[2021-09-19] MEDS ORDERED: fentaNYL 12 MCG/HR TDSY TD SCH ×2 (10:30→16:15)
[2021-09-19] MEDS ORDERED: GABAPENTIN 250 MG/5 ML 470 ML BTL PO ONE (12:00)
--- NOTE | 2021-09-19 12:44 | Surgery Progress Note ---
Date of Service September 19, 2021 Assessment & Plan (1) Incarcerated hernia: Plan: POD # 2 s/p ex lap repair of incarcerated incisional hernia without mesh -afebrile, leukocytosis resolved - postop pain at incision site (2) SBO (small bowel obstruction): Plan: resolved (3) Diffuse abdominal pain: Plan: resolved (4) Squamous cell carcinoma of larynx: (5) History of radiation therapy: Plan: POD # 2 s/p exploratory laparotomy and repair of incarcerated incisional hernia -afebrile, vitals stable - moderate postop pain at incision site with palpation - no n/v - + flatus - leukocytosis resolved Chronic cancer pain in left shoulder and elbow -severe at times and not well controlled. Main complaint. Plan: Given patients severe cancer pain in his left shoulder and elbow last evening, pain management and Dr. maynard was consulted. Dr. Maynard discussed with patient and this morning about pain management with Fentanyl patch and breakthrough Oxycodone. These medications were already sent to his pharmacy. Office consult will be cancelled. Pain management recommended addition of Gabapentin solution , this will be started today and titrated as recommended. He will follow-up with Dr. Herr in 1 week for stable removal Discharge instructions provided discharge this afternoon likely Dr. Herr saw patient at 12:00, more comfortable and pain better controlled. Plan for discharge home Will put in Rx for Gabapentin solution and Narcan per pain mangement recommendations f/u surgical office in 1 week Admission and Anticipated Discharge Date Admission Date: September 17, 2021 Subjective Patient having severe let shoulder and elbow pain that is no controlled not having much abdominal pain no n,v tolerating full liquids passing gas but no bowel movement yet Dr. Maynard has ordered for Fentanyl patch 12 mcg and breakthrough Oxycodone for home. Pain management was also consulted last evening due to patients severe left shoulder and elbow pain. Saw patient this morning and agreed with proceeding with Fentanyl patch, breakthrough narcotic and consideration of Gabapentin solution. Physical Exam Constitutional: + thin; + uncomfortable and not diaphoretic upon initial evaluation patinet was in mild distress due to his left shoulder/elbow pain. After pain medication he was more comfortable. Respiratory: normal respiratory effort; no respiratory distress, no labored breathing and no retractions Gastrointestinal (Abdomen): Inspection/Auscultation: abdomen normal to inspection and + abdominal surgical incision (clean/dry/intact with julius intact); abdomen not distended Percussion/Palpation: + abdomen tender (at midline incision), + guarding (at midline incision) and abdomen soft; abdomen not rigid ecchymosis to the right of the midline incision, some induration but no fluctuance. Likely postop hematoma/seroma Skin: no rashes, warm and dry Psychiatric: Orientation: alert and oriented x 3 Results & Data ([facility]) Vital Signs (Past 12 Hours) Vital Signs Temp Pulse Resp BP Pulse Ox 09/19/21 07:24 36.8 C 101 H 16 140/74 95
[2021-09-19 15:17] VITALS: BP 127/67; TEMP 98.8; O2SAT 94
[2021-09-19] MEDS ORDERED: oxyCODONE HCL SOLN 5 MG/5 ML UDC PO PRN (15:22)
[2021-09-19] MEDS ORDERED: CHECK fentaNYL PATCH PLACEMENT SCH (16:00)
[2021-09-19] MEDS ORDERED: POLYETHYLENE (MIRALAX) 17 GM PACK PO STA (16:05)
[2021-09-19] MEDS ORDERED: DEXAMETHASONE SOD INJ 4 MG/ML VIAL IV STA (16:05)
[2021-09-19] MEDS ORDERED: dexAMETHasone 4 MG in SYRINGE 0 ML IV ONE (16:30)
[2021-09-19] MEDS ORDERED: dexAMETHasone 10 MG in SYRINGE 0 ML IV ONE (16:30)
[2021-09-20] MEDS ORDERED: CHECK fentaNYL PATCH PLACEMENT SCH
--- NOTE | 2021-09-20 11:50 | Discharge Summary ---
Date of Service September 20, 2021 Admission HPI Per Admitting Provider 71-year-old gentleman presents with severe increasing abdominal pain since this morning. This is accompanied by nausea and vomiting. He has a prior history of laryngeal cancer status post laryngectomy. He does have a stoma. He underwent gastrostomy tube placement approximately 8 years ago and has an upper midline incision. He states that over the past few weeks he has noticed a bulge in this location. He has had some increasing pain. The pain this morning was unbearable. CT scan demonstrates incarcerated hernia containing small bowel. He denies fevers or chills. He denies other complaints. Principal Diagnosis Incarcerated incisional hernia causing SBO Discharge Data Allergies Allergy/AdvReac Type Severity Reaction Status Date / Time bee venom protein (honey bee) Allergy Severe shock Verified 08/03/21 11:50 moxifloxacin Allergy Severe THROAT Verified 08/03/21 11:50 SWELLED ketamine Allergy Intermediate AGITATION, Verified 08/03/21 11:50 HALLUCINATION ,OUT OF BODY FEELING Consultations 09/16/21 22:43 Consult General Surgery Stat 09/19/21 08:42 Consult Pain Management Routine Procedures Performed Operation Date: 09/17/21 01:00 Actual Procedures p Open Incarcerated Hernia Repair - Benton Herr MD s Exploratory Laparotomy - Benton Herr MD Ordered Studies 09/16/21 20:18 CT abd pelvis wo con Stat Hospital Course (1) Incarcerated hernia: (2) SBO (small bowel obstruction): resolved (3) Diffuse abdominal pain: resolved (4) Squamous cell carcinoma of larynx: (5) History of radiation therapy: Patient was taken to the operating room for exploratory laparotomy, repair of incarcerated hernia with possible small bowel resection by Dr. Herr in the portable trackman of September 17, 2021. Patient was found to have incarcerated incisional hernia however small bowel was viable and no bowel resection required. The hernia was repaired without mesh with heavy suture. Patient was transferred to the medical/surgical floor for postoperative care. His postoperative orders included IV fluids, IV Dilaudid as needed for pain, IV Zofran and Phenergan as needed for nausea, activity as tolerated, diet was advanced to clear liquids. Patient was evaluated 8 hours postop and was having minimal abdominal pain. Vital signs were stable and afebrile. Tolerating clear liquids. No return of bowel function as of yet. Postop day #1 patient was reevaluated. Afebrile, vital signs stable however he was hypertensive likely secondary to pain. The frequency of the IV dilaudid was increased as well as the dose for severe pain. No nausea no vomiting. abdominal pain better controlled with pain management however his main complaint was left shoulder and elbow pain. His leukocytosis resolved. His diet was advanced as tolerated for lunch. Patient was evaluated around lunchtime and doing well and was going to be discharged home in the afternoon. Unfortunately in late afternoon and early evening patient's chronic left shoulder and elbow pain from his metastatic C7 lesion increased in severity. His oncologist was consulted as well as pain management. Patient was kept overnight for pain control. Postop day #2 pain management had seen patient in the morning and discussed possible fentanyl patch, Roxicodone as needed for breakthrough pain, and trial of gabapentin solution. Dr. De La Rosa also saw patient in the morning and discussed outpatient pain management including fentanyl patch and oxycodone for breakthrough pain. Unfortunately throughout the day his pain was severe and not controlled. The fentanyl patch was applied in the morning and a dose of gabapentin was given around lunchtime. He was getting breakthrough oxycodone as needed as well. Around 2:30 in the afternoon patient was still having a lot of pain and present at bedside and he was not able to be discharged given severe pain. Consulted services were again contacted due to patients uncontrolled pain ( Dr. De La Rosa and pain management). They recommended increasing his Roxicodone and waiting for the fentanyl patch to come into effect. He was given 1 dose of dexamethasone 4 mg IV. After discussion with Dr. De La Rosa about patients metastatic cancer, chronic pain, and unable to receive any further radiation therapy and history of failed chemotherapy, I had a long discussion with patient and in regards to trying to get his acute on chronic left shoulder or elbow pain controlled and to get him home as he was doing fine from surgical standpoint and there is not much more we could provide in form of pain management right now as the Fentanyl patch takes time to come into effect. He is to follow-up closely with Dr. De La Rosa and was advised to call Dr. De La Rosa's office if his pain is continued to be severe at home as that can try to manage his pain as an outpatient. Discharge instructions were reviewed with patient and his in case they were planning to go home in the evening on postop day #2. Hospital course was complicated due to his acute on chronic left shoulder and elbow pain requiring consult to pain management and trying to get his pain under control however from a general surgical perspective his hospital course was uneventful. Total Time Total Time Spent Total Time Spent (In Minutes): 180 Total Time Includes: Examination of the Patient, Discharge Planning, Medication Reconciliation and Communication With Other Providers Discharge Plan Discharge Items Patient Disposition: Home - Self-Care Reason For Visit: INCARCERATED INCISIONAL HERNIA Discharge Diagnosis: Incarcerated incisional hernia Chronic left shoulder and elbow pain Condition on Discharge: Good Activity: Per Instructions section Non-emergency contact: Primary Care Provider, Surgeon and Oncologist Call non-emergency contact if: you have any medication questions, your pain is not controlled, your pain is worsening, your pain is concerning for you, you have a fever, your temperature is above 101, your wound has increased redness, your wound has increased drainage and your wound pain has increased Follow-up/Referrals: Sean Medel MD [Primary Care Provider] - 10/01/21 3:15 pm Benton Herr MD [Physician] - 09/27/21 1:45 pm (Follow-up with Dr. Herr for postop visit and staple removal) Francisco De La Rosa DO [Physician] - 09/24/21 8:00 am Diet: Regular Addtl Attending Provider Instructions: Post-Surgical ~Discharge Instructions Activity Recommendations: - lifting limitation: (10 pounds for at least 6 weeks), - exercise/sex/sports limit: (nonstrenuous for 2 weeks), - driving or machine use limit: (none for 1 week or until pain free), - Shower/bathe limit: (may shower) Diet: - Resume previous diet SPECIAL CARE INSTRUCTIONS: - May shower. Let water run over area and pat dry. No submerging incision underwater for 2 weeks - Surgical julius will be removed in office - Call the surgeon's office with any questions or concerns - - (ex. temperature higher than 101 degrees F, excessive bleeding or pain). MEDICATIONS: - Resume previous medications unless instructed otherwise by your surgeon. - Your pain medications have changed given the severe left shoulder and elbow pain Dr. De La Rosa ordered Fentanyl patch and breakthrough Oxycodone. These have already been sent to our pharmacy. Take as directed. Pain management team recommended addition of Gabapentin . This medication will be titrated as follows: - 300 mg orally at bedtime for 5 days - 300 mg orally twice a day for 5 days - 300 mg orally three times a day - You should also start stool softener (Colace) twice a day given the pain medication to prevent constipation , hard stools, and straining. - You may also take Miralax 17 gm daily if still constipated with the Colace. FOLLOW UP VISIT: - If not already scheduled, please call the office to schedule a two week follow-up appointment. Office number Pending Studies at Discharge: No Stand-Alone Forms: [facility] Real Intent, Smoking Cessation Medications and DC Order Prescriptions: New docusate sodium 100 mg Capsule 100 mg PO BID Qty: 60 RF: 0 gabapentin 300 mg/6 mL (6 mL) solution See Rx Instructions .ROUTE .COMPLEX 30 Days Qty: 450 RF: 0 naloxone 4 mg/actuation spray,non-aerosol 1 spray intranasal ONCE PRN (Reason: opioid overdose) Qty: 2 RF: 0 Continued cyanocobalamin (vitamin B-12) 1,000 mcg Capsule 1,000 mcg PO QAM Qty: 0 RF: 0 levothyroxine 150 mcg tablet 150 mcg PO DAILY Qty: 90 RF: 3 Discontinued tramadol 50 mg Tablet 50 mg PO Q6H PRN (Reason: Pain) RF: 0 No Action fentanyl 12 mcg/hr patch 72 hour 1 patch transdermal Q72H RF: 0 oxycodone 10 mg tablet 10 mg PO Q4H PRNRF: 0 Discharge Orders: Discharge Order (Routine); Ordered 09/19/21 Ordered By: Tenisha Zambrano/Other Patient Handouts: Managing Post-Op Pain at Home Admission Data Admit Date/Time: 09/17/21 14:16 Attending Provider: Benton Herr Admit Provider: Benton Herr Primary Care Provider: Sean Medel Other Providers: Benton Herr ; Max Box Other Interventions: Discharge Summary Assessment (RN) Last Done: 09/19/21 17:52
== END 2021-09-19 18:40 | disposition home or self-care (01) | DRG 353 ==
LOC: ED 19:32 → 3W 09-17 00:44 → OR 09-17 00:44